=== PATIENT | female | born 1940 | race Caucasian/White ===

== ENCOUNTER 2019-11-23 13:36 | Inpatient (IN) | payer MEDICARE, OTHER ==
--- OUTSIDE RECORDS SUMMARY | 2019-11-23 14:04 | XMS REPORT | Continuity of Care Document ---
:1940 External Reference #:[id number] Author Name Hans Michael D.O. Address [address] [place] [id number] Care Team Providers Name Role Phone Malka Blas MD - Surgery Care Team Information Supervisor Powdered Sugar [phone] Problems Active Problems Provider Date Emphysematous bronchitis Moustapha Renner M.D. Onset: 07/14/2003 Eruption Moustapha Renner M.D. Onset: 07/14/2003 Gastroesophageal reflux disease Moustapha Renner M.D. Onset: 07/14/2003 Hyperlipidemia Moustapha Renner M.D. Onset: 07/14/2003 Migraine variants, not intractable Moustapha Renner M.D. Onset: 07/14/2003 Lichen Moustapha Renner M.D. Onset: 07/14/2003 Diverticular disease of colon Moustapha Renner M.D. Onset: 02/27/2004 Benign essential hypertension Moustapha Renner M.D. Onset: 05/12/2008 Osteochondropathy Moustapha Renner M.D. Onset: 12/26/2011 Osteoarthritis Moustapha Renner M.D. Onset: 01/05/2013 Essential hypertension Moustapha Renner M.D. Onset: 07/18/2015 Chronic obstructive lung disease Moustapha Renner M.D. Onset: 07/18/2015 Polyosteoarthritis, unspecified Moustapha Renner M.D. Onset: 07/18/2015 Impaired fasting glycaemia Hans Michael D.O. Onset: 07/25/2017 Social History Type Date Description Comments Sex Unknown Tobacco Use Start: Unknown End: Unknown Does Not Smoke Cigarettes Tobacco Use Reviewed: 11/21/18 Denies Cigarette Use Smoking Status Reviewed: 10/21/19 Denies Cigarette Use ETOH Use Rare Alcohol Use Tobacco Use Start: Unknown Non Smoker / No Tobacco Tobacco Use Start: Unknown Patient has never smoked Allergies, Adverse Reactions, Alerts Active Allergies Reaction Severity Comments Date Ceftin swelling 07/14/2003 Penicillin rash iitchy 07/14/2003 Singulair headache and nausea chest pain blurred 09/05/2003 vision Erythromycin 11/19/2003 Augmentin 11/19/2003 Doxcycline 11/19/2003 Biaxin 11/19/2003 Zantac hives 05/29/2004 Naproxen 04/05/2011 Pro Air Inhaler shaking 03/12/2012 Medications Active Medications SIG Qnty Indications Ordering Date Provider Nystatin take 4 60ml [facility], 11/05/2019 890305Atwa/ML milliliters swish Hans, D.O. Suspension and swallow 2 times per day x 14 days Furosemide take 1 tablet by 90tabs [facility], 10/22/2019 80mg Tablets mouth Hans, D.O. Shingrix 1 shot repeat 1units [facility], 08/20/2019 50mcg/0.5ML once in 2 months Hans, D.O. Suspension Rec Advair HFA 2 puffs twice a 36gm J44.9 [facility], 04/19/2019 115-21mcg/Act day rinse mouth Hans, D.O. Aerosol after use Proair HFA 1-2 puffs four 25.5gm [facility], 03/04/2019 108(90Base) times a day as Hans, D.O. mcg/Act Aerosol needed Vitamin B Complex 1 by mouth twice Unknown 05/03/2018 Tablets daily [facility]opid[facility]rel [facility], 06/27/2017 75mg mouth once daily Hans, D.O. Tablets Metformin HCL ER take 1 tablet by 90tabs E11.9 [facility], 06/27/2017 500mg mouth once daily Hans, D.O. Tablets ER 24HR Atorvastatin Calcium [facility] 1 [facility], 06/27/2017 40mg Mouth Once Daily Hans, D.O. Tablets AT 5 PM Ipratropium use four times a 540ml J44.9 [facility], 06/17/2016 [place]/Albuterol day as needed in Hans, D.O. Sulfate nebulizer 0.5-2.5(3)mg/3ML Solution Nitrostat 1 every 5min as 100tabs R06.09 [facility], 10/30/2015 0.4mg Tablets Sub needed heart pain Hans, D.O. up to 3 max then call 911 if unreleaved Famotidine Take 1 Tablet By 180tabs [facility], 07/23/2013 40mg Tablets Mouth Twice Daily Hans, D.O. For Acid Reflux Loratadine take one tablet 90tabs J30.9 [facility], 01/12/2013 10mg Tablets by mouth once Hans, D.O. daily Methylprednisolone 1/2-1 tablets a 90tabs J44.9 [facility], 04/27/2012 4mg day mdd 4mg Hans, D.O. Tablets Vitamin D-3 1 po qd otc 627.2 Moustapha Velez 12/04/2011 1000Unit Tablets Brynn Renner Tylenol Extra Strength take one before otc Unknown 04/04/2011 500mg gettingout of bed Tablets in the morning prn Fluticasone Propionate Instill 2 Sprays 96units R51 [facility], 11/01/2010 Each Nostril Once Hans, D.O. 50mcg/Act Suspension A Day For Nasal Congestion, Sandy Allergies, Rinse Mouth Post Use History Medications Sulfamethoxazole/Trimethoprim DS 1 by mouth 20tabs J45.901 [facility], 2018 - 800-160mg twice a Hans, D.O. 08/30/2019 Tablets day Medications Administered in Office Medication SIG Qnty Indications Ordering Provider Date injection, kenalog, 10 mg Hans Michael D.O. 04/20/2018 Injection injection, kenalog, 10 mg Hans Michael D.OCharlene 01/22/2018 Injection injection, kenalog, 10 mg Moustapha Renner M.D. 06/27/2016 Injection H1N1 Swine Flu Vaccine Nurse's Schedule 10/23/2009 Injection injection, walteralog, 10 mg Moustapha Renner M.D. 07/25/2009 Injection Immunizations CPT Code Status Date Vaccine Lot # [id number] Given 06/23/2019 Influenza Vaccine, Inactivated, Subunit, [id number] Adjuvanted, For Intrmusc 07312 Given 08/21/2018 Influenza Vaccine Quadrivalent Preser/[place] [address] Given 08/06/2018 Influenza Vaccine, Inactivated, Subunit, [id number] Adjuvanted, [place] [facility] [place] [address] Given 07/03/2017 Influenza Virus Vaccine, Quadrivalent, Split, [id number] Preservative Free 42325 Given 06/27/2016 Influenza Vaccine Split Virus Preservative Free Im [id number] Use (hi-dose) 07688 Given 08/29/2015 Influenza Vaccine Split Virus Preservative Free Im [id number] Use (hi-dose) 90321 Given 01/23/2015 Prevnar 13 [id number] 92277 Given 07/22/2014 Influenza Vaccine Split Virus Preservative Free Im Use (hi-dose) 91232 Given 07/01/2014 Zostavax 04030 Given 07/23/2013 Flu, Split Virus 3Yrs [id number] 39421 Given 01/12/2013 Adacel or Boostrix, TDaP [id number] 75812 Given 07/15/2012 Flu, Split Virus 3Yrs [id number] 91287 Given 06/27/2011 Flu, Split Virus 3Yrs [id number] 72847 Given 06/27/2011 Pneumococcal Immunization [id number] 55870 Given 07/18/2010 Flu, Split Virus 3Yrs [id number] 44844 Given 07/06/2009 Flu, Split Virus 3Yrs 16185 Given 08/06/2008 Flu, Split Virus 3Yrs [id number] 04497 Given 08/24/2007 Flu, Split Virus 3Yrs [id number] 04718 Given 08/20/2006 Flu, Split Virus 3Yrs [id number] 18236 Given 07/25/2005 Flu, Split Virus 3Yrs 80121 Given 08/04/2004 Flu, Split Virus 3Yrs 58653 Given 08/17/2003 Flu, Split Virus 3Yrs 57285 Given 07/14/2003 Pneumococcal Immunization 89514 Given 10/27/2002 Td Immunization 38700 Given 08/29/1998 Pneumococcal Immunization U-MenB Given Unknown Meningococcal B,Unspecified Vital Signs Date Vital Result Comment 10/21/2019 11:12am BP Systolic 144 mmHg BP Diastolic 60 mmHg Body Temperature 97.8 F Weight 254.00 lb w/sneakers 08/20/2019 1:37pm BP Systolic 138 mmHg BP Diastolic 64 mmHg Height 64 inches 5'4" Weight 240.00 lb BMI (Body Mass Index) 41.2 kg/m2 Results Test Acquired Date Facility Test Result H/L Range Note CBC Auto 10/21/2019 [facility] White Blood 11.1 10^3/uL High 3.5- 10.8 Diff [phone] Count Red Blood Count 4.36 10^6/uL Normal 3.70-4.87 Hemoglobin 13.6 g/dL Normal 12.0-16.0 Hematocrit 41 % Normal 35-47 Mean Corpuscular Volume 93 fL Normal 80-97 Mean Corpuscular Hemoglobin 31 pg Normal 27-31 Mean Corpuscular HGB Conc 34 g/dL Normal 31-36 Red Cell Distribution Width 15 % Normal 10-15 Platelet Count 262 10^3/uL Normal 150-450 Mean Platelet Volume 8.8 fL Normal 7.4-10.4 Abs Neutrophils 9.2 10^3/uL High 1.5-7.7 Abs Lymphocytes 1.1 10^3/uL Normal 1.0-4.8 Abs Monocytes 0.7 10^3/uL Normal 0-0.8 Abs Eosinophils 0.1 10^3/uL Normal 0-0.6 Abs Basophils 0.0 10^3/uL Normal 0-0.2 Abs Nucleated RBC 0.0 10^3/uL Granulocyte % 83.0 % Lymphocyte % 9.8 % Monocyte % 6.0 % Eosinophil % 1.0 % Basophil % 0.2 % Nucleated Red Blood Cells % 0.0 Comp Metabolic Panel 10/21/2019 [facility] Sodium 141 mmol/L Normal 135-145 [phone] Potassium 3.8 mmol/L Normal 3.5-5.0 Chloride 98 mmol/L Low 101-111 Co2 Carbon Dioxide 32 mmol/L Normal 22-32 Anion Gap 11 mmol/L Normal 2-11 Glucose 147 mg/dL High 70-100 Blood Urea Nitrogen 19 mg/dL Normal 6-24 Creatinine 1.19 mg/dL High 0.51-0.95 BUN/Creatinine Ratio 16.0 Normal 8-20 Calcium 9.8 mg/dL Normal 8.6-10.3 Total Protein 6.7 g/dL Normal 6.4-8.9 Albumin 4.3 g/dL Normal 3.2-5.2 Globulin 2.4 g/dL Normal 2-4 Albumin/Globulin Ratio 1.8 Normal 1-3 Total Bilirubin 0.50 mg/dL Normal 0.2-1.0 Alkaline Phosphatase 76 U/L Normal 34-104 Alt 19 U/L Normal 7-52 Ast 16 U/L Normal 13-39 Egfr Non- 43.5 >60 Egfr 52.7 >60 1 Laboratory test 10/21/2019 [facility] Magnesium 2.0 mg/dL Normal 1.9- 2.7 finding [phone] TSH (Thyroid Stim Horm) 4.32 mcIU/mL Normal 0.34-5.60 Vitamin B12 471 pg/mL Normal 180-914 2 Erythrocyte Sed Rate 10 mm/Hr Normal 0-29 C Reactive Protein 3.42 mg/L Normal <8.01 Laboratory test 10/21/2019 [facility] Fungal Cult SEE RESULT 3, 4 finding [phone] Other Sources BELOW Fungal Sensitivities SEE RESULT BELOW 5 Laboratory test finding 08/20/2019 In House Hemoglobin A1c 6.2 1 Because ethnic data is not always readily available, this report includes an eGFR for both -Americans and non- Americans. The National Kidney Disease Education Program (NKDEP) does not endorse the use of the MDRD equation for patients that are not between the ages of 18 and 70, are , have extremes of body size, muscle mass, or nutritional status, or are non- or non-. According to the National Kidney Foundation, irrespective of diagnosis, the stage of the disease is based on the level of kidney function: Stage Description GFR(mL/min/1.73 m(2)) 1 Kidney damage with normal or decreased GFR 90 2 Kidney damage with mild decrease in GFR 60-89 3 Moderate decrease in GFR 30-59 4 Severe decrease in GFR 15-29 5 Kidney failure <15 (or dialysis) 2 Normal Range 180 to 914 Indeterminate Range 145 to 180 Deficient Range <145 3 [id number] MOUTH 4 SEE RESULT BELOW Name: MARILYN VERDUGO Royce : [address]: Hans Michael DO Acct: [id number] Unit: [id number] AGE: 79 Location: [facility] Re10/21/19 SEX: F Status: REG REF SPEC: [id number] SILVIO: 10/21/19-[address] [facility] [address]: Hans Michael DO REQ: [id number] RECD: 10/21/19 STATUS: RES _ SOURCE: MISC SOUR SPDESC: ORDERED: Fungal - Other COMMENTS: [id number] MOUTH Procedure Result Reported Site Fungal Cult - Other Sources Preliminary 11/01/19- 1252 ML Organism 1 ANALI ALBICANS Organism 2 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 Treatment with caspofungin may be necessary. Fungal sensitivity testing available upon request. * [facility] - Main Lab . END OF REPORT DEPARTMENT OF PATHOLOGY, [address] [place] [address] Wm Lyn M.D. Director [facility] # [id number] 5 SEE RESULT BELOW Name: MARILYN VERDUGO Royce : [address]: Hans Michael DO Acct: [id number] Unit: [id number] AGE: 79 Location: [facility] Re10/21/19 SEX: F Status: REG REF SPEC: [id number] SILVIO: 10/21/19-[address] [facility] [address]: Hans Michael DO REQ: [id number] RECD: 10/21/19027 STATUS: COMP _ SOURCE: [facility] SOUR SPDESC: ORDERED: Fungal Sensi COMMENTS: C. GLABRATA FOR CONFIRMATION AND SENS [place] Procedure Result Reported Site Fungal Sensitivities Final 11/08/19- 1508 ML FINAL IDENTIFICATION: Anali glabrata 11/08/2019 Major Test(s) Performed MALDI-TOF Mass Spectrometry Analysis* : Anali glabrata 11/08/2019 Amphotericin B E test: Not interpretable; 0.064 ug/ml 11/08/2019 Anidulafungin: Susceptible; 0.06 ug/ml 11/08/2019 Caspofungin: Susceptible; 0.06 ug/ml 11/08/2019 Fluconazole: Susceptible-Dose Dependent; 8 ug/ml 11/08/2019 Itraconazole: Not interpretable; 1 ug/ml 11/08/2019 Micafungin: Susceptible; 0.015 ug/ml 11/08/2019 Posaconazole: Not interpretable; 1 ug/ml 11/08/2019 Voriconazole: Not interpretable; 0.25 ug/ml 11/08/2019 Isavuconazole: Not interpretable; 0.25 ug/ml 11/08/2019 CONTINUED ON NEXT PAGE DEPARTMENT OF PATHOLOGY, [address] [place] [address] Wm Lyn M.D. Director [facility] # [id number] Specimen: [id number] Collected: 10/21/19-1215 Received: 10/21/19-1430 (Continued) Procedure Result Reported Site Fungal Sensitivities Final (continued) 11/08/19- 1508 NOTES: [1] Antifungal susceptibility testing was performed using broth microdilution method for all drugs except Amphotericin B and 5-flucytosine in accordance with current Clinical and Laboratory Standards [place] (CLSI) standard M27-A3 and in accordance with Clinical Laboratory Improvement Amendments (CLIA) regulations. [2] The SARAHY breakpoints for echinocandins, fluconazole and voriconazole are based upon CLSI M27-S4 document [3] SARAHY equal to or less than 32: Expert consultation on selection of a maximum dosage regimen may be useful * The performance characteristics of this test were determined by the [facility]. It has not been cleared or approved by the U.S. Food and Drug Administration. Test Performed by: [facility] of [address] [address] * [facility] - Main Lab . END OF REPORT DEPARTMENT OF PATHOLOGY, [address] [place] [address] Wm Lyn M.D. Director [facility] # [id number] Procedures Date Code Description Status 10/21/2019 62375 Electrocardiogram Complete Completed 06/23/2019 74436 Omt 7-8 Body Regions Completed 06/14/2019 58289 Omt 3 To 4 Body Regions Involved Completed 02/25/2019 536406300 Diabetic Retinal Eye Exam Completed 06/27/2016 99245306 Mammogram Completed 10/09/2013 481721978 Bone Mineral Density Test Completed 03/21/2004 73290454 Colonoscopy Completed Medical Devices Description No Information Available Encounters Type Date Location Provider Dx Diagnosis Office Visit 10/21/2019 11:00a Main Office Hans Michael D.O. M54.5 Low back pain R73.01 Impaired fasting glucose I10 Essential (primary) hypertension J44.9 Chronic obstructive pulmonary disease, unspecified B37.0 Candidal stomatitis R60.9 Edema, unspecified R05 Cough Office Visit 08/20/2019 1:30p Main Office Hans Michael, Z68.41 Body mass index D.O. (BMI) 40.0-44.9, adult R73.01 Impaired fasting glucose M54.5 Low back pain I10 Essential (primary) hypertension J44.9 Chronic obstructive pulmonary disease, unspecified R05 Cough J45.901 Unspecified asthma with (acute) exacerbation Office Visit 06/23/2019 4:45p Main Office Hans Michael D.O. M54.5 Low back pain I10 Essential (primary) hypertension J44.9 Chronic obstructive pulmonary disease, unspecified M99.00 Segmental and somatic dysfunction of head region M99.03 Segmental and somatic dysfunction of lumbar region M99.05 Segmental and somatic dysfunction of pelvic region M99.01 Segmental and somatic dysfunction of cervical region M99.04 Segmental and somatic dysfunction of sacral region M99.02 Segmental and somatic dysfunction of thoracic region M99.08 Segmental and somatic dysfunction of rib cage Z23 Encounter for immunization Office Visit 06/14/2019 4:30p Main Office Hans Michael D.O. M54.5 Low back pain I10 Essential (primary) hypertension J44.9 Chronic obstructive pulmonary disease, unspecified M99.05 Segmental and somatic dysfunction of pelvic region M99.03 Segmental and somatic dysfunction of lumbar region M99.04 Segmental and somatic dysfunction of sacral region Assessments Date Code Description Provider 10/21/2019 M54.5 Low back pain Hans Michael D.O. 10/21/2019 R73.01 Impaired fasting glucose Hans Michael D.O. 10/21/2019 I10 Essential (primary) hypertension Hans Michael D.O. 10/21/2019 J44.9 Chronic obstructive pulmonary disease, FernandaHans, D.O. unspecified 10/21/2019 B37.0 Candidal stomatitis GiselleshaneHans, D.O. 10/21/2019 R60.9 Edema, unspecified FernandaHans, D.O. 10/21/2019 R05 Cough FernandaHans, D.O. 08/20/2019 Z68.41 Body mass index (BMI) 40.0-44.9, adult SelenaHans long, D.O. 08/20/2019 R73.01 Impaired fasting glucose SelenaHans long, D.O. 08/20/2019 M54.5 Low back pain Hans Michael, D.O. 08/20/2019 I10 Essential (primary) hypertension Hans Michael, D.O. 08/20/2019 J44.9 Chronic obstructive pulmonary disease, SelenaHans long, D.O. unspecified 08/20/2019 R05 Cough FernandaHans, D.O. 08/20/2019 J45.901 Unspecified asthma with (acute) exacerbation Hans Michael, D.O. 06/23/2019 M54.5 Low back pain GiselleshaneHans, D.O. 06/23/2019 I10 Essential (primary) hypertension Hans Michael, D.O. 06/23/2019 J44.9 Chronic obstructive pulmonary disease, SelenaHans long, D.O. unspecified 06/23/2019 M99.00 Segmental and somatic dysfunction of head SopchakAwaison, D.O. region 06/23/2019 M99.03 Segmental and somatic dysfunction of lumbar SopchakHans , D.O. region 06/23/2019 M99.05 Segmental and somatic dysfunction of pelvic SopvesnakHans , D.O. region 06/23/2019 M99.01 Segmental and somatic dysfunction of cervical SopvesnakHans, D.O. region 06/23/2019 M99.04 Segmental and somatic dysfunction of sacral SopvesnakHans , D.O. region 06/23/2019 M99.02 Segmental and somatic dysfunction of thoracic SopvesnakHans, D.O. region 06/23/2019 M99.08 Segmental and somatic dysfunction of rib cage Hans Michael D.O. 06/23/2019 Z23 Encounter for immunization Hans Michael D.O. 06/14/2019 M54.5 Low back pain Hans Michael D.O. 06/14/2019 I10 Essential (primary) hypertension Hans Michael D.O. 06/14/2019 J44.9 Chronic obstructive pulmonary disease, Hans Michael D.O. unspecified 06/14/2019 M99.05 Segmental and somatic dysfunction of pelvic Hans Michael D.O. region 06/14/2019 M99.03 Segmental and somatic dysfunction of lumbar Hans Michael D.O. region 06/14/2019 M99.04 Segmental and somatic dysfunction of sacral Hans Michael D.O. region Plan of Treatment Future Appointment(s):11/23/2019 1:30 pm - Hans Michael D.O. at Main [facility]/21/2019 - Hans Michael D.O.M54.5 Low back painFollow up:1 month edema, low back painR73.01 Impaired fasting ipusckaZ77 Essential (primary) pwovcmkuaamnL94.9 Chronic obstructive pulmonary disease, rxcjdvhudgmR81.0 Candidal uzgmdileluX18.9 Edema, lyldsehcvirX91 Cough Functional Status Description No Information Available Mental Status Description No Information Available Referrals Description No Information Available
--- OUTSIDE RECORDS SUMMARY | 2019-11-23 14:04 | XMS REPORT | Continuity of Care Document ---
:1940 External Reference #:[id number] Author Name Hans Michael D.O. 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 Onset: 07/14/2003 Gastroesophageal reflux disease Moustapha Renner M.D. Onset: 07/14/2003 Hyperlipidemia Moustapha Renner M.D. Onset: 07/14/2003 Migraine variants, not intractable Moustapha Renner M.D. Onset: 07/14/2003 Diverticular disease of colon Moustapha Renner M.D. Onset: 02/27/2004 Benign essential hypertension Moustapha Renner M.D. Onset: 05/12/2008 Osteoarthritis Moustapha Renner M.D. Onset: 01/05/2013 Essential [...] 11/21/18 Denies Cigarette Use Smoking Status Reviewed: 11/11/19 Denies Cigarette Use ETOH Use Rare Alcohol [...] Medications SIG Qnty Indications Ordering Date Provider Fluconazole (800mg/20ml) swish [facility] and swallow daily Hans, D.O. 0 Suspension Rec x 14 days Stop Atorvastatin while taking this medication Levofloxacin 1 po daily for 7tabs [facility].1 [facility], 500[facility] Tablets seven days. Hans, D.O. 0 Prednisone 2 by mouth every 10tabs J44.1 [facility], 20mg Tablets day for 5d until Hans, D.O. 0 gone Furosemide take 1 tablet by [facility], 80[facility] Table[facility] mouth Hans, D.O. 9 Shingrix 1 shot repeat once 1units [facility], 50mcg/0.5ML in 2 months Hans D.O. 9 Suspension Rec Advair HFA 2 puffs twice a 36gm J44.9 [facility], 115-21mcg/Act day rinse mouth Hans D.O. 9 Aerosol after use Proair HFA 1-2 puffs four 25.5gm [facility], 108(90Base) times a day as Hans, D.O. 9 mcg/Act Aerosol needed Vitamin B Complex 1 by mouth twice Unknown Tablets daily 8 Atorvastatin Calcium Take 1 Tablet By 90tabs [place], 40mg Mouth Once Daily Hans, D.O. 7 Tablets AT 5 PM Metformin HCL ER take 1 tablet by 90tabs E11.9 [facility], 500mg mouth once daily Hans, D.O. 7 Tablets ER 24HR Clopidogrel Bisulfate take 1 tablet by 90tabs [place], 75mg mouth once daily Hans, D.O. 7 Tablets Ipratropium use four times a 540ml J44.9 [facility], [place]/Albuterol day as needed in Hans D.O. 6 Sulfate nebulizer 0.5-2.5(3)mg/3ML Solution Nitrostat 1 every 5min as 100tabs R06.09 [facility], 0.4mg Tablets Sub needed heart pain Alli MaxwellO. 6 up to 3 max then call 911 if unreleaved Famotidine Take 1 Tablet By 180tabs [facility], 40mg Tablets Mouth Twice Daily Hans D.O. 3 For Acid Reflux Loratadine take one tablet by 90tabs J30.9 [facility], 10mg Tablets mouth once daily Kwasi Maxwell.O. 3 Methylprednisolone 1/2-1 tablets a 90tabs J44.9 [facility], 4mg day mdd 4mg Hans D.O. 2 Tablets Vitamin D-3 1 po qd otc 627.2 Moustapha Velez 1000Unit Tablets Brynn Renner 2 Tylenol Extra Strength take one before otc Unknown 500mg gettingout of bed 1 Tablets in the morning prn Fluticasone Propionate Instill 2 Sprays 96units R51 [facility], Each Nostril Once Hans D.O. 1 50mcg/Act Suspension A Day For Nasal Congestion, Sandy Allergies, Rinse Mouth Post Use History Medications Nystatin take 4 milliliters 60ml Hans Michael, 11/05/2019 - 316010Ndoz/ML swish and swallow D.O. 11/12/2019 Suspension 2 times per day x 14 days Sulfamethoxazole/Trim 1 by mouth twice a 20tabs J45.901 Hans Michael, - ethoprim DS day D.O. 08/30/2019 800-160mg Tablets Medications Administered in Office Medication SIG Qnty Indications Ordering Provider Date injection, kenalog, 10 mg Hans Michael D.OCharlene 04/20/2018 Injection injection, kenalog, 10 mg Hans Michael D.O. 01/22/2018 Injection injection, kenalog, 10 mg Moustapha Renner M.D. 06/27/2016 Injection H1N1 Swine Flu Vaccine Nurse's Schedule 10/23/2009 Injection injection, kenalog, 10 mg Moustapha Renner M.D. 07/25/2009 Injection Immunizations CPT Code Status Date Vaccine Lot # [id number] Given 06/23/2019 Influenza Vaccine, Inactivated, Subunit, [id number] Adjuvanted, For Intrmusc 65472 Given 08/21/2018 Influenza Vaccine Quadrivalent Preser/Antibiotic Free [place] Use 12956 Given 08/06/2018 Influenza Vaccine, Inactivated, Subunit, [id number] Adjuvanted, For Intrmusc 12300 Given 07/03/2017 Influenza Virus Vaccine, Quadrivalent, Split, [id number] Preservative Free 98539 Given 06/27/2016 Influenza Vaccine Split Virus Preservative Free Im [id number] Use (hi-dose) 38130 Given 08/29/2015 Influenza Vaccine Split Virus Preservative Free Im [id number] Use (hi-dose) 59911 Given 01/23/2015 Prevnar 13 [id number] 61295 Given 07/22/2014 Influenza Vaccine Split Virus Preservative Free Im Use (hi-dose) 44847 Given 07/01/2014 Zostavax 21581 Given 07/23/2013 Flu, Split Virus 3Yrs [id number] 71120 Given 01/12/2013 Adacel or Boostrix, TDaP [id number] 30954 Given 07/15/2012 Flu, Split Virus 3Yrs [id number] 22059 Given 06/27/2011 Flu, Split Virus 3Yrs [id number] 14841 Given 06/27/2011 Pneumococcal Immunization [id number] 28784 Given 07/18/2010 Flu, Split Virus 3Yrs [id number] 58404 Given 07/06/2009 Flu, Split Virus 3Yrs 92135 Given 08/06/2008 Flu, Split Virus 3Yrs [id number] 26725 Given 08/24/2007 Flu, Split Virus 3Yrs [id number] 07795 Given 08/20/2006 Flu, Split Virus 3Yrs [id number] 84251 Given 07/25/2005 Flu, Split Virus 3Yrs 86285 Given 08/04/2004 Flu, Split Virus 3Yrs 50210 Given 08/17/2003 Flu, Split Virus 3Yrs 30079 Given 07/14/2003 Pneumococcal Immunization 78043 Given 10/27/2002 Td Immunization 39353 Given 08/29/1998 Pneumococcal Immunization U-MenB Given Unknown Meningococcal B,Unspecified Vital Signs Date Vital Result Comment 11/11/2019 3:45pm BP Systolic 148 mmHg BP Diastolic 70 mmHg Heart Rate 86 /min O2 % BldC Oximetry 90 % Body Temperature 98.0 F 10/21/2019 11:12am BP Systolic 144 mmHg BP Diastolic 60 mmHg Body Temperature 97.8 F Weight 254.00 lb w/sneakers Results Test Acquired Date Facility Test Result H/L Range Note CBC Auto 10/21/2019 [facility] White Blood 11.1 10^3/uL High 3.5- 10.8 Diff [phone] Count Red Blood Count 4.36 10^6/uL Normal [...] Cells % 0.0 Comp Metabolic Panel 10/21/2019 [facility] Sodium 141 mmol/L Normal 135-145 [phone] Potassium 3.8 mmol/L Normal 3.5-5.0 Chloride 98 [...] Egfr 52.7 >60 1 Laboratory test 10/21/2019 [facility] Magnesium 2.0 mg/dL Normal 1.9- 2.7 finding [phone] TSH (Thyroid Stim Horm) 4.32 mcIU/mL Normal 0.34-5.60 Vitamin B12 471 pg/mL Normal 180-914 2 Erythrocyte Sed Rate 10 mm/Hr Normal 0-29 C Reactive Protein 3.42 mg/L Normal <8.01 Laboratory test 10/21/2019 [facility] Fungal Cult SEE RESULT 3, 4 finding [phone] Other Sources BELOW Fungal Sensitivities SEE RESULT [...] 145 to 180 Deficient Range <145 3 [id number] MOUTH 4 SEE RESULT BELOW Name: MARILYN VERDUGO : [address]: Hans Michael DO Acct: [id number] Unit: [id number] AGE: 79 Location: [facility] Re10/21/19 SEX: F Status: REG REF SPEC: [id number] SILVIO: 10/21/19-[address]: Hans Michael DO REQ: [id number] RECD: 10/21/19-1430 STATUS: RES _ SOURCE: [facility] [place] SOUR SPDESC: ORDERED: Fungal - Other COMMENTS: [id number] MOUTH Procedure Result Reported Site Fungal Cult - Other Sources Preliminary 11/01/19- 1252 ML Organism 1 ANALI ALBICANS Organism 2 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 Treatment with caspofungin may be necessary. Fungal sensitivity testing available upon request. * [facility] - Main Lab . END OF REPORT DEPARTMENT OF PATHOLOGY, [address] [place] [address] Wm Lyn M.D. Director [facility] # [id number] 5 SEE RESULT BELOW Name: MARILYN VERDUGO : [address]: Hans Michael DO Acct: [id number] Unit: [id number] AGE: 79 Location: [facility] Re10/21/19 SEX: F Status: REG REF SPEC: [id number] SILVIO: 10/21/19-[address]: Hans Michael DO REQ: [id number] RECD: 10/21/19-5536 STATUS: COMP _ SOURCE: [facility] SPDESC: ORDERED: Fungal Sensi COMMENTS: C. GLABRATA [...] CONTINUED ON NEXT PAGE DEPARTMENT OF PATHOLOGY, [address] [place] [address] Wm Lyn M.D. Director [facility] # [id number] Specimen: [id number] Collected: 10/21/19-1214 Received: 10/21/19 (Continued) Procedure Result Reported Site Fungal Sensitivities Final (continued) 11/08/19- 1508 NOTES: [1] Antifungal susceptibility testing was performed using broth microdilution method for all drugs except Amphotericin B and 5-flucytosine in accordance with current Clinical and Laboratory Standards [place] (CLSI) standard M27-A3 and in accordance with Clinical Laboratory Improvement Amendments (CLIA) regulations. [2] The SARAHY breakpoints for echinocandins, fluconazole and voriconazole are based upon CLSI M27-S4 document [3] SARAHY equal to or less than 32: Expert consultation on selection of a maximum dosage regimen may be useful * The performance characteristics of this test were determined by the [facility]. It has not been cleared or approved by the U.S. Food and Drug Administration. Test Performed by: [place] [address] * [facility] - Main Lab . END OF REPORT DEPARTMENT OF PATHOLOGY, [address] [place] [address] Wm Lyn M.D. Director [facility] # [id number] Procedures Date Code Description Status 10/21/2019 82962 Electrocardiogram Complete Completed 06/23/2019 68893 Omt 7-8 Body Regions Completed 06/14/2019 24906 Omt 3 To 4 Body Regions Involved Completed 02/25/2019 117615067 Diabetic Retinal Eye Exam Completed 06/27/2016 68230139 Mammogram Completed 10/09/2013 737331832 Bone Mineral Density Test Completed 03/21/2004 44700186 Colonoscopy Completed Medical Devices Description No Information Available Encounters Type Date Location Provider Dx Diagnosis Office Visit 11/11/2019 Main Office Hans Michael J44.1 Chronic obstructive 3:30p D.O. pulmonary disease w (acute) exacerbation J20.9 Acute bronchitis, unspecified R05 Cough R53.83 Other fatigue R06.02 Shortness of breath J44.9 Chronic obstructive pulmonary disease, unspecified I10 Essential (primary) hypertension R73.01 Impaired fasting glucose Office Visit 10/21/2019 11:00a Main Office Hans [...] Office Visit 06/14/2019 4:30p Main Office Hans Michael, D.O. M54.5 Low back pain I10 Essential (primary) hypertension J44.9 Chronic obstructive pulmonary disease, unspecified M99.05 Segmental and somatic dysfunction of pelvic region M99.03 Segmental and somatic dysfunction of lumbar region M99.04 Segmental and somatic dysfunction of sacral region Assessments Date Code Description Provider 11/11/2019 J44.1 Chronic obstructive pulmonary disease with Hans Michael, D.O. (acute) exacerbation 11/11/2019 J20.9 Acute bronchitis, unspecified Awais Michaelon, D.O. 11/11/2019 R05 Cough Hans Michael, D.O. 11/11/2019 R53.83 Other fatigue Hans Michael, D.O. 11/11/2019 R06.02 Shortness of breath Hans Michael, D.O. 11/11/2019 J44.9 Chronic obstructive pulmonary disease, SopAwais longon, D.O. unspecified 11/11/2019 I10 Essential (primary) hypertension Awais Michaelon, D.O. 11/11/2019 R73.01 Impaired fasting glucose Hans Michael, D.O. 10/21/2019 M54.5 Low back pain Hans Michael, D.O. 10/21/2019 R73.01 Impaired fasting glucose Hans Michael, D.O. 10/21/2019 I10 Essential (primary) hypertension Hans Michael, D.O. 10/21/2019 J44.9 Chronic obstructive pulmonary disease, SopAwais longon, D.O. unspecified 10/21/2019 B37.0 Candidal stomatitis Awais Michaelon, D.O. 10/21/2019 R60.9 Edema, unspecified Awais Michaelon, D.O. 10/21/2019 R05 Cough Awais Michaelon, D.O. 08/20/2019 Z68.41 Body mass index (BMI) 40.0-44.9, adult Hans Michael, D.O. 08/20/2019 R73.01 Impaired fasting glucose Hans Michael, D.O. 08/20/2019 M54.5 Low back pain SopchakAwaison, D.O. 08/20/2019 I10 Essential (primary) hypertension Hans Michael, D.O. 08/20/2019 J44.9 Chronic obstructive pulmonary disease, SopHans long, D.O. unspecified 08/20/2019 R05 Cough SopHans long, D.O. 08/20/2019 J45.901 Unspecified asthma with (acute) exacerbation SopHans long, D.O. 06/23/2019 M54.5 Low back pain SopchakAwaison, D.O. 06/23/2019 I10 Essential (primary) hypertension Hans Michael, D.O. 06/23/2019 J44.9 Chronic obstructive pulmonary disease, SopvesnakAwaison, D.O. unspecified 06/23/2019 M99.00 Segmental and somatic dysfunction of head SopchakAwaison, D.O. region 06/23/2019 M99.03 Segmental and somatic dysfunction of lumbar Sopchak, Hans , D.O. region 06/23/2019 M99.05 Segmental and somatic dysfunction of pelvic Sopchak, Hans , D.O. region 06/23/2019 M99.01 Segmental and somatic dysfunction of cervical Sopchak, Hans, D.O. region 06/23/2019 M99.04 Segmental and somatic dysfunction of sacral Sopchak, Hans , D.O. region 06/23/2019 M99.02 Segmental and somatic dysfunction of thoracic Sopchak, Hans, D.O. region 06/23/2019 M99.08 Segmental and somatic dysfunction of rib cage SopchakAwaison, D.O. 06/23/2019 Z23 Encounter for immunization SopvesnakAwaison, D.O. 06/14/2019 M54.5 Low back pain SopvesnakAwaison, D.O. 06/14/2019 I10 Essential (primary) hypertension SopHans long, D.O. 06/14/2019 J44.9 Chronic obstructive pulmonary disease, SopvesnakAwaison, D.O. unspecified 06/14/2019 M99.05 Segmental and somatic dysfunction of pelvic SopchakAwaison , D.O. region 06/14/2019 M99.03 Segmental and somatic dysfunction of lumbar Hans Michael D.O. region 06/14/2019 M99.04 Segmental and somatic dysfunction of sacral Hans Michael D.O. region Plan of Treatment Future Appointment(s):11/23/2019 1:30 pm - Hans Michael D.O. at Main Ncyadm8011/11/2019 - Hans Michael D.O.J44.1 Chronic obstructive pulmonary disease with (acute) exacerbationNew Medication:Levofloxacin 500 mg - 1 po daily for seven days.Prednisone 20 mg - 2 by mouth every day for 5d until goneJ20.9 Acute bronchitis, unspecifiedFollow up:as zgsvtkyztY76 IwrtdT45.83 Other ofoyjnzC06.02 Shortness of wkzwzpT30.9 Chronic obstructive pulmonary disease, rrztjlqckjsJ44 Essential (primary) xbgzkzuvlxcqF87.01 Impaired fasting glucose Functional Status Description No Information Available Mental Status Description No Information Available Referrals Description No Information Available
--- OUTSIDE RECORDS SUMMARY | 2019-11-23 14:04 | XMS REPORT | Continuity of Care Document ---
:1940 External Reference #:[id number] Author Name Hans Michael D.O. (transmitted by agent of provider Esther Leong) Address [address] [place] [address] Care Team Providers Name Role Phone Malka Blas MD - Surgery Care Team Information Speech Therapist [phone] Problems Active Problems Provider Date Emphysematous bronchitis [...] Medications SIG Qnty Indications Ordering Date Provider Shingrix 1 shot repeat 1units [facility], 08/20/2019 50mcg/0.5ML Suspension once in 2 months Zayra Maxwell. Rec Advair HFA 2 puffs twice a 36gm J44.9 [facility], 04/19/2019 115-21mcg/Act day rinse mouth Kwasi Maxwell.O. Aerosol after use Proair HFA 1-2 puffs four 25.5gm [facility], 03/04/2019 108(90Base) mcg/Act times a day as Hans D.Viktor. Aerosol needed Vitamin B Complex 1 by mouth twice Unknown 05/03/2018 Tablets daily Furosemide 1 by mouth every 90tabs [facility], 04/20/2018 40mg Tablets day Hans D.O. Clopidogrel Bisulfate take 1 tablet by 90tabs [facility], 06/27/2017 75mg mouth once daily Kwasi Maxwell.O. Tablets Metformin HCL ER take 1 tablet by 90tabs E11.9 [facility], 06/27/2017 500mg Tablets mouth once daily Hans D.Viktor. ER 24HR Atorvastatin Calcium Take 1 Tablet By 90tabs [facility], 06/27/2017 40mg Mouth Once Daily Hans D.O. Tablets AT 5 PM Ipratropium use four times a 540ml J44.9 [facility], 06/17/2016 [place]/Albuterol Sulfate day as needed in Hans, D.O. nebulizer 0.5-2.5(3)mg/3ML Solution Nitrostat 1 every 5min as 100tabs R06.09 [facility], 10/30/2015 0.4mg Tablets Sub needed heart Hans, D.O. pain up to 3 max then call 911 if unreleaved Famotidine Take 1 Tablet By 180tabs [facility], 07/23/2013 40mg Tablets Mouth Twice Hans, D.O. Daily For Acid Reflux Loratadine take one tablet 90tabs J30.9 [facility], 01/12/2013 10mg Tablets by mouth once Hans, D.O. daily Methylprednisolone 1/2-1 tablets a 90tabs J44.9 [facility], 04/27/2012 4mg Tablets day mdd 4mg Hans, D.O. Vitamin D-3 1 po qd otc 627.2 Moustapha Velez 12/04/2011 1000Unit Tablets Brynn Renner Tylenol Extra Strength take one before otc Unknown 04/04/2011 500mg gettingout of Tablets bed in the morning prn Fluticasone Propionate Instill 2 Sprays 96units R51 [facility], 11/01/2010 Each Nostril Hans, D.O. 50mcg/Act Suspension Once A Day For Nasal Congestion, Sandy Allergies, Rinse Mouth Post Use History Medications Sulfamethoxazole/Trimethoprim DS 1 by mouth 20tabs J45.901 [facility], 2018 - 800-160mg twice a Hans, D.O. 08/30/2019 Tablets day Medications Administered in Office Medication SIG Qnty Indications Ordering Provider Date injection, kenalog, 10 mg Hans Michael, D.OCharlene 04/20/2018 Injection injection, kenalog, 10 mg Hans Michael, D.O. 01/22/2018 Injection injection, kenalog, 10 mg Moustapha Renner M.D. 06/27/2016 Injection H1N1 Swine Flu Vaccine Nurse's Schedule 10/23/2009 Injection injection, kenalog, 10 mg Moustapha Renner M.D. 07/25/2009 Injection Immunizations CPT Code Status Date Vaccine Lot # [id number] Given 06/23/2019 Influenza Vaccine, Inactivated, Subunit, [id number] Adjuvanted, For Intrmusc 71264 Given 08/21/2018 Influenza Vaccine Quadrivalent Preser/Antibiotic [place] Use 43661 Given 08/06/2018 Influenza Vaccine, Inactivated, Subunit, [id number] [facility], [facility] Given 07/03/2017 Influenza Virus Vaccine, Quadrivalent, Split, [id number] Preservative Free 95671 Given 06/27/2016 Influenza Vaccine Split Virus Preservative Free Im [id number] Use (hi-dose) 87091 Given 08/29/2015 Influenza Vaccine Split Virus Preservative Free Im [id number] Use (hi-dose) 73697 Given 01/23/2015 Prevnar 13 [id number] 90959 Given 07/22/2014 Influenza Vaccine Split Virus Preservative Free Im Use (hi-dose) 14401 Given 07/01/2014 Zostavax 69637 Given 07/23/2013 Flu, Split Virus 3Yrs [id number] 57940 Given 01/12/2013 Adacel or Boostrix, TDaP [id number] 01285 Given 07/15/2012 Flu, Split Virus 3Yrs [id number] 19646 Given 06/27/2011 Flu, Split Virus 3Yrs [id number] 97393 Given 06/27/2011 Pneumococcal Immunization [id number] 21829 Given 07/18/2010 Flu, Split Virus 3Yrs [id number] 61159 Given 07/06/2009 Flu, Split Virus 3Yrs 41837 Given 08/06/2008 Flu, Split Virus 3Yrs [id number] 02671 Given 08/24/2007 Flu, Split Virus 3Yrs [id number] 25139 Given 08/20/2006 Flu, Split Virus 3Yrs [id number] 71399 Given 07/25/2005 Flu, Split Virus 3Yrs 43869 Given 08/04/2004 Flu, Split Virus 3Yrs 63455 Given 08/17/2003 Flu, Split Virus 3Yrs 42555 Given 07/14/2003 Pneumococcal Immunization 00609 Given 10/27/2002 Td Immunization 71826 Given 08/29/1998 Pneumococcal Immunization U-MenB Given Unknown [...] Date Facility Test Result H/L Range Note Laboratory test 10/21/2019 [facility] Fungal Cult <pending> finding [phone] Other Sources Laboratory test 08/20/2019 In House Hemoglobin A1c 6.2 finding Procedures Date Code Description Status 10/21/2019 59408 Electrocardiogram Complete Completed 06/23/2019 65513 Omt 7-8 Body Regions Completed 06/14/2019 90876 Omt 3 To 4 Body Regions Involved Completed 02/25/2019 174644515 Diabetic Retinal Eye Exam Completed 06/27/2016 04624506 Mammogram Completed 10/09/2013 893065870 Bone Mineral Density Test Completed 03/21/2004 15488156 Colonoscopy Completed Medical Devices Description No Information Available Encounters Type Date Location Provider Dx Diagnosis Office Visit 10/21/2019 11:00a Main Office Hans Michael D.O. M54.5 Low back pain R73.01 Impaired fasting glucose I10 Essential (primary) hypertension J44.9 Chronic obstructive pulmonary disease, unspecified B37.0 Candidal stomatitis R60.9 Edema, unspecified R05 Cough Office Visit 08/20/2019 1:30p Main Office Hans Michael Z68.41 Body mass index D.O. (BMI) 40.0-44.9, [...] immunization Office Visit 06/14/2019 4:30p Main Office Sopchak, Hans, D.O. M54.5 Low back pain I10 Essential (primary) hypertension J44.9 Chronic obstructive pulmonary disease, unspecified M99.05 Segmental and somatic dysfunction of pelvic region M99.03 Segmental and somatic dysfunction of lumbar region M99.04 Segmental and somatic dysfunction of sacral region Office Visit 05/10/2019 1:30p Main Office Hans Michael, I10 Essential ( primary) D.O. 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 10/21/2019 R73.01 Impaired fasting glucose Hans Michael D.O. 10/21/2019 I10 Essential (primary) hypertension Hans Michael D.O. 10/21/2019 J44.9 Chronic obstructive pulmonary disease, Hans Michael D.O. unspecified 10/21/2019 B37.0 Candidal stomatitis Hans Michael D.O. 10/21/2019 R60.9 Edema, unspecified Hans Michael, D.O. 10/21/2019 R05 Cough Hans Michael D.O. 08/20/2019 Z68.41 Body mass index (BMI) 40.0-44.9, adult Hans Michael D.O. 08/20/2019 R73.01 Impaired fasting glucose Hans Michael D.O. 08/20/2019 M54.5 Low back pain Hans Michael D.O. 08/20/2019 I10 Essential (primary) hypertension Hans Michael D.O. 08/20/2019 J44.9 Chronic obstructive pulmonary disease, Hans Michael D.O. unspecified 08/20/2019 R05 Cough Hans Michael D.O. 08/20/2019 J45.901 Unspecified asthma with (acute) exacerbation Hans Michael D.O. 06/23/2019 M54.5 Low back pain Sopchak, Hans, D.O. 06/23/2019 I10 Essential (primary) hypertension SopvesnakAwaison, D.O. 06/23/2019 J44.9 Chronic obstructive pulmonary disease, Sopchak Hans, D.O. unspecified 06/23/2019 M99.00 Segmental and somatic dysfunction of head Sopchak, Hans, D.O. region 06/23/2019 M99.03 Segmental and somatic [...] SopchakAwaison, D.O. 06/23/2019 Z23 Encounter for immunization Sopchak, Hans, D.O. 06/14/2019 M54.5 Low back pain GisellekAwaison, D.O. 06/14/2019 I10 Essential (primary) hypertension SopvesnakAwaison, D.O. 06/14/2019 J44.9 Chronic obstructive pulmonary disease, SopchakAwaison, D.O. unspecified 06/14/2019 M99.05 Segmental and somatic dysfunction of pelvic Sopchak, Hans , D.O. region 06/14/2019 M99.03 Segmental and somatic dysfunction of lumbar Sopchak, Hans , D.O. region 06/14/2019 M99.04 Segmental and somatic dysfunction of sacral Sopchak, Hans , D.O. region 05/10/2019 I10 Essential (primary) hypertension SopvesnakAwaison, D.O. 05/10/2019 J44.9 Chronic obstructive pulmonary disease, Sopchak, Hans, D.O. 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 occlusion or stenosis 05/10/2019 K21.9 Gastro-esophageal reflux disease without Hans Michael D.O. esophagitis 05/06/2019 I10 Essential (primary) hypertension Nurse's Schedule Plan of Treatment Future Appointment(s):11/23/2019 1:30 pm - Hans Michael D.O. at Main Tylkdq1210/21/2019 - Hans Michael D.O.M54.5 Low back painFollow up:1 month edema, low back painR73.01 Impaired fasting ycwftwrL55 Essential (primary) wehyrkyklimbY69.9 Chronic obstructive pulmonary disease, obdzvronvgsT20.0 Candidal ajweujfykkB61.9 Edema, skotoscduxcE19 Cough Functional Status Description No Information Available Mental Status Description No Information Available Referrals Description No Information Available
[2019-11-23 14:19] LABS: ABS Eosinophils 0.1 10^3/ul (0-0.6); ABS Lymphocytes 0.7 10^3/ul (1.0-4.8); ABS Monocytes 0.5 10^3/ul (0-0.8); ABS Neutrophils 8.3 10^3/ul (1.5-7.7); Eosinophil % 0.7 %; Hematocrit 39 % (35-47); Lymphocyte % 7.7 %; Mean Corpuscular HGB Conc 36 g/dL (31-36); Mean Corpuscular Hemoglobin 32 pg (27-31); Mean Corpuscular Volume 91 fL (80-97); Mean Platelet Volume 7.9 fL (7.4-10.4); Platelet Count 242 10^3/uL (150-450); Red Blood Count 4.33 10^6 /uL (3.70-4.87); Red Cell Distribution Width 15 % (10-15); White Blood Count 9.7 10^3/uL (3.5-10.8)
[2019-11-23 14:24] LABS: INR 0.95 (0.82-1.09)
[2019-11-23 14:47] LABS: Albumin/Globulin Ratio 1.6 (1-3); BUN/Creatinine Ratio 12.6 (8-20); Calcium 9.4 mg/dL (8.6-10.3); EGFR African American 33.8 (>60); EGFR Non-African American 27.9 (>60); Globulin 2.5 g/dL (2-4); Potassium 4.6 mmol/L (3.5-5.0); Total Bilirubin 0.6 mg/dL (0.2-1.0); Total Protein 6.5 g/dL (6.4-8.9)
[2019-11-23] MEDS ORDERED: NS 0.9% 1000 ML** 1,000 ML IV ONE (14:48)
[2019-11-23] MEDS ORDERED: Albuterol HFA INHALER* 8 gm MDI INH ONE (15:11)
--- NOTE | 2019-11-23 15:24 | ED ---
Lower Extremity - HPI Summary HPI Summary: Patient is an 79-year-old female presenting to the ED with a fall out of the shower. She states she has been weak over the past several weeks to month. She has been seeing Dr. Michael for this. She states she has been getting weaker, but denies any fevers, sweats, chills, or recent illness. She is unsure why she is weak. She lives at home with her disabled son and uses a cane for ambulation, however she states she is very weak and feels she is not strong enough to use a cane at this time. She was placed on [address] Michael for her increased leg edema about 2 weeks ago. No hx of CHF. She states she felt somewhat weak prior to the start of the lasix, but this has definitely worsened since the lasix. She is also being treated for a ros infection. She had a f/u appt today, but was unable to make it after she fell. - History of Current Complaint Chief Complaint: EDFall Stated Complaint: FALL PER EMS Time Seen by Provider: 11/23/19 13:42 Hx Obtained From: Patient Onset of Pain: Immediate Onset/Duration: Minutes Severity Initially: Mild Severity Currently: Mild Pain Intensity: 7 Pain Scale Used: 0-10 Numeric Timing: Constant Location: Is Discrete @ - mild L knee pain, no pain with movement Character Of Pain: Aching Associated Signs And Symptoms: Negative: Swelling, Redness, Bruising Aggravating Factor(s): Standing, Ambulation Able to Bear Weight: Yes - Allergies/Home Medications Allergies/Adverse Reactions: Allergies Allergy/AdvReac Type Severity Reaction Status Date / Time MS Penicillins [Penicillins] Allergy Unknown Unknown Verified 07/21/19 09:34 Reaction Details MS Amoxicillin Allergy Unknown Verified 07/21/19 09:34 [From Augmentin] Reaction Details MS Cefuroxime [From Ceftin] Allergy Unknown Verified 07/21/19 09:34 Reaction Details MS Celecoxib [From Celebrex] Allergy Unknown Verified 07/21/19 09:34 Reaction Details MS Clarithromycin Allergy Unknown Verified 07/21/19 09:34 [From Biaxin] Reaction Details MS Clavulanic Acid Allergy Unknown Verified 07/21/19 09:34 [From Augmentin] Reaction Details MS Doxycycline [Doxycycline] Allergy Unknown Verified 07/21/19 09:34 Reaction Details MS Erythromycin Allergy Unknown Verified 07/21/19 09:34 [Erythromycin] Reaction Details MS Esomeprazole [From Nexium] Allergy Unknown Verified 07/21/19 09:34 Reaction Details MS Fluoxetine [Fluoxetine] Allergy Unknown Verified 07/21/19 09:34 Reaction Details MS Hydrocortisone Allergy Unknown Verified 07/21/19 09:34 [Hydrocortisone] Reaction Details MS Montelukast Allergy Unknown Verified 07/21/19 09:34 [From Singulair] Reaction Details MS Naproxen [Naproxen] Allergy Unknown Verified 07/21/19 09:34 Reaction Details MS Ranitidine [From Zantac] Allergy Unknown Verified 07/21/19 09:34 Reaction Details crab Allergy Unknown Uncoded 07/21/19 09:34 Reaction Details Home Medications: Home Medications Acetaminophen [Acetaminophen Extra Strength] 500 mg PO Q8HR PRN 11/23/19 [ History Confirmed 11/23/19] Albuterol HFA INHALER* [Ventolin HFA Inhaler*] 1 puff INH Q6H PRN 11/23/19 [ History Confirmed 11/23/19] Cholecalciferol (Vitamin D3) [Vitamin D3] 1,000 unit PO DAILY 11/23/19 [History Confirmed 11/23/19] Fluconazole ORAL.SUSP* [Diflucan 40 mg/ml ORAL.SUSP*] 20 ml SWISH SWAL DAILY [History Confirmed 11/23/19] Fluticas/Salmet 115/21 HFA(NF) [Advair HFA 115/21 (NF)] 1 puff INH DAILY [History Confirmed 11/23/19] Furosemide TAB* [Lasix TAB*] 80 mg PO DAILY 11/23/19 [History Confirmed 11/23/19 ] Metformin ER (NF) 500 mg PO DAILY 11/23/19 [History Confirmed 11/23/19] PMH/Surg Hx/FS Hx/Imm Hx Previously Healthy: Yes Endocrine/Hematology History: Denies: Hx Anticoagulant Therapy, Hx Diabetes, Hx Thyroid Disease Cardiovascular History: Denies: Hx Hypertension, Hx Pacemaker/ICD Respiratory History: Reports: Hx Asthma Denies: Hx Chronic Obstructive Pulmonary Disease (COPD) GI History: Reports: Hx Hiatal Hernia, Hx Ulcer History: Denies: Hx Renal Disease Musculoskeletal History: Reports: Hx Arthritis, Other Musculoskeletal History - arthritis Sensory History: Reports: Hx Contacts or Glasses - reading Denies: Hx Hearing Aid Opthamlomology History: Reports: Hx Contacts or Glasses - reading Neurological History: Denies: Hx CVA, Hx Dementia, Hx Seizures, Hx Transient Ischemic Attacks (TIA) Psychiatric History: Denies: Hx Panic Disorder, Hx Substance Abuse - Cancer History Cancer Type, Location and Year: arthiritis Hx Chemotherapy: No Hx Radiation Therapy: No - Surgical History Surgery Procedure, Year, and Place: cholecystectomy, hernia repair, right rotator cuff repair, hysterectomy, bladder surgery, bilat cataracts Infectious Disease History: No Infectious Disease History: Denies: Hx Hepatitis, Hx Human Immunodeficiency Virus (HIV), Traveled Outside the [place] in Last 30 Days - Family History Known Family History: Positive: Cardiac Disease - Social History Occupation: Unemployed Lives: With Family Alcohol Use: None Hx Substance Use: No Substance Use Type: Reports: None Hx Tobacco Use: No Smoking Status (MU): Never Smoked Tobacco Review of Systems Negative: Fever, Chills, Fatigue, Skin Diaphoresis Negative: Palpitations, Chest Pain Negative: Shortness Of Breath, Cough Genitourinary: Negative Positive: no symptoms reported, see HPI Positive: Arthralgia - left knee pain. Negative: Myalgia Positive: Weakness Psychological: Normal All Other Systems Reviewed And Are Negative: Yes Physical Exam Triage Information Reviewed: Yes Vital Signs On Initial Exam: Initial Vitals Temp Pulse Resp BP Pulse Ox 98.5 F 78 16 151/76 94 11/23/19 13:41 11/23/19 13:41 11/23/19 13:41 11/23/19 13:41 11/23/19 13:41 Appearance: Positive: Well-Nourished, Obese Skin: Positive: Warm, Skin Color Reflects Adequate Perfusion Head/Face: Positive: Normal Head/Face Inspection Eyes: Positive: Conjunctiva Clear Neck: Positive: Supple, No Lymphadenopathy Respiratory/Lung Sounds: Positive: Clear to Auscultation, Breath Sounds Present Cardiovascular: Positive: RRR, Pulses are Symmetrical in both Upper and Lower Extremities, Leg Edema Left, Leg Edema Right Abdomen Description: Positive: Nontender, Soft Musculoskeletal: Positive: Strength/ROM Intact - no pain with movement of the L knee - log rolled pt without discomfort, no worsening pain from baseline to the bilateral ankles and lower extremities, no pain to back throughout including cervical spine Neurological: Positive: Sensory/Motor Intact, Speech Normal Psychiatric: Positive: Normal AVPU Assessment: Alert Procedures - Sedation Patient Received Moderate/Deep Sedation with Procedure: No Diagnostics - Vital Signs Vital Signs Temp Pulse Resp BP Pulse Ox 11/23/19 13:41 98.5 F 78 16 151/76 94 - Laboratory Lab Results: Lab Results 11/23/19 11/23/19 11/23/19 Range/Units 14:01 14:01 14:01 WBC 9.7 (3.5-10.8) 10^3/uL RBC 4.33 (3.70-4.87) 10^6 /uL Hgb 14.0 (12.0-16.0) g/dL Hct 39 (35-47) % MCV 91 (80-97) fL MCH 32 H (27-31) pg MCHC 36 (31-36) g/dL RDW 15 (10-15) % Plt Count 242 (150-450) 10^3/uL MPV 7.9 (7.4-10.4) fL Neut % (Auto) 85.6 % Lymph % (Auto) 7.7 % [place] % (Auto) 5.6 % Eos % (Auto) 0.7 % Baso % (Auto) 0.4 % Absolute Neuts (auto) 8.3 H (1.5-7.7) 10^3/ul Absolute Lymphs (auto) 0.7 L (1.0-4.8) 10^3/ul Absolute Monos (auto) 0.5 (0-0.8) 10^3/ul Absolute Eos (auto) 0.1 (0-0.6) 10^3/ul Absolute Basos (auto) 0.0 (0-0.2) 10^3/ul Absolute Nucleated RBC 0.0 10^3/ul Nucleated RBC % 0.0 INR (Anticoag Therapy) 0.95 (0.82-1.09) Sodium 126 L (135-145) mmol/L Potassium 4.6 (3.5-5.0) mmol/L Chloride 86 L (101-111) mmol/L Carbon Dioxide 29 (22-32) mmol/L Anion Gap 11 (2-11) mmol/L BUN 22 (6-24) mg/dL Creatinine 1.75 H (0.51-0.95) mg/dL Est GFR ( Amer) 33.8 (>60) Est GFR (Non-Af Amer) 27.9 (>60) BUN/Creatinine Ratio 12.6 (8-20) Glucose 176 H (70-100) mg/dL Calcium 9.4 (8.6-10.3) mg/dL Magnesium 2.0 (1.9-2.7) mg/dL Total Bilirubin 0.60 (0.2-1.0) mg/dL AST 24 (13-39) U/L ALT 25 (7-52) U/L Alkaline Phosphatase 71 (34-104) U/L Total Protein 6.5 (6.4-8.9) g/dL Albumin 4.0 (3.2-5.2) g/dL Globulin 2.5 (2-4) g/dL Albumin/Globulin Ratio 1.6 (1-3) Result Diagrams: 11/24/19 06:59 11/24/19 06:59 Lab Statement: Any lab studies that have been ordered have been reviewed, and results considered in the medical decision making process. Lower Extremity Course/Dx - Course Course Of Treatment: Patient is evaluated for a fall. She states she fell onto her bottom, but states this does not hurt. On physical exam, pt does have some bruising to the coccyx area as well as skin breakdown. She does not appear she has kept up with her ADL's well and does not seem to have much help at home. She mentions she has been weak, which is the reason for the fall. Log rolled patient without pain. No pain to the chest, neck, back, hips, knees or ankles. She states she has a lot of lower leg and foot pain as well as edema at baseline (again, worse over the last 1-2 mos), but this fall did not create new injuries or pain (per pt.) Labs obtained. Hyponatremia at 126 noted. This was not a previous dx or on her previous labs. 1L fluids given. Repeat CMP shows bump to only 127. Evidence of KYLE. This likely secondary to lasix. EKG , chest xray and other labs WNL. Discussed with hospitalist who will admit for OBV to further assess hyponatremia. She has been made NPO since arrival for fluid restriction. Pt will be admitted for acute symptomatic hyponatremia. - Diagnoses Provider Diagnoses: Hyponatremia Discharge ED - Sign-Out/Discharge Documenting (check all that apply): Patient Departure All imaging exams completed and their final reports reviewed: No - Discharge Plan Condition: Fair Disposition: ADMITTED TO [facility] - Billing Disposition and Condition Condition: FAIR Disposition: Admitted to [facility] - Attestation Statements Provider Attestation: I was available for consultation for this patient. I did not evaluate the patient or participate in any medical decision making or disposition decisions unless I am specifically named in the chart as having consulted on the patient. If I have consulted on the patient, please see my own ED note on the patient encounter. Davie Ramos MD
[2019-11-23 17:37] LABS: ALT 23 U/L (7-52); Albumin 3.8 g/dL (3.2-5.2); Albumin/Globulin Ratio 1.5 (1-3); Alkaline Phosphatase 69 U/L (34-104); BUN/Creatinine Ratio 13.1 (8-20); Blood Urea Nitrogen 20 mg/dL (6-24); CO2 Carbon Dioxide 29 mmol/L (22-32); Calcium 8.9 mg/dL (8.6-10.3); Chloride 89 mmol/L (101-111); EGFR African American 39.4 (>60); EGFR Non-African American 32.6 (>60); Globulin 2.5 g/dL (2-4); Glucose 140 mg/dL (70-100); Sodium 127 mmol/L (135-145); Total Protein 6.3 g/dL (6.4-8.9)
[2019-11-23 17:43] LABS: Anion Gap 9 mmol/L (2-11)
[2019-11-23 18:24] LABS: C Reactive Protein 15.14 mg/L (<8.01)
[2019-11-23] MEDS ORDERED: Ondansetron INJ* 2 MG/ML VIAL IV PRN (18:39)
[2019-11-23] MEDS ORDERED: Al Hydrox/Mg Hydrox/Simet LIQ* 30 ML UDC PO PRN (18:39)
[2019-11-23 18:40] LABS: TSH (Thyroid Stimulating Horm) 3.06 mcIU/mL (0.34-5.60)
[2019-11-23 18:55] LABS: Urine Appearance Clear; Urine Bilirubin Negative (Negative); Urine Blood 1+ (Negative); Urine Color Yellow; Urine Glucose Negative (Negative); Urine Ketones Negative (Negative); Urine Nitrite Negative (Negative); Urine Protein Negative (Negative); Urine Specific Gravity 1.008 (1.010-1.030); Urine Urobilinogen Negative (Negative)
[2019-11-23] MEDS ORDERED: NS 0.9% 1000 ML** 1,000 ML IV SCH (19:00)
[2019-11-23 19:02] LABS: Urine Bacteria Absent (Absent); Urine Red Blood Cell Absent (Absent); Urine White Blood Cell Trace(0-5/hpf) (Absent)
[2019-11-23] MEDS ORDERED: Benzonatate CAP* 100 MG PO PRN (19:08)
[2019-11-23] MEDS ORDERED: Dextrose 50% Syringe 50 ML* 25 GM/50 ML SYRINGE IV PUSH PRN (19:10)
--- NOTE | 2019-11-23 20:43 | HP ---
CC: Dr. Michael * HISTORY AND PHYSICAL: DATE OF ADMISSION: 11/23/19 PRIMARY CARE PROVIDER: Dr. Michael. ATTENDING PHYSICIAN WHILE IN THE HOSPITAL: Dr. Rashad Maya * (dictated by JAVAN Aguirre). CHIEF COMPLAINT: Generalized weakness. HISTORY OF PRESENT ILLNESS: Kya Verdugo is an 79-year-old white female with past medical history significant for diabetes mellitus type 2, asthma, osteoarthritis, previous CVA, chronic lower extremity edema and recent treatment for pneumonia, who presents to the emergency department today after falling while getting out of the shower. The patient has been feeling generalized weakness for the last 3 months, specifically in the last couple of weeks. She went to her primary care doctor approximately 2 weeks ago with a cough and progressive generalized weakness and was clinically diagnosed with pneumonia. It does not appear that a chest x-ray was performed at this time. She was prescribed 7 days of Levaquin. The patient just completed this prescription approximately 4 to 5 days ago. Her cough and symptomatic feeling of fevers was feeling improved at this time. She never had a fever during the entirety of the illness that was measured. Her temperature was always measured to be normal. However, since this time, she still feels generally weak. The patient has a walk-in shower. When she was getting out of the shower today, her right knee buckled and she fell to the ground. She denies head trauma or loss of consciousness. She feels no residual pain in her extremities. Her daughter was present at that time and called EMS to help her up as she was too weak to get off the floor. She tells me her cough has been present for the last 3 weeks, but is no longer productive. She previously was having posttussive emesis and this has since resolved since treatment with Levaquin. Additionally, approximately 2 weeks ago her Lasix was increased from 40 mg a day to 80 mg a day. The patient denies chest pain, difficulty breathing, current symptomatic fever, chills, abdominal pain, nausea, vomiting, changes in urination. She tells me she has chronic lower extremity edema and it has not improved since the increase of her Lasix. She denies head pain, changes in vision, dizziness, or lightheadedness. EMERGENCY DEPARTMENT COURSE: When the patient arrived to the emergency department, her vital signs were temperature 98.5, pulse 78, respiratory rate 16 , oxygen saturation 94%, blood pressure 151/76. She was given 1 L of fluids and albuterol inhaler therapy and the hospitalists were asked to evaluate the patient for admission as the patient was feeling too weak to go home. PAST MEDICAL HISTORY: 1. Asthma. 2. Diabetes mellitus type 2. 3. Osteoarthritis. 4. CVA. 5. Lower extremity edema. PAST SURGICAL HISTORY: 1. Cholecystectomy. 2. Hernia repair x2 (umbilical and inguinal). 3. Hysterectomy. 4. Bilateral cataract repair. HOME MEDICATIONS: 1. Vitamin D 1000 units p.o. daily. 2. Tylenol 500 mg p.o. q.8 hours p.r.n. pain. 3. Metformin 500 mg p.o. daily. 4. Plavix 75 mg p.o. daily. 5. Lipitor 40 mg p.o. daily. 6. Flonase 1 spray both nares daily. 7. Advair 115/21 one puff inhaled daily. 8. Methylprednisolone 2 to 4 mg p.o. daily. 9. Albuterol 1 puff inhaled q.6 hours p.r.n. shortness of breath/wheezing. 10. Lasix 80 mg p.o. daily. 11. Fluconazole 20 mL swish and swallow daily. ALLERGIES: Unknown reaction to PENICILLINS, unknown reaction to CEFUROXIME, unknown reaction to CELEBREX, unknown reaction to CLARITHROMYCIN, unknown reaction to DOXYCYCLINE, unknown reaction to ERYTHROMYCIN, unknown reaction to ESOMEPRAZOLE, unknown reaction to FLUOXETINE, unknown reaction to HYDROCORTISONE , unknown reaction to MONTELUKAST, unknown reaction to NAPROXEN, unknown reaction to RANITIDINE, unknown reaction to CRAB, unknown reaction to AMOXICILLIN. FAMILY HISTORY: Mother due to brain cancer. Father due to AR in his 60s. SOCIAL HISTORY: The patient's surrogate medical decision maker should she need one is her daughter, Laura Mar. The patient lives with her handicapped son. She uses a cane at baseline. She has 3 children and she is a . Two of her children are local. 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 Denies illicit drug use, smoking, and drinking. REVIEW OF SYSTEMS: An 11-point review of systems was completed and all pertinent positives and negatives are above in the HPI. All other systems are negative. PHYSICAL EXAMINATION GENERAL: An obese, elderly white female, lying in hospital bed, appearing comfortable, in no acute distress. HEENT: Eyes: PERRL. Sclerae anicteric. ENT: Mucous membranes moist. LUNGS: Clear to auscultation throughout. CARDIO: Regular rate and rhythm without murmurs, rubs, or gallops. ABDOMEN: Normoactive bowel sounds x4 quadrants. The abdomen is soft, nontender , nondistended. EXTREMITIES: +1 pitting edema pedally bilaterally. No clubbing or cyanosis. NEURO: The patient is alert and oriented x3. No focal deficits. Able to move all extremities. SKIN: Warm, dry, and intact. DIAGNOSTIC STUDIES/LAB DATA: Chest x-ray: Left basilar infiltrate and small left pleural effusion. EKG: Sinus arrhythmia, P waves are present. No ST elevations or depression. No T-wave inversions. Rate of 68 beats per minute. White blood cell count 9.7, hemoglobin 14, hematocrit 39, platelet count 242. INR 0.95. Sodium 126, potassium 4.6, chloride 86, carbon dioxide 29, anion gap 11, BUN 22, creatinine 1.75, glucose 176, calcium 9.4, magnesium 2.0. LFTs unremarkable. CRP 15.14. TSH 3.06. ASSESSMENT AND PLAN: Kya Verdugo is an 79-year-old white female with past medical history significant for chronic lower extremity edema, stroke, diabetes mellitus type 2, asthma, osteoarthritis, who presents to the emergency department today after a fall and found to have generalized weakness. The patient will be admitted OBV for: 1. Generalized weakness. The patient has been feeling progressively weak for the last several months; however, more so in the last several weeks since her clinical diagnosis of pneumonia in the outpatient setting. Unfortunately, at that time, a chest x-ray was not performed, so I have nothing to compare on the current chest x- ray. I believe the chest x-ray that shows a small focal consolidation is territory sales representative of the improvement since completing her 7 days of Levaquin and I do not believe that there is any need to treat with antibiotics at this time, as she has already completed a reasonable outpatient therapy. The patient has no clinical signs of infection. Her CRP is barely elevated. She has no leukocytosis, she has no fever, and all of her vitals are within normal limits and in fact she did feel better while she was on the antibiotic. She does have a cough; however, I believe this is likely to take some time to improve. I believe this more recent generalized weakness represents some decompensation after her recent illness and I have ordered PT/ OT to evaluate the patient. I will symptomatically treat her cough with p.r.n. Tessalon. 2. Hyponatremia. I believe this is hypovolemic hyponatremia as the patient does have a BUN and creatinine elevated from her baseline and in the setting of her recent illness is likely dehydrated, but I will check urine osmolality, urine sodium, and serum osmolality. She has already received a liter of fluids in the emergency department and I will continue with continuous fluids. I will hold her Lasix as her hyponatremia is also possibly related to recent increase in her Lasix. She is asymptomatic from her hyponatremia and we will continue to monitor this. The patient's TSH is within normal limits. I will check a morning cortisol especially considering the patient takes chronic prednisone and it is possible if she has missed any doses then this could be territory sales representative of some adrenal insufficiency. 3. Acute kidney injury. The patient has an acute kidney injury, which I believe is prerenal. We will continue to monitor this and IV fluids have been ordered as previously mentioned and her Lasix was held. 4. Diabetes mellitus type 2. The patient takes metformin at home. I will check an A1c. I will hold her home metformin and order lispro sliding scale and diabetic diet as well as fingersticks a.c. 5. Asthma. The patient has no signs of acute exacerbation. She has no wheezing on exam. I will continue her home inhalers. She takes chronic methylprednisolone for this and I will continue this. 6. History of cerebrovascular accident. I will continue the patient's home Plavix. 7. FEN: Carbohydrate consistent diet. Electrolytes without need for repletion at this time. Fluids as previously mentioned. 8. DVT prophylaxis: The patient has a DVT risk score of 3 and I have ordered Lovenox 40 mg subcu daily. 9. Code status: The patient is full code. 10. Early discharge planning: PT/OT has been ordered for this patient to determine if she has any acute needs that would qualify her for subacute rehab. Otherwise, this patient would greatly benefit from visiting nurse services at home and she has already expressed interest in this and apparently has been able to obtain this outpatient. TIME SPENT: Approximately 55 minutes was spent on this admission, approximately half this time was spent at bedside evaluating the patient and discussing the plan of care. This case has been reviewed by my attending, Dr. Rashad Maya, and he agrees with this plan of care. JAVAN AGUIRRE [id number]/[facility] #: [id number] MIKE
[2019-11-23] MEDS: Albuterol HFA INHALER* 8 gm MDI INH PRN (21:34)
[2019-11-23] MEDS: Acetaminophen TAB* 325 MG PO PRN (23:03)
[2019-11-23] MEDS: Enoxaparin(*) 40 MG/0.4 ML SYR SUBCUT SCH (23:03)
[2019-11-24] MEDS: Acetaminophen TAB* 325 MG PO PRN ×3 (02:50→23:21)
[2019-11-24] MEDS: Albuterol HFA INHALER* 8 gm MDI INH PRN ×3 (02:56→23:17)
[2019-11-24 07:06] LABS: ABS Eosinophils 0.2 10^3/ul (0-0.6); ABS Lymphocytes 1.5 10^3/ul (1.0-4.8); ABS Neutrophils 6.3 10^3/ul (1.5-7.7); Eosinophil % 2.5 %; Hematocrit 35 % (35-47); Hemoglobin 12.3 g/dL (12.0-16.0); Lymphocyte % 16.5 %; Mean Corpuscular HGB Conc 35 g/dL (31-36); Mean Corpuscular Hemoglobin 32 pg (27-31); Mean Corpuscular Volume 92 fL (80-97); Mean Platelet Volume 7.5 fL (7.4-10.4); Platelet Count 200 10^3/uL (150-450); Red Blood Count 3.87 10^6 /uL (3.70-4.87); Red Cell Distribution Width 15 % (10-15); White Blood Count 9.1 10^3/uL (3.5-10.8)
[2019-11-24 07:22] LABS: BUN/Creatinine Ratio 12.6 (8-20); Calcium 8.4 mg/dL (8.6-10.3); EGFR African American 45.5 (>60); EGFR Non-African American 37.6 (>60); Potassium 3.8 mmol/L (3.5-5.0)
[2019-11-24] MEDS: FLUTICASONE INH SCH (08:22)
[2019-11-24] MEDS: SALMETEROL INH SCH (08:22)
[2019-11-24] MEDS: Cholecalciferol TAB* 1000 UNITS PO SCH (08:57)
[2019-11-24] MEDS: Clopidogrel TAB* 75 MG PO SCH (08:57)
[2019-11-24] MEDS: methylPREDNISolone TAB* 4 MG PO SCH (08:57)
[2019-11-24] MEDS ORDERED: Metformin ER (NF) 500 MG TAB PO SCH (09:00)
[2019-11-24] MEDS: Insulin LISPRO* 1 UNITS UNIT SUBCUT SCH ×3 (09:03→17:49)
[2019-11-24] MEDS: Fluticasone NASAL SPRAY 50MCG* 16 gm SPRAY BTL BOTH NARES SCH (09:03)
[2019-11-24] MEDS ORDERED: Fluconazole ORAL.SUSP* 40 MG/ML 35 ML BTL PO SCH (13:00)
[2019-11-24] MEDS ORDERED: Albuterol/Ipratropium NEB.SOL* Albuterol 2.5 MG/Ipratropium 0.5 MG 3 ML INH ONE (13:07)
[2019-11-24] MEDS ORDERED: Furosemide IV* 10 MG/ML VIAL (40 MG) IV ONE (13:07)
--- NOTE | 2019-11-24 13:39 | PN ---
Subjective Date of Service: 11/24/19 Interval History: Pt feels more SOB today. H/o asthma and on methylprednisolone for it "since childhood" Objective Active Medications: Acetaminophen (Tylenol Tab*) 650 mg PO Q4H PRN PRN Reason: MILD PAIN or TEMP > 100.4 Last Admin: 11/24/19 08:57 Dose: 650 mg Al Hydrox/Mg Hydrox/Simethicone (Maalox Plus*) 30 ml PO Q6H PRN PRN Reason: INDIGESTION Albuterol (Ventolin Hfa Inhaler*) 1 puff INH Q6H PRN PRN Reason: SOB/WHEEZING Last Admin: 11/24/19 07:35 Dose: 1 puff Albuterol (Ventolin 2.5 Mg/3 Ml Neb.Allegra*) 2.5 mg INH Q4H PRN PRN Reason: SOB/WHEEZING Benzonatate (Tessalon Cap*) 100 mg PO BID PRN PRN Reason: COUGH Cholecalciferol (Vitamin D Tab*) 1,000 units PO DAILY [facility] Last Admin: 11/24/19 08:57 Dose: 1,000 units Clopidogrel Bisulfate (Plavix Tab*) 75 mg PO DAILY [facility] Last Admin: 11/24/19 08:57 Dose: 75 mg Dextrose (D50w Syringe 50 Ml*) 12.5 gm IV PUSH .FOR FS < 60 - SS PRN PRN Reason: FS < 60 Enoxaparin Sodium (Lovenox(*)) 40 mg SUBCUT Q24H [facility] Last Admin: 11/23/19 23:03 Dose: 40 mg Fluconazole (Diflucan Susp* Oralsyr) 400 mg .SEE ORDER DAILY [facility] Fluticasone Propionate (Flonase Nasal [place] 50mcg*) 1 spray BOTH NARES DAILY [facility] Last Admin: 11/24/19 09:03 Dose: 1 spray Insulin Human Lispro (Humalog*) 0 units SUBCUT AC [facility]; Protocol Last Admin: 11/24/19 12:24 Dose: 3 units Methylprednisolone (Medrol Tab*) 4 mg PO DAILY [facility] Last Admin: 11/24/19 08:57 Dose: 4 mg Fluticasone/Salmeterol (Advair Hfa 115/21 (Nf)) 1 puff INH DAILY [facility]; Protocol Last Admin: 11/24/19 08:22 Dose: Not Given Senna (Senokot 8.6 Mg Tab*) 1 tab PO BID PRN PRN Reason: CONSTIPATION Vital Signs - 8 hr 11/24/19 11/24/19 11/24/19 07:15 08:00 11:15 Temperature 97.5 F 97.8 F Pulse Rate 67 81 Respiratory 20 20 20 Rate Blood Pressure 147/53 147/45 (mmHg) O2 Sat by Pulse 93 93 Oximetry 11/24/19 13:34 Temperature Pulse Rate 92 Respiratory 18 Rate Blood Pressure (mmHg) O2 Sat by Pulse 100 Oximetry Oxygen Devices in Use Now: Nasal Cannula Appearance: 79 yo F in nAD, aAOx3 Eyes: No Scleral Icterus, PERRLA Ears/Nose/Mouth/Throat: NL Teeth, Lips, Gums, Mucous Membranes Moist Neck: NL Appearance and Movements; NL JVP, Trachea Midline Respiratory: Symmetrical Chest Expansion and Respiratory Effort, - - rales b/l lower lungs Cardiovascular: NL Sounds; No Murmurs; No JVD, RRR Abdominal: NL Sounds; No Tenderness; No Distention, No Hepatosplenomegaly Lymphatic: No Cervical Adenopathy Extremities: No Clubbing, Cyanosis, - - +2 b/l pedal edema Skin: No Nodules or Sclerosis Neurological: Alert and Oriented x 3, NL Muscle Strength and Tone Result Diagrams: 11/24/19 06:59 11/24/19 06:59 Additional Lab and Data: Lab Results 11/23/19 11/23/19 11/23/19 Range/Units 14:01 14:01 14:01 WBC 9.7 (3.5-10.8) 10^3/uL RBC 4.33 (3.70-4.87) 10^6 /uL Hgb 14.0 (12.0-16.0) g/dL Hct 39 (35-47) % MCV 91 (80-97) fL MCH 32 H (27-31) pg MCHC 36 (31-36) g/dL RDW 15 (10-15) % Plt Count 242 (150-450) 10^3/uL MPV 7.9 (7.4-10.4) fL Neut % (Auto) 85.6 % Lymph % (Auto) 7.7 % [place] % (Auto) 5.6 % Eos % (Auto) 0.7 % Baso % (Auto) 0.4 % Absolute Neuts (auto) 8.3 H (1.5-7.7) 10^3/ul Absolute Lymphs (auto) 0.7 L (1.0-4.8) 10^3/ul Absolute Monos (auto) 0.5 (0-0.8) 10^3/ul Absolute Eos (auto) 0.1 (0-0.6) 10^3/ul Absolute Basos (auto) 0.0 (0-0.2) 10^3/ul Absolute Nucleated RBC 0.0 10^3/ul Nucleated RBC % 0.0 INR (Anticoag Therapy) 0.95 (0.82-1.09) Sodium 126 L (135-145) mmol/L Potassium 4.6 (3.5-5.0) mmol/L Chloride 86 L (101-111) mmol/L Carbon Dioxide 29 (22-32) mmol/L Anion Gap 11 (2-11) mmol/L BUN 22 (6-24) mg/dL Creatinine 1.75 H (0.51-0.95) mg/dL Est GFR ( Amer) 33.8 (>60) Est GFR (Non-Af Amer) 27.9 (>60) BUN/Creatinine Ratio 12.6 (8-20) Glucose 176 H (70-100) mg/dL Calcium 9.4 (8.6-10.3) mg/dL Magnesium 2.0 (1.9-2.7) mg/dL Total Bilirubin 0.60 (0.2-1.0) mg/dL AST 24 (13-39) U/L ALT 25 (7-52) U/L Alkaline Phosphatase 71 (34-104) U/L Total Protein 6.5 (6.4-8.9) g/dL Albumin 4.0 (3.2-5.2) g/dL Globulin 2.5 (2-4) g/dL Albumin/Globulin Ratio 1.6 (1-3) Assess/Plan/Problems-Billing Assessment: 79 yo f with h/o asthma(on chronic steroids), DM, HTN, CHF admitted after a fall with hyponatremia - Patient Problems (1) Hyponatremia Comment: improved with IVF, but now pt appears to be in CHF will tx with Lasix IV x1 (2) CHF (congestive heart failure) Comment: Acute diastolic, pt has h/o CHF on Lasix 80 mg at home will get echo, daily weights. Tx with one dose IV Lasix today (3) DM2 (diabetes mellitus, type 2) Comment: holding metformin, cont ISS HbA1C 7.0 (4) Asthma Comment: Continue prn nebs and oral steroids appears to be in exacerbation, although suspect SOB today is related more to CHF than asthma (5) Cerebellar stroke Comment: in 2017-cont Plavix (6) CKD stage 3 due to type 2 diabetes mellitus Comment: creat improved today cont to monitor (7) DVT prophylaxis Comment: HSQ Status and Disposition: OBV will be switched to inpatient likely will require STR
[2019-11-24] MEDS: Fluconazole SUSP* ORALSYR 40 MG/ML SCH (14:07)
--- NOTE | 2019-11-24 16:07 | ECHO ---
*[facility]* [place] [address] Fax #: [phone] Transthoracic Echocardiogram Patient: Kya Verdugo : 1940 Study Date: 11/24/2019 Age: 79 Gender: F HR: 81 bpm Height: 66 in /167.6 cm BSA: 2.18 m^2 Weight: 244.5 lb /111.1 kg BMI: 39.5 kg/m^2 *Slasher Hand: Cindy Bailey [facility] *Referring Physician: * Eryn Gonzalez *Reading Physician: * Genoveva Howell MD Indications: Congestive Heart Failure. History: Generalized edema. Angina pectoris. Risk factors: Diabetes mellitus. Conclusions Summary: - Procedure narrative: Image quality was fair. - Left ventricle: The cavity size is mildly reduced. Wall thickness is mildly increased. There is no consistent Doppler evidence of clinically significant diastolic dysfunction. - Right ventricle: Systolic function is hyperdynamic. - Right atrium: The atrium is mildly dilated. - All valves show normal function. - Pericardium, extracardiac: A prominent pericardial fat pad is present. - Compared with prior echocardiogram of 06/26/17, ejection fraction hyperdynamic on that study as well, ejection fraction >65%, stable c/w prior echocardiogram. Study data: Transthoracic echocardiogram. Procedure: Transthoracic echocardiography was performed. Image quality was fair. Complete 2D, spectral Doppler, and color flow Doppler. Location: Bedside. Patient status: Inpatient. Patient room number: 413. Rhythm: Normal sinus rhythm. Findings Left ventricle: The cavity size is mildly reduced. Wall thickness is mildly increased. Systolic function is hyperdynamic. The estimated ejection fraction is 60-65%. Wall motion is normal; there are no regional wall motion abnormalities. There is no consistent Doppler evidence of clinically significant diastolic dysfunction. Right ventricle: The cavity size is normal. Wall thickness is mildly increased. Systolic function is hyperdynamic. Left atrium: The atrium is normal in size. Right atrium: The atrium is mildly dilated. Mitral valve: The leaflets are normal thickness. There is no evidence of stenosis. There is no significant regurgitation. Aortic valve: The valve is trileaflet. The leaflets are mildly thickened. There is no evidence of stenosis. There is no significant regurgitation. Tricuspid valve: The leaflets are normal thickness. There is no evidence of stenosis. There is trace regurgitation. Pulmonic valve: The leaflets are normal thickness. There is no evidence of stenosis. There is trace regurgitation. Aorta: The aortic root appears normal. The aortic arch appears normal. Pericardium: A prominent pericardial fat pad is present. There is no significant pericardial effusion. Pulmonary arteries: Systolic pressure can not be accurately estimated. Systemic veins: Inferior vena cava: The vessel is normal in size. There is (>= 50%) respiratory change in the IVC dimension. Measurements Left ventricle Value Ref Aortic valve continued Value Ref FENG, LAX (L) 3.7 cm 3.8 - 5.2 Peak v, S 1.76 m/sec ---- ESD, LAX (L) 1.7 cm 2.2 - 3.5 VTI, S 35.6 cm ---- FS, LAX (H) 54 % 27 - 45 Mean grad, S 7.0 mm Hg ---- PW, ED, LAX (H) 1.0 cm 0.6 - 0.9 Peak grad, S 12.0 mm Hg ---- E', lat jonnathan, TDI (L) 8.4 cm/sec >=10.0 E/e', lat jonnathan, 10 Mitral valve Value Ref TDI Peak E 0.8 m/sec ---- E', med jonnathan, TDI 7.2 cm/sec >=7.0 Peak A 1.09 m/se c ---- E/e', med jonnathan, 11 Decel time 264 ms ---- TDI PHT 102 ms ---- E', avg, TDI 7.8 cm/sec Mean grad, D 2.0 mm Hg ---- E/e', avg, TDI 10 <=14 Peak grad, D 5.0 mm H g ---- Peak E/A ratio 0.7 ---- LVOT Value Ref MVA, PHT 2.2 cm^2 ---- Peak deepali, S 1.36 m/sec Peak grad, S 7 mm Hg Pulmonic valve Value Ref Mean grad, S 4 mm Hg Peak v, S 0.78 m/sec ---- Peak grad, S 2.0 mm Hg ---- Ventricular septum Value Ref IVS, ED (H) 1.2 cm 0.6 - 0.9 Aortic root Value Ref Root diam 2.7 cm <4 .3 Right ventricle Value Ref Root max diam, ED 2.7 cm <4 .3 FENG, LAX 1.8 cm FENG minor ax, A4C 2.9 cm 1.9 - 3.5 Ascending aorta Value Ref mid AAo AP diam, S 2.6 cm ---- AAo AP diam/bsa, S 1.2 cm/m^2 ---- Left atrium Value Ref AP dim, ES (L) 2.60 cm 2.70 - Aortic arch Value Ref 3.80 Arch diam 2.3 cm ---- ML dim, A4C 2.9 cm SI dim, A4C 6.5 cm Decending aorta Value Ref Vol/bsa, ES, A/L 31 ml/m^2 16 - 34 Irina peak deepali 0.53 m/sec ---- Right atrium Value Ref Inferior vena cava Value Ref SI dim, ES (H) 6.2 cm 3.4 - 5.3 Diam 1.4 cm ---- ML dim, ES, A4C 3.8 cm 2.6 - 4.4 Estimated RAP 8 mm Hg Aortic valve Value Ref Jonnathan diam, ED 2.0 cm Legend: (L) and (H) mayte values outside specified reference range. Prepared and electronically signed by Genoveva Howell MD 11/24/2019 16:07
[2019-11-24] MEDS ORDERED: Atorvastatin* 40 MG TAB PO SCH (17:00)
[2019-11-24] MEDS ORDERED: Furosemide IV* 10 MG/ML 2 ML VIAL (20 MG) IV ONE (18:04)
[2019-11-24] MEDS: Enoxaparin(*) 40 MG/0.4 ML SYR SUBCUT SCH (23:21)
[2019-11-24] MEDS: Albuterol 2.5 MG/3 ML NEB.SOL* (0.083%) INH SCH (23:45)
[2019-11-25] MEDS: Acetaminophen TAB* 325 MG PO PRN ×3 (05:09→20:12)
[2019-11-25 05:14] LABS: BUN/Creatinine Ratio 14.5 (8-20); Calcium 8.9 mg/dL (8.6-10.3); EGFR African American 53.7 (>60); EGFR Non-African American 44.4 (>60); Potassium 3.9 mmol/L (3.5-5.0)
[2019-11-25] MEDS: Albuterol 2.5 MG/3 ML NEB.SOL* (0.083%) INH PRN (05:24)
[2019-11-25] MEDS: Albuterol 2.5 MG/3 ML NEB.SOL* (0.083%) INH SCH ×3 (07:01→23:18)
[2019-11-25] MEDS: SALMETEROL INH SCH (07:38)
[2019-11-25] MEDS: FLUTICASONE INH SCH (07:38)
[2019-11-25] MEDS: Insulin LISPRO* 1 UNITS UNIT SUBCUT SCH ×3 (08:04→17:12)
[2019-11-25] MEDS: Clopidogrel TAB* 75 MG PO SCH (08:53)
[2019-11-25] MEDS: methylPREDNISolone TAB* 4 MG PO SCH (08:53)
[2019-11-25] MEDS: Cholecalciferol TAB* 1000 UNITS PO SCH (08:53)
[2019-11-25] MEDS: Fluticasone NASAL SPRAY 50MCG* 16 gm SPRAY BTL BOTH NARES SCH (09:00)
[2019-11-25] MEDS ORDERED: Furosemide IV* 10 MG/ML VIAL (40 MG) IV ONE (09:15)
[2019-11-25] MEDS: Fluconazole SUSP* ORALSYR 40 MG/ML SCH (10:14)
--- NOTE | 2019-11-25 16:24 | PN ---
Subjective Date of Service: 11/25/19 Interval History: Pt is upset that she needs to go to [facility]. Feels that breathing slightly better and legs less edematous Objective Active Medications: Acetaminophen (Tylenol Tab*) 650 mg PO Q4H PRN PRN Reason: MILD PAIN or TEMP > 100.4 Last Admin: 11/25/19 08:53 Dose: 650 mg Al Hydrox/Mg Hydrox/Simethicone (Maalox Plus*) 30 ml PO Q6H PRN PRN Reason: INDIGESTION Albuterol (Ventolin Hfa Inhaler*) 1 puff INH Q6H PRN PRN Reason: SOB/WHEEZING Last Admin: 11/24/19 23:17 Dose: 1 puff Albuterol (Ventolin 2.5 Mg/3 Ml Neb.Allegra*) 2.5 mg INH Q4H PRN PRN Reason: SOB/WHEEZING Last Admin: 11/25/19 05:24 Dose: 2.5 mg Albuterol (Ventolin 2.5 Mg/3 Ml Neb.Allegra*) 2.5 mg INH Q8H [facility] Last Admin: 11/25/19 15:07 Dose: 2.5 mg Benzonatate (Tessalon Cap*) 100 mg PO BID PRN PRN Reason: COUGH Cholecalciferol (Vitamin D Tab*) 1,000 units PO DAILY [facility] Last Admin: 11/25/19 08:53 Dose: 1,000 units Clopidogrel Bisulfate (Plavix Tab*) 75 mg PO DAILY [facility] Last Admin: 11/25/19 08:53 Dose: 75 mg Dextrose (D50w Syringe 50 Ml*) 12.5 gm IV PUSH .FOR FS < 60 - SS PRN PRN Reason: FS < 60 Enoxaparin Sodium (Lovenox(*)) 40 mg SUBCUT Q24H [facility] Last Admin: 11/24/19 23:21 Dose: 40 mg Fluconazole (Diflucan Susp* Oralsyr) 400 mg .SEE ORDER DAILY [facility] Last Admin: 11/25/19 10:14 Dose: 400 mg Fluticasone Propionate (Flonase Nasal [place] 50mcg*) 1 spray BOTH NARES DAILY [facility] Last Admin: 11/25/19 09:00 Dose: 1 spray Furosemide (Lasix Iv*) 40 mg IV 0800,1700 [facility] Insulin Human Lispro (Humalog*) 0 units SUBCUT AC [facility]; Protocol Last Admin: 11/25/19 12:42 Dose: 3 units Methylprednisolone (Medrol Tab*) 4 mg PO DAILY [facility] Last Admin: 11/25/19 08:53 Dose: 4 mg Fluticasone/Salmeterol (Advair Hfa 115/21 (Nf)) 1 puff INH DAILY [facility]; Protocol Last Admin: 11/25/19 07:38 Dose: Not Given Senna (Senokot 8.6 Mg Tab*) 1 tab PO BID PRN PRN Reason: CONSTIPATION Vital Signs - 8 hr 11/25/19 11/25/19 11/25/19 10:56 15:08 15:34 Temperature 96.9 F 97.6 F Pulse Rate 70 65 71 Respiratory 16 18 22 Rate Blood Pressure 148/68 143/52 (mmHg) O2 Sat by Pulse 94 99 95 Oximetry Oxygen Devices in Use Now: Nasal Cannula Appearance: 79 yo f in nAD, aAOx3 Eyes: No Scleral Icterus, PERRLA Ears/Nose/Mouth/Throat: NL Teeth, Lips, Gums Neck: NL Appearance and Movements; NL JVP Respiratory: Symmetrical Chest Expansion and Respiratory Effort, - - decreased breath sounbds b/l bases Cardiovascular: NL Sounds; No Murmurs; No JVD, RRR Abdominal: NL Sounds; No Tenderness; No Distention, No Hepatosplenomegaly Lymphatic: No Cervical Adenopathy Extremities: No Clubbing, Cyanosis, - - +1 b/l LE's pitting edema Skin: No Nodules or Sclerosis Neurological: Alert and Oriented x 3, NL Muscle Strength and Tone Result Diagrams: 11/24/19 06:59 11/25/19 04:36 Additional Lab and Data: Lab Results 11/23/19 11/23/19 11/23/19 Range/Units 14:01 14:01 14:01 WBC 9.7 (3.5-10.8) 10^3/uL RBC 4.33 (3.70-4.87) 10^6 /uL Hgb 14.0 (12.0-16.0) g/dL Hct 39 (35-47) % MCV 91 (80-97) fL MCH 32 H (27-31) pg MCHC 36 (31-36) g/dL RDW 15 (10-15) % Plt Count 242 (150-450) 10^3/uL MPV 7.9 (7.4-10.4) fL Neut % (Auto) 85.6 % Lymph % (Auto) 7.7 % [place] % (Auto) 5.6 % Eos % (Auto) 0.7 % Baso % (Auto) 0.4 % Absolute Neuts (auto) 8.3 H (1.5-7.7) 10^3/ul Absolute Lymphs (auto) 0.7 L (1.0-4.8) 10^3/ul Absolute Monos (auto) 0.5 (0-0.8) 10^3/ul Absolute Eos (auto) 0.1 (0-0.6) 10^3/ul Absolute Basos (auto) 0.0 (0-0.2) 10^3/ul Absolute Nucleated RBC 0.0 10^3/ul Nucleated RBC % 0.0 INR (Anticoag Therapy) 0.95 (0.82-1.09) Sodium 126 L (135-145) mmol/L Potassium 4.6 (3.5-5.0) mmol/L Chloride 86 L (101-111) mmol/L Carbon Dioxide 29 (22-32) mmol/L Anion Gap 11 (2-11) mmol/L BUN 22 (6-24) mg/dL Creatinine 1.75 H (0.51-0.95) mg/dL Est GFR ( Amer) 33.8 (>60) Est GFR (Non-Af Amer) 27.9 (>60) BUN/Creatinine Ratio 12.6 (8-20) Glucose 176 H (70-100) mg/dL Calcium 9.4 (8.6-10.3) mg/dL Magnesium 2.0 (1.9-2.7) mg/dL Total Bilirubin 0.60 (0.2-1.0) mg/dL AST 24 (13-39) U/L ALT 25 (7-52) U/L Alkaline Phosphatase 71 (34-104) U/L Total Protein 6.5 (6.4-8.9) g/dL Albumin 4.0 (3.2-5.2) g/dL Globulin 2.5 (2-4) g/dL Albumin/Globulin Ratio 1.6 (1-3) Microbiology and Other Data: Microbiology 11/23/19 17:47 Urine Culture - Final Urine Assess/Plan/Problems-Billing Assessment: 79 yo f with h/o asthma(on chronic steroids), DM, HTN, CHF admitted after a fall with hyponatremia - Patient Problems (1) Hyponatremia Comment: improved with IVF, but now pt appears to be in CHF Cont tx with IV Lasix (2) CHF (congestive heart failure) Comment: Acute diastolic, pt has h/o CHF on Lasix 80 mg at home Echo shows significant diastolic dysfunction, EF 65% (3) DM2 (diabetes mellitus, type 2) Comment: holding metformin, cont ISS HbA1C 7.0 (4) Asthma Comment: Continue prn nebs and oral steroids appears to be in exacerbation, although suspect SOB today is related more to CHF than asthma (5) Cerebellar stroke Comment: in 2017-cont Plavix (6) CKD stage 3 due to type 2 diabetes mellitus Comment: creat improved today with KYLE due to CHF cont to monitor (7) DVT prophylaxis Comment: HSQ Status and Disposition: OBV switched to inpatient likely will require STR
[2019-11-25] MEDS: Furosemide IV* 10 MG/ML 10 ML VIAL (100 MG) IV SCH (17:12)
[2019-11-25] MEDS: Enoxaparin(*) 40 MG/0.4 ML SYR SUBCUT SCH (20:12)
[2019-11-26] MEDS: Acetaminophen TAB* 325 MG PO PRN ×2 (00:55→08:21)
[2019-11-26] MEDS: SALMETEROL INH SCH (07:23)
[2019-11-26] MEDS: FLUTICASONE INH SCH (07:23)
[2019-11-26] MEDS: Albuterol 2.5 MG/3 ML NEB.SOL* (0.083%) INH SCH ×2 (07:33→14:01)
[2019-11-26] MEDS: Insulin LISPRO* 1 UNITS UNIT SUBCUT SCH ×3 (07:55→17:00)
[2019-11-26] MEDS: methylPREDNISolone TAB* 4 MG PO SCH ×2 (08:21→12:19)
[2019-11-26] MEDS: Clopidogrel TAB* 75 MG PO SCH (08:21)
[2019-11-26] MEDS: Cholecalciferol TAB* 1000 UNITS PO SCH (08:21)
[2019-11-26] MEDS: Fluticasone NASAL SPRAY 50MCG* 16 gm SPRAY BTL BOTH NARES SCH (08:25)
[2019-11-26] MEDS: Furosemide IV* 10 MG/ML 10 ML VIAL (100 MG) IV SCH ×2 (08:27→17:00)
[2019-11-26] MEDS: Fluconazole SUSP* ORALSYR 40 MG/ML SCH (09:48)
[2019-11-26 09:58] LABS: BUN/Creatinine Ratio 15.9 (8-20); EGFR African American 59.6 (>60); EGFR Non-African American 49.2 (>60)
--- NOTE | 2019-11-26 10:41 | PN ---
Subjective Date of Service: 11/26/19 Interval History: Pt c/o lower back pain ever since her fall and was able to show me the bruise on left buttock after a fall at home Breathing better. Sen with daughter Laura by the bedside Objective Active Medications: Acetaminophen (Tylenol Tab*) 650 mg PO Q4H PRN PRN Reason: MILD PAIN or TEMP > 100.4 Last Admin: 11/26/19 08:21 Dose: 650 mg Al Hydrox/Mg Hydrox/Simethicone (Maalox Plus*) 30 ml PO Q6H PRN PRN Reason: INDIGESTION Albuterol (Ventolin Hfa Inhaler*) 1 puff INH Q6H PRN PRN Reason: SOB/WHEEZING Last Admin: 11/24/19 23:17 Dose: 1 puff Albuterol (Ventolin 2.5 Mg/3 Ml Neb.Allegra*) 2.5 mg INH Q4H PRN PRN Reason: SOB/WHEEZING Last Admin: 11/25/19 05:24 Dose: 2.5 mg Albuterol (Ventolin 2.5 Mg/3 Ml Neb.Allegra*) 2.5 mg INH Q8H [facility] Last Admin: 11/26/19 07:33 Dose: 2.5 mg Benzonatate (Tessalon Cap*) 100 mg PO BID PRN PRN Reason: COUGH Cholecalciferol (Vitamin D Tab*) 1,000 units PO DAILY [facility] Last Admin: 11/26/19 08:21 Dose: 1,000 units Clopidogrel Bisulfate (Plavix Tab*) 75 mg PO DAILY [facility] Last Admin: 11/26/19 08:21 Dose: 75 mg Dextrose (D50w Syringe 50 Ml*) 12.5 gm IV PUSH .FOR FS < 60 - SS PRN PRN Reason: FS < 60 Enoxaparin Sodium (Lovenox(*)) 40 mg SUBCUT Q24H [facility] Last Admin: 11/25/19 20:12 Dose: 40 mg Fluconazole (Diflucan Susp* Oralsyr) 400 mg .SEE ORDER DAILY [facility] Last Admin: 11/26/19 09:48 Dose: 400 mg Fluticasone Propionate (Flonase Nasal [place] 50mcg*) 1 spray BOTH NARES DAILY [facility] Last Admin: 11/26/19 08:25 Dose: 1 spray Furosemide (Lasix Iv*) 40 mg IV 0800,1700 [facility] Last Admin: 11/26/19 08:27 Dose: 40 mg Insulin Human Lispro (Humalog*) 0 units SUBCUT AC [facility]; Protocol Last Admin: 11/26/19 07:55 Dose: Not Given Methylprednisolone (Medrol Tab*) 20 mg PO DAILY [facility] Fluticasone/Salmeterol (Advair Hfa 115/21 (Nf)) 1 puff INH DAILY [facility]; Protocol Last Admin: 11/26/19 07:23 Dose: Not Given Senna (Senokot 8.6 Mg Tab*) 1 tab PO BID PRN PRN Reason: CONSTIPATION Vital Signs - 8 hr 11/26/19 11/26/19 11/26/19 02:41 07:19 07:33 Temperature 97.4 F 97.6 F Pulse Rate 68 68 66 Respiratory 16 20 20 Rate Blood Pressure 131/44 144/55 (mmHg) O2 Sat by Pulse 96 97 95 Oximetry Oxygen Devices in Use Now: Nasal Cannula Appearance: 79 yo F in nAD, AAOx3 Eyes: No Scleral Icterus, PERRLA Ears/Nose/Mouth/Throat: NL Teeth, Lips, Gums, Mucous Membranes Moist Neck: NL Appearance and Movements; NL JVP, Trachea Midline Respiratory: Symmetrical Chest Expansion and Respiratory Effort, - - decreased breath sound b/l mid to lower lungs Cardiovascular: NL Sounds; No Murmurs; No JVD, RRR Abdominal: NL Sounds; No Tenderness; No Distention Lymphatic: No Cervical Adenopathy Extremities: - - +1 pitting b/l LE's edema Skin: No Rash or Ulcers, No Nodules or Sclerosis, - - left buttock with extensive ecchymosis Neurological: Alert and Oriented x 3, NL Muscle Strength and Tone Result Diagrams: 11/24/19 06:59 11/26/19 09:26 Additional Lab and Data: Lab Results 11/23/19 11/23/19 11/23/19 Range/Units 14:01 14:01 14:01 WBC 9.7 (3.5-10.8) 10^3/uL RBC 4.33 (3.70-4.87) 10^6 /uL Hgb 14.0 (12.0-16.0) g/dL Hct 39 (35-47) % MCV 91 (80-97) fL MCH 32 H (27-31) pg MCHC 36 (31-36) g/dL RDW 15 (10-15) % Plt Count 242 (150-450) 10^3/uL MPV 7.9 (7.4-10.4) fL Neut % (Auto) 85.6 % Lymph % (Auto) 7.7 % [place] % (Auto) 5.6 % Eos % (Auto) 0.7 % Baso % (Auto) 0.4 % Absolute Neuts (auto) 8.3 H (1.5-7.7) 10^3/ul Absolute Lymphs (auto) 0.7 L (1.0-4.8) 10^3/ul Absolute Monos (auto) 0.5 (0-0.8) 10^3/ul Absolute Eos (auto) 0.1 (0-0.6) 10^3/ul Absolute Basos (auto) 0.0 (0-0.2) 10^3/ul Absolute Nucleated RBC 0.0 10^3/ul Nucleated RBC % 0.0 INR (Anticoag Therapy) 0.95 (0.82-1.09) Sodium 126 L (135-145) mmol/L Potassium 4.6 (3.5-5.0) mmol/L Chloride 86 L (101-111) mmol/L Carbon Dioxide 29 (22-32) mmol/L Anion Gap 11 (2-11) mmol/L BUN 22 (6-24) mg/dL Creatinine 1.75 H (0.51-0.95) mg/dL Est GFR ( Amer) 33.8 (>60) Est GFR (Non-Af Amer) 27.9 (>60) BUN/Creatinine Ratio 12.6 (8-20) Glucose 176 H (70-100) mg/dL Calcium 9.4 (8.6-10.3) mg/dL Magnesium 2.0 (1.9-2.7) mg/dL Total Bilirubin 0.60 (0.2-1.0) mg/dL AST 24 (13-39) U/L ALT 25 (7-52) U/L Alkaline Phosphatase 71 (34-104) U/L Total Protein 6.5 (6.4-8.9) g/dL Albumin 4.0 (3.2-5.2) g/dL Globulin 2.5 (2-4) g/dL Albumin/Globulin Ratio 1.6 (1-3) Microbiology and Other Data: Microbiology 11/23/19 17:47 Urine Culture - Final Urine Assess/Plan/Problems-Billing Assessment: 79 yo f with h/o asthma(on chronic steroids), DM, HTN, CHF admitted after a fall with hyponatremia - Patient Problems (1) Hyponatremia Comment: Due to CHF Cont tx with IV Lasix BID, improving slowly (2) CHF (congestive heart failure) Comment: Acute diastolic, pt has h/o CHF on Lasix 80 mg at home Echo shows significant diastolic dysfunction, EF 65% cont IV Lasix will add on metolazone (3) DM2 (diabetes mellitus, type 2) Comment: holding metformin, cont ISS HbA1C 7.0 (4) Asthma Comment: Continue prn nebs and oral steroids appears to be in mild exacerbation. will increase from home dose of Medrol 4 mg to 20 mg today (5) Cerebellar stroke Comment: in 2017-cont Plavix (6) CKD stage 3 due to type 2 diabetes mellitus Comment: creat improved today with KYLE due to CHF cont to monitor (7) DVT prophylaxis Comment: HSQ Status and Disposition: OBV switched to inpatient likely will require STR
[2019-11-26] MEDS: Albuterol 2.5 MG/3 ML NEB.SOL* (0.083%) INH PRN ×2 (13:59→20:15)
[2019-11-26] MEDS ORDERED: Metolazone TAB* 5 MG PO ONE (16:30)
[2019-11-26] MEDS: Enoxaparin(*) 40 MG/0.4 ML SYR SUBCUT SCH (20:13)
[2019-11-26] MEDS: Senna TAB 8.6 mg* TAB PO PRN (20:24)
[2019-11-27] MEDS: Albuterol 2.5 MG/3 ML NEB.SOL* (0.083%) INH SCH ×4 (00:34→20:44)
[2019-11-27 06:38] LABS: ABS Lymphocytes 0.6 10^3/ul (1.0-4.8); ABS Monocytes 0.7 10^3/ul (0-0.8); ABS Neutrophils 8.7 10^3/ul (1.5-7.7); Eosinophil % 0.1 %; Hematocrit 36 % (35-47); Hemoglobin 12.6 g/dL (12.0-16.0); Lymphocyte % 5.6 %; Mean Corpuscular HGB Conc 35 g/dL (31-36); Mean Corpuscular Hemoglobin 32 pg (27-31); Mean Corpuscular Volume 91 fL (80-97); Platelet Count 208 10^3/uL (150-450); Red Cell Distribution Width 15 % (10-15)
[2019-11-27 06:58] LABS: BUN/Creatinine Ratio 20.8 (8-20); Calcium 9.1 mg/dL (8.6-10.3); EGFR African American 60.2 (>60); EGFR Non-African American 49.8 (>60); Potassium 4.1 mmol/L (3.5-5.0)
[2019-11-27] MEDS: FLUTICASONE INH SCH (07:50)
[2019-11-27] MEDS: SALMETEROL INH SCH (07:50)
[2019-11-27] MEDS: Insulin LISPRO* 1 UNITS UNIT SUBCUT SCH ×3 (08:21→17:22)
[2019-11-27] MEDS: Furosemide IV* 10 MG/ML 10 ML VIAL (100 MG) IV SCH ×2 (08:22→16:32)
[2019-11-27] MEDS: Clopidogrel TAB* 75 MG PO SCH (08:25)
[2019-11-27] MEDS: methylPREDNISolone TAB* 4 MG PO SCH (08:26)
[2019-11-27] MEDS: Cholecalciferol TAB* 1000 UNITS PO SCH (08:26)
[2019-11-27] MEDS: Fluconazole SUSP* ORALSYR 40 MG/ML SCH (08:29)
[2019-11-27] MEDS: Fluticasone NASAL SPRAY 50MCG* 16 gm SPRAY BTL BOTH NARES SCH (08:30)
[2019-11-27] MEDS ORDERED: Metolazone TAB* 5 MG PO SCH (08:30)
--- NOTE | 2019-11-27 09:38 | PN ---
Subjective Date of Service: 11/27/19 Interval History: Pt is feeling ok today. She states her breathing is comfortable. She coughed up some sputum last night but nothing further. She still has not had a BM. Objective Active Medications: Acetaminophen (Tylenol Tab*) 650 mg PO Q4H PRN PRN Reason: MILD PAIN or TEMP > 100.4 Last Admin: 11/26/19 08:21 Dose: 650 mg Al Hydrox/Mg Hydrox/Simethicone (Maalox Plus*) 30 ml PO Q6H PRN PRN Reason: INDIGESTION Albuterol (Ventolin Hfa Inhaler*) 1 puff INH Q6H PRN PRN Reason: SOB/WHEEZING Last Admin: 11/24/19 23:17 Dose: 1 puff Albuterol (Ventolin 2.5 Mg/3 Ml Neb.Allegra*) 2.5 mg INH Q4H PRN PRN Reason: SOB/WHEEZING Last Admin: 11/26/19 20:15 Dose: 2.5 mg Albuterol (Ventolin 2.5 Mg/3 Ml Neb.Allegra*) 2.5 mg INH Q8H [facility] Last Admin: 11/27/19 07:50 Dose: 2.5 mg Cholecalciferol (Vitamin D Tab*) 1,000 units PO DAILY [facility] Last Admin: 11/27/19 08:26 Dose: 1,000 units Clopidogrel Bisulfate (Plavix Tab*) 75 mg PO DAILY [facility] Last Admin: 11/27/19 08:25 Dose: 75 mg Dextrose (D50w Syringe 50 Ml*) 12.5 gm IV PUSH .FOR FS < 60 - SS PRN PRN Reason: FS < 60 Enoxaparin Sodium (Lovenox(*)) 40 mg SUBCUT Q24H [facility] Last Admin: 11/26/19 20:13 Dose: 40 mg Fluconazole (Diflucan Susp* Oralsyr) 400 mg .SEE ORDER DAILY [facility] Last Admin: 11/27/19 08:29 Dose: 400 mg Fluticasone Propionate (Flonase Nasal [place] 50mcg*) 1 spray BOTH NARES DAILY [facility] Last Admin: 11/27/19 08:30 Dose: 1 spray Furosemide (Lasix Iv*) 40 mg IV 0800,1700 [facility] Last Admin: 11/27/19 08:22 Dose: 40 mg Insulin Human Lispro (Humalog*) 0 units SUBCUT AC [facility]; Protocol Last Admin: 11/27/19 08:21 Dose: 2 units Methylprednisolone (Medrol Tab*) 20 mg PO DAILY [facility] Last Admin: 11/27/19 08:26 Dose: 20 mg Fluticasone/Salmeterol (Advair Hfa 115/21 (Nf)) 1 puff INH DAILY [facility]; Protocol Last Admin: 11/27/19 07:50 Dose: Not Given Senna (Senokot 8.6 Mg Tab*) 1 tab PO BID PRN PRN Reason: CONSTIPATION Last Admin: 11/26/19 20:24 Dose: 1 tab Vital Signs - 8 hr 11/27/19 11/27/19 11/27/19 04:05 07:40 07:54 Temperature 97.3 F Pulse Rate 75 71 Respiratory 18 20 20 Rate Blood Pressure 141/48 (mmHg) O2 Sat by Pulse 94 97 Oximetry Oxygen Devices in Use Now: Nasal Cannula Appearance: Morbidly obese elderly female sitting up in bed, just finished breakfast in NAD Eyes: No Scleral Icterus Ears/Nose/Mouth/Throat: Mucous Membranes Moist Respiratory: Symmetrical Chest Expansion and Respiratory Effort, - - markedly decreased breath sounds throughout Cardiovascular: NL Sounds; No Murmurs; No JVD, RRR, - - 1+ edema of the ankles Abdominal: NL Sounds; No Tenderness; No Distention Extremities: No Clubbing, Cyanosis Skin: No Nodules or Sclerosis Neurological: Alert and Oriented x 3 Result Diagrams: 11/27/19 06:24 11/27/19 06:24 Additional Lab and Data: Lab Results 11/23/19 11/23/19 11/23/19 Range/Units 14:01 14:01 14:01 WBC 9.7 (3.5-10.8) 10^3/uL RBC 4.33 (3.70-4.87) 10^6 /uL Hgb 14.0 (12.0-16.0) g/dL Hct 39 (35-47) % MCV 91 (80-97) fL MCH 32 H (27-31) pg MCHC 36 (31-36) g/dL RDW 15 (10-15) % Plt Count 242 (150-450) 10^3/uL MPV 7.9 (7.4-10.4) fL Neut % (Auto) 85.6 % Lymph % (Auto) 7.7 % [place] % (Auto) 5.6 % Eos % (Auto) 0.7 % Baso % (Auto) 0.4 % Absolute Neuts (auto) 8.3 H (1.5-7.7) 10^3/ul Absolute Lymphs (auto) 0.7 L (1.0-4.8) 10^3/ul Absolute Monos (auto) 0.5 (0-0.8) 10^3/ul Absolute Eos (auto) 0.1 (0-0.6) 10^3/ul Absolute Basos (auto) 0.0 (0-0.2) 10^3/ul Absolute Nucleated RBC 0.0 10^3/ul Nucleated RBC % 0.0 INR (Anticoag Therapy) 0.95 (0.82-1.09) Sodium 126 L (135-145) mmol/L Potassium 4.6 (3.5-5.0) mmol/L Chloride 86 L (101-111) mmol/L Carbon Dioxide 29 (22-32) mmol/L Anion Gap 11 (2-11) mmol/L BUN 22 (6-24) mg/dL Creatinine 1.75 H (0.51-0.95) mg/dL Est GFR ( Amer) 33.8 (>60) Est GFR (Non-Af Amer) 27.9 (>60) BUN/Creatinine Ratio 12.6 (8-20) Glucose 176 H (70-100) mg/dL Calcium 9.4 (8.6-10.3) mg/dL Magnesium 2.0 (1.9-2.7) mg/dL Total Bilirubin 0.60 (0.2-1.0) mg/dL AST 24 (13-39) U/L ALT 25 (7-52) U/L Alkaline Phosphatase 71 (34-104) U/L Total Protein 6.5 (6.4-8.9) g/dL Albumin 4.0 (3.2-5.2) g/dL Globulin 2.5 (2-4) g/dL Albumin/Globulin Ratio 1.6 (1-3) Microbiology and Other Data: Microbiology 11/23/19 17:47 Urine Culture - Final Urine Assess/Plan/Problems-Billing Ms Verdugo is an 79 yo f with h/o asthma(on chronic steroids), DM, HTN and diastolic CHF admitted after a fall and was found to be hyponatremic. - Patient Problems (1) CHF (congestive heart failure) Current Visit: Yes Status: Acute Code(s): I50.9 - HEART FAILURE, UNSPECIFIED SNOMED Code(s): 67316977 Comment: Pt with currently acute on chronic diastolic CHF exacerbation. LE edema much improved. No crackles heard on exam though her pulmonary exam is difficult. Continue IV lasix today but stop metolazone as her Na dropped slightly today. (2) Hyponatremia Current Visit: Yes Status: Acute Code(s): E87.1 - HYPO-OSMOLALITY AND HYPONATREMIA SNOMED Code(s): 87275216 Comment: Likely secondary to CHF. Continue IV diuresis and monitor Na level. (3) CKD stage 3 due to type 2 diabetes mellitus Current Visit: Yes Status: Acute Code(s): E11.22 - TYPE 2 DIABETES MELLITUS W DIABETIC CHRONIC KIDNEY DISEASE; N18.3 - CHRONIC KIDNEY DISEASE, STAGE 3 ( MODERATE) SNOMED Code(s): 583990081616 Comment: Creatinine is at baseline. Continue to monitor. (4) Asthma Current Visit: Yes Status: Acute Code(s): J45.909 - UNSPECIFIED ASTHMA, UNCOMPLICATED SNOMED Code(s): 765571472 Comment: No wheezing today. Will start to taper the methylprednisolone tomorrow. Continue nebs. (5) DM2 (diabetes mellitus, type 2) Current Visit: Yes Status: Acute Comment: DM is under good control as evidenced by a HbA1c of 7.0%. Will resume metformin. (6) DVT prophylaxis Current Visit: Yes Status: Acute Code(s): AXE8580 - SNOMED Code(s): 118983614 Comment: SQ heparin (7) Full code status Current Visit: Yes Status: Acute Code(s): Z78.9 - OTHER SPECIFIED HEALTH STATUS SNOMED Code(s): 501646385 Status and Disposition: await [facility] bed offer
[2019-11-27] MEDS: Magnesium Hydroxide LIQ* 30 ML UDC PO PRN ×2 (11:01→19:56)
[2019-11-27] MEDS: Albuterol 2.5 MG/3 ML NEB.SOL* (0.083%) INH PRN (12:29)
[2019-11-27] MEDS: metFORMIN* 500 MG TAB PO SCH (16:32)
[2019-11-27] MEDS: Enoxaparin(*) 40 MG/0.4 ML SYR SUBCUT SCH (19:56)
[2019-11-28] MEDS: Albuterol 2.5 MG/3 ML NEB.SOL* (0.083%) INH PRN ×3 (03:40→20:44)
[2019-11-28] MEDS: Fluconazole SUSP* ORALSYR 40 MG/ML SCH (07:27)
[2019-11-28] MEDS: Fluticasone NASAL SPRAY 50MCG* 16 gm SPRAY BTL BOTH NARES SCH (07:27)
[2019-11-28] MEDS: metFORMIN* 500 MG TAB PO SCH ×2 (07:29→17:17)
[2019-11-28] MEDS: Clopidogrel TAB* 75 MG PO SCH (07:29)
[2019-11-28] MEDS: Furosemide IV* 10 MG/ML 10 ML VIAL (100 MG) IV SCH (07:29)
[2019-11-28] MEDS: methylPREDNISolone TAB* 4 MG PO SCH (07:30)
[2019-11-28] MEDS: FLUTICASONE INH SCH (07:31)
[2019-11-28] MEDS: SALMETEROL INH SCH (07:31)
[2019-11-28] MEDS: Cholecalciferol TAB* 1000 UNITS PO SCH (07:31)
[2019-11-28] MEDS: Albuterol 2.5 MG/3 ML NEB.SOL* (0.083%) INH SCH ×3 (07:34→17:25)
[2019-11-28] MEDS: Insulin LISPRO* 1 UNITS UNIT SUBCUT SCH ×3 (07:50→17:17)
[2019-11-28 09:40] LABS: BUN/Creatinine Ratio 28.6 (8-20); Calcium 9.8 mg/dL (8.6-10.3); EGFR African American 52.7 (>60); EGFR Non-African American 43.5 (>60)
[2019-11-28 09:42] LABS: Potassium 5.1 mmol/L (3.5-5.0)
--- NOTE | 2019-11-28 14:03 | PN ---
Subjective Date of Service: 11/28/19 Interval History: Pt states she is feeling ok. She does c/o feeling more SOB today than she has but then states she has always felt SOB because of her asthma. She thinks the edema is essentially resolved. Objective Active Medications: Acetaminophen (Tylenol Tab*) 650 mg PO Q4H PRN PRN Reason: MILD PAIN or TEMP > 100.4 Last Admin: 11/26/19 08:21 Dose: 650 mg Albuterol (Ventolin Hfa Inhaler*) 1 puff INH Q6H PRN PRN Reason: SOB/WHEEZING Last Admin: 11/24/19 23:17 Dose: 1 puff Albuterol (Ventolin 2.5 Mg/3 Ml Neb.Allegra*) 2.5 mg INH Q4H PRN PRN Reason: SOB/WHEEZING Last Admin: 11/28/19 12:46 Dose: 2.5 mg Albuterol (Ventolin 2.5 Mg/3 Ml Neb.Allegra*) 2.5 mg INH Q8H [facility] Last Admin: 11/28/19 07:34 Dose: 2.5 mg Cholecalciferol (Vitamin D Tab*) 1,000 units PO DAILY [facility] Last Admin: 11/28/19 07:31 Dose: 1,000 units Clopidogrel Bisulfate (Plavix Tab*) 75 mg PO DAILY [facility] Last Admin: 11/28/19 07:29 Dose: 75 mg Dextrose (D50w Syringe 50 Ml*) 12.5 gm IV PUSH .FOR FS < 60 - SS PRN PRN Reason: FS < 60 Enoxaparin Sodium (Lovenox(*)) 40 mg SUBCUT Q24H [facility] Last Admin: 11/27/19 19:56 Dose: 40 mg Fluconazole (Diflucan Susp* Oralsyr) 400 mg .SEE ORDER DAILY [facility] Last Admin: 11/28/19 07:27 Dose: 400 mg Fluticasone Propionate (Flonase Nasal [place] 50mcg*) 1 spray BOTH NARES DAILY [facility] Last Admin: 11/28/19 07:27 Dose: 1 spray Insulin Human Lispro (Humalog*) 0 units SUBCUT AC [facility]; Protocol Last Admin: 11/28/19 11:49 Dose: 6 units Magnesium Hydroxide (Milk Of Magnesia Liq*) 30 ml PO Q6H PRN PRN Reason: CONSTIPATION Last Admin: 11/27/19 19:56 Dose: 30 ml Metformin HCl (Glucophage*) 250 mg PO 0800,1700 [facility] Last Admin: 11/28/19 07:29 Dose: 250 mg Methylprednisolone (Medrol Tab*) 12 mg PO DAILY [facility] Fluticasone/Salmeterol (Advair Hfa 115/21 (Nf)) 1 puff INH DAILY [facility]; Protocol Last Admin: 11/28/19 07:31 Dose: Not Given Senna (Senokot 8.6 Mg Tab*) 1 tab PO BID PRN PRN Reason: CONSTIPATION Last Admin: 11/26/19 20:24 Dose: 1 tab Vital Signs - 8 hr 11/28/19 11/28/19 11/28/19 07:15 07:40 07:53 Temperature 98.0 F Pulse Rate 72 68 Respiratory 20 16 20 Rate Blood Pressure 150/61 (mmHg) O2 Sat by Pulse 96 100 Oximetry 11/28/19 11/28/19 12:19 12:47 Temperature 98.2 F Pulse Rate 77 74 Respiratory 20 20 Rate Blood Pressure 159/62 (mmHg) O2 Sat by Pulse 91 99 Oximetry Oxygen Devices in Use Now: Nasal Cannula Appearance: Elderly female sitting up in a recliner, NAD Eyes: No Scleral Icterus Ears/Nose/Mouth/Throat: Mucous Membranes Moist Respiratory: Symmetrical Chest Expansion and Respiratory Effort, Clear to Auscultation - markedly diminished breath sounds throughout Cardiovascular: NL Sounds; No Murmurs; No JVD, RRR, - - trace ankle edema bilaterally Abdominal: NL Sounds; No Tenderness; No Distention Extremities: No Clubbing, Cyanosis Skin: No Nodules or Sclerosis Neurological: Alert and Oriented x 3 Result Diagrams: 11/27/19 06:24 11/28/19 09:13 Additional Lab and Data: Lab Results 11/23/19 11/23/19 11/23/19 Range/Units 14:01 14:01 14:01 WBC 9.7 (3.5-10.8) 10^3/uL RBC 4.33 (3.70-4.87) 10^6 /uL Hgb 14.0 (12.0-16.0) g/dL Hct 39 (35-47) % MCV 91 (80-97) fL MCH 32 H (27-31) pg MCHC 36 (31-36) g/dL RDW 15 (10-15) % Plt Count 242 (150-450) 10^3/uL MPV 7.9 (7.4-10.4) fL Neut % (Auto) 85.6 % Lymph % (Auto) 7.7 % [place] % (Auto) 5.6 % Eos % (Auto) 0.7 % Baso % (Auto) 0.4 % Absolute Neuts (auto) 8.3 H (1.5-7.7) 10^3/ul Absolute Lymphs (auto) 0.7 L (1.0-4.8) 10^3/ul Absolute Monos (auto) 0.5 (0-0.8) 10^3/ul Absolute Eos (auto) 0.1 (0-0.6) 10^3/ul Absolute Basos (auto) 0.0 (0-0.2) 10^3/ul Absolute Nucleated RBC 0.0 10^3/ul Nucleated RBC % 0.0 INR (Anticoag Therapy) 0.95 (0.82-1.09) Sodium 126 L (135-145) mmol/L Potassium 4.6 (3.5-5.0) mmol/L Chloride 86 L (101-111) mmol/L Carbon Dioxide 29 (22-32) mmol/L Anion Gap 11 (2-11) mmol/L BUN 22 (6-24) mg/dL Creatinine 1.75 H (0.51-0.95) mg/dL Est GFR ( Amer) 33.8 (>60) Est GFR (Non-Af Amer) 27.9 (>60) BUN/Creatinine Ratio 12.6 (8-20) Glucose 176 H (70-100) mg/dL Calcium 9.4 (8.6-10.3) mg/dL Magnesium 2.0 (1.9-2.7) mg/dL Total Bilirubin 0.60 (0.2-1.0) mg/dL AST 24 (13-39) U/L ALT 25 (7-52) U/L Alkaline Phosphatase 71 (34-104) U/L Total Protein 6.5 (6.4-8.9) g/dL Albumin 4.0 (3.2-5.2) g/dL Globulin 2.5 (2-4) g/dL Albumin/Globulin Ratio 1.6 (1-3) Microbiology and Other Data: Microbiology 11/23/19 17:47 Urine Culture - Final Urine Assess/Plan/Problems-Billing Ms Verdugo is an 79 yo f with h/o asthma(on chronic steroids), DM, HTN and diastolic CHF admitted after a fall and was found to be hyponatremic. - Patient Problems (1) CHF (congestive heart failure) Current Visit: Yes Status: Acute Code(s): I50.9 - HEART FAILURE, UNSPECIFIED SNOMED Code(s): 81387628 Comment: Today it appears the patient may have been overdiuresed (Na now low) . Stop lasix IV. Repeat labs tomorrow. On exam pt does not appear to be fluid overloaded. (2) Hyponatremia Current Visit: Yes Status: Acute Code(s): E87.1 - HYPO-OSMOLALITY AND HYPONATREMIA SNOMED Code(s): 57678399 Comment: Worsened again, likely secondary to overdiuresis. Recheck labs tomorrow. (3) CKD stage 3 due to type 2 diabetes mellitus Current Visit: Yes Status: Acute Code(s): E11.22 - TYPE 2 DIABETES MELLITUS W DIABETIC CHRONIC KIDNEY DISEASE; N18.3 - CHRONIC KIDNEY DISEASE, STAGE 3 ( MODERATE) SNOMED Code(s): 890146951020 Comment: Creatinine is up some today. Likely secondary to volume depletion- recheck tomorrow. (4) Asthma Current Visit: Yes Status: Acute Code(s): J45.909 - UNSPECIFIED ASTHMA, UNCOMPLICATED SNOMED Code(s): 559884502 Comment: No wheezing today. Medrol 12mg BID x2 days then resume medrol 4mg daily. Continue nebs. (5) DM2 (diabetes mellitus, type 2) Current Visit: Yes Status: Acute Comment: DM is under good control as evidenced by a HbA1c of 7.0%. Continue metformin 250mg BID. (6) DVT prophylaxis Current Visit: Yes Status: Acute Code(s): FYV3595 - SNOMED Code(s): 530751397 Comment: SQ heparin (7) Full code status Current Visit: Yes Status: Acute Code(s): Z78.9 - OTHER SPECIFIED HEALTH STATUS SNOMED Code(s): 124409660 Status and Disposition: await [facility] bed offer
[2019-11-28] MEDS: Senna TAB 8.6 mg* TAB PO PRN (19:58)
[2019-11-28] MEDS: Enoxaparin(*) 40 MG/0.4 ML SYR SUBCUT SCH (19:58)
[2019-11-29] MEDS ORDERED: Ondansetron INJ* 2 MG/ML VIAL IV ONE (00:01)
[2019-11-29] MEDS: Albuterol 2.5 MG/3 ML NEB.SOL* (0.083%) INH SCH ×5 (01:21→19:19)
--- NOTE | 2019-11-29 07:41 | PN ---
Subjective Date of Service: 11/29/19 Interval History: Patient reports that she is feeling slightly better today. Denies chest pain or shortness of breath. Denies abd pain n/v/d. Denies fever or chills. Labs reviewed patient with sodium 119 and potassium 5.7- will given IVF and repeat at 1500 Labs at 1500 sodium remains 119 and potassium 6.3 - will give kayexalate 15 gm and repeat BMP at 2100 Family History: Unchanged from Admission Social History: Unchanged from Admission Past Medical History: Unchanged from Admission Objective Active Medications: Acetaminophen (Tylenol Tab*) 650 mg PO Q4H PRN PRN Reason: MILD PAIN or TEMP > 100.4 Last Admin: 11/26/19 08:21 Dose: 650 mg Albuterol (Ventolin Hfa Inhaler*) 1 puff INH Q6H PRN PRN Reason: SOB/WHEEZING Last Admin: 11/24/19 23:17 Dose: 1 puff Albuterol (Ventolin 2.5 Mg/3 Ml Neb.Allegra*) 2.5 mg INH Q4H PRN PRN Reason: SOB/WHEEZING Last Admin: 11/28/19 20:44 Dose: 2.5 mg Albuterol (Ventolin 2.5 Mg/3 Ml Neb.Allegra*) 2.5 mg INH Q8H [facility] Last Admin: 11/29/19 01:21 Dose: 2.5 mg Cholecalciferol (Vitamin D Tab*) 1,000 units PO DAILY [facility] Last Admin: 11/28/19 07:31 Dose: 1,000 units Clopidogrel Bisulfate (Plavix Tab*) 75 mg PO DAILY [facility] Last Admin: 11/28/19 07:29 Dose: 75 mg Dextrose (D50w Syringe 50 Ml*) 12.5 gm IV PUSH .FOR FS < 60 - SS PRN PRN Reason: FS < 60 Enoxaparin Sodium (Lovenox(*)) 40 mg SUBCUT Q24H [facility] Last Admin: 11/28/19 19:58 Dose: 40 mg Fluconazole (Diflucan Susp* Oralsyr) 400 mg .SEE ORDER DAILY [facility] Last Admin: 11/28/19 07:27 Dose: 400 mg Fluticasone Propionate (Flonase Nasal [place] 50mcg*) 1 spray BOTH NARES DAILY [facility] Last Admin: 11/28/19 07:27 Dose: 1 spray Insulin Human Lispro (Humalog*) 0 units SUBCUT AC [facility]; Protocol Last Admin: 11/28/19 17:17 Dose: 3 units Magnesium Hydroxide (Milk Of Magnbk Liq*) 30 ml PO Q6H PRN PRN Reason: CONSTIPATION Last Admin: 11/27/19 19:56 Dose: 30 ml Metformin HCl (Glucophage*) 250 mg PO 0800,1700 [facility] Last Admin: 11/28/19 17:17 Dose: 250 mg Methylprednisolone (Medrol Tab*) 12 mg PO DAILY [facility] Fluticasone/Salmeterol (Advair Hfa 115/21 (Nf)) 1 puff INH DAILY [facility]; Protocol Last Admin: 11/28/19 07:31 Dose: Not Given Senna (Senokot 8.6 Mg Tab*) 1 tab PO BID PRN PRN Reason: CONSTIPATION Last Admin: 11/28/19 19:58 Dose: 1 tab Vital Signs - 8 hr 11/29/19 11/29/19 01:22 03:36 Temperature 97.2 F Pulse Rate 70 64 Respiratory 16 14 Rate Blood Pressure 154/43 (mmHg) O2 Sat by Pulse 100 96 Oximetry Oxygen Devices in Use Now: Nasal Cannula Eyes: No Scleral Icterus Ears/Nose/Mouth/Throat: NL Teeth, Lips, Gums, Mucous Membranes Moist Neck: NL Appearance and Movements; NL JVP, Trachea Midline Respiratory: Symmetrical Chest Expansion and Respiratory Effort, Clear to Auscultation Cardiovascular: NL Sounds; No Murmurs; No JVD Abdominal: NL Sounds; No Tenderness; No Distention Extremities: No Edema, No Clubbing, Cyanosis Skin: No Rash or Ulcers Neurological: Alert and Oriented x 3 Nutrition: Taking PO's Result Diagrams: 11/27/19 06:24 11/30/19 06:53 Additional Lab and Data: Lab Results 11/23/19 11/23/19 11/23/19 Range/Units 14:01 14:01 14:01 WBC 9.7 (3.5-10.8) 10^3/uL RBC 4.33 (3.70-4.87) 10^6 /uL Hgb 14.0 (12.0-16.0) g/dL Hct 39 (35-47) % MCV 91 (80-97) fL MCH 32 H (27-31) pg MCHC 36 (31-36) g/dL RDW 15 (10-15) % Plt Count 242 (150-450) 10^3/uL MPV 7.9 (7.4-10.4) fL Neut % (Auto) 85.6 % Lymph % (Auto) 7.7 % [place] % (Auto) 5.6 % Eos % (Auto) 0.7 % Baso % (Auto) 0.4 % Absolute Neuts (auto) 8.3 H (1.5-7.7) 10^3/ul Absolute Lymphs (auto) 0.7 L (1.0-4.8) 10^3/ul Absolute Monos (auto) 0.5 (0-0.8) 10^3/ul Absolute Eos (auto) 0.1 (0-0.6) 10^3/ul Absolute Basos (auto) 0.0 (0-0.2) 10^3/ul Absolute Nucleated RBC 0.0 10^3/ul Nucleated RBC % 0.0 INR (Anticoag Therapy) 0.95 (0.82-1.09) Sodium 126 L (135-145) mmol/L Potassium 4.6 (3.5-5.0) mmol/L Chloride 86 L (101-111) mmol/L Carbon Dioxide 29 (22-32) mmol/L Anion Gap 11 (2-11) mmol/L BUN 22 (6-24) mg/dL Creatinine 1.75 H (0.51-0.95) mg/dL Est GFR ( Amer) 33.8 (>60) Est GFR (Non-Af Amer) 27.9 (>60) BUN/Creatinine Ratio 12.6 (8-20) Glucose 176 H (70-100) mg/dL Calcium 9.4 (8.6-10.3) mg/dL Magnesium 2.0 (1.9-2.7) mg/dL Total Bilirubin 0.60 (0.2-1.0) mg/dL AST 24 (13-39) U/L ALT 25 (7-52) U/L Alkaline Phosphatase 71 (34-104) U/L Total Protein 6.5 (6.4-8.9) g/dL Albumin 4.0 (3.2-5.2) g/dL Globulin 2.5 (2-4) g/dL Albumin/Globulin Ratio 1.6 (1-3) Microbiology and Other Data: Microbiology 11/23/19 17:47 Urine Culture - Final Urine Assess/Plan/Problems-Billing Ms Verdugo is an 79 yo f with h/o asthma(on chronic steroids), DM, HTN and diastolic CHF admitted after a fall and was found to be hyponatremic. - Patient Problems (1) CHF (congestive heart failure) Current Visit: Yes Status: Acute Code(s): I50.9 - HEART FAILURE, UNSPECIFIED SNOMED Code(s): 56328903 Comment: appears the patient may have been overdiuresed Lasix stopped yesterday after receiving 1 dose yesterday - Sodium 119 today down from 124 - will given 500cc of NS and repeat labs this afternoon - Repeat labs at 1540- sodium unchanged 119, will add urine studies to r/o SIADH - Potassium and BUN/Creatinine elevated- will give kayexlate, get EKG and place on tele. - Repeat labs tomorrow. - On exam pt does not appear to be fluid overloaded. (2) Hyponatremia Current Visit: Yes Status: Acute Code(s): E87.1 - HYPO-OSMOLALITY AND HYPONATREMIA SNOMED Code(s): 15756042 Comment: Worsened again sodium now 119 likely secondary to overdiuresis. Recheck labs at 1500, 2100, tomorrow. (3) Asthma Current Visit: Yes Status: Acute Code(s): J45.909 - UNSPECIFIED ASTHMA, UNCOMPLICATED SNOMED Code(s): 024606187 Comment: No wheezing today. Medrol 12mg BID x2 days then resume medrol 4mg daily. Continue nebs. (4) CKD stage 3 due to type 2 diabetes mellitus Current Visit: Yes Status: Acute Code(s): E11.22 - TYPE 2 DIABETES MELLITUS W DIABETIC CHRONIC KIDNEY DISEASE; N18.3 - CHRONIC KIDNEY DISEASE, STAGE 3 ( MODERATE) SNOMED Code(s): 810540826963 Comment: Creatinine is up some today. Likely secondary to volume depletion- recheck tomorrow. (5) DM2 (diabetes mellitus, type 2) Current Visit: Yes Status: Acute Comment: DM is under good control as evidenced by a HbA1c of 7.0%. Continue metformin 250mg BID. (6) DVT prophylaxis Current Visit: Yes Status: Acute Code(s): NZI9319 - SNOMED Code(s): 261523933 Comment: SQ heparin (7) Full code status Current Visit: Yes Status: Acute Code(s): Z78.9 - OTHER SPECIFIED HEALTH STATUS SNOMED Code(s): 062268794 Status and Disposition: discharge to [facility] when medically stable
[2019-11-29] MEDS: SALMETEROL INH SCH (07:46)
[2019-11-29] MEDS: FLUTICASONE INH SCH (07:46)
[2019-11-29] MEDS: Fluticasone NASAL SPRAY 50MCG* 16 gm SPRAY BTL BOTH NARES SCH (08:08)
[2019-11-29] MEDS: metFORMIN* 500 MG TAB PO SCH ×2 (08:08→16:50)
[2019-11-29] MEDS: Fluconazole SUSP* ORALSYR 40 MG/ML SCH (08:08)
[2019-11-29] MEDS: Clopidogrel TAB* 75 MG PO SCH (08:09)
[2019-11-29] MEDS: methylPREDNISolone TAB* 4 MG PO SCH (08:09)
[2019-11-29] MEDS: Cholecalciferol TAB* 1000 UNITS PO SCH (08:10)
[2019-11-29] MEDS: Insulin LISPRO* 1 UNITS UNIT SUBCUT SCH ×3 (08:14→16:50)
[2019-11-29 10:15] LABS: Calcium 9.7 mg/dL (8.6-10.3)
[2019-11-29 10:18] LABS: Potassium 5.7 mmol/L (3.5-5.0)
[2019-11-29 10:20] LABS: BUN/Creatinine Ratio 30.8 (8-20); EGFR African American 53.7 (>60); EGFR Non-African American 44.4 (>60)
[2019-11-29] MEDS ORDERED: NS 0.9% 500 ML* 500 ML IV SCH (11:00)
[2019-11-29 16:23] LABS: BUN/Creatinine Ratio 26.8 (8-20); Calcium 9.8 mg/dL (8.6-10.3); EGFR African American 39.4 (>60); EGFR Non-African American 32.6 (>60)
[2019-11-29 16:26] LABS: Potassium 6.3 mmol/L (3.5-5.0)
[2019-11-29] MEDS ORDERED: Sodium Polystyrene ORAL.SOL* 15 GM/60 ML BTL PO ONE ×2 (16:31→21:35)
[2019-11-29 21:23] LABS: Calcium 9.4 mg/dL (8.6-10.3); EGFR African American 44.4 (>60); EGFR Non-African American 36.7 (>60)
[2019-11-29 21:28] LABS: Potassium 5.9 mmol/L (3.5-5.0)
[2019-11-29 21:40] LABS: Urine Creatinine Concentration 39.78 mg/dL
[2019-11-29] MEDS: Enoxaparin(*) 40 MG/0.4 ML SYR SUBCUT SCH (21:48)
[2019-11-29] MEDS: Magnesium Hydroxide LIQ* 30 ML UDC PO PRN (21:48)
[2019-11-30] MEDS: Albuterol 2.5 MG/3 ML NEB.SOL* (0.083%) INH SCH ×4 (00:54→19:52)
[2019-11-30 02:47] LABS: BUN/Creatinine Ratio 30.8 (8-20); Calcium 9.5 mg/dL (8.6-10.3); EGFR African American 52.2 (>60); EGFR Non-African American 43.1 (>60); Potassium 5.2 mmol/L (3.5-5.0)
[2019-11-30] MEDS: SALMETEROL INH SCH (07:40)
[2019-11-30] MEDS: FLUTICASONE INH SCH (07:40)
[2019-11-30 07:57] LABS: BUN/Creatinine Ratio 30.7 (8-20); Calcium 9.4 mg/dL (8.6-10.3); EGFR African American 55.4 (>60); EGFR Non-African American 45.7 (>60); Magnesium 2.6 mg/dL (1.9-2.7)
[2019-11-30] MEDS: Cholecalciferol TAB* 1000 UNITS PO SCH (09:22)
[2019-11-30] MEDS: metFORMIN* 500 MG TAB PO SCH ×2 (09:22→17:02)
[2019-11-30] MEDS: Clopidogrel TAB* 75 MG PO SCH (09:23)
[2019-11-30] MEDS: Fluticasone NASAL SPRAY 50MCG* 16 gm SPRAY BTL BOTH NARES SCH (09:23)
[2019-11-30] MEDS: Fluconazole SUSP* ORALSYR 40 MG/ML SCH (09:23)
[2019-11-30] MEDS: Insulin LISPRO* 1 UNITS UNIT SUBCUT SCH ×3 (09:23→17:56)
[2019-11-30] MEDS: methylPREDNISolone TAB* 4 MG PO SCH (09:23)
--- NOTE | 2019-11-30 16:57 | CONSULT ---
Subjective Date of Service: 11/30/19 Interval History: Ms. Verdugo is an 79 yo female with PMH significant for DM2, asthma, osteoarthritis, CVA, chronic bilateral LE edema, and recent PNA; who presented to the emergency room with complaints of generalized weakness. She was admitted to the hospital as an observation for weakness, KYLE, and hyponatremia. She developed a skin tear to the jhonny cleft during her hospital stay. This is being treated with barrier cream. Patient seen and examined at bedside. Verbal consent for wound consultation and photograph. Family History: Unchanged from Admission Social History: Unchanged from Admission Past Medical History: Unchanged from Admission Review of Systems - Measurements Intake and Output: Intake and Output Last 24 Hours 11/28/19 11/29/19 11/30/19 12/01/19 06:59 06:59 06:59 06:59 Intake Total 1380 1979 1060 530 Balance 1380 1979 1060 530 Weight 245 lb 8 oz 245 lb Intake: Oral 1380 1979 1060 530 Other: Estimated Void Large Large # Bowel Movements 0 # Voids 3 1 - Review of Systems Constitutional Symptoms: Negative: Fever, Other - Chills Dermatology: Positive: Other - Open area to buttocks Objective Active Medications: Acetaminophen (Tylenol Tab*) 650 mg PO Q4H PRN Reason: MILD PAIN or TEMP > 100.4 Albuterol (Ventolin Hfa Inhaler*) 1 puff INH Q6H PRN Reason: SOB/WHEEZING Albuterol (Ventolin 2.5 Mg/3 Ml Neb.Allegra*) 2.5 mg INH Q4H PRN Reason: SOB/ WHEEZING Albuterol (Ventolin 2.5 Mg/3 Ml Neb.Allegra*) 2.5 mg INH [id number] AWAKE [facility] Cholecalciferol (Vitamin D Tab*) 1,000 units PO DAILY [facility] Clopidogrel Bisulfate (Plavix Tab*) 75 mg PO DAILY [facility] Dextrose (D50w Syringe 50 Ml*) 12.5 gm IV PUSH .FOR FS < 60 - SS PRN Reason: FS < 60 Enoxaparin Sodium (Lovenox(*)) 40 mg SUBCUT Q24H [facility] Fluconazole (Diflucan Susp* Oralsyr) 400 mg .SEE ORDER DAILY [facility] Fluticasone Propionate (Flonase Nasal [place] 50mcg*) 1 spray BOTH NARES DAILY [facility] Insulin Human Lispro (Humalog*) 0 units SUBCUT AC [facility]; Protocol Magnesium Hydroxide (Milk Of Magnbk Liq*) 30 ml PO Q6H PRN Reason: CONSTIPATION Metformin HCl (Glucophage*) 250 mg PO 0800,1700 [facility] Methylprednisolone (Medrol Tab*) 12 mg PO DAILY [facility] Fluticasone/Salmeterol (Advair Hfa 115/21 (Nf)) 1 puff INH DAILY [facility]; Protocol Senna (Senokot 8.6 Mg Tab*) 1 tab PO BID PRN Reason: CONSTIPATION Vital Signs 11/30/19 12:40 Temperature 96.9 F Pulse Rate 72 Respiratory 20 Rate Blood Pressure 166/66 (mmHg) O2 Sat by Pulse 90 Oximetry Oxygen Devices in Use Now: Nasal Cannula Appearance: NAD, laying in bed Ears/Nose/Mouth/Throat: Mucous Membranes Moist Respiratory: Symmetrical Chest Expansion and Respiratory Effort Skin: - - See skin note below Neurological: Alert and Oriented x 3 Result Diagrams: 12/03/19 06:03 12/05/19 04:16 Additional Lab and Data: Above labs were pulled into the note, when the note was edited prior to signing. See below for labs from day of consultation. Laboratory Tests 11/23/19 11/24/19 11/27/19 17:11 06:59 06:24 WBC 10.0 Hgb 12.6 Hct 36 Plt Count 208 Hemoglobin A1c 7.0 H Total Protein 6.3 L Albumin 3.8 11/30/19 06:53 Sodium 122 L Potassium 5.0 Chloride 81 L Carbon Dioxide 35 H BUN 35 H Creatinine 1.14 H Glucose 103 H Skin Deviation Note - Skin Deviation Findings cleft - There is a linear open area, measures 3 cm x 0.5 cm x 0.1 cm. The wounds base is red granulation tissue. There is scant drainage. The surrounding skin is intact. No odor. Wound Problem/Plan Assessment: Ms. Verdugo is an 79 yo female with PMH significant for DM2, asthma, osteoarthritis, CVA, chronic bilateral LE edema, and recent PNA; who presented to the emergency room with complaints of generalized weakness. She was admitted to the hospital as an observation for weakness, KYLE, and hyponatremia. She developed a skin tear to the jhonny cleft during her hospital stay. 1. Open wound to the cleft. Suspect this is a traumatic wound (from pulling on the skin), there may also be a component of moisture associated skin breakdown in the setting of urinary incontinence and pressure. Recommend washing the area with soap and water. Incontinence care as needed. Apply barrier cream (orange top) as needed. Frequent turning and repositioning. Use a friction reduction device to move in bed. Will add a pre-albumin to the last labs. 2. DM2. HgA1C during this visit was 7.0. Maintain good glycemic control to allow for wound healing. 3. Nutrition. Recommend meeting nutrition requirements for wound healing ( Protein 1.2-1.5 grams/kg per daily and Calories 30-35 kcal/kg per day). Renal diet. 4. Code Status. Full Code Status. 5. Disposition. Inpatient, disposition per primary medicine team. TIME SPENT: Time spent for this wound consultation was 20 minutes and 10 minutes was spent with the patient discussing past medical history; assessing, measuring, and photographing the wound; performing incontinence care, applying barrier cream and repositioning the patient. Is Patient a Wound Clinic Patient: No Attending: Malka Blas
[2019-11-30] MEDS: Albuterol HFA INHALER* 8 gm MDI INH PRN (17:27)
--- NOTE | 2019-11-30 19:11 | PN ---
Subjective Date of Service: 11/30/19 Interval History: Patient with no complaints this AM. Denies chest pain or shortness of breath. Denies abd pain n/v/d. Denies fever or chills. Family History: Unchanged from Admission Social History: Unchanged from Admission Past Medical History: Unchanged from Admission Objective Active Medications: Acetaminophen (Tylenol Tab*) 650 mg PO Q4H PRN PRN Reason: MILD PAIN or TEMP > 100.4 Last Admin: 11/26/19 08:21 Dose: 650 mg Albuterol (Ventolin Hfa Inhaler*) 1 puff INH Q6H PRN PRN Reason: SOB/WHEEZING Last Admin: 11/30/19 17:27 Dose: 1 puff Albuterol (Ventolin 2.5 Mg/3 Ml Neb.Allegra*) 2.5 mg INH Q4H PRN PRN Reason: SOB/WHEEZING Last Admin: 11/28/19 20:44 Dose: 2.5 mg Albuterol (Ventolin 2.5 Mg/3 Ml Neb.Allegra*) 2.5 mg INH [id number] AWAKE [facility] Last Admin: 11/30/19 13:29 Dose: 2.5 mg Cholecalciferol (Vitamin D Tab*) 1,000 units PO DAILY [facility] Last Admin: 11/30/19 09:22 Dose: 1,000 units Clopidogrel Bisulfate (Plavix Tab*) 75 mg PO DAILY [facility] Last Admin: 11/30/19 09:23 Dose: 75 mg Dextrose (D50w Syringe 50 Ml*) 12.5 gm IV PUSH .FOR FS < 60 - SS PRN PRN Reason: FS < 60 Enoxaparin Sodium (Lovenox(*)) 40 mg SUBCUT Q24H [facility] Last Admin: 11/29/19 21:48 Dose: 40 mg Fluconazole (Diflucan Susp* Oralsyr) 400 mg .SEE ORDER DAILY [facility] Last Admin: 11/30/19 09:23 Dose: 400 mg Fluticasone Propionate (Flonase Nasal [place] 50mcg*) 1 spray BOTH NARES DAILY [facility] Last Admin: 11/30/19 09:23 Dose: 1 spray Insulin Human Lispro (Humalog*) 0 units SUBCUT AC [facility]; Protocol Last Admin: 11/30/19 17:56 Dose: 3 units Magnesium Hydroxide (Milk Of Magnesia Liq*) 30 ml PO Q6H PRN PRN Reason: CONSTIPATION Last Admin: 11/29/19 21:48 Dose: 30 ml Metformin HCl (Glucophage*) 250 mg PO 0800,1700 [facility] Last Admin: 11/30/19 17:02 Dose: 250 mg Methylprednisolone (Medrol Tab*) 12 mg PO DAILY [facility] Last Admin: 11/30/19 09:23 Dose: 12 mg Fluticasone/Salmeterol (Advair Hfa 115/21 (Nf)) 1 puff INH DAILY [facility]; Protocol Last Admin: 11/30/19 07:40 Dose: Not Given Senna (Senokot 8.6 Mg Tab*) 1 tab PO BID PRN PRN Reason: CONSTIPATION Last Admin: 11/28/19 19:58 Dose: 1 tab Vital Signs - 8 hr 11/30/19 12:40 Temperature 96.9 F Pulse Rate 72 Respiratory 20 Rate Blood Pressure 166/66 (mmHg) O2 Sat by Pulse 90 Oximetry Oxygen Devices in Use Now: Nasal Cannula Appearance: alert , no acute distress Eyes: No Scleral Icterus Ears/Nose/Mouth/Throat: Clear Oropharnyx, Mucous Membranes Moist Neck: NL Appearance and Movements; NL JVP, Trachea Midline Respiratory: Symmetrical Chest Expansion and Respiratory Effort, - - diminished t/o bilat Cardiovascular: NL Sounds; No Murmurs; No JVD, No Edema Abdominal: NL Sounds; No Tenderness; No Distention Extremities: No Edema, No Clubbing, Cyanosis Skin: No Rash or Ulcers Neurological: Alert and Oriented x 3 Nutrition: Taking PO's Result Diagrams: 11/27/19 06:24 12/01/19 06:39 Additional Lab and Data: Lab Results 11/23/19 11/23/19 11/23/19 Range/Units 14:01 14:01 14:01 WBC 9.7 (3.5-10.8) 10^3/uL RBC 4.33 (3.70-4.87) 10^6 /uL Hgb 14.0 (12.0-16.0) g/dL Hct 39 (35-47) % MCV 91 (80-97) fL MCH 32 H (27-31) pg MCHC 36 (31-36) g/dL RDW 15 (10-15) % Plt Count 242 (150-450) 10^3/uL MPV 7.9 (7.4-10.4) fL Neut % (Auto) 85.6 % Lymph % (Auto) 7.7 % [place] % (Auto) 5.6 % Eos % (Auto) 0.7 % Baso % (Auto) 0.4 % Absolute Neuts (auto) 8.3 H (1.5-7.7) 10^3/ul Absolute Lymphs (auto) 0.7 L (1.0-4.8) 10^3/ul Absolute Monos (auto) 0.5 (0-0.8) 10^3/ul Absolute Eos (auto) 0.1 (0-0.6) 10^3/ul Absolute Basos (auto) 0.0 (0-0.2) 10^3/ul Absolute Nucleated RBC 0.0 10^3/ul Nucleated RBC % 0.0 INR (Anticoag Therapy) 0.95 (0.82-1.09) Sodium 126 L (135-145) mmol/L Potassium 4.6 (3.5-5.0) mmol/L Chloride 86 L (101-111) mmol/L Carbon Dioxide 29 (22-32) mmol/L Anion Gap 11 (2-11) mmol/L BUN 22 (6-24) mg/dL Creatinine 1.75 H (0.51-0.95) mg/dL Est GFR ( Amer) 33.8 (>60) Est GFR (Non-Af Amer) 27.9 (>60) BUN/Creatinine Ratio 12.6 (8-20) Glucose 176 H (70-100) mg/dL Calcium 9.4 (8.6-10.3) mg/dL Magnesium 2.0 (1.9-2.7) mg/dL Total Bilirubin 0.60 (0.2-1.0) mg/dL AST 24 (13-39) U/L ALT 25 (7-52) U/L Alkaline Phosphatase 71 (34-104) U/L Total Protein 6.5 (6.4-8.9) g/dL Albumin 4.0 (3.2-5.2) g/dL Globulin 2.5 (2-4) g/dL Albumin/Globulin Ratio 1.6 (1-3) Microbiology and Other Data: Microbiology 11/23/19 17:47 Urine Culture - Final Urine Assess/Plan/Problems-Billing Ms Verdugo is an 79 yo f with h/o asthma(on chronic steroids), DM, HTN and diastolic CHF admitted after a fall and was found to be hyponatremic. - Patient Problems (1) CHF (congestive heart failure) Current Visit: Yes Status: Acute Code(s): I50.9 - HEART FAILURE, UNSPECIFIED SNOMED Code(s): 95377284 Comment: appears the patient may have been overdiuresed Lasix stopped - sodium up today to 122 - repeat BMp in the AM (2) Hyponatremia Current Visit: Yes Status: Acute Code(s): E87.1 - HYPO-OSMOLALITY AND HYPONATREMIA SNOMED Code(s): 98343127 Comment: sodium now 122 improved slightly likely secondary to overdiuresis. - will continue to hold lasix (3) Asthma Current Visit: Yes Status: Acute Code(s): J45.909 - UNSPECIFIED ASTHMA, UNCOMPLICATED SNOMED Code(s): 933275830 Comment: No wheezing today. Medrol 12mg BID x 2 day - will start Medrol 4 mg in the AM (4) CKD stage 3 due to type 2 diabetes mellitus Current Visit: Yes Status: Acute Code(s): E11.22 - TYPE 2 DIABETES MELLITUS W DIABETIC CHRONIC KIDNEY DISEASE; N18.3 - CHRONIC KIDNEY DISEASE, STAGE 3 ( MODERATE) SNOMED Code(s): 403462071950 Comment: Creatinine is up some today. Likely secondary to volume depletion- recheck tomorrow. (5) DM2 (diabetes mellitus, type 2) Current Visit: Yes Status: Acute Comment: DM is under good control as evidenced by a HbA1c of 7.0%. Continue metformin 250mg BID. (6) DVT prophylaxis Current Visit: Yes Status: Acute Code(s): BAL3132 - SNOMED Code(s): 975821447 Comment: SQ heparin (7) Full code status Current Visit: Yes Status: Acute Code(s): Z78.9 - OTHER SPECIFIED HEALTH STATUS SNOMED Code(s): 850144312 Status and Disposition: discharge to [facility] when medically stable
[2019-11-30] MEDS: Enoxaparin(*) 40 MG/0.4 ML SYR SUBCUT SCH (20:43)
[2019-11-30] MEDS: Senna TAB 8.6 mg* TAB PO PRN (20:43)
[2019-11-30] MEDS: Magnesium Hydroxide LIQ* 30 ML UDC PO PRN (20:43)
[2019-11-30] MEDS: Acetaminophen TAB* 325 MG PO PRN (20:52)
[2019-12-01] MEDS ORDERED: traMADol TAB* 50 MG PO ONE (00:20)
[2019-12-01] MEDS: Albuterol 2.5 MG/3 ML NEB.SOL* (0.083%) INH SCH ×4 (01:08→18:26)
[2019-12-01 07:13] LABS: BUN/Creatinine Ratio 34.3 (8-20); Calcium 9.5 mg/dL (8.6-10.3); EGFR African American 58.9 (>60); EGFR Non-African American 48.7 (>60)
[2019-12-01 07:14] LABS: Potassium 5.2 mmol/L (3.5-5.0)
[2019-12-01] MEDS: Insulin LISPRO* 1 UNITS UNIT SUBCUT SCH ×3 (07:29→17:57)
[2019-12-01] MEDS: SALMETEROL INH SCH (08:23)
[2019-12-01] MEDS: FLUTICASONE INH SCH (08:23)
[2019-12-01] MEDS: metFORMIN* 500 MG TAB PO SCH ×2 (09:36→17:21)
[2019-12-01] MEDS: Cholecalciferol TAB* 1000 UNITS PO SCH (09:37)
[2019-12-01] MEDS: Fluconazole SUSP* ORALSYR 40 MG/ML SCH (09:37)
[2019-12-01] MEDS: methylPREDNISolone TAB* 4 MG PO SCH (09:37)
[2019-12-01] MEDS: Clopidogrel TAB* 75 MG PO SCH (09:37)
[2019-12-01] MEDS: Fluticasone NASAL SPRAY 50MCG* 16 gm SPRAY BTL BOTH NARES SCH (09:37)
[2019-12-01] MEDS ORDERED: Mineral Oil ENEMA* 1 BOTTLE PR ONE (10:26)
[2019-12-01] MEDS ORDERED: NS 0.9% 500 ML* 500 ML IV SCH ×2 (15:00)
[2019-12-01] MEDS: Magnesium Hydroxide LIQ* 30 ML UDC PO PRN (15:19)
--- NOTE | 2019-12-01 15:55 | PN ---
Subjective Date of Service: 12/01/19 Interval History: Patient c/o constipation . Denies abd pain n/v/d. Denies chest pain or shortness of breath. Denies fever or chills. Family History: Unchanged from Admission Social History: Unchanged from Admission Past Medical History: Unchanged from Admission Objective Active Medications: Acetaminophen (Tylenol Tab*) 650 mg PO Q4H PRN PRN Reason: MILD PAIN or TEMP > 100.4 Last Admin: 11/30/19 20:52 Dose: 650 mg Albuterol (Ventolin Hfa Inhaler*) 1 puff INH Q6H PRN PRN Reason: SOB/WHEEZING Last Admin: 11/30/19 17:27 Dose: 1 puff Albuterol (Ventolin 2.5 Mg/3 Ml Neb.Allegra*) 2.5 mg INH Q4H PRN PRN Reason: SOB/WHEEZING Last Admin: 11/28/19 20:44 Dose: 2.5 mg Albuterol (Ventolin 2.5 Mg/3 Ml Neb.Allegra*) 2.5 mg INH [id number] AWAKE [facility] Last Admin: 12/01/19 13:30 Dose: 2.5 mg Cholecalciferol (Vitamin D Tab*) 1,000 units PO DAILY [facility] Last Admin: 12/01/19 09:37 Dose: 1,000 units Clopidogrel Bisulfate (Plavix Tab*) 75 mg PO DAILY [facility] Last Admin: 12/01/19 09:37 Dose: 75 mg Dextrose (D50w Syringe 50 Ml*) 12.5 gm IV PUSH .FOR FS < 60 - SS PRN PRN Reason: FS < 60 Enoxaparin Sodium (Lovenox(*)) 40 mg SUBCUT Q24H [facility] Last Admin: 11/30/19 20:43 Dose: 40 mg Fluconazole (Diflucan Susp* Oralsyr) 400 mg .SEE ORDER DAILY [facility] Last Admin: 12/01/19 09:37 Dose: 400 mg Fluticasone Propionate (Flonase Nasal [place] 50mcg*) 1 spray BOTH NARES DAILY [facility] Last Admin: 12/01/19 09:37 Dose: 1 spray Sodium Chloride (Ns 0.9% 500 Ml*) 500 mls @ 200 mls/hr IV PER RATE [facility] Stop: 12/01/19 17:29 Last Admin: 12/01/19 15:19 Dose: 200 mls/hr Insulin Human Lispro (Humalog*) 0 units SUBCUT AC [facility]; Protocol Last Admin: 12/01/19 13:18 Dose: 3 units Magnesium Hydroxide (Milk Of Magnbk Liq*) 30 ml PO Q6H PRN PRN Reason: CONSTIPATION Last Admin: 12/01/19 15:19 Dose: 30 ml Metformin HCl (Glucophage*) 250 mg PO 0800,1700 [facility] Last Admin: 12/01/19 09:36 Dose: 250 mg Methylprednisolone (Medrol Tab*) 4 mg PO DAILY [facility] Last Admin: 12/01/19 09:37 Dose: 4 mg Fluticasone/Salmeterol (Advair Hfa 115/21 (Nf)) 1 puff INH DAILY [facility]; Protocol Last Admin: 12/01/19 08:23 Dose: Not Given Senna (Senokot 8.6 Mg Tab*) 1 tab PO BID PRN PRN Reason: CONSTIPATION Last Admin: 11/30/19 20:43 Dose: 1 tab Vital Signs - 8 hr 12/01/19 11:15 Respiratory 16 Rate Oxygen Devices in Use Now: Nasal Cannula Appearance: alert, appears comfortable Eyes: No Scleral Icterus Ears/Nose/Mouth/Throat: Clear Oropharnyx, Mucous Membranes Moist Neck: NL Appearance and Movements; NL JVP, Trachea Midline Respiratory: Symmetrical Chest Expansion and Respiratory Effort, - - diminished breath t/o bilat Cardiovascular: NL Sounds; No Murmurs; No JVD, No Edema Abdominal: - - non tender, non distended , obese , active bowels sounds x4 Extremities: No Clubbing, Cyanosis Skin: No Rash or Ulcers Neurological: Alert and Oriented x 3 Nutrition: Taking PO's Result Diagrams: 11/27/19 06:24 12/01/19 19:15 Additional Lab and Data: Lab Results 11/23/19 11/23/19 11/23/19 Range/Units 14:01 14:01 14:01 WBC 9.7 (3.5-10.8) 10^3/uL RBC 4.33 (3.70-4.87) 10^6 /uL Hgb 14.0 (12.0-16.0) g/dL Hct 39 (35-47) % MCV 91 (80-97) fL MCH 32 H (27-31) pg MCHC 36 (31-36) g/dL RDW 15 (10-15) % Plt Count 242 (150-450) 10^3/uL MPV 7.9 (7.4-10.4) fL Neut % (Auto) 85.6 % Lymph % (Auto) 7.7 % [place] % (Auto) 5.6 % Eos % (Auto) 0.7 % Baso % (Auto) 0.4 % Absolute Neuts (auto) 8.3 H (1.5-7.7) 10^3/ul Absolute Lymphs (auto) 0.7 L (1.0-4.8) 10^3/ul Absolute Monos (auto) 0.5 (0-0.8) 10^3/ul Absolute Eos (auto) 0.1 (0-0.6) 10^3/ul Absolute Basos (auto) 0.0 (0-0.2) 10^3/ul Absolute Nucleated RBC 0.0 10^3/ul Nucleated RBC % 0.0 INR (Anticoag Therapy) 0.95 (0.82-1.09) Sodium 126 L (135-145) mmol/L Potassium 4.6 (3.5-5.0) mmol/L Chloride 86 L (101-111) mmol/L Carbon Dioxide 29 (22-32) mmol/L Anion Gap 11 (2-11) mmol/L BUN 22 (6-24) mg/dL Creatinine 1.75 H (0.51-0.95) mg/dL Est GFR ( Amer) 33.8 (>60) Est GFR (Non-Af Amer) 27.9 (>60) BUN/Creatinine Ratio 12.6 (8-20) Glucose 176 H (70-100) mg/dL Calcium 9.4 (8.6-10.3) mg/dL Magnesium 2.0 (1.9-2.7) mg/dL Total Bilirubin 0.60 (0.2-1.0) mg/dL AST 24 (13-39) U/L ALT 25 (7-52) U/L Alkaline Phosphatase 71 (34-104) U/L Total Protein 6.5 (6.4-8.9) g/dL Albumin 4.0 (3.2-5.2) g/dL Globulin 2.5 (2-4) g/dL Albumin/Globulin Ratio 1.6 (1-3) Microbiology and Other Data: Microbiology 11/23/19 17:47 Urine Culture - Final Urine Assess/Plan/Problems-Billing Ms Verdugo is an 79 yo f with h/o asthma(on chronic steroids), DM, HTN and diastolic CHF admitted after a fall and was found to be hyponatremic. - Patient Problems (1) CHF (congestive heart failure) Current Visit: Yes Status: Acute Code(s): I50.9 - HEART FAILURE, UNSPECIFIED SNOMED Code(s): 87792474 Comment: appears slightly dry - sodium remains 122 - will give small amount of fluid today repeat BMp at 1830 and in the AM (2) Hyponatremia Current Visit: Yes Status: Acute Code(s): E87.1 - HYPO-OSMOLALITY AND HYPONATREMIA SNOMED Code(s): 47995141 Comment: sodium remians 122 today likely secondary to overdiuresis. - will continue to hold lasix - will give a small amount of fluids today - no evidence of SIADH (3) Asthma Current Visit: Yes Status: Acute Code(s): J45.909 - UNSPECIFIED ASTHMA, UNCOMPLICATED SNOMED Code(s): 775998491 Comment: No wheezing today. continue Medrol 4 mg (4) CKD stage 3 due to type 2 diabetes mellitus Current Visit: Yes Status: Acute Code(s): E11.22 - TYPE 2 DIABETES MELLITUS W DIABETIC CHRONIC KIDNEY DISEASE; N18.3 - CHRONIC KIDNEY DISEASE, STAGE 3 ( MODERATE) SNOMED Code(s): 548390028674 Comment: Creatinine is improved - likely related to volume depletion - will continue to hold lasix - repeat BMP in the AM (5) DM2 (diabetes mellitus, type 2) Current Visit: Yes Status: Acute Comment: DM is under good control as evidenced by a HbA1c of 7.0%. Continue metformin 250mg BID. (6) DVT prophylaxis Current Visit: Yes Status: Acute Code(s): ZKR9567 - SNOMED Code(s): 502170878 Comment: SQ heparin (7) Full code status Current Visit: Yes Status: Acute Code(s): Z78.9 - OTHER SPECIFIED HEALTH STATUS SNOMED Code(s): 517224142 (8) Hyperkalemia Current Visit: Yes Status: Acute Code(s): E87.5 - HYPERKALEMIA SNOMED Code (s): 55565760 Comment: elevated on 2/3 - up 6.3 given kayexalate - with improvement- trended down to 5.0 Patient with mild elevation potassium - 5.2 today - will conitnue to monitor- will treat as needed Status and Disposition: discharge to [facility] when medically stable
[2019-12-01 19:47] LABS: BUN/Creatinine Ratio 35.6 (8-20); Calcium 9.3 mg/dL (8.6-10.3); EGFR African American 61.5 (>60); EGFR Non-African American 50.9 (>60)
[2019-12-01 19:48] LABS: Potassium 5.4 mmol/L (3.5-5.0)
[2019-12-01] MEDS: Enoxaparin(*) 40 MG/0.4 ML SYR SUBCUT SCH (21:54)
[2019-12-02] MEDS: Albuterol 2.5 MG/3 ML NEB.SOL* (0.083%) INH SCH ×2 (00:47→05:53)
--- NOTE | 2019-12-02 01:00 | PN ---
Hospitalist Progress Note Date of Service: 12/01/19 patient with complaints of constipation - will give laxatives and enema today
[2019-12-02 06:32] LABS: BUN/Creatinine Ratio 34.3 (8-20); Calcium 9.1 mg/dL (8.6-10.3); EGFR African American 65.1 (>60); EGFR Non-African American 53.8 (>60)
[2019-12-02 06:35] LABS: Troponin I 0.01 ng/mL (<0.03)
[2019-12-02] MEDS: SALMETEROL INH SCH (07:35)
[2019-12-02] MEDS: FLUTICASONE INH SCH (07:35)
[2019-12-02] MEDS: Fluconazole SUSP* ORALSYR 40 MG/ML SCH (07:51)
[2019-12-02] MEDS: Insulin LISPRO* 1 UNITS UNIT SUBCUT SCH ×3 (07:51→16:52)
[2019-12-02] MEDS: Fluticasone NASAL SPRAY 50MCG* 16 gm SPRAY BTL BOTH NARES SCH (07:52)
[2019-12-02] MEDS: Clopidogrel TAB* 75 MG PO SCH (07:52)
[2019-12-02] MEDS: Cholecalciferol TAB* 1000 UNITS PO SCH (07:52)
[2019-12-02] MEDS: Acetaminophen TAB* 325 MG PO PRN ×2 (07:52→17:03)
[2019-12-02] MEDS: metFORMIN* 500 MG TAB PO SCH ×2 (07:52→17:03)
[2019-12-02] MEDS: methylPREDNISolone TAB* 4 MG PO SCH (07:52)
[2019-12-02] MEDS: Albuterol HFA INHALER* 8 gm MDI INH PRN (08:08)
[2019-12-02] MEDS ORDERED: NS 0.9% 1000 ML** 1,000 ML IV SCH (09:00)
--- NOTE | 2019-12-02 11:44 | PN ---
Subjective Date of Service: 12/02/19 Interval History: Patient is feeling poorly still. Patient has significant abdominal pain and has still has not had a BM. Patient feels weak and has tightness in her chest which she relates to her asthma. Patient is urinating and has mild SOB. Patient denies F/C, dysuria, or other pain. Family History: Unchanged from Admission Social History: Unchanged from Admission Past Medical History: Unchanged from Admission Objective Active Medications: Acetaminophen (Tylenol Tab*) 650 mg PO Q4H PRN PRN Reason: MILD PAIN or TEMP > 100.4 Last Admin: 12/02/19 07:52 Dose: 650 mg Albuterol (Ventolin Hfa Inhaler*) 1 puff INH Q6H PRN PRN Reason: SOB/WHEEZING Last Admin: 12/02/19 08:08 Dose: 1 puff Albuterol (Ventolin 2.5 Mg/3 Ml Neb.Allegra*) 2.5 mg INH Q4H PRN PRN Reason: SOB/WHEEZING Last Admin: 11/28/19 20:44 Dose: 2.5 mg Albuterol/Ipratropium (Duoneb (Albuterol 2.5 Mg/Ipratropium 0.5 Mg)) 1 neb INH [id number] [facility]WAKE [facility] Cholecalciferol (Vitamin D Tab*) 1,000 units PO DAILY [facility] Last Admin: 12/02/19 07:52 Dose: 1,000 units Clopidogrel Bisulfate (Plavix Tab*) 75 mg PO DAILY [facility] Last Admin: 12/02/19 07:52 Dose: 75 mg Dextrose (D50w Syringe 50 Ml*) 12.5 gm IV PUSH .FOR FS < 60 - SS PRN PRN Reason: FS < 60 Enoxaparin Sodium (Lovenox(*)) 40 mg SUBCUT Q24H [facility] Last Admin: 12/01/19 21:54 Dose: 40 mg Fluconazole (Diflucan Susp* Oralsyr) 400 mg .SEE ORDER DAILY [facility] Last Admin: 12/02/19 07:51 Dose: 400 mg Fluticasone Propionate (Flonase Nasal [place] 50mcg*) 1 spray BOTH NARES DAILY [facility] Last Admin: 12/02/19 07:52 Dose: 1 spray Sodium Chloride (Ns 0.9% 1000 Ml) 1,000 mls @ 100 mls/hr IV PER RATE [facility] Stop: 12/02/19 18:59 Last Admin: 12/02/19 08:59 Dose: 100 mls/hr Insulin Human Lispro (Humalog*) 0 units SUBCUT AC [facility]; Protocol Last Admin: 12/02/19 07:51 Dose: 2 units Magnesium Hydroxide (Milk Of Magnesia Liq*) 30 ml PO Q6H PRN PRN Reason: CONSTIPATION Last Admin: 12/01/19 15:19 Dose: 30 ml Metformin HCl (Glucophage*) 250 mg PO 0800,1700 [facility] Last Admin: 12/02/19 07:52 Dose: 250 mg Methylprednisolone (Medrol Tab*) 4 mg PO DAILY [facility] Last Admin: 12/02/19 07:52 Dose: 4 mg Fluticasone/Salmeterol (Advair Hfa 115/21 (Nf)) 1 puff INH DAILY [facility]; Protocol Last Admin: 12/02/19 07:35 Dose: Not Given Senna (Senokot 8.6 Mg Tab*) 1 tab PO BID PRN PRN Reason: CONSTIPATION Last Admin: 11/30/19 20:43 Dose: 1 tab Vital Signs - 8 hr 12/02/19 12/02/19 12/02/19 05:54 08:00 08:40 Temperature 97.3 F Pulse Rate 79 74 Respiratory 16 20 17 Rate Blood Pressure 139/47 (mmHg) O2 Sat by Pulse 99 94 Oximetry Oxygen Devices in Use Now: Nasal Cannula Appearance: Patient is an 79yo female who appears stated age and is sitting in the bed showing moderate signs of outward pain. Eyes: No Scleral Icterus, PERRLA Ears/Nose/Mouth/Throat: NL Teeth, Lips, Gums, Clear Oropharnyx, Mucous Membranes Moist Neck: NL Appearance and Movements; NL JVP, Trachea Midline Respiratory: Symmetrical Chest Expansion and Respiratory Effort, - - Slight Expiratory wheezing throughout. Cardiovascular: NL Sounds; No Murmurs; No JVD, RRR, No Edema Abdominal: No Hepatosplenomegaly, - - Diffusely tender and distended. Lymphatic: No Cervical Adenopathy Extremities: No Edema, No Clubbing, Cyanosis Skin: No Rash or Ulcers, No Nodules or Sclerosis Neurological: Alert and Oriented x 3, NL Sensation, NL Muscle Strength and Tone , - - CN II-XII intact. Result Diagrams: 11/27/19 06:24 12/02/19 06:05 Additional Lab and Data: Lab Results 11/23/19 11/23/19 11/23/19 Range/Units 14:01 14:01 14:01 WBC 9.7 (3.5-10.8) 10^3/uL RBC 4.33 (3.70-4.87) 10^6 /uL Hgb 14.0 (12.0-16.0) g/dL Hct 39 (35-47) % MCV 91 (80-97) fL MCH 32 H (27-31) pg MCHC 36 (31-36) g/dL RDW 15 (10-15) % Plt Count 242 (150-450) 10^3/uL MPV 7.9 (7.4-10.4) fL Neut % (Auto) 85.6 % Lymph % (Auto) 7.7 % [place] % (Auto) 5.6 % Eos % (Auto) 0.7 % Baso % (Auto) 0.4 % Absolute Neuts (auto) 8.3 H (1.5-7.7) 10^3/ul Absolute Lymphs (auto) 0.7 L (1.0-4.8) 10^3/ul Absolute Monos (auto) 0.5 (0-0.8) 10^3/ul Absolute Eos (auto) 0.1 (0-0.6) 10^3/ul Absolute Basos (auto) 0.0 (0-0.2) 10^3/ul Absolute Nucleated RBC 0.0 10^3/ul Nucleated RBC % 0.0 INR (Anticoag Therapy) 0.95 (0.82-1.09) Sodium 126 L (135-145) mmol/L Potassium 4.6 (3.5-5.0) mmol/L Chloride 86 L (101-111) mmol/L Carbon Dioxide 29 (22-32) mmol/L Anion Gap 11 (2-11) mmol/L BUN 22 (6-24) mg/dL Creatinine 1.75 H (0.51-0.95) mg/dL Est GFR ( Amer) 33.8 (>60) Est GFR (Non-Af Amer) 27.9 (>60) BUN/Creatinine Ratio 12.6 (8-20) Glucose 176 H (70-100) mg/dL Calcium 9.4 (8.6-10.3) mg/dL Magnesium 2.0 (1.9-2.7) mg/dL Total Bilirubin 0.60 (0.2-1.0) mg/dL AST 24 (13-39) U/L ALT 25 (7-52) U/L Alkaline Phosphatase 71 (34-104) U/L Total Protein 6.5 (6.4-8.9) g/dL Albumin 4.0 (3.2-5.2) g/dL Globulin 2.5 (2-4) g/dL Albumin/Globulin Ratio 1.6 (1-3) Microbiology and Other Data: Microbiology 11/23/19 17:47 Urine Culture - Final Urine Assess/Plan/Problems-Billing Ms Verdugo is an 79 yo f with h/o asthma(on chronic steroids), DM, HTN and diastolic CHF admitted after a fall and was found to be hyponatremic which is improving slowly. - Patient Problems (1) Hyponatremia Current Visit: Yes Status: Acute Code(s): E87.1 - HYPO-OSMOLALITY AND HYPONATREMIA SNOMED Code(s): 58511326 Comment: - Stable today, lowest was 119 - Presumed due to overdiuresis - Inconclusive Urine Studies - Not likely due to SAIDH - Cortisol low this admission, but unclear significance given chronic steroid therapy - Hyperkalemia not consistent with overdiuresis as cause of hyponatremia - ? Hypoaldosteronism from Adrenal [place] suppression from increased doses of steroids and low mineralcorticoid activity of Methylprednisolone - Give Fluids slowly, Medrol at home dose - Slightly elevated Osmolar Gap of unclear cause, add on triglycerides. (2) Hyperkalemia Current Visit: Yes Status: Acute Code(s): E87.5 - HYPERKALEMIA SNOMED Code (s): 95999954 Comment: - Now returned to normal - Unclear Cause. See above discussion (3) Asthma Current Visit: Yes Status: Acute Code(s): J45.909 - UNSPECIFIED ASTHMA, UNCOMPLICATED SNOMED Code(s): 901419053 Comment: - Slight wheezing, Continue LABA/ICS - Duonebs scheduled while awake. (4) CHF (congestive heart failure) Current Visit: Yes Status: Acute Code(s): I50.9 - HEART FAILURE, UNSPECIFIED SNOMED Code(s): 74507619 Comment: - Appears slightly hypovolemic - Hold diuresis - Acute on Chronic Heart Failure with Preserved Ejection Fraction (5) CKD stage 3 due to type 2 diabetes mellitus Current Visit: Yes Status: Acute Code(s): E11.22 - TYPE 2 DIABETES MELLITUS W DIABETIC CHRONIC KIDNEY DISEASE; N18.3 - CHRONIC KIDNEY DISEASE, STAGE 3 ( MODERATE) SNOMED Code(s): 613431638848 Comment: - Cret Back to Baseline - Acute on Chronic Renal disease possibly due to overdiuresis, though the couse is unclear. (6) DM2 (diabetes mellitus, type 2) Current Visit: Yes Status: Acute Comment: - Good Control on Metformin - A1c 7.0% (7) Full code status Current Visit: Yes Status: Acute Code(s): Z78.9 - OTHER SPECIFIED HEALTH STATUS SNOMED Code(s): 505387281 (8) DVT prophylaxis Current Visit: Yes Status: Acute Code(s): TZZ2838 - SNOMED Code(s): 942006002 Comment: - Lovenox SubQ Status and Disposition: Will need rehab when medically stable.
[2019-12-02] MEDS: Albuterol/Ipratropium NEB.SOL* Albuterol 2.5 MG/Ipratropium 0.5 MG 3 ML INH SCH ×3 (12:27→18:58)
[2019-12-02] MEDS: Senna TAB 8.6 mg* TAB PO PRN (13:37)
[2019-12-02] MEDS: Magnesium Hydroxide LIQ* 30 ML UDC PO PRN ×2 (13:37→20:01)
[2019-12-02] MEDS: Enoxaparin(*) 40 MG/0.4 ML SYR SUBCUT SCH (19:56)
[2019-12-03] MEDS: Albuterol/Ipratropium NEB.SOL* Albuterol 2.5 MG/Ipratropium 0.5 MG 3 ML INH SCH ×4 (01:05→20:44)
[2019-12-03 06:28] LABS: ABS Eosinophils 0.2 10^3/ul (0-0.6); ABS Lymphocytes 1.5 10^3/ul (1.0-4.8); ABS Monocytes 0.6 10^3/ul (0-0.8); ABS Neutrophils 5.7 10^3/ul (1.5-7.7); Eosinophil % 3.1 %; Hematocrit 36 % (35-47); Hemoglobin 12.8 g/dL (12.0-16.0); Lymphocyte % 18.3 %; Mean Corpuscular HGB Conc 35 g/dL (31-36); Mean Corpuscular Hemoglobin 32 pg (27-31); Mean Corpuscular Volume 91 fL (80-97); Mean Platelet Volume 7.6 fL (7.4-10.4); Platelet Count 267 10^3/uL (150-450); Red Blood Count 3.99 10^6 /uL (3.70-4.87); Red Cell Distribution Width 15 % (10-15)
[2019-12-03 06:46] LABS: BUN/Creatinine Ratio 27.6 (8-20); Calcium 8.5 mg/dL (8.6-10.3); EGFR African American 60.9 (>60); EGFR Non-African American 50.3 (>60); Magnesium 3.1 mg/dL (1.9-2.7); Potassium 4.4 mmol/L (3.5-5.0)
[2019-12-03] MEDS: FLUTICASONE INH SCH (07:21)
[2019-12-03] MEDS: SALMETEROL INH SCH (07:21)
[2019-12-03] MEDS ORDERED: Furosemide IV* 10 MG/ML 2 ML VIAL (20 MG) IV SLOW PU ONE (09:20)
[2019-12-03] MEDS: Insulin LISPRO* 1 UNITS UNIT SUBCUT SCH ×3 (09:50→17:41)
[2019-12-03] MEDS: Ondansetron INJ* 2 MG/ML VIAL IV PRN (10:08)
[2019-12-03] MEDS: metFORMIN* 500 MG TAB PO SCH ×2 (10:16→17:41)
[2019-12-03] MEDS: Clopidogrel TAB* 75 MG PO SCH (10:17)
[2019-12-03] MEDS: Acetaminophen TAB* 325 MG PO PRN (10:17)
[2019-12-03] MEDS: methylPREDNISolone TAB* 4 MG PO SCH (10:18)
[2019-12-03] MEDS: Cholecalciferol TAB* 1000 UNITS PO SCH (10:18)
[2019-12-03] MEDS: Fluticasone NASAL SPRAY 50MCG* 16 gm SPRAY BTL BOTH NARES SCH (10:22)
--- NOTE | 2019-12-03 13:14 | PN ---
Subjective Date of Service: 12/03/19 Interval History: Patient's breathing worsened again today with non-productive cough and absence of a wheeze. Patient endorses Orthopnea and feels as if her LE edema is worse. Patient does not feel significantly constipated any more. Patient denies CP, Dizziness, N/V, dysuria, polyuria, or other pain. Family History: Unchanged from Admission Social History: Unchanged from Admission Past Medical History: Unchanged from Admission Objective Active Medications: Acetaminophen (Tylenol Tab*) 650 mg PO Q4H PRN PRN Reason: MILD PAIN or TEMP > 100.4 Last Admin: 12/03/19 10:17 Dose: 650 mg Albuterol (Ventolin Hfa Inhaler*) 1 puff INH Q6H PRN PRN Reason: SOB/WHEEZING Last Admin: 12/02/19 08:08 Dose: 1 puff Albuterol (Ventolin 2.5 Mg/3 Ml Neb.Allegra*) 2.5 mg INH Q4H PRN PRN Reason: SOB/WHEEZING Last Admin: 11/28/19 20:44 Dose: 2.5 mg Albuterol/Ipratropium (Duoneb (Albuterol 2.5 Mg/Ipratropium 0.5 Mg)) 1 neb INH [id number] AWAKE [facility] Last Admin: 12/03/19 07:20 Dose: 1 neb Cholecalciferol (Vitamin D Tab*) 1,000 units PO DAILY [facility] Last Admin: 12/03/19 10:18 Dose: 1,000 units Clopidogrel Bisulfate (Plavix Tab*) 75 mg PO DAILY [facility] Last Admin: 12/03/19 10:17 Dose: 75 mg Dextrose (D50w Syringe 50 Ml*) 12.5 gm IV PUSH .FOR FS < 60 - SS PRN PRN Reason: FS < 60 Enoxaparin Sodium (Lovenox(*)) 40 mg SUBCUT Q24H [facility] Last Admin: 12/02/19 19:56 Dose: 40 mg Fluticasone Propionate (Flonase Nasal [place] 50mcg*) 1 spray BOTH NARES DAILY [facility] Last Admin: 12/03/19 10:22 Dose: 1 spray Insulin Human Lispro (Humalog*) 0 units SUBCUT AC [facility]; Protocol Last Admin: 12/03/19 12:44 Dose: 2 units Magnesium Hydroxide (Milk Of Magnesia Liq*) 30 ml PO Q6H PRN PRN Reason: CONSTIPATION Last Admin: 12/02/19 20:01 Dose: 30 ml Metformin HCl (Glucophage*) 250 mg PO 0800,1700 [facility] Last Admin: 12/03/19 10:16 Dose: 250 mg Methylprednisolone (Medrol Tab*) 4 mg PO DAILY [facility] Last Admin: 12/03/19 10:18 Dose: 4 mg Ondansetron HCl (Zofran Inj*) 4 mg IV Q6H PRN PRN Reason: NAUSEA Last Admin: 12/03/19 10:08 Dose: 4 mg Fluticasone/Salmeterol (Advair Hfa 115/21 (Nf)) 1 puff INH DAILY [facility]; Protocol Last Admin: 12/03/19 07:21 Dose: Not Given Senna (Senokot 8.6 Mg Tab*) 1 tab PO BID PRN PRN Reason: CONSTIPATION Last Admin: 12/02/19 13:37 Dose: 1 tab Vital Signs - 8 hr 12/03/19 12/03/19 12/03/19 06:58 07:00 07:21 Temperature Pulse Rate 68 67 Respiratory 20 20 Rate Blood Pressure 143/40 (mmHg) O2 Sat by Pulse 89 96 97 Oximetry 12/03/19 12/03/19 07:24 11:25 Temperature 97.5 F Pulse Rate 71 Respiratory 18 16 Rate Blood Pressure 139/44 (mmHg) O2 Sat by Pulse 100 Oximetry Oxygen Devices in Use Now: Nasal Cannula Appearance: Patient is an 79yo female who appears older than stated age and is sitting in the bed in [facility]. Eyes: No Scleral Icterus, PERRLA Ears/Nose/Mouth/Throat: NL Teeth, Lips, Gums, Clear Oropharnyx, Mucous Membranes Moist Respiratory: Symmetrical Chest Expansion and Respiratory Effort, - - Rales in B/ L Lower Lobes. Cardiovascular: NL Sounds; No Murmurs; No JVD, RRR, - - 1+ B/L LE edema. Abdominal: No Hepatosplenomegaly Lymphatic: No Cervical Adenopathy Extremities: No Clubbing, Cyanosis Skin: No Rash or Ulcers, No Nodules or Sclerosis Neurological: Alert and Oriented x 3, NL Sensation, NL Muscle Strength and Tone , - - CN II-XII intact. Lines/Tubes/Other Access: Clean, Dry and Intact Peripheral IV Result Diagrams: 12/03/19 06:03 12/03/19 06:03 Additional Lab and Data: Lab Results 11/23/19 11/23/19 11/23/19 Range/Units 14:01 14:01 14:01 WBC 9.7 (3.5-10.8) 10^3/uL RBC 4.33 (3.70-4.87) 10^6 /uL Hgb 14.0 (12.0-16.0) g/dL Hct 39 (35-47) % MCV 91 (80-97) fL MCH 32 H (27-31) pg MCHC 36 (31-36) g/dL RDW 15 (10-15) % Plt Count 242 (150-450) 10^3/uL MPV 7.9 (7.4-10.4) fL Neut % (Auto) 85.6 % Lymph % (Auto) 7.7 % [place] % (Auto) 5.6 % Eos % (Auto) 0.7 % Baso % (Auto) 0.4 % Absolute Neuts (auto) 8.3 H (1.5-7.7) 10^3/ul Absolute Lymphs (auto) 0.7 L (1.0-4.8) 10^3/ul Absolute Monos (auto) 0.5 (0-0.8) 10^3/ul Absolute Eos (auto) 0.1 (0-0.6) 10^3/ul Absolute Basos (auto) 0.0 (0-0.2) 10^3/ul Absolute Nucleated RBC 0.0 10^3/ul Nucleated RBC % 0.0 INR (Anticoag Therapy) 0.95 (0.82-1.09) Sodium 126 L (135-145) mmol/L Potassium 4.6 (3.5-5.0) mmol/L Chloride 86 L (101-111) mmol/L Carbon Dioxide 29 (22-32) mmol/L Anion Gap 11 (2-11) mmol/L BUN 22 (6-24) mg/dL Creatinine 1.75 H (0.51-0.95) mg/dL Est GFR ( Amer) 33.8 (>60) Est GFR (Non-Af Amer) 27.9 (>60) BUN/Creatinine Ratio 12.6 (8-20) Glucose 176 H (70-100) mg/dL Calcium 9.4 (8.6-10.3) mg/dL Magnesium 2.0 (1.9-2.7) mg/dL Total Bilirubin 0.60 (0.2-1.0) mg/dL AST 24 (13-39) U/L ALT 25 (7-52) U/L Alkaline Phosphatase 71 (34-104) U/L Total Protein 6.5 (6.4-8.9) g/dL Albumin 4.0 (3.2-5.2) g/dL Globulin 2.5 (2-4) g/dL Albumin/Globulin Ratio 1.6 (1-3) Microbiology and Other Data: Microbiology 11/23/19 17:47 Urine Culture - Final Urine Assess/Plan/Problems-Billing Ms Verdugo is an 79 yo f with h/o asthma(on chronic steroids), DM, HTN and diastolic CHF admitted after a fall and was found to be hyponatremic which is improving slowly. - Patient Problems (1) Hyponatremia Current Visit: Yes Status: Acute Code(s): E87.1 - HYPO-OSMOLALITY AND HYPONATREMIA SNOMED Code(s): 25003229 Comment: - Increased today after fluids and resumption of normal dose steroids - Patient's breathing worsened again today - Inconclusive Urine Studies - Not likely due to SAIDH - Cortisol low this admission, but unclear significance given chronic steroid therapy - Hyperkalemia not consistent with overdiuresis as cause of hyponatremia - ? Hypoaldosteronism from Adrenal Elberta suppression from increased doses of steroids and low mineralcorticoid activity of Methylprednisolone - Slightly elevated Osmolar Gap of unclear cause, Triglycerides normal - Resume diuresis with lasix today and recheck this afternoon. (2) Hyperkalemia Current Visit: Yes Status: Acute Code(s): E87.5 - HYPERKALEMIA SNOMED Code (s): 45883016 Comment: - Now returned to normal - Unclear Cause. See above discussion (3) Asthma Current Visit: Yes Status: Acute Code(s): J45.909 - UNSPECIFIED ASTHMA, UNCOMPLICATED SNOMED Code(s): 348684708 Comment: - Slight wheezing, Continue LABA/ICS - Duonebs scheduled while awake. (4) CHF (congestive heart failure) Current Visit: Yes Status: Acute Code(s): I50.9 - HEART FAILURE, UNSPECIFIED SNOMED Code(s): 65047514 Comment: - Appears now hypervolemic with dyspnea and orthopnea. - Resume diuresis - Acute on Chronic Heart Failure with Preserved Ejection Fraction (5) CKD stage 3 due to type 2 diabetes mellitus Current Visit: Yes Status: Acute Code(s): E11.22 - TYPE 2 DIABETES MELLITUS W DIABETIC CHRONIC KIDNEY DISEASE; N18.3 - CHRONIC KIDNEY DISEASE, STAGE 3 ( MODERATE) SNOMED Code(s): 394681157859 Comment: - Cret Back to Baseline - Acute on Chronic Renal disease possibly due to overdiuresis, though the cause is unclear. (6) DM2 (diabetes mellitus, type 2) Current Visit: Yes Status: Acute Comment: - Good Control on Metformin - A1c 7.0% (7) Full code status Current Visit: Yes Status: Acute Code(s): Z78.9 - OTHER SPECIFIED HEALTH STATUS SNOMED Code(s): 358128398 (8) DVT prophylaxis Current Visit: Yes Status: Acute Code(s): UNT1445 - SNOMED Code(s): 420014117 Comment: - Lovenox SubQ Status and Disposition: Will need rehab when medically stable.
[2019-12-03 15:22] LABS: BUN/Creatinine Ratio 21.8 (8-20); Calcium 8.9 mg/dL (8.6-10.3); EGFR African American 46.3 (>60); EGFR Non-African American 38.3 (>60); Potassium 4.9 mmol/L (3.5-5.0)
[2019-12-03] MEDS: Enoxaparin(*) 40 MG/0.4 ML SYR SUBCUT SCH (21:27)
[2019-12-03] MEDS: Senna TAB 8.6 mg* TAB PO PRN (21:32)
[2019-12-04] MEDS: Albuterol/Ipratropium NEB.SOL* Albuterol 2.5 MG/Ipratropium 0.5 MG 3 ML INH SCH ×4 (01:03→19:22)
[2019-12-04] MEDS ORDERED: amLODIPine TAB* 5 MG PO ONE (03:13)
[2019-12-04] MEDS ORDERED: Morphine INJ* 2 MG/ML 1 ML SYRINGE (TWO MG - NEW SYRINGE VERSION) IV ONE (03:25)
[2019-12-04] MEDS ORDERED: Morphine INJ* 2 MG/ML 1 ML SYRINGE (TWO MG - NEW SYRINGE VERSION) ONE (03:27)
[2019-12-04] MEDS ORDERED: Nitroglycerin TAB 0.4 MG* 0.4 MG TAB ONE (03:27)
[2019-12-04] MEDS ORDERED: Aspirin 81 mg CHEW TAB* 81 MG TAB.CHEW ONE (03:28)
[2019-12-04] MEDS ORDERED: Aspirin 81 mg CHEW TAB* 81 MG TAB.CHEW PO ONE (03:28)
[2019-12-04] MEDS: Nitroglycerin TAB 0.4 MG* 0.4 MG TAB SL PRN ×2 (03:31→03:40)
[2019-12-04 06:32] LABS: BUN/Creatinine Ratio 22.3 (8-20); EGFR African American 47.6 (>60); EGFR Non-African American 39.3 (>60); Magnesium 3.1 mg/dL (1.9-2.7); Potassium 4.4 mmol/L (3.5-5.0)
[2019-12-04] MEDS: SALMETEROL INH SCH (07:49)
[2019-12-04] MEDS: FLUTICASONE INH SCH (07:49)
[2019-12-04] MEDS: Insulin LISPRO* 1 UNITS UNIT SUBCUT SCH ×3 (09:40→17:59)
[2019-12-04] MEDS: Senna TAB 8.6 mg* TAB PO PRN (10:08)
[2019-12-04] MEDS: Torsemide TAB* 20 MG PO SCH (10:08)
[2019-12-04] MEDS: Cholecalciferol TAB* 1000 UNITS PO SCH (10:08)
[2019-12-04] MEDS: metFORMIN* 500 MG TAB PO SCH ×2 (10:08→18:14)
[2019-12-04] MEDS: Clopidogrel TAB* 75 MG PO SCH (10:08)
[2019-12-04] MEDS: Fluticasone NASAL SPRAY 50MCG* 16 gm SPRAY BTL BOTH NARES SCH (10:09)
[2019-12-04] MEDS: methylPREDNISolone TAB* 4 MG PO SCH (10:09)
[2019-12-04] MEDS: Polyethylene Glycol 3350* 17 GM PACKET PO SCH ×2 (10:09→20:10)
--- NOTE | 2019-12-04 13:35 | PN ---
Subjective Date of Service: 12/04/19 Interval History: Patient is feeling persistently SOB today. Patient states this is worse with lying flat. Patient denies CP, SOB, F/C, N/V, abdominal pain, diarrhea, dysuria , or other pain. Family History: Unchanged from Admission Social History: Unchanged from Admission Past Medical History: Unchanged from Admission Objective Active Medications: Acetaminophen (Tylenol Tab*) 650 mg PO Q4H PRN PRN Reason: MILD PAIN or TEMP > 100.4 Last Admin: 12/03/19 10:17 Dose: 650 mg Albuterol (Ventolin Hfa Inhaler*) 1 puff INH Q6H PRN PRN Reason: SOB/WHEEZING Last Admin: 12/02/19 08:08 Dose: 1 puff Albuterol (Ventolin 2.5 Mg/3 Ml Neb.Allegra*) 2.5 mg INH Q4H PRN PRN Reason: SOB/WHEEZING Last Admin: 11/28/19 20:44 Dose: 2.5 mg Albuterol/Ipratropium (Duoneb (Albuterol 2.5 Mg/Ipratropium 0.5 Mg)) 1 neb INH [id number] AWAKE [facility] Last Admin: 12/04/19 12:37 Dose: 1 neb Cholecalciferol (Vitamin D Tab*) 1,000 units PO DAILY [facility] Last Admin: 12/04/19 10:08 Dose: 1,000 units Clopidogrel Bisulfate (Plavix Tab*) 75 mg PO DAILY [facility] Last Admin: 12/04/19 10:08 Dose: 75 mg Dextrose (D50w Syringe 50 Ml*) 12.5 gm IV PUSH .FOR FS < 60 - SS PRN PRN Reason: FS < 60 Enoxaparin Sodium (Lovenox(*)) 40 mg SUBCUT Q24H [facility] Last Admin: 12/03/19 21:27 Dose: 40 mg Fluticasone Propionate (Flonase Nasal [place] 50mcg*) 1 spray BOTH NARES DAILY [facility] Last Admin: 12/04/19 10:09 Dose: 1 spray Insulin Human Lispro (Humalog*) 0 units SUBCUT AC [facility]; Protocol Last Admin: 12/04/19 09:40 Dose: Not Given Metformin HCl (Glucophage*) 250 mg PO 0800,1700 [facility] Last Admin: 02/08/20 10:08 Dose: 250 mg Methylprednisolone (Medrol Tab*) 4 mg PO DAILY [facility] Last Admin: 12/04/19 10:09 Dose: 4 mg Ondansetron HCl (Zofran Inj*) 4 mg IV Q6H PRN PRN Reason: NAUSEA Last Admin: 12/03/19 10:08 Dose: 4 mg Polyethylene Glycol/Electrolytes (Miralax (17 Gm Dose Matt)) 17 gm PO 0800,2100 [facility] Last Admin: 12/04/19 10:09 Dose: 17 gm Fluticasone/Salmeterol (Advair Hfa 115/21 (Nf)) 1 puff INH DAILY [facility]; Protocol Last Admin: 12/04/19 07:49 Dose: Not Given Senna (Senokot 8.6 Mg Tab*) 1 tab PO BID PRN PRN Reason: CONSTIPATION Last Admin: 12/04/19 10:08 Dose: 1 tab Torsemide (Demadex*) 40 mg PO DAILY [facility] Last Admin: 12/04/19 10:08 Dose: 40 mg Vital Signs - 8 hr 12/04/19 12/04/19 12/04/19 07:38 07:41 08:00 Temperature 96.7 F Pulse Rate 65 72 Respiratory 15 16 18 Rate Blood Pressure 137/50 (mmHg) O2 Sat by Pulse 97 94 Oximetry 12/04/19 12:38 Temperature Pulse Rate 70 Respiratory 17 Rate Blood Pressure (mmHg) O2 Sat by Pulse 97 Oximetry Oxygen Devices in Use Now: None Appearance: Patient is an 79yo female who appears stated age and is sitting in the bed in [facility]. Eyes: No Scleral Icterus, PERRLA Ears/Nose/Mouth/Throat: NL Teeth, Lips, Gums, Clear Oropharnyx, Mucous Membranes Moist Neck: NL Appearance and Movements; NL JVP, Trachea Midline Respiratory: Symmetrical Chest Expansion and Respiratory Effort, Clear to Auscultation Cardiovascular: NL Sounds; No Murmurs; No JVD, RRR, - - Possible Edema in B/L calves. Abdominal: NL Sounds; No Tenderness; No Distention, No Hepatosplenomegaly Lymphatic: No Cervical Adenopathy Extremities: No Clubbing, Cyanosis Skin: No Nodules or Sclerosis Neurological: Alert and Oriented x 3, NL Sensation, NL Muscle Strength and Tone , - - CN II-XII intact. Result Diagrams: 12/03/19 06:03 12/04/19 05:39 Additional Lab and Data: Laboratory Tests 11/23/19 11/24/19 11/27/19 17:11 06:59 06:24 WBC 10.0 Hgb 12.6 Hct 36 Plt Count 208 Hemoglobin A1c 7.0 H Total Protein 6.3 L Albumin 3.8 11/30/19 06:53 Sodium 122 L Potassium 5.0 Chloride 81 L Carbon Dioxide 35 H BUN 35 H Creatinine 1.14 H Glucose 103 H Microbiology and Other Data: Microbiology 11/23/19 17:47 Urine Culture - Final Urine Assess/Plan/Problems-Billing Ms Verdugo is an 79 yo f with h/o asthma(on chronic steroids), DM, HTN and diastolic CHF admitted after a fall and was found to be hyponatremic which is improving slowly. - Patient Problems (1) Hyponatremia Current Visit: Yes Status: Acute Code(s): E87.1 - HYPO-OSMOLALITY AND HYPONATREMIA SNOMED Code(s): 23944801 Comment: - Increasing slowly, now at 126 - Patient's breathing improved, but still SOB - Inconclusive Urine Studies - Not likely due to SAIDH - Cortisol low this admission, but unclear significance given chronic steroid therapy - Hyperkalemia not consistent with overdiuresis as cause of hyponatremia - Slightly elevated Osmolar Gap of unclear cause, Triglycerides normal - Resume diuresis at home dose with torsemide and monitor. - ? Transient ADH stimulus from asthma exacerbation inpatient causing drop in Sodium (2) Hyperkalemia Current Visit: Yes Status: Acute Code(s): E87.5 - HYPERKALEMIA SNOMED Code (s): 75547292 Comment: - Now returned to normal - Unclear Cause. See above discussion (3) Asthma Current Visit: Yes Status: Acute Code(s): J45.909 - UNSPECIFIED ASTHMA, UNCOMPLICATED SNOMED Code(s): 987278052 Comment: - Wheezing resolved, Continue LABA/ICS - Duonebs scheduled while awake. (4) CHF (congestive heart failure) Current Visit: Yes Status: Acute Code(s): I50.9 - HEART FAILURE, UNSPECIFIED SNOMED Code(s): 81577781 Comment: - Appears now hypervolemic with dyspnea and orthopnea. - Resume diuresis at home dose with torsemide. - Acute on Chronic Heart Failure with Preserved Ejection Fraction (5) CKD stage 3 due to type 2 diabetes mellitus Current Visit: Yes Status: Acute Code(s): E11.22 - TYPE 2 DIABETES MELLITUS W DIABETIC CHRONIC KIDNEY DISEASE; N18.3 - CHRONIC KIDNEY DISEASE, STAGE 3 ( MODERATE) SNOMED Code(s): 095821537121 Comment: - Cret Back to Baseline - Acute on Chronic Renal disease possibly due to overdiuresis, though the cause is unclear. - Possibly due to fluid overlod on admission. (6) DM2 (diabetes mellitus, type 2) Current Visit: Yes Status: Acute Comment: - Good Control on Metformin - A1c 7.0% (7) Full code status Current Visit: Yes Status: Acute Code(s): Z78.9 - OTHER SPECIFIED HEALTH STATUS SNOMED Code(s): 074068880 (8) DVT prophylaxis Current Visit: Yes Status: Acute Code(s): DZF2122 - SNOMED Code(s): 528501551 Comment: - Lovenox SubQ Status and Disposition: Will need rehab when sodium improved.
[2019-12-04] MEDS: Enoxaparin(*) 40 MG/0.4 ML SYR SUBCUT SCH (20:10)
[2019-12-05] MEDS: Albuterol/Ipratropium NEB.SOL* Albuterol 2.5 MG/Ipratropium 0.5 MG 3 ML INH SCH ×4 (01:04→19:38)
--- NOTE | 2019-12-05 04:05 | DS ---
CC: Dr. Hans Michael * TRANSITION OF CARE NOTE: DATE OF ADMISSION: 11/23/19 DATE OF TRANSITION OF CARE: PRIMARY CARE PROVIDER: Hans Michael DO MY ATTENDING WHILE IN THE HOSPITAL: Gege Juarez MD * (DICTATED BY JAVAN ESPINOZA) PRIMARY DISCHARGE DIAGNOSES: During this hospitalization: 1. Acute on chronic heart failure with preserved ejection fraction with hypoxic respiratory failure. 2. Asthma with equivocal exacerbation, improved. 3. Hyponatremia, unclear cause, improving. 4. Acute on chronic renal failure, improving. 5. Acute constipation, resolved. 6. Hyperkalemia, resolved. SECONDARY DISCHARGE DIAGNOSES: 1. Diabetes mellitus, type 2. 2. Osteoarthritis. 3. History of cerebrovascular accident. 4. Chronic lower extremity edema. 5. Recent community-acquired pneumonia. STUDIES DONE WHILE IN THE HOSPITAL: Chest x-ray from 11/23/19 read as left basilar infiltrate and small left pleural effusion. Transthoracic echocardiogram from 11/24/19 read as left ventricular chamber size mildly reduced, no significant evidence on Doppler of diastolic dysfunction, wall thickness mildly increased, ejection fraction 60% to 65%, all valves showed normal function, right atrium mildly dilated, pericardium with prominent pericardial fat pad. No changes from prior echocardiogram on 06/26/17. Lumbar spine x-ray from 11/26/19 read as degenerative disk disease and osteoarthritis, spondylolisthesis at L5-S1 stable, no acute osseous injury. Chest x-ray from read as small infiltrate obscuring left hemidiaphragm, atelectasis versus infiltrate vs effusion, small left pleural effusion decreased in size. Abdomen x-ray from 12/04/19 read as no evidence for obstruction. Chest x-ray from 12/04/19 read as low lung volumes, small left basilar infiltrate. HOSPITAL COURSE TO THIS POINT: This is a brief summary of the patient's presentation. For more details, please see the history and physical from JAVAN Aguirre, on 11/23/19. In brief, the patient is an 79-year-old female with past medical history significant for the above who presented to the emergency department for generalized weakness for 3 months, worsened over the 2 weeks. The patient was sent to her primary care provider and was prescribed 7 days of Levaquin for presumptive pneumonia with improvement in her symptoms. She on the day of admission fell in the shower after she had finished and could not get up. She also showed signs of fluid overload and her Lasix was increased from 40 to 80 mg daily 2 weeks before her admission. On presentation , she appeared dry and was given fluids on the second day of her admission. The patient's sodium on admission was 126. The patient was given fluids and improved; however, the patient's respiratory status worsened initially and the patient was diuresed. With diuresis, the patient's sodium improved as had the patient's weakness; however, she continued to be very weak and was recommended to go to rehab at discharge. The patient had metolazone add on for improvement for augmentation of her diuresis on 11/26/19. The patient also had her methylprednisolone increased at this time. After the addition of metolazone and increase in the methylprednisolone, the patient had a significant and abrupt decrease in her sodium from 132 to 119 during which time the patient appeared to go from being hypervolemic to hypovolemic. The patient's methylprednisolone was weaned down back to her home dose over several days and with this, her sodium increased and the patient's respiratory state returned to normal. The presumption is that the patient's sodium was due to overdiuresis, but this was unclear at that time. The patient was given fluids on 12/01/19 and 12/02/19 producing modest increase in her sodium, but mainly it stayed stable around 122. On 12/02/19, the patient's methylprednisolone was returned to 4 mg daily, which is her home dose. Her respiratory status improved, but she had significant constipation causing her extreme stress, which was resistant to laxatives. The patient was given fluids on 12/01/19 and 12/02/19, but her respiratory status worsened again with orthopnea and signs of fluid overload on 12/03/19, so diuresis was again instituted. With fluids and diuresis, the patient's sodium continued to improve slowly pointing to an alternative mechanism likely related to her steroids or SIADH from her respiratory status. The patient had urine osmolalities and urine sodiums, none of which were variable and not diagnostic for certain pathology associated with her hyponatremia. The patient's Lasix at this time has been transitioned from 80 mg daily of Lasix to 40 mg daily torsemide and her breathing is improving. The patient was able to be weaned off of her supplemental oxygen. The patient manually disimpacted on 12/02/19 with significant improvement in her abdominal pain, though she has not had a subsequent bowel movement. Abdominal x- ray shows no signs of obstruction. The patient is performing poorly and needing Faisal lift for transfers. The patient's plan is still for discharge to subacute rehab when her sodium is improving and at a reasonable level. The patient's creatinine has returned essentially to the patient's baseline. The patient had 2 episodes of chest pain that occurred overnight that she states feels like when she has asthma exacerbations and both improved with inhalers. DISCHARGE PLAN BY PROBLEM: 1. Hyponatremia. The patient's hyponatremia is of unclear cause. Given the correspondence with a significant increase in potassium to 6.3, it is unlikely this was entirely related to overdiuresis as this will likely resolve in hyponatremia patients. The patient is currently on her home dose of methylprednisolone, her respiratory status is improving, her sodium is improving slowly. The patient will be resumed on her home medications at this time and her sodium will continued to be assessed. If the patient's sodium resumes its decrease, repeat urine studies for a more clear picture of what is transpiring may be indicated, though this could have represented SIADH, which resolved with improving the patient's respiratory status or relative adrenal insufficiency with insufficient steroid dosing for acute illness. It could have also represented overdiuresis with a decrease in renal function leading to an increase in fasting lipids is less likely. This is likely contributing to the patient's weakness and if left unchanged could very well lead to increase in osteoporosis and risk of fractures. The patient's sodium should likely be at least above 130 prior to discharge. 2. Acute on chronic kidney injury. The patient's creatinine is essentially near baseline. 3. Diabetes mellitus, type 2. It is currently well controlled on metformin and low dose insulin sliding scale, it is likely should be able to be resumed on her metformin at home, possibly with an increased dosing. 4. Acute on chronic heart failure with preserved ejection fraction. Improved. The patient now appears to be approaching euvolemia. Continue torsemide at this time. 5. History of cerebrovascular accident. Continue the patient's Plavix. The patient has no signs of recurrent CVA. 6. Constipation. Continue MiraLAX, senna and additional laxatives as needed. 7. Asthma. The patient's asthma exacerbation appears to have resolved. Continue the patient on home Medrol. It is unclear why the patient is still on this, but should be tapered off of this slowly if possible. . Continue the patient's Advair. JAVAN ESPINOZA [id number]/[facility] #: [id number] MIKE
[2019-12-05 04:53] LABS: BUN/Creatinine Ratio 25.5 (8-20); Calcium 9.3 mg/dL (8.6-10.3); EGFR African American 43.3 (>60); EGFR Non-African American 35.8 (>60); Magnesium 2.8 mg/dL (1.9-2.7); Potassium 4.3 mmol/L (3.5-5.0)
[2019-12-05] MEDS: SALMETEROL INH SCH (07:34)
[2019-12-05] MEDS: FLUTICASONE INH SCH (07:34)
--- NOTE | 2019-12-05 09:15 | PN ---
Subjective Date of Service: 12/05/19 Interval History: Ms. Verdugo is feeling tired this morning. She slept well overnight, but is feeling constantly tired and has been for month. Denies CP, SOB, dizziness, headache. Breakfast tray is sitting next to her and she is hungry, but is not sure she wants to wake up to eat right now. No concerns from nursing. Family History: Unchanged from Admission Social History: Unchanged from Admission Past Medical History: Unchanged from Admission Objective Active Medications: Acetaminophen (Tylenol Tab*) 650 mg PO Q4H PRN MILD PAIN or TEMP > 100.4 Albuterol (Ventolin Hfa Inhaler*) 1 puff INH Q6H PRN SOB/WHEEZING Albuterol (Ventolin 2.5 Mg/3 Ml Neb.Allegra*) 2.5 mg INH Q4H PRN SOB/WHEEZING Albuterol/Ipratropium (Duoneb (Albuterol 2.5 Mg/Ipratropium 0.5 Mg)) 1 neb INH [id number] AWAKE [facility] Cholecalciferol (Vitamin D Tab*) 1,000 units PO DAILY [facility] Clopidogrel Bisulfate (Plavix Tab*) 75 mg PO DAILY [facility] Dextrose (D50w Syringe 50 Ml*) 12.5 gm IV PUSH .FOR FS < 60 - SS PRN FS < 60 Enoxaparin Sodium (Lovenox(*)) 40 mg SUBCUT Q24H [facility] Fluticasone Propionate (Flonase Nasal [place] 50mcg*) 1 spray BOTH NARES DAILY [facility] Insulin Human Lispro (Humalog*) 0 units SUBCUT AC [facility]; Protocol Metformin HCl (Glucophage*) 250 mg PO 0800,1700 [facility] Methylprednisolone (Medrol Tab*) 4 mg PO DAILY [facility] Ondansetron HCl (Zofran Inj*) 4 mg IV Q6H PRN [facility] Polyethylene Glycol/Electrolytes (Miralax (17 Gm Dose Matt)) 17 gm PO 0800,2100 [facility] Fluticasone/Salmeterol (Advair Hfa 115/21 (Nf)) 1 puff INH DAILY [facility]; Protocol Senna (Senokot 8.6 Mg Tab*) 1 tab PO BID PRN CONSTIPATION Torsemide (Demadex*) 40 mg PO DAILY [facility] Vital Signs - 8 hr 12/05/19 12/05/19 03:07 07:40 Temperature 97.8 F Pulse Rate 53 67 Respiratory 16 18 Rate Blood Pressure 120/47 (mmHg) O2 Sat by Pulse 94 93 Oximetry Oxygen Devices in Use Now: Nasal Cannula - 2L Appearance: Elderly female lying in bed in NAD Ears/Nose/Mouth/Throat: Mucous Membranes Moist Neck: NL Appearance and Movements; NL JVP, Trachea Midline Respiratory: Symmetrical Chest Expansion and Respiratory Effort, Clear to Auscultation Cardiovascular: NL Sounds; No Murmurs; No JVD, RRR Abdominal: NL Sounds; No Tenderness; No Distention Extremities: No Edema Neurological: Alert and Oriented x 3 - Drowsy Lines/Tubes/Other Access: Clean, Dry and Intact Peripheral IV Nutrition: Taking PO's Result Diagrams: 12/03/19 06:03 12/05/19 04:16 Assess/Plan/Problems-Billing Assessment: Ms. Verdugo is an 79 yo F with PMH of asthma (on chronic steroids), DM2, HTN; diastolic CHF; admitted after a fall and was found to be hyponatremic which is improving slowly. - Patient Problems (1) Hyponatremia Code(s): E87.1 - HYPO-OSMOLALITY AND HYPONATREMIA Comment: - Increasing slowly, now at 128 - SOB improved - Cortisol low this admission, but unclear significance given chronic steroid therapy - Hyperkalemia not consistent with overdiuresis as cause of hyponatremia - Slightly elevated osmolar gap of unclear cause, triglycerides normal - ? Transient ADH stimulus from asthma exacerbation inpatient causing drop in sodium - Continue torsemide (2) Hyperkalemia Code(s): E87.5 - HYPERKALEMIA Comment: - Resolved - Unclear cause, see above discussion (3) Asthma Code(s): J45.909 - UNSPECIFIED ASTHMA, UNCOMPLICATED Comment: - Wheezing resolved - Continue Advair, Duonebs, Medrol (4) Acute on chronic heart failure with preserved ejection fraction (HFpEF) Code(s): I50.33 - ACUTE ON CHRONIC DIASTOLIC (CONGESTIVE) HEART FAILURE Comment: - Appears now euvolemic - Continue torsemide (5) CKD stage 3 due to type 2 diabetes mellitus Code(s): E11.22 - TYPE 2 DIABETES MELLITUS W DIABETIC CHRONIC KIDNEY DISEASE; N18.3 - CHRONIC KIDNEY DISEASE, STAGE 3 (MODERATE) Comment: - Creatinine at baseline - Acute on chronic renal disease possibly due to overdiuresis, though the cause is unclear, possibly due to fluid overlod on admission (6) DM2 (diabetes mellitus, type 2) Comment: - Good control - A1c 7.0% - Continue metformin (7) DVT prophylaxis Comment: - Lovenox (8) Full code status Code(s): Z78.9 - OTHER SPECIFIED HEALTH STATUS Comment: Status and Disposition: Inpatient. Anticipate d/c to [facility] when medically stable, hopefully tomorrow. Attending: Gege Juarez
[2019-12-05] MEDS: Ondansetron INJ* 2 MG/ML VIAL IV PRN (09:57)
[2019-12-05] MEDS: Insulin LISPRO* 1 UNITS UNIT SUBCUT SCH ×3 (10:35→17:43)
[2019-12-05] MEDS: Senna TAB 8.6 mg* TAB PO PRN ×2 (10:37→21:24)
[2019-12-05] MEDS: Fluticasone NASAL SPRAY 50MCG* 16 gm SPRAY BTL BOTH NARES SCH (10:37)
[2019-12-05] MEDS: metFORMIN* 500 MG TAB PO SCH ×2 (10:37→16:33)
[2019-12-05] MEDS: Torsemide TAB* 20 MG PO SCH (10:38)
[2019-12-05] MEDS: Cholecalciferol TAB* 1000 UNITS PO SCH (10:38)
[2019-12-05] MEDS: Clopidogrel TAB* 75 MG PO SCH (10:38)
[2019-12-05] MEDS: methylPREDNISolone TAB* 4 MG PO SCH (10:38)
[2019-12-05] MEDS: Polyethylene Glycol 3350* 17 GM PACKET PO SCH ×2 (10:39→21:24)
[2019-12-05] MEDS ORDERED: amLODIPine TAB* 5 MG PO ONE (15:42)
[2019-12-05] MEDS: Enoxaparin(*) 40 MG/0.4 ML SYR SUBCUT SCH (21:24)
[2019-12-06] MEDS: Albuterol/Ipratropium NEB.SOL* Albuterol 2.5 MG/Ipratropium 0.5 MG 3 ML INH SCH ×2 (01:05→06:33)
[2019-12-06] MEDS: Acetaminophen TAB* 325 MG PO PRN (03:34)
[2019-12-06] MEDS: FLUTICASONE INH SCH (08:26)
[2019-12-06] MEDS: SALMETEROL INH SCH (08:26)
[2019-12-06] MEDS ORDERED: amLODIPine TAB* 5 MG PO SCH (09:00)
[2019-12-06] MEDS: Fluticasone NASAL SPRAY 50MCG* 16 gm SPRAY BTL BOTH NARES SCH (10:24)
[2019-12-06] MEDS: Insulin LISPRO* 1 UNITS UNIT SUBCUT SCH ×2 (10:24→11:55)
[2019-12-06] MEDS: Polyethylene Glycol 3350* 17 GM PACKET PO SCH (10:25)
[2019-12-06] MEDS: Torsemide TAB* 20 MG PO SCH (10:25)
[2019-12-06] MEDS: metFORMIN* 500 MG TAB PO SCH (10:26)
[2019-12-06] MEDS: methylPREDNISolone TAB* 4 MG PO SCH (10:28)
[2019-12-06] MEDS: Ondansetron INJ* 2 MG/ML VIAL IV PRN (10:28)
[2019-12-06] MEDS: Clopidogrel TAB* 75 MG PO SCH (10:28)
[2019-12-06] MEDS: Cholecalciferol TAB* 1000 UNITS PO SCH (10:28)
[2019-12-06 11:38] LABS: BUN/Creatinine Ratio 23.8 (8-20); Calcium 9.8 mg/dL (8.6-10.3); EGFR African American 34.4 (>60); EGFR Non-African American 28.5 (>60); Potassium 4.1 mmol/L (3.5-5.0)
[2019-12-06] MEDS ORDERED: Acetaminophen ADULT LIQ* 650 MG/20.3 ML UDC PO ONE (12:04)
[2019-12-06 12:23] VITALS: BP 135/36
--- NOTE | 2019-12-06 12:49 | DS ---
AMENDED REPORT NOW INCLUDES DESIGNATED COSIGNER - ESIGNED BEFORE ADJUSTMENTS CC: Dr. Hans Michael * Addendum to discharge summary dictated by JAVAN Smith. DATE OF ADMISSION: 11/23/2019. DATE OF DISCHARGE: 12/06/2019. PRIMARY CARE PHYSICIAN: Dr. Hans Michael. ATTENDING PHYSICIAN: Dr. Gege Juarez * (dictated by Shannan Nance, DEJON). PRIMARY DIAGNOSES: 1. Acute on chronic HFpEF. 2. Asthma exacerbation. 3. Hyponatremia and hyperkalemia. 4. Acute on chronic kidney injury. 5. Acute hypoxic respiratory failure. SECONDARY DIAGNOSES: 1. Diabetes mellitus type 2. 2. History of CVA. 3. Chronic peripheral edema. HISTORY OF PRESENT ILLNESS: Please note that this discharge summary is an addendum to the discharge summary dictated by JAVAN Smith on 12/04/2019. Ms. Verdguo is an 79-year-old female with a past medical history of diabetes, CVA , asthma and HFpEF who presented to the emergency room on 11/23/2019 with generalized weakness. The full summary of this admission is described in the discharge summary from JAVAN Smith. Since his dictation, the patient has remained in the hospital over the weekend due to continued hyponatremia. Hyponatremia has continued to improve with diuresis and as of today, sodium was noted to be 130. I do anticipate her sodium will continue to improve with continued diuresis. Of note, the patient's creatinine has bumped slightly today at 1.72. It appears her baseline is around 1.1 to 1.3. This is likely attributable to diuresis, though I anticipate it will begin to normalize. The patient was noted to be 100 percent on two liters of oxygen this morning and has been weaned on to room air by nursing. Ultimately, the cause of her hyponatremia and hyperkalemia was thought to be secondary to relative adrenal insufficiency secondary to decreased steroid dosing, though sodium is returning to normal and potassium has normalized. Today, the patient reports feeling tired, but offers no specific complaints. She did scratch her arm overnight and is noted to have some bleeding to the left upper arm from a superficial abrasion, though no significant injury. On exam, she is alert and oriented times four with no focal neurological deficits. Heart is a regular rate and rhythm without murmurs, rubs, or gallops. Lungs are clear to auscultation without rhonchi, wheezes, or rubs. There is no edema. Physical exam is otherwise benign. Ms. Verdugo is stable for discharge. Most recent vitals are as follows: Temperature 97.3, heart rate 70, respiratory rate 17, oxygen saturation 98% on room air, blood pressure 113/24. DISCHARGE MEDICATIONS: New: 1. Senna one tab p.o. b.i.d. prn constipation. 2. Torsemide 40 mg p.o. daily. 3. Lisinopril 5 mg p.o. daily. Changed: 1. Metformin 500 mg p.o. b.i.d. (previously was daily). Continued: 1. Albuterol one puff q.6 hours prn shortness of breath or wheezing. 2. Cholecalciferol 1,000 units p.o. daily. 3. Clopidogrel 75 mg p.o. daily. 4. Advair 115/21 one puff daily. 5. Fluticasone one spray both nares daily. 6. Acetaminophen 500 mg p.o. q.8 hours prn pain. 7. Atorvastatin 40 mg p.o. daily. 8. Methylprednisolone 4 mg p.o. daily. Discontinued: 1. Furosemide. 2. Fluconazole. DISCHARGE PLAN: Ms. Verdugo will be discharged to subacute rehab. Medications are noted above. The patient has been started on Torsemide and Furosemide has been discontinued. She additionally has been started on Lisinopril for blood pressure. Metformin dosing has been increased to b.i.d. Her medications otherwise remain unchanged, as noted above. She should be weighed daily and should have a repeat BMP in approximately four days to reassess creatinine. She she follow-up with a provider upon admission to rehab and can follow-up with her primary care provider upon discharge. She should return to the emergency room or nearest hospital for any worsening of symptoms, shortness of breath, lightheadedness, dizziness, chest discomfort, high fevers, chills, night sweat, loss of consciousness, or any other worrisome signs or symptoms. ACTIVITY: As tolerated. DIET: Consistent carb diabetic. CONDITION ON DISCHARGE: Stable. DISCHARGE DISPOSITION: retirement [facility]. This is a summarized report of a complex medical history and hospital stay. For further details, please see the entire medical record. TIME SPENT: Approximately 45 minutes were spent on this discharge. SHANNAN NANCE, [employer] EDITOR [id number]/[facility] #: [id number] MIKE
[2019-12-06] MEDS ORDERED: Albuterol/Ipratropium NEB.SOL* Albuterol 2.5 MG/Ipratropium 0.5 MG 3 ML ONE (14:04)
[2019-12-07] MEDS ORDERED: Lisinopril TAB* 5 MG PO SCH (09:00)
== END 2019-12-06 13:50 | DRG 640 ==
LOC: ED 13:36 → MED 18:39 → OBSVTOIN 19:00
PROVIDERS: ADMIT Internal Medicine; ATTEND Internal Medicine
DX: E87.1 Hypo-osmolality and hyponatremia (principal); I50.33 Acute on chronic diastolic (congestive) heart failure; J96.01 Acute respiratory failure with hypoxia; E27.40 Unspecified adrenocortical insufficiency; I13.0 Hypertensive heart and chronic kidney disease with heart failure and stage 1 through stage 4 chronic kidney disease, or unspecified chronic kidney disease; J45.901 Unspecified asthma with (acute) exacerbation; N17.9 Acute kidney failure, unspecified; M19.90 Unspecified osteoarthritis, unspecified site; N18.3 Chronic kidney disease, stage 3 (moderate); E11.22 Type 2 diabetes mellitus with diabetic chronic kidney disease; K59.00 Constipation, unspecified; E87.5 Hyperkalemia; Z88.8 Allergy status to other drugs, medicaments and biological substances; Z88.1 Allergy status to other antibiotic agents; Z88.0 Allergy status to penicillin; Z91.013 Allergy to seafood; Z86.73 Personal history of transient ischemic attack (TIA), and cerebral infarction without residual deficits; Z79.52 Long term (current) use of systemic steroids; Z79.84 Long term (current) use of oral hypoglycemic drugs; Z79.02 Long term (current) use of antithrombotics/antiplatelets; Z79.51 Long term (current) use of inhaled steroids; Z79.899 Other long term (current) drug therapy
CPT/HCPCS: 36415; 71045; 71046; 72100; 74018; 80048; 80053; 81003; 81015; 82088; 82533; 82570; 83036; 83735; 83880; 83930; 83935; 84134; 84300; 84443; 84478; 84484; 85025; 85610; 86140; 87086; 93005; 93306; 94640; 99285; A9270-GY; J1650; J1940; J2270; J2405; J7509

== ENCOUNTER 2019-12-10 20:26 | Inpatient (IN) | payer MEDICARE, OTHER ==
--- OUTSIDE RECORDS SUMMARY | 2019-12-10 21:18 | XMS REPORT | Continuity of Care Document ---
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 Onset: 09/17/2017 Trochanteric bursitis Tash Hawthorne M.D. Onset: 04/12/2019 Localized, primary osteoarthritis of the Tash Hawthorne M.D. Onset: 04/12/2019 pelvic region and thigh Social History Type Date Description Comments Sex Unknown ETOH Use Denies alcohol use Tobacco Use Start: Unknown Patient has never smoked Smoking Status Reviewed: 07/26/19 Patient has never smoked Allergies, Adverse Reactions, Alerts Active Allergies Reaction Severity Comments Date Penicillin 09/15/2017 Augmentin 09/15/2017 Ceftin 09/15/2017 Celebrex 09/15/2017 Biaxin 09/15/2017 Doxycycline 09/15/2017 Erythromycin 09/15/2017 Nexium 09/15/2017 Fluoxetine 09/15/2017 Hydrocortisone 09/15/2017 Singulair 09/15/2017 Naproxen 09/15/2017 Zantac 09/15/2017 Medications Active Medications SIG Qnty Indications Ordering Date Provider Tramadol HCL 1 tablet by 30tabs M25.551 Tash Hawthorne, 05/24/2019 50mg Tablets mouth every 6 M.D. hours as needed pain Clopidogrel Bisulfate 1 po qd Ryan Chris 09/17/2017 75mg Brynn Luz Tablets Atorvastatin Calcium one tab by mouth 30tabs Ryan Chris 09/17/2017 20mg every Brynn Luz Tablets Trelegy Ellipta Unknown [place]-3 Unknown Tylenol Extra Strength Unknown Loratadine Unknown Vitamin-B Complex Unknown Metformin HCL 1 by mouth once Unknown 500mg Tablets a day Claritin 1 tab daily Unknown 10mg Capsules Methylprednisolone 1/2 tab (2mg) po Unknown 4mg Tablets qd Flonase Allergy Relief spray 1 spray in Unknown each nostril 50mcg/Act Suspension daily Lasix 1 by mouth every Unknown 40mg Tablets day Atrovent HFA 2 puffs q 4hrs Unknown 17mcg/Act Aerosol as needed Albuterol Sulfate 1 vial via Unknown (2.5mg/3ML) nebulizer 4 0.083% Nebulizer times daily as needed Vitamin D3 High Potency 1 by mouth every Unknown day 1000Unit Capsules Famotidine 1 by mouth once Unknown 40mg Tablets a day Acetaminophen 1-2 tabs po Unknown 500mg Tablets q8hrs as needed Duoneb 1 unit nebl Unknown 0.5-2.5(3)mg/3ML every 6 hours as Solution needed Medications Administered in Office Medication SIG Qnty Indications Ordering Provider Date Depomedrol 40MG Tash Hawthorne M.D. 04/12/2019 Injection Immunizations Description No Information Available Vital Signs Date Vital Result Comment 07/26/2019 1:08pm Height 66 inches 5'6" Weight 245.00 lb Heart Rate 90 /min BP Systolic 138 mmHg BP Diastolic 78 mmHg Body Temperature 98.1 F Pain Level 8 BMI (Body Mass Index) 39.5 kg/m2 05/24/2019 1:07pm Height 66 inches 5'6" Heart Rate 95 /min BP Systolic 142 mmHg BP Diastolic 74 mmHg Respiratory Rate 18 /min Body Temperature 99.3 F Pain Level 9 Results Description No Information Available Procedures Description No Information Available Medical Devices Description No Information Available Encounters Type Date Location Provider Dx Diagnosis Office Visit 07/26/2019 [facility] Tash Hawthorne, M25.551 [place] in right [place] 1[place] M16.11 Unilateral primary osteoarthritis, right hip M70.61 Trochanteric bursitis, right hip M54.5 Low back pain Assessments Date Code Description Provider 07/26/2019 M25.551 Pain in right hip Tash Hawthorne M.D. 07/26/2019 M16.11 Unilateral primary osteoarthritis, right hip Tash Hawthorne M.D. 07/26/2019 M70.61 Trochanteric bursitis, right hip Tash Hawthorne M.D. 07/26/2019 M54.5 Low back pain Tash Hawthorne M.D. Plan of Treatment 07/26/2019 - Tash Hawthorne M.D.M25.551 Pain in right hipFollow up:Follow up: As [id number] Unilateral primary osteoarthritis, right hipM70.61 Trochanteric bursitis, right hipM54.5 Low back pain Functional Status Description No Information Available Mental Status Description No Information Available Referrals Description No Information Available
--- OUTSIDE RECORDS SUMMARY | 2019-12-10 21:18 | XMS REPORT | Continuity of Care Document ---
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 Medicine Problems Active Problems Provider Date Cerebrovascular [...] every Brynn Luz Tablets Trelegy Ellipta Unknown [place]-3 Unknown Tylenol Extra Strength Unknown Loratadine Unknown [...] Location Provider Dx Diagnosis Office Visit 07/26/2019 [facility] Tash Hawthorne, M25.551 Pain in right [place] 1:00p [place] [facility] M16.11 Unilateral primary osteoarthritis, right hip [...] Pain in right hipFollow up:Follow up: As [id number] Unilateral primary osteoarthritis, right hipM70.61 Trochanteric bursitis, right hipM54.5 Low back pain Functional Status Description No Information Available Mental Status Description No Information Available Referrals Description No Information Available
--- OUTSIDE RECORDS SUMMARY | 2019-12-10 21:18 | XMS REPORT | Continuity of Care Document ---
:1940 External Reference #:[id number] Author Name Nelson Mtz M.D. 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 Medicine Problems Active Problems Provider Date Cerebrovascular [...] every Brynn Luz Tablets Trelegy Ellipta Unknown [place]-3 Unknown Tylenol Extra Strength Unknown Loratadine Unknown [...] 9 Results Description No Information Available Procedures Date Code Description Status 11/24/2019 41567 ECHO Transthorasic Realtime 2D W Doppler & Color Flow Hosp Completed Medical Devices Description No Information Available Encounters Type Date Location Provider Dx Diagnosis Office Visit 07/26/2019 [facility] Tash Hawthorne, M25.551 Pain in right [place] 1:[place]p [place] M16.11 Unilateral primary osteoarthritis, right hip M70.61 Trochanteric bursitis, right hip M54.5 Low back pain Assessments Date Code Description Provider 11/30/2019 S31.000A Unspecified open wound of lower back Shyanne Aceves NP and pelvis without penetration into retroperitoneum, initial encounter 11/30/2019 E11.9 Type 2 diabetes mellitus without Shyanne Aceves [employer] complications 11/24/2019 I50.9 Heart failure, unspecified Genoveva Howell M.D. 07/26/2019 M25.551 Pain in right hip Tash Hawthorne M.D. 07/26/2019 M16.11 Unilateral primary osteoarthritis, Tash Hawthorne M.D. right hip 07/26/2019 M70.61 Trochanteric bursitis, right hip Tash Hawthorne M.D. 07/26/2019 M54.5 Low back pain Tash Hawthorne M.D. Plan of Treatment 07/26/2019 - Tash Hawthorne M.D.M25.551 Pain in right hipFollow up:Follow up: As [id number] Unilateral primary osteoarthritis, right hipM70.61 Trochanteric bursitis, right hipM54.5 Low back pain Functional Status Description No Information Available Mental Status Description No Information Available Referrals Description No Information Available
[2019-12-10 21:24] LABS: ABS Eosinophils 0.3 10^3/ul (0-0.6); ABS Lymphocytes 0.9 10^3/ul (1.0-4.8); ABS Monocytes 0.7 10^3/ul (0-0.8); ABS Neutrophils 12.3 10^3/ul (1.5-7.7); Eosinophil % 1.8 %; Hematocrit 35 % (35-47); Hemoglobin 12.5 g/dL (12.0-16.0); Lymphocyte % 6.7 %; Mean Corpuscular HGB Conc 35 g/dL (31-36); Mean Corpuscular Hemoglobin 32 pg (27-31); Mean Corpuscular Volume 91 fL (80-97); Mean Platelet Volume 7.9 fL (7.4-10.4); Platelet Count 353 10^3/uL (150-450); Red Blood Count 3.89 10^6 /uL (3.70-4.87); Red Cell Distribution Width 15 % (10-15); White Blood Count 14.2 10^3/uL (3.5-10.8)
[2019-12-10 21:41] LABS: ALT 48 U/L (7-52); AST 63 U/L (13-39); Albumin 3.8 g/dL (3.2-5.2); Albumin/Globulin Ratio 1.3 (1-3); Alkaline Phosphatase 89 U/L (34-104); BUN/Creatinine Ratio 13.2 (8-20); Blood Urea Nitrogen 99 mg/dL (6-24); C Reactive Protein 146.35 mg/L (<8.01); CO2 Carbon Dioxide 27 mmol/L (22-32); Calcium 9.9 mg/dL (8.6-10.3); Chloride 86 mmol/L (101-111); EGFR African American 6.3 (>60); EGFR Non-African American 5.2 (>60); Glucose 134 mg/dL (70-100); Sodium 131 mmol/L (135-145); Total Protein 6.8 g/dL (6.4-8.9)
[2019-12-10 21:42] LABS: Anion Gap 18 mmol/L (2-11); Potassium 5.2 mmol/L (3.5-5.0)
[2019-12-10] MEDS ORDERED: NS 0.9% 1000 ML** 1,000 ML IV ONE (21:47)
[2019-12-10 21:50] LABS: Troponin I 0.05 ng/mL (<0.03)
--- NOTE | 2019-12-10 23:14 | ED ---
Complex/Multi-Sys Presentation - HPI Summary HPI Summary: 79 year old female presents with abdominal pain and nausea and vomiting for past 4 days. Per the [facility] she was hypoxic in the 80s there. She has not been eating. points to epigastric where pain is. She admits to chest pressure and short of breath. Admits to cough. She denies any diarrhea. She says she feels very thirsty. States that she two days ago she fell out of bed. She landed on her right side. She admits to bilateral hip pain and knee pain. She denies any headache. She denies any recent weight gain. She has history of CHF and diabetes. she states she has not ambulated in a month since her previous fall. - History Of Current Complaint Chief Complaint: EDFall Time Seen by Provider: 12/10/19 20:41 - Allergies/Home Medications Allergies/Adverse Reactions: Allergies Allergy/AdvReac Type Severity Reaction Status Date / Time amoxicillin [From Augmentin] Allergy Unknown Verified 12/10/19 20:45 Reaction Details cefuroxime Allergy Unknown Verified 12/10/19 20:45 Reaction Details celecoxib Allergy Unknown Verified 12/10/19 20:45 Reaction Details clarithromycin Allergy Unknown Verified 12/10/19 20:45 Reaction Details clavulanic acid Allergy Unknown Verified 12/10/19 20:45 [From Augmentin] Reaction Details doxycycline Allergy Unknown Verified 12/10/19 20:45 Reaction Details erythromycin base Allergy Unknown Verified 12/10/19 20:45 Reaction Details esomeprazole Allergy Unknown Verified 12/10/19 20:45 Reaction Details fluoxetine Allergy Unknown Verified 12/10/19 20:45 Reaction Details hydrocortisone Allergy Unknown Verified 12/10/19 20:45 Reaction Details montelukast Allergy Unknown Verified 12/10/19 20:45 Reaction Details naproxen Allergy Unknown Verified 12/10/19 20:45 Reaction Details Penicillins Allergy Unknown Verified 12/10/19 20:45 Reaction Details ranitidine Allergy Unknown Verified 12/10/19 20:45 Reaction Details shellfish derived Allergy Unknown Verified 12/10/19 20:45 Reaction Details Home Medications: Home Medications Ondansetron [Ondansetron Odt] 4 mg PO Q8HR PRN 12/10/19 [History Confirmed 12/10] methylPREDNISolone TAB* [Medrol TAB*] 2 mg PO BID 12/10/19 [History Confirmed ] traMADol TAB* [Ultram*] 50 mg PO Q4HR PRN 12/10/19 [History Confirmed 12/10/19] PMH/Surg Hx/FS Hx/Imm Hx Endocrine/Hematology History: Reports: Hx Diabetes Denies: Hx Anticoagulant Therapy, Hx Thyroid Disease Cardiovascular History: Reports: Hx Hypercholesterolemia, Hx Hypertension Denies: Hx Pacemaker/ICD Respiratory History: Reports: Hx Asthma Denies: Hx Chronic Obstructive Pulmonary Disease (COPD) GI History: Reports: Hx Gall Bladder Disease - Had tod'y, Hx Hiatal Hernia, Hx Ulcer History: Denies: Hx Dialysis, Hx Renal Disease Musculoskeletal History: Reports: Hx Arthritis, Other Musculoskeletal History - arthritis Sensory History: Reports: Hx Contacts or Glasses - reading Denies: Hx Hearing Aid, Hx Hearing Problem Opthamlomology History: Reports: Hx Contacts or Glasses - reading Neurological History: Reports: Other Neuro Impairments/Disorders - knees give out Denies: Hx CVA, Hx Dementia, Hx Seizures, Hx Transient Ischemic Attacks (TIA) Psychiatric History: Denies: Hx Panic Disorder, Hx Substance Abuse - Cancer History Cancer Type, Location and Year: arthiritis Hx Chemotherapy: No Hx Radiation Therapy: No - Surgical History Surgery Procedure, Year, and Place: cholecystectomy, hernia repair, right rotator cuff repair, hysterectomy, bladder surgery, bilat cataracts Infectious Disease History: No Infectious Disease History: Denies: Hx Hepatitis, Hx Human Immunodeficiency Virus (HIV), Traveled Outside the [place] in Last 30 Days - Family History Known Family History: Positive: Cardiac Disease - Social History Alcohol Use: None Hx Substance Use: No Substance Use Type: Reports: None Hx Tobacco Use: No Smoking Status (MU): Never Smoked Tobacco Review of Systems Negative: Fever Positive: Chest Pain Positive: Shortness Of Breath, Cough Positive: Abdominal Pain, Vomiting, Nausea. Negative: Diarrhea Positive: Myalgia - hip and right knee pain All Other Systems Reviewed And Are Negative: Yes Physical Exam Triage Information Reviewed: Yes Vital Signs On Initial Exam: Initial Vitals Temp Pulse Resp BP Pulse Ox 97.8 F 74 20 119/62 95 12/10/19 20:30 12/10/19 20:30 12/10/19 20:30 12/10/19 20:30 12/10/19 20:30 Vital Signs Reviewed: Yes Appearance: Positive: Well-Appearing Skin: Positive: Warm, Dry Head/Face: Positive: Normal Head/Face Inspection Eyes: Positive: Normal, Conjunctiva Clear ENT: Positive: Pharynx normal Respiratory/Lung Sounds: Positive: Clear to Auscultation, Breath Sounds Present Cardiovascular: Positive: Normal, RRR Abdomen Description: Positive: Soft, Other: - tenderness in epigastric region Bowel Sounds: Positive: Present Musculoskeletal: Positive: Limited @ - hips, Other - ecchymosis noted to right hip and right knee, tenderness bilateral hips and right knee Neurological: Positive: Sensory/Motor Intact, Alert, Oriented to Person Place, Time, CN Intact II-III Psychiatric: Positive: Normal Procedures - Sedation Patient Received Moderate/Deep Sedation with Procedure: No Diagnostics - Vital Signs Vital Signs Temp Pulse Resp BP Pulse Ox 12/10/19 22:40 72 15 123/47 98 12/10/19 22:02 78 17 115/42 98 12/10/19 22:01 74 15 98 12/10/19 21:55 73 15 103/41 97 12/10/19 21:00 76 92 12/10/19 20:34 78 95 12/10/19 20:30 97.8 F 74 20 119/62 95 - Laboratory Lab Results: Lab Results 12/10/19 12/10/19 12/10/19 Range/Units 21:08 21:08 21:08 WBC 14.2 H (3.5-10.8) 10^3/uL RBC 3.89 (3.70-4.87) 10^6 /uL Hgb 12.5 (12.0-16.0) g/dL Hct 35 (35-47) % MCV 91 (80-97) fL MCH 32 H (27-31) pg MCHC 35 (31-36) g/dL RDW 15 (10-15) % Plt Count 353 (150-450) 10^3/uL MPV 7.9 (7.4-10.4) fL Neut % (Auto) 86.3 % Lymph % (Auto) 6.7 % Bullitt % (Auto) 4.9 % Eos % (Auto) 1.8 % Baso % (Auto) 0.3 % Absolute Neuts (auto) 12.3 H (1.5-7.7) 10^3/ul Absolute Lymphs (auto) 0.9 L (1.0-4.8) 10^3/ul Absolute Monos (auto) 0.7 (0-0.8) 10^3/ul Absolute Eos (auto) 0.3 (0-0.6) 10^3/ul Absolute Basos (auto) 0.0 (0-0.2) 10^3/ul Absolute Nucleated RBC 0.0 10^3/ul Nucleated RBC % 0.0 Sodium 131 L (135-145) mmol/L Potassium 5.2 H (3.5-5.0) mmol/L Chloride 86 L (101-111) mmol/L Carbon Dioxide 27 (22-32) mmol/L Anion Gap 18 H (2-11) mmol/L BUN 99 H (6-24) mg/dL Creatinine 7.49 H (0.51-0.95) mg/dL Est GFR ( Amer) 6.3 (>60) Est GFR (Non-Af Amer) 5.2 (>60) BUN/Creatinine Ratio 13.2 (8-20) Glucose 134 H (70-100) mg/dL Lactic Acid 1.4 (0.5-2.0) mmol/L Calcium 9.9 (8.6-10.3) mg/dL Total Bilirubin 0.60 (0.2-1.0) mg/dL AST 63 H (13-39) U/L ALT 48 (7-52) U/L Alkaline Phosphatase 89 (34-104) U/L Troponin I 0.05 H* (<0.03) ng/mL C-Reactive Protein 146.35 H (<8.01) mg/L B-Natriuretic Peptide (<=100) pg/mL Total Protein 6.8 (6.4-8.9) g/dL Albumin 3.8 (3.2-5.2) g/dL Globulin 3.0 (2-4) g/dL Albumin/Globulin Ratio 1.3 (1-3) Lipase 65 (11.0-82.0) U/L 12/10/19 Range/Units 21:08 WBC (3.5-10.8) 10^3/uL RBC (3.70-4.87) 10^6 /uL Hgb (12.0-16.0) g/dL Hct (35-47) % MCV (80-97) fL MCH (27-31) pg MCHC (31-36) g/dL RDW (10-15) % Plt Count (150-450) 10^3/uL MPV (7.4-10.4) fL Neut % (Auto) % Lymph % (Auto) % Bullitt % (Auto) % Eos % (Auto) % Baso % (Auto) % Absolute Neuts (auto) (1.5-7.7) 10^3/ul Absolute Lymphs (auto) (1.0-4.8) 10^3/ul Absolute Monos (auto) (0-0.8) 10^3/ul Absolute Eos (auto) (0-0.6) 10^3/ul Absolute Basos (auto) (0-0.2) 10^3/ul Absolute Nucleated RBC 10^3/ul Nucleated RBC % Sodium (135-145) mmol/L Potassium (3.5-5.0) mmol/L Chloride (101-111) mmol/L Carbon Dioxide (22-32) mmol/L Anion Gap (2-11) mmol/L BUN (6-24) mg/dL Creatinine (0.51-0.95) mg/dL Est GFR ( Amer) (>60) Est GFR (Non-Af Amer) (>60) BUN/Creatinine Ratio (8-20) Glucose (70-100) mg/dL Lactic Acid (0.5-2.0) mmol/L Calcium (8.6-10.3) mg/dL Total Bilirubin (0.2-1.0) mg/dL AST (13-39) U/L ALT (7-52) U/L Alkaline Phosphatase (34-104) U/L Troponin I (<0.03) ng/mL C-Reactive Protein (<8.01) mg/L B-Natriuretic Peptide 63 (<=100) pg/mL Total Protein (6.4-8.9) g/dL Albumin (3.2-5.2) g/dL Globulin (2-4) g/dL Albumin/Globulin Ratio (1-3) Lipase (11.0-82.0) U/L Result Diagrams: 12/10/19 21:08 12/10/19 21:08 Lab Statement: Any lab studies that have been ordered have been reviewed, and results considered in the medical decision making process. - Radiology hip Radiology Interpretation Completed By: ED Physician Summary of Radiographic Findings: no fracture femur Radiology Interpretation Completed By: ED Physician Summary of Radiographic Findings: no fracture chest Radiology Interpretation Completed By: ED Physician Summary of Radiographic Findings: no active disease - CT abd CT Interpretation Completed By: Radiologist Summary of CT Findings: IMPRESSION: 1. Stable colonic diverticulosis without evidence for acute diverticulitis. 2. New since the prior exam are possibly acute fractures involving the posterior aspect of right 11th and 10th ribs. 3. No other acute CT pathology of the abdomen or pelvis. - EKG No standard instances Cardiac Rate: NL EKG Rhythm: Sinus Rhythm Summary of EKG Findings: sinus rhythm Re-Evaluation - Re-Evaluation First Eval Re-Evaluation Time: 23:50 Comment: 350 urine in lacy bag Complex Multi-Symp Course/Dx Course Of Treatment: 79 year old female presents with abdominal pain and nausea and vomiting for past 4 days. Per the [facility] she was hypoxic in the 80s there. She has not been eating. points to epigastric where pain is. She admits to chest pressure and short of breath. Admits to cough. She denies any diarrhea. She says she feels very thirsty. States that she two days ago she fell out of bed. She landed on her right side. She admits to bilateral hip pain and knee pain. She denies any headache. She denies any recent weight gain. She has history of CHF and diabetes. she states she has not ambulated in a month since her previous fall. on exam lungs CTA. Tenderness epigastric region. wbc 14. Cr 7.49 which is elevated from 1.72 4 days ago and bun 99 which was 41 4 days ago. potassium 5.2. sodium 131. anion gap 19. co2 27. CT abd no pathology but does have rib fracture. preliminary xray reads no fracture. discussed with dr almaraz who recommends discuss with nephrology. discussed with dr bolton who says needs fluid but unclear at this point if will need dialysis. with needing potential dialysis and do not have such on weekend spoke with [facility]. spoke with dr Fabian Clancy from [facility] who states likely prerenal and should have trail IV fluids for 12-24 hours and if not improving or anuric to transfer then. patient is currently making urine after liter of fluid. discussed with dr almaraz who agrees to admit. - Diagnoses Differential Diagnoses/HQI/PQRI: Metabolic Abnormality, Urinary Tract Infection , Other - gastroenteritis Provider Diagnoses: Acute kidney failure, Abdominal pain, Vomiting, Fall, Hip pain, Rib fracture Discharge ED - Sign-Out/Discharge Documenting (check all that apply): Patient Departure - Discharge Plan Condition: Stable Disposition: ADMITTED TO [facility] Referrals: Hans Michael DO [Primary Care Provider] - - Billing Disposition and Condition Condition: STABLE Disposition: Admitted to [facility]
[2019-12-10 23:26] LABS: Urine Appearance Clear; Urine Bilirubin Negative (Negative); Urine Blood Negative (Negative); Urine Color Yellow; Urine Glucose Negative (Negative); Urine Ketones Negative (Negative); Urine Nitrite Negative (Negative); Urine Protein Negative (Negative); Urine Specific Gravity 1.014 (1.010-1.030); Urine Urobilinogen Negative (Negative)
[2019-12-10 23:29] LABS: Urine Bacteria Absent (Absent); Urine Red Blood Cell Absent (Absent); Urine White Blood Cell Trace(0-5/hpf) (Absent)
[2019-12-11] MEDS ORDERED: Albuterol HFA INHALER* 8 gm MDI INH PRN (01:15)
[2019-12-11] MEDS ORDERED: Senna TAB 8.6 mg* TAB PO PRN (01:15)
[2019-12-11] MEDS ORDERED: Ondansetron ODT TAB* 4 MG PO PRN (01:15)
[2019-12-11] MEDS ORDERED: traMADol TAB* 50 MG PO PRN (01:15)
[2019-12-11] MEDS ORDERED: Acetaminophen TAB* 325 MG PO PRN (01:15)
[2019-12-11] MEDS: NS 0.9% 1000 ML** 1,000 ML IV SCH ×3 (01:42→22:21)
--- NOTE | 2019-12-11 03:40 | HP ---
CC: Dr. Hans Michael; Dr. Pauly Castle ADMISSION HISTORY AND PHYSICAL: DATE OF ADMISSION: 12/11/19 CHIEF COMPLAINT: Fall and nausea and vomiting. HISTORY OF PRESENT ILLNESS: This is an 79-year-old female with past medical history of type 2 diabetes, asthma, osteoarthritis, previous stroke, chronic lower extremity edema, who was recently diagnosed with diastolic heart failure, started on diuretics. She was recently admitted and discharged on 12/06/19 with generalized weakness, noted to have difficulty ambulating to [facility]. While in [facility], the patient had a fall, which happened when they were attempting to roll her on the bed and she fell on the right side of her chest, legs and also stated that she flat on her face as well. Since then, she has been having severe pain on the right hip, has not been ambulating much, no physical therapy, and was also complaining that she was having some abdominal pain and some nausea and vomiting and has had decreased p.o. intake, but has been taking her medications as given by the [facility] staff. She also stated that the [facility] staff have not changed her diapers on a frequent basis. Finally, sent to the emergency room for further evaluation. She did have blood work done this morning, which showed creatinine elevated at 6.57 compared to on the day of discharge, which was 1.72. The patient otherwise denies any fever or chills. She has some mild shortness of breath and was started on some oxygen and her pulse ox apparently at the [facility] was noted to be low to 80s. PAST MEDICAL HISTORY: History of asthma; diabetes, type 2; osteoarthritis; history of stroke; hypertension; lower extremity edema secondary to chronic diastolic dysfunction with preserved ejection fraction of 65%, diagnosed recently. PAST SURGICAL HISTORY: She has had cholecystectomy, hernia repair x2 in the umbilical and inguinal area, hysterectomy, bilateral cataract repair. HOME MEDICATIONS: The patient is on: 1. Ultram 50 mg q.4 hours p.r.n. 2. Ondansetron 4 mg q.8 hours p.r.n. 3. Medrol 2 mg p.o. b.i.d. 4. Metformin 500 mg p.o. b.i.d. 5. Advair 1 puff by inhalation daily. 6. Tylenol 500 mg p.o. q.8 hours p.r.n. 7. Lisinopril 5 mg oral daily. 8. Flonase 1 spray by both nares daily. 9. Clopidogrel 75 mg oral daily. 10. Vitamin D3 1000 units oral daily. 11. Lipitor 40 mg oral daily at bedtime. 12. Ventolin 1 puff by inhalation q.6 hours p.r.n. 13. Demadex 40 mg oral daily. 14. Senna 1 tablet p.o. b.i.d. p.r.n. ALLERGIES: The patient is allergic to multiple medications all of which have unknown reactions including AMOXICILLIN, CEFUROXIME, CELECOXIB, CLARITHROMYCIN, CLAVULANIC ACID, DOXYCYCLINE, ERYTHROMYCIN BASE, ESOMEPRAZOLE, FLUOXETINE, HYDROCORTISONE, MONTELUKAST, NAPROXEN, PENICILLIN, RANITIDINE, and SHELLFISH DERIVED. FAMILY HISTORY: Mom due to brain cancer and father due to CT in his 60s. SOCIAL HISTORY: The patient denies any smoking, alcohol, or drug use. 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 She is otherwise full code and her surrogate decision maker is her daughter, Laura Mar. She currently has been residing at the [facility] since discharge on 12/06/19. REVIEW OF SYSTEMS: A 14-point review of systems did not reveal any new information other than what is mentioned in the HPI. PHYSICAL EXAMINATION GENERAL: The patient is awake, alert, oriented x3, did not appear to be in any acute respiratory distress. VITAL SIGNS: In the ER, BP was noted to be 139/57, heart rate 75, respiration rate 15, saturating 96% on 2 L nasal cannula, temperature 96.8. HEAD AND NECK: Atraumatic, normocephalic. Bilateral pupils are reactive. Oral mucosa was dry. Neck: Supple. No jugular venous distention. LUNGS: Clear to auscultation bilaterally. No wheezing, rhonchi, or rales. HEART: S1, S2. Regular rate and rhythm. ABDOMEN: Soft, nontender, nondistended. EXTREMITIES: The patient has severe tenderness on the both lower extremities and severe tenderness especially on the right hip. There is some bruising noted on the right knee. I could not appreciate the rib fractures noted on the CAT scan. DIAGNOSTIC STUDIES/LAB DATA: CBC shows minimally elevated white count of 14.2 , hemoglobin and hematocrit stable, platelet count was stable. Comprehensive metabolic panel shows low sodium at 131, potassium elevated at 5.2, chloride low at 86, bicarb elevated at 27, BUN elevated at 99, creatinine elevated at 7.49, random glucose was 134. Lactic acid is 1.4. Troponin 0.05. C-reactive protein 146. EKG showed sinus rhythm at 74 beats per minute with some intermittent PVCs. When compared to her old rhythm from 12/04/19, it is essentially unchanged. CT abdomen and pelvis was read as stable colonic diverticulosis without evidence of acute diverticulitis new since prior exam or possible acute fractures involving the posterior aspect of the right XI and X ribs, no other acute CT pathology of the abdomen and pelvis. Hip x-ray and femur x-ray did not show any obvious changes, official read by Radiology is still pending to see if the patient has any fractures there. Portable chest x-ray did not show any acute changes, official read by Radiology is still pending. IMPRESSION: This is an 79-year-old female with multiple medical problems including recently diagnosed congestive heart failure, started on diuretics, has had decreased p.o. intake and vomiting, comes in with acute kidney injury, likely secondary to severe dehydration, likely multifactorial. ASSESSMENT AND PLAN: 1. Acute kidney injury and of chronic kidney disease, likely secondary to multifactorial including her decreased p.o. intake, nausea, vomiting, and her diuretics, and MICA inhibitors that she is currently on. For now, we will keep the patient on IV hydration. The patient already got a S[place] in the ER. We will measure the patient's input and output closely and hold the diuretics and MICA inhibitors as mentioned and repeat labs in the morning. Nephrology was also consulted and Nephrology suggested that if the patient does not improve, the patient will need to be transferred to a facility that does perform hemodialysis. ER already spoke with Dr. Fabian Clancy from [facility], who states that the patient should receive a trial of IV fluids before transferring the patient. If she does not improve, he is still on over the weekend, so we could recontact him regarding potential transport if necessary. In the meantime , Nephrology in-house is already consulted to evaluate the patient in the morning. 2. Right rib fracture and right hip pain. Continue with pain medications as needed. 3. Abdominal pain, nausea, and vomiting. Unclear etiology. We will start the patient on a clear liquid diet for now and advance diet as tolerated and consider GI consult if the patient's symptoms does not improve. 4. History of asthma. Restart home medications. 5. History of stroke. Restart statin and Plavix. 6. History of osteoarthritis. 7. History of type 2 diabetes. For now, we will hold metformin in light of her acute kidney injury and start the patient on fingerstick monitoring a.c. and h.s. and if elevated, we could consider initiating insulin sliding scale. 8. History of hypertension. Currently, normotensive. We will hold BP medications as mentioned. 9. Elevated troponin likely due to renal clearance rather than real CT will get repeat level in AM. 10. DVT prophylaxis with subcu heparin. 11. Code status. The patient is full code with her daughter, Laura, being surrogate decision maker. [id number]/CPS #: [id number]
[2019-12-11] MEDS ORDERED: Acetaminophen ADULT LIQ* 650 MG/20.3 ML UDC PO PRN (04:03)
[2019-12-11] MEDS: Ondansetron INJ* 2 MG/ML VIAL IV PRN (05:18)
[2019-12-11] MEDS: Heparin VIAL(*) 5000 UNITS/ML VIAL (FIVE THOUSAND) SUBCUT SCH ×3 (05:18→21:58)
[2019-12-11 06:17] LABS: Albumin 3.4 g/dL (3.2-5.2); Anion Gap 19 mmol/L (2-11); CO2 Carbon Dioxide 22 mmol/L (22-32); Calcium 8.7 mg/dL (8.6-10.3); Chloride 91 mmol/L (101-111); Sodium 132 mmol/L (135-145)
[2019-12-11 06:22] LABS: ABS Eosinophils 0.2 10^3/ul (0-0.6); ABS Lymphocytes 0.9 10^3/ul (1.0-4.8); ABS Monocytes 0.5 10^3/ul (0-0.8); ABS Neutrophils 9.3 10^3/ul (1.5-7.7); Hematocrit 37 % (35-47); Hemoglobin 12.3 g/dL (12.0-16.0); Lymphocyte % 8.4 %; Mean Corpuscular HGB Conc 33 g/dL (31-36); Mean Corpuscular Hemoglobin 32 pg (27-31); Mean Corpuscular Volume 96 fL (80-97); Mean Platelet Volume 8.2 fL (7.4-10.4); Nucleated Red Blood Cells % 0.1; Platelet Count 216 10^3/uL (150-450); Red Blood Count 3.84 10^6 /uL (3.70-4.87); Red Cell Distribution Width 16 % (10-15); White Blood Count 10.9 10^3/uL (3.5-10.8)
[2019-12-11 06:23] LABS: ALT 46 U/L (7-52); AST 81 U/L (13-39); Albumin/Globulin Ratio 1.2 (1-3); Alkaline Phosphatase 85 U/L (34-104); BUN/Creatinine Ratio 13.1 (8-20); Blood Urea Nitrogen 97 mg/dL (6-24); EGFR African American 6.4 (>60); EGFR Non-African American 5.3 (>60); Globulin 2.8 g/dL (2-4); Glucose 129 mg/dL (70-100); Total Protein 6.2 g/dL (6.4-8.9)
[2019-12-11 06:50] LABS: Troponin I 0.04 ng/mL (<0.03)
[2019-12-11] MEDS: Mometasone/Formoter 200/5 MDI INH SCH (07:43)
[2019-12-11] MEDS: Fluticasone NASAL SPRAY 50MCG* 16 gm SPRAY BTL BOTH NARES SCH (09:08)
[2019-12-11] MEDS: Cholecalciferol TAB* 1000 UNITS PO SCH (09:13)
[2019-12-11] MEDS: Clopidogrel TAB* 75 MG PO SCH (09:13)
[2019-12-11] MEDS: methylPREDNISolone TAB* 4 MG PO SCH ×2 (09:13→21:58)
--- NOTE | 2019-12-11 09:41 | PN ---
Subjective Date of Service: 12/11/19 Interval History: Patient resting in bed on assessment. Patient reports she is fatigued. Reports pain in right hip. Denies nausea or vomiting at this time. Denies abd pain. Denies cp, sob, fever, chills. Objective Active Medications: Acetaminophen (Tylenol Adult Liq*) 650 mg PO Q8H PRN PRN Reason: PAIN - MODERATE Last Admin: 12/11/19 04:34 Dose: 650 mg Albuterol (Ventolin Hfa Inhaler*) 1 puff INH Q6H PRN PRN Reason: SOB/WHEEZING Atorvastatin Calcium (Lipitor*) 40 mg PO 1700 [facility] Cholecalciferol (Vitamin D Tab*) 1,000 units PO DAILY [facility] Last Admin: 12/11/19 09:13 Dose: 1,000 units Clopidogrel Bisulfate (Plavix Tab*) 75 mg PO DAILY [facility] Last Admin: 12/11/19 09:13 Dose: 75 mg Fluticasone Propionate (Flonase Nasal [place] 50mcg*) 1 spray BOTH NARES DAILY [facility] Last Admin: 12/11/19 09:08 Dose: 1 spray Heparin Sodium (Porcine) (Heparin Vial(*)) 5,000 units SUBCUT Q8HR [facility] Last Admin: 12/11/19 05:18 Dose: 5,000 units Sodium Chloride (Ns 0.9% 1000 Ml) 1,000 mls @ 100 mls/hr IV PER RATE [facility] Last Admin: 12/11/19 01:42 Dose: 100 mls/hr Methylprednisolone (Medrol Tab*) 2 mg PO BID [facility] Last Admin: 12/11/19 09:13 Dose: 2 mg Mometasone Furoate/Formoterol Fumar (Dulera 200/5 Mdi*) 1 puff INH DAILY [facility]; Protocol Last Admin: 12/11/19 07:43 Dose: 1 puff Ondansetron HCl (Zofran Inj*) 4 mg IV Q4H PRN PRN Reason: NAUSEA Last Admin: 12/11/19 05:18 Dose: 4 mg Senna (Senokot 8.6 Mg Tab*) 1 tab PO BID PRN PRN Reason: CONSTIPATION Tramadol HCl (Ultram*) 50 mg PO Q8H PRN PRN Reason: PAIN - MODERATE Vital Signs - 8 hr 12/11/19 12/11/19 12/11/19 02:00 02:02 03:06 Temperature 96.8 F 96.8 F 96.8 F Pulse Rate 69 67 68 Respiratory 13 14 15 Rate Blood Pressure 123/51 133/47 (mmHg) O2 Sat by Pulse 99 96 99 Oximetry 12/11/19 12/11/19 12/11/19 03:36 07:15 07:43 Temperature 97.7 F 97.3 F Pulse Rate 76 67 Respiratory 16 20 14 Rate Blood Pressure 113/86 121/30 (mmHg) O2 Sat by Pulse 99 96 Oximetry 12/11/19 12/11/19 08:00 09:27 Temperature Pulse Rate Respiratory 20 Rate Blood Pressure 120/62 (mmHg) O2 Sat by Pulse Oximetry Oxygen Devices in Use Now: Nasal Cannula Appearance: NAD Eyes: No Scleral Icterus Ears/Nose/Mouth/Throat: Clear Oropharnyx, Mucous Membranes Moist Neck: NL Appearance and Movements; NL JVP Respiratory: Symmetrical Chest Expansion and Respiratory Effort, - - Diminished at bases Cardiovascular: NL Sounds; No Murmurs; No JVD, RRR, No Edema Abdominal: NL Sounds; No Tenderness; No Distention Lymphatic: No Cervical Adenopathy Extremities: No Edema Neurological: Alert and Oriented x 3, NL Muscle Strength and Tone Nutrition: Taking PO's Result Diagrams: 12/11/19 05:18 12/11/19 05:18 Additional Lab and Data: Laboratory Results - last 24 hr 12/10/19 12/10/19 12/10/19 21:08 21:08 21:08 WBC 14.2 H RBC 3.89 Hgb 12.5 Hct 35 MCV 91 MCH 32 H MCHC 35 RDW 15 Plt Count 353 MPV 7.9 Neut % (Auto) 86.3 Lymph % (Auto) 6.7 [place] % (Auto) 4.9 Eos % (Auto) 1.8 Baso % (Auto) 0.3 Absolute Neuts (auto) 12.3 H Absolute Lymphs (auto) 0.9 L Absolute Monos (auto) 0.7 Absolute Eos (auto) 0.3 Absolute Basos (auto) 0.0 Absolute Nucleated RBC 0.0 Nucleated RBC % 0.0 Sodium 131 L Potassium 5.2 H Chloride 86 L Carbon Dioxide 27 Anion Gap 18 H BUN 99 H Creatinine 7.49 H Est GFR ( Amer) 6.3 Est GFR (Non-Af Amer) 5.2 BUN/Creatinine Ratio 13.2 Glucose 134 H POC Glucose (mg/dL) Lactic Acid 1.4 Calcium 9.9 Total Bilirubin 0.60 AST 63 H ALT 48 Alkaline Phosphatase 89 Troponin I 0.05 H* C-Reactive Protein 146.35 H B-Natriuretic Peptide Total Protein 6.8 Albumin 3.8 Globulin 3.0 Albumin/Globulin Ratio 1.3 Lipase 65 Urine Color Urine Appearance Urine pH Ur Specific [place] Urine Protein Urine Ketones Urine Blood Urine Nitrate Urine Bilirubin Urine Urobilinogen Ur Leukocyte Esterase Urine WBC (Auto) Urine RBC (Auto) Urine Bacteria Urine Glucose 12/10/19 12/10/19 12/11/19 21:08 23:15 05:18 WBC 10.9 H RBC 3.84 Hgb 12.3 Hct 37 MCV 96 MCH 32 H MCHC 33 RDW 16 H Plt Count 216 MPV 8.2 Neut % (Auto) 84.8 Lymph % (Auto) 8.4 [place] % (Auto) 4.6 Eos % (Auto) 2.0 Baso % (Auto) 0.2 Absolute Neuts (auto) 9.3 H Absolute Lymphs (auto) 0.9 L Absolute Monos (auto) 0.5 Absolute Eos (auto) 0.2 Absolute Basos (auto) 0.0 Absolute Nucleated RBC 0.0 Nucleated RBC % 0.1 Sodium Potassium Chloride Carbon Dioxide Anion Gap BUN Creatinine Est GFR ( Amer) Est GFR (Non-Af Amer) BUN/Creatinine Ratio Glucose POC Glucose (mg/dL) Lactic Acid Calcium Total Bilirubin AST ALT Alkaline Phosphatase Troponin I C-Reactive Protein B-Natriuretic Peptide 63 Total Protein Albumin Globulin Albumin/Globulin Ratio Lipase Urine Color Yellow Urine Appearance Clear Urine pH 5.0 Ur Specific [place] 1.014 Urine Protein Negative Urine Ketones Negative Urine Blood Negative Urine Nitrate Negative Urine Bilirubin Negative Urine Urobilinogen Negative Ur Leukocyte Esterase Trace A Urine WBC (Auto) Trace(0-5/hpf) Urine RBC (Auto) Absent Urine Bacteria Absent Urine Glucose Negative 12/11/19 12/11/19 05:18 08:48 WBC RBC Hgb Hct MCV MCH MCHC RDW Plt Count MPV Neut % (Auto) Lymph % (Auto) [place] % (Auto) Eos % (Auto) Baso % (Auto) Absolute Neuts (auto) Absolute Lymphs (auto) Absolute Monos (auto) Absolute Eos (auto) Absolute Basos (auto) Absolute Nucleated RBC Nucleated RBC % Sodium 132 L Potassium 5.0 Chloride 91 L Carbon Dioxide 22 Anion Gap 19 H BUN 97 H Creatinine 7.42 H Est GFR ( Amer) 6.4 Est GFR (Non-Af Amer) 5.3 BUN/Creatinine Ratio 13.1 Glucose 129 H POC Glucose (mg/dL) 80 Lactic Acid Calcium 8.7 Total Bilirubin 0.60 AST 81 H ALT 46 Alkaline Phosphatase 85 Troponin I 0.04 H* C-Reactive Protein B-Natriuretic Peptide Total Protein 6.2 L Albumin 3.4 Globulin 2.8 Albumin/Globulin Ratio 1.2 Lipase Urine Color Urine Appearance Urine pH Ur Specific [place] Urine Protein Urine Ketones Urine Blood Urine Nitrate Urine Bilirubin Urine Urobilinogen Ur Leukocyte Esterase Urine WBC (Auto) Urine RBC (Auto) Urine Bacteria Urine Glucose Microbiology and Other Data: Microbiology 12/11/19 00:24 Nasal Screen MRSA (PCR) - Final Nasal Mrsa Detected EKG Data: Sinus Rhythm with occasional Trigemeny and frequent PVCs Assess/Plan/Problems-Billing Assessment: 79 yr old female with pmh dm, asthma, oa, previous stroke, chronic le edema, diastolic hf; who presented to ed with nausea, vomiting, and status post fall - Patient Problems (1) [id number] kidney injury Comment: - Dr Castle consulting and we very much appreciate his assistance. - Likely multifactorial due to nausea, vomiting, decrease po intake, MICA, and diuretics. - Plan for IV fluids (NS 100ml/hr) and monitoring creatinine. If patient does not improve may need HD - Sanches in place for close monitoring of urine output (2) Right hip pain Comment: - Positioning and Tylenol - No fx (3) Right rib fracture Comment: - Possible acute fx of 11th and 10th ribs - Chest xray unremarkable - Pain meds and positioning (4) Cerebellar stroke Comment: - Hx of - Cont Statin and Plavix (5) DM2 (diabetes mellitus, type 2) Comment: - Hold Meformin - FS and SS (6) Hypertension Comment: - WNL - Cont to hold diuretics and MICA (7) Chronic heart failure with preserved ejection fraction Comment: - Cont strict I&Os - Daily weights - Holding diuretics given creatinine elevation - Receiving IVF. Monitor closely (8) Full code status Comment: (9) DVT prophylaxis Comment: - Lovenox Attending: Brandy Vargas
--- NOTE | 2019-12-11 11:26 | CONSULT ---
Consult Consult: Consult requested for: [place] Consult requested by: Dr. [place] Hospitalist Performed by Dr. Bassam Castle, [facility] Nephrology 12/11/2019 79 YO WF, in [place], from [place] Shes admitted with abdominal pain & N/V for 4 days. She has not been eating well. She said she was very thirsty. Had recent fall out of bed at [place] & since then been doing poorly. On admission shes in [place], s/p IVF didnt improve significantly, BUN/sCr 97/7.42~12/11 was 99/7.49~12/10 from 41/1.72~12/06. Of note UA is bland , negative blood, WBCs or RBCs. In [place] was on Lisinopril & Torsemide. I spoke to her NOK, her daughter Laura, who was informed about the results, , and agreed for HD if need arises. CTAP: No acute pathology. No HN. PMH CKD sCr baseline 1.2-1.3 Old CVA DM CHF [place] resident HomeMeds: Medication Instructions Recorded Confirmed Type Fluticasone NASAL * [Flonase *] 1 spray BOTH NARES DAILY 01/04/13 12/10/19 History Acetaminophen [Acetaminophen Extra 500 mg PO Q8HR PRN 11/23/19 12/10/19 History Strength] Albuterol HFA INHALER* [Ventolin 1 puff INH Q6H PRN 11/23/19 12/10/19 History HFA Inhaler*] Cholecalciferol (Vitamin D3) 1,000 unit PO DAILY 11/23/19 12/10/19 History [Vitamin D3] Fluticas/Salmet 115/21 HFA(NF) 1 puff INH DAILY 11/23/19 12/10/19 History [Advair HFA 115/21 (NF)] Ondansetron [Ondansetron Odt] 4 mg PO Q8HR PRN 12/10/19 12/10/19 History methylPREDNISolone TAB* [Medrol 2 mg PO BID 12/10/19 12/10/19 History TAB*] traMADol TAB* [Ultram*] 50 mg PO Q4HR PRN 12/10/19 12/10/19 History Hospital Meds: Acetaminophen Albuterol Atorvastatin Cholecalciferol Clopidogrel Fluticasone Heparin Sodium Chloride 100 cc/Hr Methylprednisolone Mometasone Ondansetron Senna Tramadol Allergies: amoxicillin [From Augmentin] Allergy (Verified 12/10/19 20:45) Unknown Reaction Details cefuroxime Allergy (Verified 12/10/19 20:45) Unknown Reaction Details celecoxib Allergy (Verified 12/10/19 20:45) Unknown Reaction Details clarithromycin Allergy (Verified 12/10/19 20:45) Unknown Reaction Details clavulanic acid [From Augmentin] Allergy (Verified 12/10/19 20:45) Unknown Reaction Details doxycycline Allergy (Verified 12/10/19 20:45) Unknown Reaction Details erythromycin base Allergy (Verified 12/10/19 20:45) Unknown Reaction Details esomeprazole Allergy (Verified 12/10/19 20:45) Unknown Reaction Details fluoxetine Allergy (Verified 12/10/19 20:45) Unknown Reaction Details hydrocortisone Allergy (Verified 12/10/19 20:45) Unknown Reaction Details montelukast Allergy (Verified 12/10/19 20:45) Unknown Reaction Details naproxen Allergy (Verified 12/10/19 20:45) Unknown Reaction Details Penicillins Allergy (Verified 12/10/19 20:45) Unknown Reaction Details ranitidine Allergy (Verified 12/10/19 20:45) Unknown Reaction Details shellfish derived Allergy (Verified 12/10/19 20:45) Unknown Reaction Details CANNOT EAT CRAB Social History: Denied smoking. No ETOH or IVDA. Lives in [place]. Family History: Negative for Dialysis, ESRD or Renal Transplant. Positive for HTN & DM Surgical History:Cholecystectomy, hernia repair, right rotator cuff repair, hysterectomy, bladder surgery, cataracts 12-Point Review of System obtained: Constitutional: Weaknes, sleepiness, Poor appetite as in HPI. Eyes No blurry vision. No red eye CV: No SOB at rest. occasional chest tightness, no syncope or edema Respiratory: No SOB at rest no cough no wheezing G.I: no diarrhea. Has nausea & vomiting no pain no blood per rectum no burning no obstruction symptoms Skin no rash Neurology No seizures Endocrine diabetes, no heat or cold intolerance Hem/Lymphatic no bleeding no lymph nodes swelling Immune/Allergy no allergic reactions Musculoskeletal: No arthritis, no swelling Psych no anxiety no depression no hallucination Objective: Vital Signs Temp 97.3 F 12/11/19 07:15 Pulse 67 12/11/19 07:15 Resp 20 12/11/19 08:00 BP 120/62 12/11/19 09:27 Pulse Ox 96 12/11/19 07:15 Intake & Output 12/10/19 12/11/19 12/11/19 18:59 06:59 18:59 Intake Total 200 0 Output Total 740 Balance -540 0 Weight 103.918 kg Intake: IV Fluids 200 NS (0.9%) 200 Oral 0 0 Output: Urine 40 Sanches 700 10 Point multi system exam: Constitutional Awake. Not in distress HEENT: No Conjunctivitis Abdomen diffuse, mild tenderness. No rebound Heart: NSR, No LE Edema, No murmur Lungs: Clear to auscultation Extremities: No edema, no rash Skin no rash Neurology No deficit. CN intact Hem/Lymph: no palpable lymph nodes Musculoskeletal: No joint swelling Laboratory Reviewed Sodium 132 mmol/L (135-145) L 12/11/19 05:18 Potassium 5.0 mmol/L (3.5-5.0) 12/11/19 05:18 BUN 97 mg/dL (6-24) H 12/11/19 05:18 Creatinine 7.42 mg/dL (0.51-0.95) H 12/11/19 05:18 Calcium 8.7 mg/dL (8.6-10.3) 12/11/19 05:18 AST 81 U/L (13-39) H 12/11/19 05:18 ALT 46 U/L (7-52) 12/11/19 05:18 Imaging: CTAP as in HPI Assessment and Plan: *[place] on CKD, likely started prerenal but didn't improve quickly enough, possibly sustained some ATN. Off MICA and diuretics. *Electrolytes Ok *BP Ok *Continue IVF 100 cc/Hr another 24 Hr. She made 700 cc Of urine since came in. *No indication for HD. *I doubt GN as UA is bland. CT ruled obstruction. Daughter was informed about lab/radiology results & prognosis. All questions were answered. She was made part of the treatment plan Case discussed with Francie Martinez
[2019-12-11] MEDS: Atorvastatin* 40 MG TAB PO SCH (18:14)
[2019-12-12 05:25] LABS: ABS Eosinophils 0.2 10^3/ul (0-0.6); ABS Lymphocytes 0.6 10^3/ul (1.0-4.8); ABS Monocytes 0.5 10^3/ul (0-0.8); ABS Neutrophils 9.4 10^3/ul (1.5-7.7); Eosinophil % 1.8 %; Hematocrit 30 % (35-47); Lymphocyte % 5.8 %; Mean Corpuscular HGB Conc 33 g/dL (31-36); Mean Corpuscular Hemoglobin 32 pg (27-31); Mean Corpuscular Volume 95 fL (80-97); Mean Platelet Volume 7.7 fL (7.4-10.4); Nucleated Red Blood Cells % 0.1; Platelet Count 289 10^3/uL (150-450); Red Blood Count 3.19 10^6 /uL (3.70-4.87); Red Cell Distribution Width 16 % (10-15); White Blood Count 10.8 10^3/uL (3.5-10.8)
[2019-12-12 05:39] LABS: Calcium 8.2 mg/dL (8.6-10.3)
[2019-12-12 05:41] LABS: Potassium 5.6 mmol/L (3.5-5.0)
[2019-12-12 05:44] LABS: BUN/Creatinine Ratio 13.5 (8-20); EGFR African American 6.2 (>60); EGFR Non-African American 5.1 (>60)
[2019-12-12] MEDS: Heparin VIAL(*) 5000 UNITS/ML VIAL (FIVE THOUSAND) SUBCUT SCH ×3 (06:20→22:00)
[2019-12-12] MEDS ORDERED: Furosemide IV* 10 MG/ML 2 ML VIAL (20 MG) IV ONE (08:28)
[2019-12-12] MEDS: NS 0.9% 1000 ML** 1,000 ML IV SCH (08:48)
[2019-12-12] MEDS: methylPREDNISolone TAB* 4 MG PO SCH ×2 (08:49→22:01)
[2019-12-12] MEDS: Fluticasone NASAL SPRAY 50MCG* 16 gm SPRAY BTL BOTH NARES SCH (08:50)
[2019-12-12] MEDS: Cholecalciferol TAB* 1000 UNITS PO SCH (08:50)
[2019-12-12] MEDS: Clopidogrel TAB* 75 MG PO SCH (08:50)
--- NOTE | 2019-12-12 09:35 | PN ---
Subjective Date of Service: 12/12/19 Interval History: Patient states that she does not feel well. Hurts all over. Difficulty swallowing secondary to sore throat. Reports retrosternal chest pain, pressure and nausea. States her heart feels "funny". Does not radiate. Unable to state what makes it worse. She denies muscle cramping, fever, chills, vomiting. Sanches draining very dark clear lupe urine in minimal amounts. Family History: Unchanged from Admission Social History: Unchanged from Admission Past Medical History: Unchanged from Admission Objective Active Medications: Acetaminophen (Tylenol Tab*) 650 mg PO Q8H PRN PRN Reason: PAIN - MODERATE Albuterol (Ventolin Hfa Inhaler*) 1 puff INH Q6H PRN PRN Reason: SOB/WHEEZING Atorvastatin Calcium (Lipitor*) 40 mg PO 1700 [facility] Last Admin: 12/11/19 18:14 Dose: Not Given Cholecalciferol (Vitamin D Tab*) 1,000 units PO DAILY [facility] Last Admin: 12/12/19 08:50 Dose: 1,000 units Clopidogrel Bisulfate (Plavix Tab*) 75 mg PO DAILY [facility] Last Admin: 12/12/19 08:50 Dose: 75 mg Fluticasone Propionate (Flonase Nasal [place] 50mcg*) 1 spray BOTH NARES DAILY [facility] Last Admin: 12/12/19 08:50 Dose: 1 spray Heparin Sodium (Porcine) (Heparin Vial(*)) 5,000 units SUBCUT Q8HR [facility] Last Admin: 12/12/19 06:20 Dose: 5,000 units Sodium Chloride (Ns 0.9% 1000 Ml) 1,000 mls @ 100 mls/hr IV PER RATE [facility] Last Admin: 12/12/19 08:48 Dose: 100 mls/hr Methylprednisolone (Medrol Tab*) 2 mg PO BID [facility] Last Admin: 12/12/19 08:49 Dose: 2 mg Mometasone Furoate/Formoterol Fumar (Dulera 200/5 Mdi*) 1 puff INH DAILY [facility]; Protocol Last Admin: 12/11/19 07:43 Dose: 1 puff Morphine Sulfate (Morphine Inj (Syringe))*) 2 mg IV Q4H PRN PRN Reason: PAIN - MILD Nystatin (Nystatin Suspension*) 500,000 units PO QID [facility] Stop: 12/19/19 09:29 Ondansetron HCl (Zofran Inj*) 4 mg IV Q4H PRN PRN Reason: NAUSEA Last Admin: 12/11/19 05:18 Dose: 4 mg Senna (Senokot 8.6 Mg Tab*) 1 tab PO BID PRN PRN Reason: CONSTIPATION Vital Signs - 8 hr 12/12/19 12/12/19 03:27 07:15 Temperature 98.3 F 97.9 F Pulse Rate 72 77 Respiratory 20 16 Rate Blood Pressure 116/32 127/42 (mmHg) O2 Sat by Pulse 94 93 Oximetry Oxygen Devices in Use Now: Nasal Cannula Appearance: This is a generally ill appearing older woman seen resting in bed in mild distress. Eyes: No Scleral Icterus, PERRLA Ears/Nose/Mouth/Throat: NL Teeth, Lips, Gums, - - Tongue and hard palate have yellow/which crusted patches that did not lift with manual agitation. Milky white patches to back of throat. Neck: NL Appearance and Movements; NL JVP, Trachea Midline Respiratory: Symmetrical Chest Expansion and Respiratory Effort, Clear to Auscultation, - - Diminished in right lower base. Cardiovascular: NL Sounds; No Murmurs; No JVD, RRR, No Edema Abdominal: NL Sounds; No Tenderness; No Distention Lymphatic: No Cervical Adenopathy Extremities: No Clubbing, Cyanosis, - - +1 pitting edema bilat LE Skin: No Nodules or Sclerosis, - - Multiple bruises to bilateral upper extremities. Neurological: NL Sensation, - - Weak, unable to sit up in bed. Lines/Tubes/Other Access: Clean, Dry and Intact Peripheral IV Result Diagrams: 12/12/19 05:11 12/12/19 05:10 Additional Lab and Data: Laboratory Results - last 24 hr 12/10/19 12/10/19 12/10/19 21:08 21:08 21:08 WBC 14.2 H RBC 3.89 Hgb 12.5 Hct 35 MCV 91 MCH 32 H MCHC 35 RDW 15 Plt Count 353 MPV 7.9 Neut % (Auto) 86.3 Lymph % (Auto) 6.7 [place] % (Auto) 4.9 Eos % (Auto) 1.8 Baso % (Auto) 0.3 Absolute Neuts (auto) 12.3 H Absolute Lymphs (auto) 0.9 L Absolute Monos (auto) 0.7 Absolute Eos (auto) 0.3 Absolute Basos (auto) 0.0 Absolute Nucleated RBC 0.0 Nucleated RBC % 0.0 Sodium 131 L Potassium 5.2 H Chloride 86 L Carbon Dioxide 27 Anion Gap 18 H BUN 99 H Creatinine 7.49 H Est GFR ( Amer) 6.3 Est GFR (Non-Af Amer) 5.2 BUN/Creatinine Ratio 13.2 Glucose 134 H POC Glucose (mg/dL) Lactic Acid 1.4 Calcium 9.9 Total Bilirubin 0.60 AST 63 H ALT 48 Alkaline Phosphatase 89 Troponin I 0.05 H* C-Reactive Protein 146.35 H B-Natriuretic Peptide Total Protein 6.8 Albumin 3.8 Globulin 3.0 Albumin/Globulin Ratio 1.3 Lipase 65 Urine Color Urine Appearance Urine pH Ur Specific [place] Urine Protein Urine Ketones Urine Blood Urine Nitrate Urine Bilirubin Urine Urobilinogen Ur Leukocyte Esterase Urine WBC (Auto) Urine RBC (Auto) Urine Bacteria Urine Glucose 12/10/19 12/10/19 12/11/19 21:08 23:15 05:18 WBC 10.9 H RBC 3.84 Hgb 12.3 Hct 37 MCV 96 MCH 32 H MCHC 33 RDW 16 H Plt Count 216 MPV 8.2 Neut % (Auto) 84.8 Lymph % (Auto) 8.4 [place] % (Auto) 4.6 Eos % (Auto) 2.0 Baso % (Auto) 0.2 Absolute Neuts (auto) 9.3 H Absolute Lymphs (auto) 0.9 L Absolute Monos (auto) 0.5 Absolute Eos (auto) 0.2 Absolute Basos (auto) 0.0 Absolute Nucleated RBC 0.0 Nucleated RBC % 0.1 Sodium Potassium Chloride Carbon Dioxide Anion Gap BUN Creatinine Est GFR ( Amer) Est GFR (Non-Af Amer) BUN/Creatinine Ratio Glucose POC Glucose (mg/dL) Lactic Acid Calcium Total Bilirubin AST ALT Alkaline Phosphatase Troponin I C-Reactive Protein B-Natriuretic Peptide 63 Total Protein Albumin Globulin Albumin/Globulin Ratio Lipase Urine Color Yellow Urine Appearance Clear Urine pH 5.0 Ur Specific [place] 1.014 Urine Protein Negative Urine Ketones Negative Urine Blood Negative Urine Nitrate Negative Urine Bilirubin Negative Urine Urobilinogen Negative Ur Leukocyte Esterase Trace A Urine WBC (Auto) Trace(0-5/hpf) Urine RBC (Auto) Absent Urine Bacteria Absent Urine Glucose Negative 12/11/19 12/11/19 05:18 08:48 WBC RBC Hgb Hct MCV MCH MCHC RDW Plt Count MPV Neut % (Auto) Lymph % (Auto) [place] % (Auto) Eos % (Auto) Baso % (Auto) Absolute Neuts (auto) Absolute Lymphs (auto) Absolute Monos (auto) Absolute Eos (auto) Absolute Basos (auto) Absolute Nucleated RBC Nucleated RBC % Sodium 132 L Potassium 5.0 Chloride 91 L Carbon Dioxide 22 Anion Gap 19 H BUN 97 H Creatinine 7.42 H Est GFR ( Amer) 6.4 Est GFR (Non-Af Amer) 5.3 BUN/Creatinine Ratio 13.1 Glucose 129 H POC Glucose (mg/dL) 80 Lactic Acid Calcium 8.7 Total Bilirubin 0.60 AST 81 H ALT 46 Alkaline Phosphatase 85 Troponin I 0.04 H* C-Reactive Protein B-Natriuretic Peptide Total Protein 6.2 L Albumin 3.4 Globulin 2.8 Albumin/Globulin Ratio 1.2 Lipase Urine Color Urine Appearance Urine pH Ur Specific [place] Urine Protein Urine Ketones Urine Blood Urine Nitrate Urine Bilirubin Urine Urobilinogen Ur Leukocyte Esterase Urine WBC (Auto) Urine RBC (Auto) Urine Bacteria Urine Glucose Microbiology and Other Data: Microbiology 12/11/19 00:24 Nasal Screen MRSA (PCR) - Final Nasal Mrsa Detected EKG Data: Sinus Rhythm with occasional Trigemeny and frequent PVCs Assess/Plan/Problems-Billing Assessment: 79 yr old female with pmh dm, asthma, oa, previous stroke, chronic le edema, diastolic hf; who presented to ed with nausea, vomiting, and status post fall. - Patient Problems (1) Oral candidiasis Current Visit: Yes Status: Acute Code(s): B37.0 - CANDIDAL STOMATITIS SNOMED Code(s): 38884176 Comment: - Noted thick yellow and which coating on tongue/hard palate/ posterior oropharynx. Reports sore throat. Ordered nystatin swish and swallow. (2) [id number] kidney injury Current Visit: Yes Status: Acute Code(s): N17.9 - ACUTE KIDNEY FAILURE, UNSPECIFIED; N18.9 - CHRONIC KIDNEY DISEASE, UNSPECIFIED SNOMED Code(s): 367121029 Comment: - Dr Castle consulting and we very much appreciate his assistance. - Likely multifactorial due to nausea, vomiting, decrease po intake, MICA, and diuretics. Possibly could be attributed to ATN. - Continue IV fluids. Creatinine is not improving. Temporary HD cath placed by [facility] today in anticipation of likely need for HD tomorrow. - Sanches in place for close monitoring of urine output. (3) Chronic heart failure with preserved ejection fraction Current Visit: Yes Status: Acute Code(s): I50.32 - CHRONIC DIASTOLIC ( CONGESTIVE) HEART FAILURE SNOMED Code(s): 131487101 Comment: - Cont strict I&Os - Daily weights - Holding diuretics given creatinine elevation - Receiving IVF. Monitor closely (4) Hypertension Current Visit: Yes Status: Acute Code(s): I10 - ESSENTIAL (PRIMARY) HYPERTENSION SNOMED Code(s): 58586572 Comment: - WNL - Cont to hold diuretics and MICA (5) Right rib fracture Current Visit: Yes Status: Acute Code(s): S22.31XA - FRACTURE OF ONE RIB, RIGHT SIDE, INIT FOR CLOS FX SNOMED Code(s): 31169976 Comment: - Possible acute fx of 11th and 10th ribs - Chest xray unremarkable - Pain meds and positioning (6) Asthma Current Visit: No Status: Acute Code(s): J45.909 - UNSPECIFIED ASTHMA, UNCOMPLICATED SNOMED Code(s): 592780573 Comment: - Wheezing resolved - Continue Advair, Duonebs, Medrol (7) Cerebellar stroke Current Visit: No Status: Acute Code(s): I63.9 - CEREBRAL INFARCTION, UNSPECIFIED SNOMED Code(s): 92013301766447477 Comment: - Hx of - Cont Statin and Plavix (8) DM2 (diabetes mellitus, type 2) Current Visit: No Status: Acute Comment: - Hold Meformin - FS ACHS and SS lispro (9) DVT prophylaxis Current Visit: No Status: Acute Code(s): LDY8891 - SNOMED Code(s): 803858105 Comment: - Heparin (10) Full code status Current Visit: No Status: Acute Code(s): Z78.9 - OTHER SPECIFIED HEALTH STATUS SNOMED Code(s): 399400245 Comment: Status and Disposition: Condition: Guarded Dispo: Admit in to 4S. Attending: Brandy Vargas
[2019-12-12] MEDS: Morphine INJ* 2 MG/ML 1 ML SYRINGE (TWO MG - NEW SYRINGE VERSION) IV PRN ×2 (10:07→17:51)
[2019-12-12 10:19] LABS: Troponin I 0.05 ng/mL (<0.03)
[2019-12-12] MEDS: Mometasone/Formoter 200/5 MDI INH SCH (10:19)
[2019-12-12] MEDS ORDERED: Furosemide IV* 10 MG/ML VIAL (40 MG) IV SLOW PU ONE (12:20)
[2019-12-12 12:53] LABS: Troponin I 0.04 ng/mL (<0.03)
[2019-12-12] MEDS: Nystatin SUSPENSION* 100000 UNITS/ML 5 ML UDC PO SCH ×3 (13:08→22:01)
[2019-12-12] MEDS ORDERED: Lidocaine 1% w EPI 1:100,000* MDV 20 ML VIAL ONE (14:00)
[2019-12-12] MEDS ORDERED: Heparin DIALYSIS ONLY(*) 1,000 UNITS/ML VIAL DIALYSIS ONE (14:00)
[2019-12-12] MEDS ORDERED: Clindamycin 600 MG/D5W BAG(*) 600 MG/50 ML BAG IV ONE (15:00)
--- NOTE | 2019-12-12 15:48 | OP ---
Operative Report - Blank - Operative Report Date of Operation: 12/12/19 Note: Temporary HD Catheter placement: Consent was obtained, from daughter Laura over the phone nurse Nidhi singer. Consent in chart. Patient understands risks, benefits, alternatives and wants to proceed. 94133: Insertion of non-tunneled Dialysis catheter 89886: Ultrasound guidance for vascular Access Rt IJV was chosen, and patency was checked by US. Procedure indicated for Hemodialysis as patient has no other Access. Following strict hand hygiene and following the standard sterile precautions, and a full sterile attire for myself and all involved in the procedure, including a gown, cap, face mask with an eye shield, and a double pair of sterile gloves. The procedure started with 2 ID time out at the bed side. Catheter Insertion Checklist utilized. Patient was put in Trendelenburg position. US was used throughout the procedure. Surgical towels were placed between the shoulder blades. Right Neck and Chest were prepped with 2% Chlorhexidine, and the surgical field was surrounded by sterile surgical towels. A sterile full body drape was placed to cover the patient from head to toe. Rt IJ was chosen. Under real time US guidance the Rt IJV was accessed by a 21-G needle, then a 0.018 micro wire was threaded through the 21-G needle into the vein and the 21- G needle was pulled out, leaving the micro wire in, then a 4-Fr sheath and stylet were passed over the micro wire into the vein. Both, the micro wire and the stylet were removed and the 4-Fr sheath was kept in place. Then, a 0.035 J tip wire was passed through the 4-Fr sheath, then the 4-Fr sheath was removed and the 0.035 J tip wire was kept in the vein with pressure over the venotomy site. Then a # 11 Blade scalpel was used to shawn the skin near the venotomy, followed by sequential dilatation of the venotomy using 12 then 14 Fr dilators. Bleeding was controlled by pressure over the dilated venotomy site. Then a temporary Hemodialysis Catheter (Behzad) was passed over the 0.035 wire into the vein to the central circulation with excellent return in both Ports. The 0.035 J tip wire was removed, and both ports flushed with saline, checked again for flow and draw and both worked very well then flushed again with saline and locked with 1:1000 Heparin. Caps were applied over both ports. 1 dose of Clindamycin 600 mg IVPB given. The catheter was secured and tethered in place using 2-0 Nylon sutures. CXR called ordered stat to verify the location of the tip and r/o any complications: Complications: None Estimated Bleeding: < 5cc Will start HD tomorrow
[2019-12-12] MEDS: Atorvastatin* 40 MG TAB PO SCH (17:51)
--- NOTE | 2019-12-12 21:26 | PN ---
Progress Note - Progress Note Date of Service: 12/12/19 Note: Inpatient Nephrology f/u Note: Performed by Dr. Bassam Castle, [facility] Nephrology 12/12/2019 79 YO WF [place] Resident KYLE on CKD Poor PO intake, Abdominal pain & N/V KYLE didnt improve despite increasing IVF rates. Likely into ATN! I requested serology to rule out Myeloma UA normal, so GN is very unlikely. BUN/sCr: 103/7.64~12/12 97/7.42~12/11 99/7.49~12/10 41/1.72~12/06. KYLE isn't any better, UOP has been very poor, despite IV Lasix 60 mg challenge. Of note, Lisinopril & Torsemide stopped. I spoke to her daughter TABATHA Sanchez and I told her her mom's K 5.6 and UOP very poor, she'll very likely need HD in AM , unless drastically improved overnight. Having said that, she agreed and signed a consent. I placed a Rt IJ TDC under US guidance, with plans to start HD in AM if sCr doesn't improve. Hospital Meds: Acetaminophen Albuterol Atorvastatin Cholecalciferol Clopidogrel Fluticasone Heparin Sodium Methylprednisolone Mometasone Furoate/Formoterol Fumar Morphine Sulfate Nystatin Ondansetron Senna Objective: Vital Signs Temp 97.5 F 12/12/19 15:15 Pulse 72 12/12/19 15:15 Resp 20 12/12/19 17:51 BP 136/33 12/12/19 15:15 Pulse Ox 96 12/12/19 15:15 Intake & Output 12/12/19 12/12/19 12/13/19 06:59 18:59 06:59 Intake Total 1495 1270 Output Total 100 0 Balance 1395 1270 Weight 106.503 kg Intake: IV Fluids 1495 NS (0.9%) 1495 IVPB 1150 ABX - CLINDAMYCIN 50 NS (0.9%) 1100 Oral 0 120 Output: Urine 0 Residual 100 Sanches 16 Fr 100 10 Point multi system exam: Constitutional Sleepy. Uncooperative HEENT: No Conjunctivitis Abdomen diffuse tenderness. No rebound Heart: NSR, No LE Edema, No murmur Lungs: Clear to auscultation Extremities: No edema, no rash Skin no rash Neurology Can't fully assess. Hem/Lymph: no palpable lymph nodes Musculoskeletal: No joint swelling Laboratory Reviewed Sodium 133 mmol/L (135-145) L 12/12/19 05:10 Potassium 5.6 mmol/L (3.5-5.0) H 12/12/19 05:10 BUN 103 mg/dL (6-24) H 12/12/19 05:10 Creatinine 7.64 mg/dL (0.51-0.95) H 12/12/19 05:10 Calcium 8.2 mg/dL (8.6-10.3) L 12/12/19 05:10 AST 81 U/L (13-39) H 12/11/19 05:18 ALT 46 U/L (7-52) 12/11/19 05:18 Assessment and Plan: *KYLE on CKD, possibly ischemic ATN. Off MICA and diuretics. GN very unlikely *Electrolytes Ok *HD in AM for Hyperkalemia and Azotemia. HC in Rt IJ. CXR Ok. May use Catheter *BP Ok *May stop IVF *No indication for HD today or tonight Daughter was informed about lab/radiology results & prognosis. All questions were answered. She was made part of the treatment plan Case discussed with Lisa Harvey
[2019-12-12] MEDS: Ondansetron INJ* 2 MG/ML VIAL IV PRN (22:00)
[2019-12-12] MEDS: Acetaminophen TAB* 325 MG PO PRN (22:00)
[2019-12-13 00:56] LABS: Calcium 8.8 mg/dL (8.6-10.3)
[2019-12-13 01:01] LABS: Potassium 5.3 mmol/L (3.5-5.0)
[2019-12-13 01:02] LABS: BUN/Creatinine Ratio 14.2 (8-20); EGFR African American 6.1 (>60)
[2019-12-13] MEDS: Morphine INJ* 2 MG/ML 1 ML SYRINGE (TWO MG - NEW SYRINGE VERSION) IV PRN (04:17)
[2019-12-13] MEDS: Heparin VIAL(*) 5000 UNITS/ML VIAL (FIVE THOUSAND) SUBCUT SCH ×3 (07:23→21:00)
[2019-12-13] MEDS: Mometasone/Formoter 200/5 MDI INH SCH (08:35)
[2019-12-13] MEDS: Nystatin SUSPENSION* 100000 UNITS/ML 5 ML UDC PO SCH ×4 (09:04→21:00)
[2019-12-13] MEDS: methylPREDNISolone TAB* 4 MG PO SCH ×2 (09:05→21:00)
[2019-12-13] MEDS: Cholecalciferol TAB* 1000 UNITS PO SCH (09:05)
[2019-12-13] MEDS: Fluticasone NASAL SPRAY 50MCG* 16 gm SPRAY BTL BOTH NARES SCH (09:06)
[2019-12-13] MEDS: Clopidogrel TAB* 75 MG PO SCH (09:06)
--- NOTE | 2019-12-13 09:34 | PN ---
Subjective Date of Service: 12/13/19 Interval History: Patient states she does not feel well today. Is tired, hurts "all over" and feels stiff. Skin is sensitive to light touch. Is unaware/not understanding her current health situation. Denies fever/chills, lightheadedness, dizziness, chest pain, palpitations, abdominal pain, nausea, vomiting. Sanches in place draining minimal amounts of dark yellow urine. Family History: Unchanged from Admission Social History: Unchanged from Admission Past Medical History: Unchanged from Admission Objective Active Medications: Acetaminophen (Tylenol Tab*) 650 mg PO Q8H PRN PRN Reason: PAIN - MODERATE Last Admin: 12/12/19 22:00 Dose: 650 mg Albuterol (Ventolin Hfa Inhaler*) 1 puff INH Q6H PRN PRN Reason: SOB/WHEEZING Atorvastatin Calcium (Lipitor*) 40 mg PO 1700 [facility] Last Admin: 12/12/19 17:51 Dose: 40 mg Cholecalciferol (Vitamin D Tab*) 1,000 units PO DAILY [facility] Last Admin: 12/13/19 09:05 Dose: 1,000 units Clopidogrel Bisulfate (Plavix Tab*) 75 mg PO DAILY [facility] Last Admin: 12/13/19 09:06 Dose: 75 mg Fluticasone Propionate (Flonase Nasal [place] 50mcg*) 1 spray BOTH NARES DAILY [facility] Last Admin: 12/13/19 09:06 Dose: 1 spray Heparin Sodium (Porcine) (Heparin Vial(*)) 5,000 units SUBCUT Q8HR [facility] Last Admin: 12/13/19 07:23 Dose: 5,000 units Methylprednisolone (Medrol Tab*) 2 mg PO BID [facility] Last Admin: 12/13/19 09:05 Dose: 2 mg Mometasone Furoate/Formoterol Fumar (Dulera 200/5 Mdi*) 1 puff INH DAILY [facility]; Protocol Last Admin: 12/13/19 08:35 Dose: 1 puff Morphine Sulfate (Morphine Inj (Syringe))*) 2 mg IV Q4H PRN PRN Reason: PAIN - MILD Last Admin: 12/13/19 04:17 Dose: 2 mg Nystatin (Nystatin Suspension*) 500,000 units PO QID [facility] Stop: 12/19/19 09:29 Last Admin: 12/13/19 09:04 Dose: 500,000 units Ondansetron HCl (Zofran Inj*) 4 mg IV Q4H PRN PRN Reason: NAUSEA Last Admin: 12/12/19 22:00 Dose: 4 mg Senna (Senokot 8.6 Mg Tab*) 1 tab PO BID PRN PRN Reason: CONSTIPATION Vital Signs - 8 hr 12/13/19 12/13/19 12/13/19 03:15 04:17 07:18 Temperature 97 F Pulse Rate 65 Respiratory 14 16 16 Rate Blood Pressure 126/49 (mmHg) O2 Sat by Pulse 94 Oximetry 12/13/19 12/13/19 07:54 08:37 Temperature 97.3 F Pulse Rate 67 71 Respiratory 14 16 Rate Blood Pressure 140/40 (mmHg) O2 Sat by Pulse 97 92 Oximetry Oxygen Devices in Use Now: Nasal Cannula Appearance: This is a well developed, obese older woman seen resting in bed, in mild distress. Eyes: No Scleral Icterus, PERRLA Ears/Nose/Mouth/Throat: NL Teeth, Lips, Gums, - - While/yellow plaques to tongue Neck: NL Appearance and Movements; NL JVP, Trachea Midline Respiratory: Symmetrical Chest Expansion and Respiratory Effort, Clear to Auscultation Cardiovascular: NL Sounds; No Murmurs; No JVD, RRR, No Edema Abdominal: NL Sounds; No Tenderness; No Distention Lymphatic: No Cervical Adenopathy Extremities: - - +1 non-pitting bilateral LE L>R Skin: No Rash or Ulcers, No Nodules or Sclerosis Neurological: - - To self Lines/Tubes/Other Access: Clean, Dry and Intact Peripheral IV Result Diagrams: 12/12/19 05:11 12/13/19 00:32 Additional Lab and Data: Laboratory Results - last 24 hr 12/10/19 12/10/19 12/10/19 21:08 21:08 21:08 WBC 14.2 H RBC 3.89 Hgb 12.5 Hct 35 MCV 91 MCH 32 H MCHC 35 RDW 15 Plt Count 353 MPV 7.9 Neut % (Auto) 86.3 Lymph % (Auto) 6.7 [place] % (Auto) 4.9 Eos % (Auto) 1.8 Baso % (Auto) 0.3 Absolute Neuts (auto) 12.3 H Absolute Lymphs (auto) 0.9 L Absolute Monos (auto) 0.7 Absolute Eos (auto) 0.3 Absolute Basos (auto) 0.0 Absolute Nucleated RBC 0.0 Nucleated RBC % 0.0 Sodium 131 L Potassium 5.2 H Chloride 86 L Carbon Dioxide 27 Anion Gap 18 H BUN 99 H Creatinine 7.49 H Est GFR ( Amer) 6.3 Est GFR (Non-Af Amer) 5.2 BUN/Creatinine Ratio 13.2 Glucose 134 H POC Glucose (mg/dL) Lactic Acid 1.4 Calcium 9.9 Total Bilirubin 0.60 AST 63 H ALT 48 Alkaline Phosphatase 89 Troponin I 0.05 H* C-Reactive Protein 146.35 H B-Natriuretic Peptide Total Protein 6.8 Albumin 3.8 Globulin 3.0 Albumin/Globulin Ratio 1.3 Lipase 65 Urine Color Urine Appearance Urine pH Ur Specific [place] Urine Protein Urine Ketones Urine Blood Urine Nitrate Urine Bilirubin Urine Urobilinogen Ur Leukocyte Esterase Urine WBC (Auto) Urine RBC (Auto) Urine Bacteria Urine Glucose 12/10/19 12/10/19 12/11/19 21:08 23:15 05:18 WBC 10.9 H RBC 3.84 Hgb 12.3 Hct 37 MCV 96 MCH 32 H MCHC 33 RDW 16 H Plt Count 216 MPV 8.2 Neut % (Auto) 84.8 Lymph % (Auto) 8.4 [place] % (Auto) 4.6 Eos % (Auto) 2.0 Baso % (Auto) 0.2 Absolute Neuts (auto) 9.3 H Absolute Lymphs (auto) 0.9 L Absolute Monos (auto) 0.5 Absolute Eos (auto) 0.2 Absolute Basos (auto) 0.0 Absolute Nucleated RBC 0.0 Nucleated RBC % 0.1 Sodium Potassium Chloride Carbon Dioxide Anion Gap BUN Creatinine Est GFR ( Amer) Est GFR (Non-Af Amer) BUN/Creatinine Ratio Glucose POC Glucose (mg/dL) Lactic Acid Calcium Total Bilirubin AST ALT Alkaline Phosphatase Troponin I C-Reactive Protein B-Natriuretic Peptide 63 Total Protein Albumin Globulin Albumin/Globulin Ratio Lipase Urine Color Yellow Urine Appearance Clear Urine pH 5.0 Ur Specific [place] 1.014 Urine Protein Negative Urine Ketones Negative Urine Blood Negative Urine Nitrate Negative Urine Bilirubin Negative Urine Urobilinogen Negative Ur Leukocyte Esterase Trace A Urine WBC (Auto) Trace(0-5/hpf) Urine RBC (Auto) Absent Urine Bacteria Absent Urine Glucose Negative 12/11/19 12/11/19 05:18 08:48 WBC RBC Hgb Hct MCV MCH MCHC RDW Plt Count MPV Neut % (Auto) Lymph % (Auto) [place] % (Auto) Eos % (Auto) Baso % (Auto) Absolute Neuts (auto) Absolute Lymphs (auto) Absolute Monos (auto) Absolute Eos (auto) Absolute Basos (auto) Absolute Nucleated RBC Nucleated RBC % Sodium 132 L Potassium 5.0 Chloride 91 L Carbon Dioxide 22 Anion Gap 19 H BUN 97 H Creatinine 7.42 H Est GFR ( Amer) 6.4 Est GFR (Non-Af Amer) 5.3 BUN/Creatinine Ratio 13.1 Glucose 129 H POC Glucose (mg/dL) 80 Lactic Acid Calcium 8.7 Total Bilirubin 0.60 AST 81 H ALT 46 Alkaline Phosphatase 85 Troponin I 0.04 H* C-Reactive Protein B-Natriuretic Peptide Total Protein 6.2 L Albumin 3.4 Globulin 2.8 Albumin/Globulin Ratio 1.2 Lipase Urine Color Urine Appearance Urine pH Ur Specific [place] Urine Protein Urine Ketones Urine Blood Urine Nitrate Urine Bilirubin Urine Urobilinogen Ur Leukocyte Esterase Urine WBC (Auto) Urine RBC (Auto) Urine Bacteria Urine Glucose Microbiology and Other Data: Microbiology 12/11/19 00:24 Nasal Screen MRSA (PCR) - Final Nasal Mrsa Detected EKG Data: Sinus Rhythm with occasional [place]ig[place] and frequent PVCs Assess/Plan/Problems-Billing Assessment: 79 yr old female with pmh dm, asthma, oa, previous stroke, chronic le edema, diastolic hf; who presented to ed with nausea, vomiting, and status post fall. - Patient Problems (1) Oral candidiasis Current Visit: Yes Status: Acute Code(s): B37.0 - CANDIDAL STOMATITIS SNOMED Code(s): 27467401 Comment: - Noted thick yellow and which coating on tongue/hard palate/ posterior oropharynx. Reports sore throat. Having difficulty taking PO meds. - Continue nystatin swish and swallow. (2) Jdxez-ir-ztphgly kidney injury Current Visit: Yes Status: Acute Code(s): N17.9 - ACUTE KIDNEY FAILURE, UNSPECIFIED; N18.9 - CHRONIC KIDNEY DISEASE, UNSPECIFIED SNOMED Code(s): 130170026 Comment: - Dr Castle consulting and we very much appreciate his assistance. - Likely multifactorial due to nausea, vomiting, decrease po intake, MICA, and diuretics, though more likely it is ATN. - IV fluids D/Demarcus. Not responding to them and not making much urine. Creatinine is not improving. Temporary HD cath placed by [facility], will be getting dialysis today. - Sanches in place for close monitoring of urine output. (3) Chronic heart failure with preserved ejection fraction Current Visit: Yes Status: Acute Code(s): I50.32 - CHRONIC DIASTOLIC ( CONGESTIVE) HEART FAILURE SNOMED Code(s): 741996636 Comment: - Cont strict I&Os - Daily weights - Holding diuretics given creatinine elevation (4) Hypertension Current Visit: Yes Status: Acute Code(s): I10 - ESSENTIAL (PRIMARY) HYPERTENSION SNOMED Code(s): 80161232 Comment: - WNL - Cont to hold diuretics and MICA (5) Right rib fracture Current Visit: Yes Status: Acute Code(s): S22.31XA - FRACTURE OF ONE RIB, RIGHT SIDE, INIT FOR CLOS FX SNOMED Code(s): 73125893 Comment: - Possible acute fx of 11th and 10th ribs - Chest xray unremarkable - Pain meds and positioning (6) Asthma Current Visit: No Status: Acute Code(s): J45.909 - UNSPECIFIED ASTHMA, UNCOMPLICATED SNOMED Code(s): 371286889 Comment: - Wheezing resolved - Continue Advair, Duonebs, Medrol (7) Cerebellar stroke Current Visit: No Status: Acute Code(s): I63.9 - CEREBRAL INFARCTION, UNSPECIFIED SNOMED Code(s): 26668083897553137 Comment: - Hx of - Cont Statin and Plavix (8) DM2 (diabetes mellitus, type 2) Current Visit: No Status: Acute Comment: - Hold Meformin - FS ACHS and SS lispro (9) DVT prophylaxis Current Visit: No Status: Acute Code(s): OTT7936 - SNOMED Code(s): 788821185 Comment: - Heparin (10) Full code status Current Visit: No Status: Acute Code(s): Z78.9 - OTHER SPECIFIED HEALTH STATUS SNOMED Code(s): 719138187 Comment: Status and Disposition: Condition: Guarded Dispo: Admit in to 4S. Attending: Brian Johnson
[2019-12-13 10:23] LABS: ABS Eosinophils 0.1 10^3/ul (0-0.6); ABS Lymphocytes 0.5 10^3/ul (1.0-4.8); ABS Monocytes 0.4 10^3/ul (0-0.8); ABS Neutrophils 8.1 10^3/ul (1.5-7.7); Eosinophil % 0.9 %; Hematocrit 30 % (35-47); Hemoglobin 10.3 g/dL (12.0-16.0); Lymphocyte % 5.3 %; Mean Corpuscular HGB Conc 34 g/dL (31-36); Mean Corpuscular Hemoglobin 32 pg (27-31); Mean Corpuscular Volume 93 fL (80-97); Mean Platelet Volume 7.6 fL (7.4-10.4); Nucleated Red Blood Cells % 0.1; Platelet Count 300 10^3/uL (150-450); Red Blood Count 3.22 10^6 /uL (3.70-4.87); Red Cell Distribution Width 17 % (10-15); White Blood Count 9.1 10^3/uL (3.5-10.8)
[2019-12-13 10:34] LABS: Potassium 5.6 mmol/L (3.5-5.0)
[2019-12-13 10:38] LABS: BUN/Creatinine Ratio 14.7 (8-20); EGFR African American 6.2 (>60); EGFR Non-African American 5.1 (>60)
[2019-12-13] MEDS: Acetaminophen TAB* 325 MG PO PRN (13:06)
[2019-12-13 14:15] LABS: Hepatitis B Surface Ab Not Immune (Immune)
[2019-12-13 14:52] LABS: Hepatitis B Surface Antigen Nonreactive (Nonreactive)
[2019-12-13] MEDS: traMADol TAB* 50 MG PO PRN (14:55)
--- NOTE | 2019-12-13 17:03 | PN ---
Progress Note - Progress Note Date of Service: 12/13/19 Note: cc: KYEL HPI: Mrs. Verdugo is very weak today. it is hard for her to talk. it is obvious that she does not feel well but she is unable to give any h/o. she was just able to tell me " my son was here and fell" . HEr daughter came up later and she states that her disabled brother fainted and he was in the Er doing well. Kya lives with her son. Daughter Laura was able to tell me that her mom has been slowly deteriorating since Jul. she was admitted recently and then d/c to [facility] for rehab, without imporvement. her po intake has been decreasing for few months. admitted for KYLE which seems to be due to ATN. because kidney function was not improving she had a temp cath placed yesterday by Dr. Castle and we started HD today ROS: weak, moaning in pain, unable to say where the pain was. awake , but falls asleep. meds. Acetaminophen (Tylenol Tab*) 650 mg PO Q8H PRN PRN Reason: PAIN - MODERATE Last Admin: 12/13/19 13:06 Dose: 650 mg Albuterol (Ventolin Hfa Inhaler*) 1 puff INH Q6H PRN PRN Reason: SOB/WHEEZING Atorvastatin Calcium (Lipitor*) 40 mg PO 1700 [facility] Last Admin: 12/13/19 17:17 Dose: 40 mg Cholecalciferol (Vitamin D Tab*) 1,000 units PO DAILY [facility] Last Admin: 12/13/19 09:05 Dose: 1,000 units Clopidogrel Bisulfate (Plavix Tab*) 75 mg PO DAILY [facility] Last Admin: 12/13/19 09:06 Dose: 75 mg Fluticasone Propionate (Flonase Nasal [place] 50mcg*) 1 spray BOTH NARES DAILY [facility] Last Admin: 12/13/19 09:06 Dose: 1 spray Heparin Sodium (Porcine) (Heparin Vial(*)) 5,000 units SUBCUT Q8HR [facility] Last Admin: 12/13/19 21:00 Dose: 5,000 units Methylprednisolone (Medrol Tab*) 2 mg PO BID [facility] Last Admin: 12/13/19 21:00 Dose: 2 mg Morphine Sulfate (Morphine Inj (Syringe))*) 2 mg IV Q4H PRN PRN Reason: PAIN - MILD Last Admin: 12/13/19 04:17 Dose: 2 mg Nystatin (Nystatin Suspension*) 500,000 units PO QID [facility] Stop: 12/19/19 09:29 Last Admin: 12/13/19 21:00 Dose: 500,000 units Ondansetron HCl (Zofran Inj*) 4 mg IV Q4H PRN PRN Reason: NAUSEA Last Admin: 12/12/19 22:00 Dose: 4 mg Senna (Senokot 8.6 Mg Tab*) 1 tab PO BID PRN PRN Reason: CONSTIPATION Tramadol HCl (Ultram*) 50 mg PO Q12H PRN PRN Reason: PAIN - MODERATE Last Admin: 12/13/19 14:55 Dose: 50 mg Laboratory Last Values WBC 9.1 10^3/uL (3.5-10.8) 12/13/19 10:00 RBC 3.22 10^6 /uL (3.70-4.87) L 12/13/19 10:00 Hgb 10.3 g/dL (12.0-16.0) L 12/13/19 10:00 Hct 30 % (35-47) L 12/13/19 10:00 MCV 93 fL (80-97) 12/13/19 10:00 MCH 32 pg (27-31) H 12/13/19 10:00 MCHC 34 g/dL (31-36) 12/13/19 10:00 RDW 17 % (10-15) H 12/13/19 10:00 Plt Count 300 10^3/uL (150-450) 12/13/19 10:00 MPV 7.6 fL (7.4-10.4) 12/13/19 10:00 Neut % (Auto) 88.9 % 12/13/19 10:00 Lymph % (Auto) 5.3 % 12/13/19 10:00 [place] % (Auto) 4.4 % 12/13/19 10:00 Eos % (Auto) 0.9 % 12/13/19 10:00 Baso % (Auto) 0.5 % 12/13/19 10:00 Absolute Neuts (auto) 8.1 10^3/ul (1.5-7.7) H 12/13/19 10:00 Absolute Lymphs (auto) 0.5 10^3/ul (1.0-4.8) L 12/13/19 10:00 Absolute Monos (auto) 0.4 10^3/ul (0-0.8) 12/13/19 10:00 Absolute Eos (auto) 0.1 10^3/ul (0-0.6) 12/13/19 10:00 Absolute Basos (auto) 0.0 10^3/ul (0-0.2) 12/13/19 10:00 Absolute Nucleated RBC 0.0 10^3/ul 12/13/19 10:00 Nucleated RBC % 0.1 12/13/19 10:00 Sodium 135 mmol/L (135-145) 12/13/19 10:00 Potassium 5.6 mmol/L (3.5-5.0) H 12/13/19 10:00 Chloride 98 mmol/L (101-111) L 12/13/19 10:00 Carbon Dioxide 23 mmol/L (22-32) 12/13/19 10:00 Anion Gap 14 mmol/L (2-11) H 12/13/19 10:00 BUN 112 mg/dL (6-24) H 12/13/19 10:00 Creatinine 7.63 mg/dL (0.51-0.95) H 12/13/19 10:00 Est GFR ( Amer) 6.2 (>60) 12/13/19 10:00 Est GFR (Non-Af Amer) 5.1 (>60) 12/13/19 10:00 BUN/Creatinine Ratio 14.7 (8-20) 12/13/19 10:00 Glucose 151 mg/dL (70-100) H 12/13/19 10:00 POC Glucose (mg/dL) 121 mg/dL (70-100) H 12/13/19 20:51 Lactic Acid 1.4 mmol/L (0.5-2.0) 12/10/19 21:08 Calcium 9.0 mg/dL (8.6-10.3) 12/13/19 10:00 Total Bilirubin 0.60 mg/dL (0.2-1.0) 12/11/19 05:18 AST 81 U/L (13-39) H 12/11/19 05:18 ALT 46 U/L (7-52) 12/11/19 05:18 Alkaline Phosphatase 85 U/L (34-104) 12/11/19 05:18 Troponin I 0.04 ng/mL (<0.03) H* 12/12/19 12:26 C-Reactive Protein 146.35 mg/L (<8.01) H 12/10/19 21:08 B-Natriuretic Peptide 63 pg/mL (<=100) 12/10/19 21:08 Total Protein 6.2 g/dL (6.4-8.9) L 12/11/19 05:18 Albumin 3.4 g/dL (3.2-5.2) 12/11/19 05:18 Globulin 2.8 g/dL (2-4) 12/11/19 05:18 Albumin/Globulin Ratio 1.2 (1-3) 12/11/19 05:18 Lipase 65 U/L (11.0-82.0) 12/10/19 21:08 Urine Color Yellow 12/10/19 23:15 Urine Appearance Clear 12/10/19 23:15 Urine pH 5.0 (5-9) 12/10/19 23:15 Ur Specific [place] 1.014 (1.010-1.030) 12/10/19 23:15 Urine Protein Negative (Negative) 12/10/19 23:15 Urine Ketones Negative (Negative) 12/10/19 23:15 Urine Blood Negative (Negative) 12/10/19 23:15 Urine Nitrate Negative (Negative) 12/10/19 23:15 Urine Bilirubin Negative (Negative) 12/10/19 23:15 Urine Urobilinogen Negative (Negative) 12/10/19 23:15 Ur Leukocyte Esterase Trace (Negative) A 12/10/19 23:15 Urine WBC (Auto) Trace(0-5/hpf) (Absent) 12/10/19 23:15 Urine RBC (Auto) Absent (Absent) 12/10/19 23:15 Urine Bacteria Absent (Absent) 12/10/19 23:15 Urine Glucose Negative (Negative) 12/10/19 23:15 Hepatitis B Antibody Not immune (Immune) A 12/13/19 10:00 Hep Bs Antigen Nonreactive (Nonreactive) 12/13/19 10:00 PE Temp Pulse Resp BP SpO2 FiO2 97.1 F 72 16 120/49 96 12/13/19 20:08 12/13/19 20:08 12/13/19 20:08 12/13/19 20:08 12/13/19 20:08 Const: weak, tired, sleepy, obese resp: cta anteriorly cvs: s1, s2 rrr , no mrg appreciated , generalized edema +3 Psych: somnolent a/p: 79 yo woman with progressive decline for the last several months , poor po intake , nausea and vomiting n the last 1 - 2 weeks admitted with Kyle . bland urine sediment. more probably ATN 1. KYLE with most probably uremic sx. bun 115. mild hyperkalemia . strated on HD due to these, and volume overload with decreased uop. she may recover kidney function if she improves overall. I saw her during HD today , dropped BP as soon as she started HD without volume removal. total uf 700 cc. slow treatment today to avoid dialysis disequilibrium sdr. next treatment tomorrow 2. weakness and pain - unclear cause. 3.volume overload due to oliguria. patient did not respond to diuretics. Intake & Output 12/11/19 12/12/19 12/13/19 12/14/19 06:59 06:59 06:59 06:59 Intake Total 200 2795 1554 200 Output Total 740 100 405 Balance -540 2695 1149 200 Weight 103.918 kg 106.503 kg 102.693 kg Intake: IV Fluids 200 2795 NS (0.9%) 200 2795 IVPB 1150 ABX - CLINDAMYCIN 50 NS (0.9%) 1100 Oral 0 0 404 200 Output: Urine 40 0 0 Sanches 700 405 Residual 100 Sanches 16 Fr 100
[2019-12-13] MEDS: Atorvastatin* 40 MG TAB PO SCH (17:17)
[2019-12-14] MEDS: traMADol TAB* 50 MG PO PRN (03:55)
[2019-12-14] MEDS: Acetaminophen TAB* 325 MG PO PRN (03:55)
[2019-12-14] MEDS ORDERED: Acetaminophen ADULT LIQ* 650 MG/20.3 ML UDC PO PRN (05:00)
[2019-12-14 05:08] LABS: Hematocrit 31 % (35-47); Hemoglobin 10.7 g/dL (12.0-16.0); Mean Corpuscular HGB Conc 35 g/dL (31-36); Mean Corpuscular Hemoglobin 33 pg (27-31); Mean Corpuscular Volume 94 fL (80-97); Mean Platelet Volume 7.2 fL (7.4-10.4); Platelet Count 288 10^3/uL (150-450); Red Blood Count 3.27 10^6 /uL (3.70-4.87); Red Cell Distribution Width 16 % (10-15); White Blood Count 7.9 10^3/uL (3.5-10.8)
[2019-12-14 05:19] LABS: Calcium 8.8 mg/dL (8.6-10.3); Magnesium 2.7 mg/dL (1.9-2.7)
[2019-12-14 05:20] LABS: Potassium 5.2 mmol/L (3.5-5.0)
[2019-12-14 05:25] LABS: BUN/Creatinine Ratio 13.9 (8-20); EGFR African American 8.6 (>60); EGFR Non-African American 7.1 (>60)
[2019-12-14] MEDS: Heparin VIAL(*) 5000 UNITS/ML VIAL (FIVE THOUSAND) SUBCUT SCH ×3 (06:01→21:29)
[2019-12-14 06:26] LABS: ABS Eosinophils 0.2 10^3/ul (0-0.6); ABS Lymphocytes 0.8 10^3/ul (1.0-4.8); ABS Monocytes 0.5 10^3/ul (0-0.8); ABS Neutrophils 6.3 10^3/ul (1.5-7.7); Eosinophil % 2.7 %; Lymphocyte % 9.7 %; Nucleated Red Blood Cells % 0.1
[2019-12-14] MEDS: methylPREDNISolone TAB* 4 MG PO SCH ×2 (08:47→21:29)
[2019-12-14] MEDS: Fluticasone NASAL SPRAY 50MCG* 16 gm SPRAY BTL BOTH NARES SCH (08:48)
[2019-12-14] MEDS: Clopidogrel TAB* 75 MG PO SCH (08:48)
[2019-12-14] MEDS: Nystatin SUSPENSION* 100000 UNITS/ML 5 ML UDC PO SCH ×4 (08:48→21:29)
[2019-12-14] MEDS: Cholecalciferol TAB* 1000 UNITS PO SCH (08:48)
[2019-12-14] MEDS ORDERED: Heparin DIALYSIS ONLY(*) 1,000 UNITS/ML VIAL DIALYSIS ONE (12:00)
--- NOTE | 2019-12-14 12:27 | PN ---
Progress Note - Progress Note Date of Service: 12/14/19 Note: Chief complaint: Acute kidney injury. Interval history. Today is her second hemodialysis day. She is somnolent. Sleeps very comfortably during dialysis. Treatment is going well without significant problems. Catheter continues to be a little touchy, but overall treatment going well. Continues with poor urine output. Blood pressure seems to be well controlled. Afebrile. Potassium slightly high at 5.2. BUN improved from over 100-79. As far as I can tell she did not have any dialysis disequilibrium syndrome yesterday. A second hemodialysis treatment today for oligo anuric acute kidney injury and need to maintain acid base, electrolytes and volume balance meds Acetaminophen (Tylenol Adult Liq*) 650 mg PO Q8H PRN PRN Reason: PAIN - MODERATE Last Admin: 12/14/19 14:15 Dose: 650 mg Albuterol (Ventolin Hfa Inhaler*) 1 puff INH Q6H PRN PRN Reason: SOB/WHEEZING Atorvastatin Calcium (Lipitor*) 40 mg PO 1700 [facility] Last Admin: 12/13/19 17:17 Dose: 40 mg Cholecalciferol (Vitamin D Tab*) 1,000 units PO DAILY [facility] Last Admin: 12/14/19 08:48 Dose: 1,000 units Clopidogrel Bisulfate (Plavix Tab*) 75 mg PO DAILY [facility] Last Admin: 12/14/19 08:48 Dose: 75 mg Fluticasone Propionate (Flonase Nasal [place] 50mcg*) 1 spray BOTH NARES DAILY [facility] Last Admin: 12/14/19 08:48 Dose: 1 spray Heparin Sodium (Porcine) (Heparin Vial(*)) 5,000 units SUBCUT Q8HR [facility] Last Admin: 12/14/19 14:15 Dose: 5,000 units Methylprednisolone (Medrol Tab*) 2 mg PO BID [facility] Last Admin: 12/14/19 08:47 Dose: 2 mg Morphine Sulfate (Morphine Inj (Syringe))*) 2 mg IV Q4H PRN PRN Reason: PAIN - MILD Laboratory Last Values WBC 7.9 10^3/uL (3.5-10.8) 12/14/19 04:47 RBC 3.27 10^6 /uL (3.70-4.87) L 12/14/19 04:47 Hgb 10.7 g/dL (12.0-16.0) L 12/14/19 04:47 Hct 31 % (35-47) L 12/14/19 04:47 MCV 94 fL (80-97) 12/14/19 04:47 MCH 33 pg (27-31) H 12/14/19 04:47 MCHC 35 g/dL (31-36) 12/14/19 04:47 RDW 16 % (10-15) H 12/14/19 04:47 Plt Count 288 10^3/uL (150-450) 12/14/19 04:47 MPV 7.2 fL (7.4-10.4) L 12/14/19 04:47 Neut % (Auto) 80.6 % 12/14/19 04:47 Lymph % (Auto) 9.7 % 12/14/19 04:47 [place] % (Auto) 6.7 % 12/14/19 04:47 Eos % (Auto) 2.7 % 12/14/19 04:47 Baso % (Auto) 0.3 % 12/14/19 04:47 Absolute Neuts (auto) 6.3 10^3/ul (1.5-7.7) 12/14/19 04:47 Absolute Lymphs (auto) 0.8 10^3/ul (1.0-4.8) L 12/14/19 04:47 Absolute Monos (auto) 0.5 10^3/ul (0-0.8) 12/14/19 04:47 Absolute Eos (auto) 0.2 10^3/ul (0-0.6) 12/14/19 04:47 Absolute Basos (auto) 0.0 10^3/ul (0-0.2) 12/14/19 04:47 Absolute Nucleated RBC 0.0 10^3/ul 12/14/19 04:47 Nucleated RBC % 0.1 12/14/19 04:47 Sodium 136 mmol/L (135-145) 12/14/19 04:47 Potassium 5.2 mmol/L (3.5-5.0) H 12/14/19 04:47 Chloride 98 mmol/L (101-111) L 12/14/19 04:47 Carbon Dioxide 29 mmol/L (22-32) 12/14/19 04:47 Anion Gap 9 mmol/L (2-11) 12/14/19 04:47 BUN 79 mg/dL (6-24) H 12/14/19 04:47 Creatinine 5.70 mg/dL (0.51-0.95) H 12/14/19 04:47 Est GFR ( Amer) 8.6 (>60) 12/14/19 04:47 Est GFR (Non-Af Amer) 7.1 (>60) 12/14/19 04:47 BUN/Creatinine Ratio 13.9 (8-20) 12/14/19 04:47 Glucose 125 mg/dL (70-100) H 12/14/19 04:47 POC Glucose (mg/dL) 127 mg/dL (70-100) H 12/14/19 16:40 Lactic Acid 1.4 mmol/L (0.5-2.0) 12/10/19 21:08 Calcium 8.8 mg/dL (8.6-10.3) 12/14/19 04:47 Magnesium 2.7 mg/dL (1.9-2.7) 12/14/19 04:47 Total Bilirubin 0.60 mg/dL (0.2-1.0) 12/11/19 05:18 AST 81 U/L (13-39) H 12/11/19 05:18 ALT 46 U/L (7-52) 12/11/19 05:18 Alkaline Phosphatase 85 U/L (34-104) 12/11/19 05:18 Troponin I 0.04 ng/mL (<0.03) H* 12/12/19 12:26 C-Reactive Protein 146.35 mg/L (<8.01) H 12/10/19 21:08 B-Natriuretic Peptide 63 pg/mL (<=100) 12/10/19 21:08 Total Protein 6.2 g/dL (6.4-8.9) L 12/11/19 05:18 Albumin 3.4 g/dL (3.2-5.2) 12/11/19 05:18 Globulin 2.8 g/dL (2-4) 12/11/19 05:18 Albumin/Globulin Ratio 1.2 (1-3) 12/11/19 05:18 Lipase 65 U/L (11.0-82.0) 12/10/19 21:08 Urine Color Yellow 12/10/19 23:15 Urine Appearance Clear 12/10/19 23:15 Urine pH 5.0 (5-9) 12/10/19 23:15 Ur Specific [place] 1.014 (1.010-1.030) 12/10/19 23:15 Urine Protein Negative (Negative) 12/10/19 23:15 Urine Ketones Negative (Negative) 12/10/19 23:15 Urine Blood Negative (Negative) 12/10/19 23:15 Urine Nitrate Negative (Negative) 12/10/19 23:15 Urine Bilirubin Negative (Negative) 12/10/19 23:15 Urine Urobilinogen Negative (Negative) 12/10/19 23:15 Ur Leukocyte Esterase Trace (Negative) A 12/10/19 23:15 Urine WBC (Auto) Trace(0-5/hpf) (Absent) 12/10/19 23:15 Urine RBC (Auto) Absent (Absent) 12/10/19 23:15 Urine Bacteria Absent (Absent) 12/10/19 23:15 Urine Glucose Negative (Negative) 12/10/19 23:15 Hepatitis B Antibody Not immune (Immune) A 12/13/19 10:00 Hep Bs Antigen Nonreactive (Nonreactive) 12/13/19 10:00 Hep B Core Total Ab Negative (Negative) 12/13/19 10:00 physical exam: Temp Pulse Resp BP SpO2 FiO2 99.3 F 89 22 108/49 92 12/14/19 15:48 12/14/19 15:48 12/14/19 15:48 12/14/19 15:48 12/14/19 15:48 Constitutional: Sleepy, diffuse pain Respiratory: Clear to auscultation bilaterally Heart: S1, S2, regular rate and rhythm, no murmurs rubs or gallops, +1 lower extremities edema Psychiatric sleepy but oriented. Assessment and plan: 79-year-old woman with progressive decline for the last several months, poor by mouth intake, nausea and vomiting for the last 1-2 weeks. She was admitted couple days ago with acute kidney injury. Urinalysis was bland. 1. Acute kidney injury most probably secondary to ATN. Second hemodialysis treatment today for a possibly uremia. BUN 115 yesterday was down to 70s today. No dialysis disequilibrium syndrome yesterday. I saw the patient during dialysis today. Hemodynamically stable. No significant complications during dialysis. After dialysis treatment will be tomorrow as part of the new start protocol. 2. Weakness of unclear cause. 3. Volume overload due to oligo anuria. We will try to remove fluid as possible with dialysis. 4. Lethargy. This is not secondary to uremia as the patient received dialysis yesterday. BUN has been decreased to a level where she should not be uremic.
[2019-12-14] MEDS ORDERED: Lidocaine 2% VISCOUS* 15 ML UDC PO ONE (15:13)
[2019-12-14] MEDS: Atorvastatin* 40 MG TAB PO SCH ×2 (17:29→17:46)
--- NOTE | 2019-12-14 18:06 | PN ---
Subjective Date of Service: 12/14/19 Interval History: Patient was seen after dialysis. Somnolent, unable to answer questions directly , though was able to talk in short one or two word sentences. Tender to touch all over. Family History: Unchanged from Admission Social History: Unchanged from Admission Past Medical History: Unchanged from Admission Objective Active Medications: Acetaminophen (Tylenol Adult Liq*) 650 mg PO Q8H PRN PRN Reason: PAIN - MODERATE Last Admin: 12/14/19 14:15 Dose: 650 mg Albuterol (Ventolin Hfa Inhaler*) 1 puff INH Q6H PRN PRN Reason: SOB/WHEEZING Atorvastatin Calcium (Lipitor*) 40 mg PO 1700 [facility] Last Admin: 12/14/19 17:46 Dose: Not Given Cholecalciferol (Vitamin D Tab*) 1,000 units PO DAILY [facility] Last Admin: 12/14/19 08:48 Dose: 1,000 units Clopidogrel Bisulfate (Plavix Tab*) 75 mg PO DAILY [facility] Last Admin: 12/14/19 08:48 Dose: 75 mg Fluticasone Propionate (Flonase Nasal [place] 50mcg*) 1 spray BOTH NARES DAILY [facility] Last Admin: 12/14/19 08:48 Dose: 1 spray Heparin Sodium (Porcine) (Heparin Vial(*)) 5,000 units SUBCUT Q8HR [facility] Last Admin: 12/14/19 14:15 Dose: 5,000 units Methylprednisolone (Medrol Tab*) 2 mg PO BID [facility] Last Admin: 12/14/19 08:47 Dose: 2 mg Morphine Sulfate (Morphine Inj (Syringe))*) 2 mg IV Q4H PRN PRN Reason: PAIN - MILD Last Admin: 12/13/19 04:17 Dose: 2 mg Nystatin (Nystatin Suspension*) 500,000 units PO QID [facility] Stop: 12/19/19 09:29 Last Admin: 12/14/19 17:29 Dose: 500,000 units Ondansetron HCl (Zofran Inj*) 4 mg IV Q4H PRN PRN Reason: NAUSEA Last Admin: 12/12/19 22:00 Dose: 4 mg Senna (Senokot 8.6 Mg Tab*) 1 tab PO BID PRN PRN Reason: CONSTIPATION Last Admin: 12/14/19 03:55 Dose: 1 tab Tramadol HCl (Ultram*) 50 mg PO Q12H PRN PRN Reason: PAIN - MODERATE Last Admin: 12/14/19 03:55 Dose: 50 mg Vital Signs - 8 hr 12/14/19 12/14/19 14:15 15:48 Temperature 98.6 F 99.3 F Pulse Rate 85 89 Respiratory 16 22 Rate Blood Pressure 132/46 108/49 (mmHg) O2 Sat by Pulse 95 92 Oximetry Oxygen Devices in Use Now: Nasal Cannula Appearance: This is an obese, ill looking woman seen resting in bed, no acute distress. Eyes: No Scleral Icterus, PERRLA Ears/Nose/Mouth/Throat: NL Teeth, Lips, Gums, Clear Oropharnyx, Mucous Membranes Moist Neck: NL Appearance and Movements; NL JVP, Trachea Midline Respiratory: Symmetrical Chest Expansion and Respiratory Effort, Clear to Auscultation, - - Diminished throughout bilaterally. Cardiovascular: NL Sounds; No Murmurs; No JVD, RRR, - - +1 generalized edema Abdominal: NL Sounds; No Tenderness; No Distention Lymphatic: No Cervical Adenopathy Extremities: No Clubbing, Cyanosis Skin: - - Stage 3 to right buttock and friction wound to cleft/coccyx. Neurological: - - To self only Lines/Tubes/Other Access: Clean, Dry and Intact Peripheral IV Result Diagrams: 12/14/19 04:47 12/14/19 04:47 Additional Lab and Data: Laboratory Results - last 24 hr 12/10/19 12/10/19 12/10/19 21:08 21:08 21:08 WBC 14.2 H RBC 3.89 Hgb 12.5 Hct 35 MCV 91 MCH 32 H MCHC 35 RDW 15 Plt Count 353 MPV 7.9 Neut % (Auto) 86.3 Lymph % (Auto) 6.7 [place] % (Auto) 4.9 Eos % (Auto) 1.8 Baso % (Auto) 0.3 Absolute Neuts (auto) 12.3 H Absolute Lymphs (auto) 0.9 L Absolute Monos (auto) 0.7 Absolute Eos (auto) 0.3 Absolute Basos (auto) 0.0 Absolute Nucleated RBC 0.0 Nucleated RBC % 0.0 Sodium 131 L Potassium 5.2 H Chloride 86 L Carbon Dioxide 27 Anion Gap 18 H BUN 99 H Creatinine 7.49 H Est GFR ( Amer) 6.3 Est GFR (Non-Af Amer) 5.2 BUN/Creatinine Ratio 13.2 Glucose 134 H POC Glucose (mg/dL) Lactic Acid 1.4 Calcium 9.9 Total Bilirubin 0.60 AST 63 H ALT 48 Alkaline Phosphatase 89 Troponin I 0.05 H* C-Reactive Protein 146.35 H B-Natriuretic Peptide Total Protein 6.8 Albumin 3.8 Globulin 3.0 Albumin/Globulin Ratio 1.3 Lipase 65 Urine Color Urine Appearance Urine pH Ur Specific [place] Urine Protein Urine Ketones Urine Blood Urine Nitrate Urine Bilirubin Urine Urobilinogen Ur Leukocyte Esterase Urine WBC (Auto) Urine RBC (Auto) Urine Bacteria Urine Glucose 12/10/19 12/10/19 12/11/19 21:08 23:15 05:18 WBC 10.9 H RBC 3.84 Hgb 12.3 Hct 37 MCV 96 MCH 32 H MCHC 33 RDW 16 H Plt Count 216 MPV 8.2 Neut % (Auto) 84.8 Lymph % (Auto) 8.4 Haak[place] % (Auto) 4.6 Eos % (Auto) 2.0 Baso % (Auto) 0.2 Absolute Neuts (auto) 9.3 H Absolute Lymphs (auto) 0.9 L Absolute Monos (auto) 0.5 Absolute Eos (auto) 0.2 Absolute Basos (auto) 0.0 Absolute Nucleated RBC 0.0 Nucleated RBC % 0.1 Sodium Potassium Chloride Carbon Dioxide Anion Gap BUN Creatinine Est GFR ( Amer) Est GFR (Non-Af Amer) BUN/Creatinine Ratio Glucose POC Glucose (mg/dL) Lactic Acid Calcium Total Bilirubin AST ALT Alkaline Phosphatase Troponin I C-Reactive Protein B-Natriuretic Peptide 63 Total Protein Albumin Globulin Albumin/Globulin Ratio Lipase Urine Color Yellow Urine Appearance Clear Urine pH 5.0 Ur Specific [place] 1.014 Urine Protein Negative Urine Ketones Negative Urine Blood Negative Urine Nitrate Negative Urine Bilirubin Negative Urine Urobilinogen Negative Ur Leukocyte Esterase Trace A Urine WBC (Auto) Trace(0-5/hpf) Urine RBC (Auto) Absent Urine Bacteria Absent Urine Glucose Negative 12/11/19 12/11/19 05:18 08:48 WBC RBC Hgb Hct MCV MCH MCHC RDW Plt Count MPV Neut % (Auto) Lymph % (Auto) [place] % (Auto) Eos % (Auto) Baso % (Auto) Absolute Neuts (auto) Absolute Lymphs (auto) Absolute Monos (auto) Absolute Eos (auto) Absolute Basos (auto) Absolute Nucleated RBC Nucleated RBC % Sodium 132 L Potassium 5.0 Chloride 91 L Carbon Dioxide 22 Anion Gap 19 H BUN 97 H Creatinine 7.42 H Est GFR ( Amer) 6.4 Est GFR (Non-Af Amer) 5.3 BUN/Creatinine Ratio 13.1 Glucose 129 H POC Glucose (mg/dL) 80 Lactic Acid Calcium 8.7 Total Bilirubin 0.60 AST 81 H ALT 46 Alkaline Phosphatase 85 Troponin I 0.04 H* C-Reactive Protein B-Natriuretic Peptide Total Protein 6.2 L Albumin 3.4 Globulin 2.8 Albumin/Globulin Ratio 1.2 Lipase Urine Color Urine Appearance Urine pH Ur Specific [place] Urine Protein Urine Ketones Urine Blood Urine Nitrate Urine Bilirubin Urine Urobilinogen Ur Leukocyte Esterase Urine WBC (Auto) Urine RBC (Auto) Urine Bacteria Urine Glucose Microbiology and Other Data: Microbiology 12/11/19 00:24 Nasal Screen MRSA (PCR) - Final Nasal Mrsa Detected EKG Data: Sinus Rhythm with occasional [place] and frequent PVCs Assess/Plan/Problems-Billing Assessment: 79 yr old female with pmh dm, asthma, oa, previous stroke, chronic le edema, diastolic hf; who presented to ed with nausea, vomiting, and status post fall. - Patient Problems (1) Oral candidiasis Current Visit: Yes Status: Acute Code(s): B37.0 - CANDIDAL STOMATITIS SNOMED Code(s): 04227501 Comment: - Having difficulty taking PO meds. Discontinued corticosteroid inhaler. Ordered a one time dose of lidocaine to see if she would swallow more comfortable/stimulate her appetite, did not help. - Continue nystatin swish and swallow. - Failed nursing dysphagia screening partially because she refused to swallow, partially due to discomfort, will order speech therapy swallow eval. Regressed diet to full liquids so that she may still receive her liquid nutritional supplement if she is more cooperative with swallowing. (2) Dhchn-jw-auawljy kidney injury Current Visit: Yes Status: Acute Code(s): N17.9 - ACUTE KIDNEY FAILURE, UNSPECIFIED; N18.9 - CHRONIC KIDNEY DISEASE, UNSPECIFIED SNOMED Code(s): 081998204 Comment: - Dr Castle consulting and we very much appreciate his assistance. - Likely multifactorial due to nausea, vomiting, decrease po intake, MICA, and diuretics, though more likely it is ATN. - Urine output slightly improved. Had second round of dialysis today. Creatinine improved through the night. - Sanches in place for close monitoring of urine output. (3) Chronic heart failure with preserved ejection fraction Current Visit: Yes Status: Acute Code(s): I50.32 - CHRONIC DIASTOLIC ( CONGESTIVE) HEART FAILURE SNOMED Code(s): 986551078 Comment: - Cont strict I&Os - Daily weights - Holding diuretics given creatinine elevation (4) Hypertension Current Visit: Yes Status: Acute Code(s): I10 - ESSENTIAL (PRIMARY) HYPERTENSION SNOMED Code(s): 27114924 Comment: - WNL - Cont to hold diuretics and MICA (5) Right rib fracture Current Visit: Yes Status: Acute Code(s): S22.31XA - FRACTURE OF ONE RIB, RIGHT SIDE, INIT FOR CLOS FX SNOMED Code(s): 12979845 Comment: - Possible acute fx of 11th and 10th ribs - Chest xray unremarkable - Pain meds and positioning (6) Asthma Current Visit: No Status: Acute Code(s): J45.909 - UNSPECIFIED ASTHMA, UNCOMPLICATED SNOMED Code(s): 899862832 Comment: - No wheezing. - Continue Advair, Duonebs, Medrol (7) Cerebellar stroke Current Visit: No Status: Acute Code(s): I63.9 - CEREBRAL INFARCTION, UNSPECIFIED SNOMED Code(s): 87718355401551515 Comment: - Hx of - Cont Statin and Plavix (8) DM2 (diabetes mellitus, type 2) Current Visit: No Status: Acute Comment: - Hold Meformin - FS ACHS and SS lispro (9) DVT prophylaxis Current Visit: No Status: Acute Code(s): YBF0149 - SNOMED Code(s): 410504488 Comment: - Heparin (10) Full code status Current Visit: No Status: Acute Code(s): Z78.9 - OTHER SPECIFIED HEALTH STATUS SNOMED Code(s): 981137260 Comment: Status and Disposition: Condition: Guarded Dispo: Admit in to 4S. Attending: Gege Juarez
--- NOTE | 2019-12-14 18:09 | CONSULT ---
Subjective Date of Service: 12/14/19 Interval History: Ms. Verdugo is an 79 yo female with PMH significant for DM2, asthma, osteoarthritis, CVA, chronic LE edema, diastolic HF, and CKD; who presented to the hospital for nausea and vomiting after a fall. She was admitted to the hospital for KYLE in the setting of CKD, right rib fracture and right hip pain. She has been started on hemodialysis during her hospital stay. She presented to the hospital with open areas to her right buttock and coccyx. NSG staff have been treating the area with barrier cream. Patient seen and examined at bedside. Verbal consent for wound consultation and photographs. Family History: Unchanged from Admission Social History: Unchanged from Admission Past Medical History: Unchanged from Admission Review of Systems - Measurements Intake and Output: Intake and Output Last 24 Hours 12/12/19 12/13/19 12/14/19 12/15/19 06:59 06:59 06:59 06:59 Intake Total 2795 1554 200 30 Output Total 100 405 350 Balance 2695 1149 -150 30 Weight 234 lb 12.8 oz 226 lb 6.4 oz 228 lb 9.6 oz Intake: IV Fluids 2795 NS (0.9%) 2795 IVPB 1150 ABX - CLINDAMYCIN 50 NS (0.9%) 1100 Oral 0 404 200 30 Output: Urine 0 0 Sanches 405 350 Residual 100 Sanches 16 Fr 100 - Review of Systems Constitutional Symptoms: Negative: Fever, Other - Chills Endocrinology: Positive: Obesity, Diabetes Mellitus Objective Active Medications: Acetaminophen (Tylenol Adult Liq*) 650 mg PO Q8H PRN Reason: PAIN - MODERATE Albuterol (Ventolin Hfa Inhaler*) 1 puff INH Q6H PRN Reason: SOB/WHEEZING Atorvastatin Calcium (Lipitor*) 40 mg PO 1700 [facility] Cholecalciferol (Vitamin D Tab*) 1,000 units PO DAILY [facility] Clopidogrel Bisulfate (Plavix Tab*) 75 mg PO DAILY [facility] Fluticasone Propionate (Flonase Nasal [place] 50mcg*) 1 spray BOTH NARES DAILY [facility] Heparin Sodium (Porcine) (Heparin Vial(*)) 5,000 units SUBCUT Q8HR [facility] Methylprednisolone (Medrol Tab*) 2 mg PO BID [facility] Morphine Sulfate (Morphine Inj (Syringe))*) 2 mg IV Q4H PRN Reason: PAIN - MILD Nystatin (Nystatin Suspension*) 500,000 units PO QID [facility] Stop: 12/19/19 09:29 Ondansetron HCl (Zofran Inj*) 4 mg IV Q4H PRN Reason: NAUSEA Senna (Senokot 8.6 Mg Tab*) 1 tab PO BID PRN Reason: CONSTIPATION Tramadol HCl (Ultram*) 50 mg PO Q12H PRN Reason: PAIN - MODERATE Vital Signs 12/14/19 12/14/19 14:15 15:48 Temperature 98.6 F 99.3 F Pulse Rate 85 89 Respiratory 16 22 Rate Blood Pressure 132/46 108/49 (mmHg) O2 Sat by Pulse 95 92 Oximetry Oxygen Devices in Use Now: Nasal Cannula Appearance: NAD, laying in bed Ears/Nose/Mouth/Throat: Mucous Membranes Moist Respiratory: Symmetrical Chest Expansion and Respiratory Effort Skin: - - See skin note below Neurological: - - Drowsy and oriented to self Result Diagrams: 12/18/19 06:43 12/18/19 06:43 Additional Lab and Data: Above labs were pulled into the note, when the note was edited prior to signing. See below for labs from day of consultation. Laboratory Tests 12/11/19 12/14/19 05:18 04:47 Sodium 136 Potassium 5.2 H Chloride 98 L Carbon Dioxide 29 BUN 79 H Creatinine 5.70 H Glucose 125 H Total Protein 6.2 L Albumin 3.4 Skin Deviation Note - Skin Deviation Findings Buttocks - There is an open area to the right buttock, measures 1.5 cm x 1.7 cm x 0.1 cm. The wound base is 95 % pink granulation tissue and 5 % adherent yellow slough. The surrounding skin is intact. There is scant serosang drainage from the wound. There is no odor. There is a linear open area to the cleft /sacrum, measures 3.5 cm x 1 cm x 0.1 cm. This is full thickness, the wound base is 80 % red granulation tissue and 20 % adherent yellow slough. There is scant serous drainage. The surrounding skin is intact. The area of the lower back and buttocks with superficial skin peeling. Wound Problem/Plan Assessment: Ms. Verdugo is an 79 yo female with PMH significant for DM2, asthma, osteoarthritis, CVA, chronic LE edema, diastolic HF, and CKD; who presented to the hospital for nausea and vomiting after a fall. She was admitted to the hospital for KYLE in the setting of CKD, right rib fracture and right hip pain. She has been started on hemodialysis during her hospital stay. She presented to the hospital with open areas to her right buttock and coccyx. 1. Right buttock wound, suspect this is secondary to pressure (stage 3) and friction. Recommend frequent turning and repositioning. Apply barrier cream to the open area. Use friction reduction device to move in bed. She should have an air pump on her bed. Will add a pre-albumin to the last labs. 2. Coccyx/jhonny cleft wound, suspect this is secondary to trauma (from pulling on skin), but may also be a component of pressure. Recommend frequent turning and repositioning. Apply barrier cream to the open area. Use friction reduction device to move in bed. Will add a pre-albumin to the last labs. 3. Open area to right ABD fold. Wash area with soap and water, pat dry. Apply skin prep pad to the area BID. 4. DM2. HgA1C was 7.0 in October 2019. Maintain good glycemic control to assist with wound healing. 5. Asthma. On chronic methylprednisolone. This may affect wound healing. 6. Morbid obesity. BMI 36.6 7. Nutrition. Recommend maintaining nutrition requirements to assist with wound healing (Protein 1.3-1.5 grams/kg per day and Calories 30-35 kcal/kg per day, may need adjustment in the setting of obesity, ESRD and hemodialysis). Would benefit from a dietitian consult. Renal diet. 8. Code status. Full Code Status. 9. Disposition. Inpatient, disposition per primary team. TIME SPENT: Time for this wound consultation was 20 minutes and 10 minutes was spent with the patient discussing past medical history; assessing, measuring and photographing the wounds; and repositioning the patient. Is Patient a Wound Clinic Patient: No Attending: Malka Blas
[2019-12-14] MEDS: Morphine INJ* 2 MG/ML 1 ML SYRINGE (TWO MG - NEW SYRINGE VERSION) IV PRN (21:29)
[2019-12-14 21:43] LABS: Kappa Free Light Chain 5.06 mg/dL; Lambda Free Light Chain 1.82 mg/dL
[2019-12-15] MEDS: Morphine INJ* 2 MG/ML 1 ML SYRINGE (TWO MG - NEW SYRINGE VERSION) IV PRN (05:50)
[2019-12-15] MEDS: Heparin VIAL(*) 5000 UNITS/ML VIAL (FIVE THOUSAND) SUBCUT SCH ×3 (05:53→23:09)
[2019-12-15 06:36] LABS: Hematocrit 32 % (35-47); Hemoglobin 10.8 g/dL (12.0-16.0); Mean Corpuscular HGB Conc 34 g/dL (31-36); Mean Corpuscular Hemoglobin 32 pg (27-31); Mean Corpuscular Volume 93 fL (80-97); Mean Platelet Volume 7.5 fL (7.4-10.4); Platelet Count 284 10^3/uL (150-450); Red Cell Distribution Width 16 % (10-15); White Blood Count 7.2 10^3/uL (3.5-10.8)
[2019-12-15 06:58] LABS: BUN/Creatinine Ratio 13.2 (8-20); Calcium 8.9 mg/dL (8.6-10.3); EGFR African American 13.8 (>60); EGFR Non-African American 11.4 (>60); Potassium 4.5 mmol/L (3.5-5.0)
[2019-12-15 07:14] LABS: ABS Eosinophils 0.3 10^3/ul (0-0.6); ABS Lymphocytes 1.1 10^3/ul (1.0-4.8); ABS Monocytes 0.9 10^3/ul (0-0.8); Eosinophil % 3.7 %; Nucleated Red Blood Cells % 0.2
[2019-12-15] MEDS: Nystatin SUSPENSION* 100000 UNITS/ML 5 ML UDC PO SCH ×2 (08:24→12:23)
[2019-12-15] MEDS: Clopidogrel TAB* 75 MG PO SCH (08:24)
[2019-12-15] MEDS: methylPREDNISolone TAB* 4 MG PO SCH (08:24)
[2019-12-15] MEDS: Fluticasone NASAL SPRAY 50MCG* 16 gm SPRAY BTL BOTH NARES SCH (08:24)
[2019-12-15] MEDS: Cholecalciferol TAB* 1000 UNITS PO SCH (08:24)
[2019-12-15 10:16] LABS: Albumin 3.1 g/dL (3.2-5.2); Indirect Bilirubin 0.2 mg/dL (0.3-1.0); Total Bilirubin 0.3 mg/dL (0.2-1.0)
[2019-12-15 10:22] LABS: Albumin/Globulin Ratio 1.1 (1-3); Globulin 2.9 g/dL (2-4)
[2019-12-15 10:51] LABS: TSH (Thyroid Stimulating Horm) 5.36 mcIU/mL (0.34-5.60)
[2019-12-15] MEDS ORDERED: Heparin DIALYSIS ONLY(*) 1,000 UNITS/ML VIAL DIALYSIS ONE (11:00)
[2019-12-15] MEDS ORDERED: Hydrocortisone INJ* 100 MG/2 ML VIAL (in pyxis) IV ONE (12:00)
--- NOTE | 2019-12-15 12:30 | PN ---
Progress Note - Progress Note Date of Service: 12/15/19 Note: Chief complaint: Acute kidney injury. Interval history. Today is her third hemodialysis day as part of new HD start protocol. she is more lethargic than yesterday. remains oligoanuric. BP dropping during dialysis , making volume removal difficult. I discussed her HD rx with her nurse. Temporary catheter still not fully functional , max BFR possible of only 300 ml/min. I saw Kya during her HD treatment today. able to very minimally open her eyes to voice. not able to communicate. A third hemodialysis treatment today for oligo anuric acute kidney injury and need to maintain acid base, electrolytes and volume balance. I reviewed all her recent history more in depth today: she was admitted in Oct post fall and she was fount to be adrenal insufficient ( probably due to rapid tapering of a previous steroid course) . she did well with steroids in the hospital. d/c on methylpred 2 mg po bid. Her progressive weakness and overall decline since her last discharge could be due to insufficiently treated adrenal insufficiency. discussed with Lisa Harvey NP to try stress dose steroids today. Intake & Output 12/13/19 12/14/19 12/15/19 12/16/19 06:59 06:59 06:59 06:59 Intake Total 1554 200 30 Output Total 405 350 100 Balance 1149 -150 -70 Weight 102.693 kg 103.691 kg 102.058 kg Intake: IVPB 1150 ABX - CLINDAMYCIN 50 NS (0.9%) 1100 Oral 404 200 30 Output: Urine 0 Sanches 405 350 100 meds Acetaminophen (Tylenol Adult Liq*) 650 mg PO Q8H PRN PRN Reason: PAIN - MODERATE Last Admin: 12/14/19 14:15 Dose: 650 mg Albuterol (Ventolin Hfa Inhaler*) 1 puff INH Q6H PRN PRN Reason: SOB/WHEEZING Clopidogrel Bisulfate (Plavix Tab*) 75 mg PO DAILY [facility] Last Admin: 12/15/19 08:24 Dose: Not Given Fluticasone Propionate (Flonase Nasal [place] 50mcg*) 1 spray BOTH NARES DAILY [facility] Last Admin: 12/15/19 08:24 Dose: Not Given Heparin Sodium (Porcine) (Heparin Vial(*)) 5,000 units SUBCUT Q8HR [facility] Last Admin: 12/15/19 05:53 Dose: 5,000 units Methylprednisolone (Medrol Tab*) 2 mg PO BID [facility] Last Admin: 12/15/19 08:24 Dose: Not Given Nystatin (Nystatin Suspension*) 500,000 units PO QID [facility] Stop: 12/19/19 09:29 Last Admin: 12/15/19 08:24 Dose: Not Given Ondansetron HCl (Zofran Inj*) 4 mg IV Q4H PRN PRN Reason: NAUSEA Last Admin: 12/12/19 22:00 Dose: 4 mg Laboratory Last Values Abnormal Lab Results 12/13/19 12/13/19 12/14/19 10:00 10:00 04:47 WBC RBC Hgb Hct MCV MCH MCHC RDW Plt Count MPV Neut % (Auto) Lymph % (Auto) [place] % (Auto) Eos % (Auto) Baso % (Auto) Absolute Neuts (auto) Absolute Lymphs (auto) Absolute Monos (auto) Absolute Eos (auto) Absolute Basos (auto) Absolute Nucleated RBC Nucleated RBC % Sodium 136 Potassium 5.2 H Chloride 98 L Carbon Dioxide 29 Anion Gap 9 BUN 79 H Creatinine 5.70 H Est GFR ( Amer) 8.6 Est GFR (Non-Af Amer) 7.1 BUN/Creatinine Ratio 13.9 Glucose 125 H POC Glucose (mg/dL) Calcium 8.8 Magnesium 2.7 Total Bilirubin Direct Bilirubin Indirect Bilirubin AST ALT Alkaline Phosphatase Ammonia Total Protein Albumin Globulin Albumin/Globulin Ratio Prealbumin 23 TSH [place] Light Chain 5.06 H Lambda Light Chain 1.82 [place]/Lambda Ratio 2.78 H Hep B Core Total Ab Negative 12/14/19 12/14/19 12/14/19 14:40 16:40 23:37 WBC RBC Hgb Hct MCV MCH MCHC RDW Plt Count MPV Neut % (Auto) Lymph % (Auto) [place] % (Auto) Eos % (Auto) Baso % (Auto) Absolute Neuts (auto) Absolute Lymphs (auto) Absolute Monos (auto) Absolute Eos (auto) Absolute Basos (auto) Absolute Nucleated RBC Nucleated RBC % Sodium Potassium Chloride Carbon Dioxide Anion Gap BUN Creatinine Est GFR ( Amer) Est GFR (Non-Af Amer) BUN/Creatinine Ratio Glucose POC Glucose (mg/dL) 165 H 127 H 100 Calcium Magnesium Total Bilirubin Direct Bilirubin Indirect Bilirubin AST ALT Alkaline Phosphatase Ammonia Total Protein Albumin Globulin Albumin/Globulin Ratio Prealbumin TSH [place] Light Chain Lambda Light Chain [place]/Lambda Ratio Hep B Core Total Ab 12/15/19 12/15/19 12/15/19 06:02 06:02 07:55 WBC 7.2 RBC 3.40 L Hgb 10.8 L Hct 32 L MCV 93 MCH 32 H MCHC 34 RDW 16 H Plt Count 284 MPV 7.5 Neut % (Auto) 68.5 Lymph % (Auto) 15.0 [place] % (Auto) 12.4 Eos % (Auto) 3.7 Baso % (Auto) 0.4 Absolute Neuts (auto) 5.0 Absolute Lymphs (auto) 1.1 Absolute Monos (auto) 0.9 H Absolute Eos (auto) 0.3 Absolute Basos (auto) 0.0 Absolute Nucleated RBC 0.0 Nucleated RBC % 0.2 Sodium 136 Potassium 4.5 Chloride 99 L Carbon Dioxide 26 Anion Gap 11 BUN 50 H Creatinine 3.79 H Est GFR ( Amer) 13.8 Est GFR (Non-Af Amer) 11.4 BUN/Creatinine Ratio 13.2 Glucose 102 H POC Glucose (mg/dL) 123 H Calcium 8.9 Magnesium Total Bilirubin Direct Bilirubin Indirect Bilirubin AST ALT Alkaline Phosphatase Ammonia Total Protein Albumin Globulin Albumin/Globulin Ratio Prealbumin TSH [place] Light Chain Lambda Light Chain [place]/Lambda Ratio Hep B Core Total Ab 12/15/19 12/15/19 12/15/19 09:20 09:20 11:19 WBC RBC Hgb Hct MCV MCH MCHC RDW Plt Count MPV Neut % (Auto) Lymph % (Auto) [place] % (Auto) Eos % (Auto) Baso % (Auto) Absolute Neuts (auto) Absolute Lymphs (auto) Absolute Monos (auto) Absolute Eos (auto) Absolute Basos (auto) Absolute Nucleated RBC Nucleated RBC % Sodium Potassium Chloride Carbon Dioxide Anion Gap BUN Creatinine Est GFR ( Amer) Est GFR (Non-Af Amer) BUN/Creatinine Ratio Glucose POC Glucose (mg/dL) 94 Calcium Magnesium Total Bilirubin 0.30 Direct Bilirubin 0.10 Indirect Bilirubin 0.2 L AST 41 H ALT 31 Alkaline Phosphatase 83 Ammonia 50 Total Protein 6.0 L Albumin 3.1 L Globulin 2.9 Albumin/Globulin Ratio 1.1 Prealbumin TSH 5.36 [place] Light Chain Lambda Light Chain [place]/Lambda Ratio Hep B Core Total Ab physical exam: Temp Pulse Resp BP SpO2 FiO2 98 F 84 16 101/27 93 12/15/19 08:02 12/15/19 08:02 12/15/19 08:02 12/15/19 08:02 12/15/19 08:02 Constitutional: lethargic , difficult to arouse Respiratory: Clear to auscultation bilaterally Heart: S1, S2, regular rate and rhythm, no murmurs rubs or gallops, +1 lower extremities edema Psychiatric lethargic, non conversational Assessment and plan: 79-year-old woman with progressive decline for the last several months, poor by mouth intake, nausea and vomiting for the last 1-2 weeks. admitted with acute kidney injury. Urinalysis was bland. 1. Acute kidney injury most probably secondary to ATN. remains oligoanuric. Third hemodialysis treatment today for a possibly uremia. BUN decreasing slowly,but without improvement in MS, on contrary. Lethargy getting worse. she is not on any medications that can cause decrease mentation. presentation not typical for DDE. I saw the patient during dialysis today. No significant complications during dialysis other than soft BP and poorly functional temp cath. if she improves , will consider replacing the temp cath with a tunnelled cath. duration of treatment increased to 3 hours per protocol. she may improve kidney function if improving overall. 2. Weakness and worsening lethargy: I have a strong suspicion for adrenal insufficiency as no other cause was can be incriminated. Recommend stress dose steroids: hydrocortisone 100 mg iv once, followed by 50 mg iv every 6 hours. Discussed with covering TABLE ATTENDANT, Lisa Harvey. 3. Volume overload due to oligo anuria. volume removal with dialysis has been difficult dur to low BP.
[2019-12-15] MEDS: Hydrocortisone INJ* 100 MG/2 ML VIAL (in pyxis) IV SCH ×2 (17:25→23:07)
[2019-12-15] MEDS: TPN* 24 HR with D10W 1000 ML BAG* 1,000 ML, Amino Acid Infusion 10%* 850 ML, Sterile Wa... IV SCH ×12 (17:28)
--- NOTE | 2019-12-15 18:59 | PN ---
Subjective Date of Service: 12/15/19 Interval History: Patient seen during dialysis treatment. Somnolent, would briefly open eyes to physical touch but did not respond otherwise. Speech therapy evaluated her swallowing, failed testing, NPO status recommended as well as holding all oral medications. Remains oliguric despite improvement in creatinine. Family History: Unchanged from Admission Social History: Unchanged from Admission Past Medical History: Unchanged from Admission Objective Active Medications: Acetaminophen (Tylenol Adult Liq*) 650 mg PO Q8H PRN PRN Reason: PAIN - MODERATE Last Admin: 12/14/19 14:15 Dose: 650 mg Albuterol (Ventolin Hfa Inhaler*) 1 puff INH Q6H PRN PRN Reason: SOB/WHEEZING Fluticasone Propionate (Flonase Nasal [place] 50mcg*) 1 spray BOTH NARES DAILY [facility] Last Admin: 12/15/19 08:24 Dose: Not Given Heparin Sodium (Porcine) (Heparin Vial(*)) 5,000 units SUBCUT Q8HR [facility] Last Admin: 12/15/19 12:57 Dose: 5,000 units Hydrocortisone Sodium Succinate (Solu-Cortef*) 50 mg IV Q6H [facility] Last Admin: 12/15/19 17:25 Dose: 50 mg Dextrose 500 ml/ Amino Acids 850 ml/ Sterile Water 150 ml/Fat Emulsion Intravenous 250 ml/ Sodium Chloride 100 meq/Potassium Chloride 50 meq/Potassium Phosphate 15 mmole/Calcium Gluconate 15 meq/Magnesium Sulfate 10 meq/ Multivitamins 10 ml/ Trace Metals 1 ml/ Nutrition ( Parenteral) 1,850.721 mls @ 77.113 mls/hr [facility] 17[facility] Dextrose 1,000 ml/ Amino Acids 850 ml/ Sterile Water 150 ml/Fat Emulsion Intravenous 500 ml/ Sodium Chloride 100 meq/Potassium Chloride 50 meq/Potassium Phosphate 15 mmole/Calcium Gluconate 15 meq/Magnesium Sulfate 10 meq/ Multivitamins 10 ml/ Trace Metals 1 ml/ Nutrition ( Parenteral) 2,600.721 mls @ 108.422 mls/hr IV 1700 L[facility] Stop: 12/16/19 16:59 Last Admin: 12/15/19 17:28 Dose: 108.422 mls/hr Ondansetron HCl (Zofran Inj*) 4 mg IV Q4H PRN PRN Reason: NAUSEA Last Admin: 12/12/19 22:00 Dose: 4 mg Vital Signs - 8 hr 12/15/19 15:15 Temperature 97.3 F Pulse Rate 77 Respiratory 16 Rate Blood Pressure 146/52 (mmHg) O2 Sat by Pulse 94 Oximetry Oxygen Devices in Use Now: Nasal Cannula Appearance: This is an ill looking, somnolent woman seen resting on her side in bed, receiving dialysis. Eyes: No Scleral Icterus, PERRLA Ears/Nose/Mouth/Throat: NL Teeth, Lips, Gums, Mucous Membranes Moist Neck: NL Appearance and Movements; NL JVP, Trachea Midline Respiratory: Symmetrical Chest Expansion and Respiratory Effort, - - Diminished throughout bilaterally. Cardiovascular: NL Sounds; No Murmurs; No JVD, RRR, No Edema Abdominal: NL Sounds; No Tenderness; No Distention Lymphatic: No Cervical Adenopathy Extremities: No Edema, No Clubbing, Cyanosis Skin: No Nodules or Sclerosis, - - Wound to right buttock. Neurological: Alert and Oriented x 3 Lines/Tubes/Other Access: Clean, Dry and Intact Peripheral IV Result Diagrams: 12/15/19 06:02 12/15/19 06:02 Additional Lab and Data: Laboratory Results - last 24 hr 12/10/19 12/10/19 12/10/19 21:08 21:08 21:08 WBC 14.2 H RBC 3.89 Hgb 12.5 Hct 35 MCV 91 MCH 32 H MCHC 35 RDW 15 Plt Count 353 MPV 7.9 Neut % (Auto) 86.3 Lymph % (Auto) 6.7 [place] % (Auto) 4.9 Eos % (Auto) 1.8 Baso % (Auto) 0.3 Absolute Neuts (auto) 12.3 H Absolute Lymphs (auto) 0.9 L Absolute Monos (auto) 0.7 Absolute Eos (auto) 0.3 Absolute Basos (auto) 0.0 Absolute Nucleated RBC 0.0 Nucleated RBC % 0.0 Sodium 131 L Potassium 5.2 H Chloride 86 L Carbon Dioxide 27 Anion Gap 18 H BUN 99 H Creatinine 7.49 H Est GFR ( Amer) 6.3 Est GFR (Non-Af Amer) 5.2 BUN/Creatinine Ratio 13.2 Glucose 134 H POC Glucose (mg/dL) Lactic Acid 1.4 Calcium 9.9 Total Bilirubin 0.60 AST 63 H ALT 48 Alkaline Phosphatase 89 Troponin I 0.05 H* C-Reactive Protein 146.35 H B-Natriuretic Peptide Total Protein 6.8 Albumin 3.8 Globulin 3.0 Albumin/Globulin Ratio 1.3 Lipase 65 Urine Color Urine Appearance Urine pH Ur Specific [place] Urine Protein Urine Ketones Urine Blood Urine Nitrate Urine Bilirubin Urine Urobilinogen Ur Leukocyte Esterase Urine WBC (Auto) Urine RBC (Auto) Urine Bacteria Urine Glucose 12/10/19 12/10/19 12/11/19 21:08 23:15 05:18 WBC 10.9 H RBC 3.84 Hgb 12.3 Hct 37 MCV 96 MCH 32 H MCHC 33 RDW 16 H Plt Count 216 MPV 8.2 Neut % (Auto) 84.8 Lymph % (Auto) 8.4 [place] % (Auto) 4.6 Eos % (Auto) 2.0 Baso % (Auto) 0.2 Absolute Neuts (auto) 9.3 H Absolute Lymphs (auto) 0.9 L Absolute Monos (auto) 0.5 Absolute Eos (auto) 0.2 Absolute Basos (auto) 0.0 Absolute Nucleated RBC 0.0 Nucleated RBC % 0.1 Sodium Potassium Chloride Carbon Dioxide Anion Gap BUN Creatinine Est GFR ( Amer) Est GFR (Non-Af Amer) BUN/Creatinine Ratio Glucose POC Glucose (mg/dL) Lactic Acid Calcium Total Bilirubin AST ALT Alkaline Phosphatase Troponin I C-Reactive Protein B-Natriuretic Peptide 63 Total Protein Albumin Globulin Albumin/Globulin Ratio Lipase Urine Color Yellow Urine Appearance Clear Urine pH 5.0 Ur Specific [place] 1.014 Urine Protein Negative Urine Ketones Negative Urine Blood Negative Urine Nitrate Negative Urine Bilirubin Negative Urine Urobilinogen Negative Ur Leukocyte Esterase Trace A Urine WBC (Auto) Trace(0-5/hpf) Urine RBC (Auto) Absent Urine Bacteria Absent Urine Glucose Negative 12/11/19 12/11/19 05:18 08:48 WBC RBC Hgb Hct MCV MCH MCHC RDW Plt Count MPV Neut % (Auto) Lymph % (Auto) [place] % (Auto) Eos % (Auto) Baso % (Auto) Absolute Neuts (auto) Absolute Lymphs (auto) Absolute Monos (auto) Absolute Eos (auto) Absolute Basos (auto) Absolute Nucleated RBC Nucleated RBC % Sodium 132 L Potassium 5.0 Chloride 91 L Carbon Dioxide 22 Anion Gap 19 H BUN 97 H Creatinine 7.42 H Est GFR ( Amer) 6.4 Est GFR (Non-Af Amer) 5.3 BUN/Creatinine Ratio 13.1 Glucose 129 H POC Glucose (mg/dL) 80 Lactic Acid Calcium 8.7 Total Bilirubin 0.60 AST 81 H ALT 46 Alkaline Phosphatase 85 Troponin I 0.04 H* C-Reactive Protein B-Natriuretic Peptide Total Protein 6.2 L Albumin 3.4 Globulin 2.8 Albumin/Globulin Ratio 1.2 Lipase Urine Color Urine Appearance Urine pH Ur Specific [place] Urine Protein Urine Ketones Urine Blood Urine Nitrate Urine Bilirubin Urine Urobilinogen Ur Leukocyte Esterase Urine WBC (Auto) Urine RBC (Auto) Urine Bacteria Urine Glucose Microbiology and Other Data: Microbiology 12/11/19 00:24 Nasal Screen MRSA (PCR) - Final Nasal Mrsa Detected EKG Data: Sinus Rhythm with occasional [place]ig[place] and frequent PVCs Assess/Plan/Problems-Billing Assessment: 79 yr old female with pmh dm, asthma, oa, previous stroke, chronic le edema, diastolic hf; who presented to ed with nausea, vomiting, and status post fall. - Patient Problems (1) Adrenal insufficiency Current Visit: Yes Status: Acute Code(s): E27.40 - UNSPECIFIED ADRENOCORTICAL INSUFFICIENCY SNOMED Code(s): 148420195 Comment: -Patient has been on oral steroids for several years for her asthma. Has had adrenal insufficiency noted upon previous admission. -Patient has been somnolent. Dr. Martin felt it may be due to insufficiency. Stress doses of hydrocortisone started today to see if that improves her mentation. (2) Dysphagia Current Visit: Yes Status: Acute Code(s): R13.10 - DYSPHAGIA, UNSPECIFIED SNOMED Code(s): 00176180 Comment: - Ability to swallow has decreased over the last few weeks. Today she failed speech therapy swallow eval, NPO recommended with holding of all oral medications. - This is likely secondary to her somnolence as well as oral candidiasis. - Due to concerns for her poor nutrition, PPN was ordered for today. PICC line to be placed tomorrow to start TPN. Did not feel comfortable with tube feeds secondary to oral candidiasis. (3) Oral candidiasis Current Visit: Yes Status: Acute Code(s): B37.0 - CANDIDAL STOMATITIS SNOMED Code(s): 17120881 Comment: - Unable to take in any PO. - Continue to hold corticosteroid inhaler. - Hold nystatin swish and swallow due to inability to swallow at all. (4) [id number] kidney injury Current Visit: Yes Status: Acute Code(s): N17.9 - ACUTE KIDNEY FAILURE, UNSPECIFIED; N18.9 - CHRONIC KIDNEY DISEASE, UNSPECIFIED SNOMED Code(s): 482391504 Comment: - Dr Castle consulting and we very much appreciate his assistance. - Likely multifactorial due to nausea, vomiting, decrease po intake, MICA, and diuretics, though more likely it is ATN. - Creatinine continues to improve, though remains oliguric. Had third round of dialysis today, temporary cath is not functioning well. - Sanches in place for close monitoring of urine output. (5) Chronic heart failure with preserved ejection fraction Current Visit: Yes Status: Acute Code(s): I50.32 - CHRONIC DIASTOLIC ( CONGESTIVE) HEART FAILURE SNOMED Code(s): 076926231 Comment: - Cont strict I&Os - Daily weights, have been stable. - Holding diuretics given creatinine elevation (6) Hypertension Current Visit: Yes Status: Acute Code(s): I10 - ESSENTIAL (PRIMARY) HYPERTENSION SNOMED Code(s): 92697977 Comment: - WNL - Cont to hold diuretics and MICA (7) Right rib fracture Current Visit: Yes Status: Acute Code(s): S22.31XA - FRACTURE OF ONE RIB, RIGHT SIDE, INIT FOR CLOS FX SNOMED Code(s): 31569873 Comment: - Possible acute fx of 11th and 10th ribs - Chest xray unremarkable - Pain control with positioning. (8) Asthma Current Visit: No Status: Acute Code(s): J45.909 - UNSPECIFIED ASTHMA, UNCOMPLICATED SNOMED Code(s): 531958748 Comment: - No wheezing. - Continue Advair, Duonebs, Medrol (9) Cerebellar stroke Current Visit: No Status: Acute Code(s): I63.9 - CEREBRAL INFARCTION, UNSPECIFIED SNOMED Code(s): 38411799351676384 Comment: - Hx of - Cont Statin and Plavix (10) DM2 (diabetes mellitus, type 2) Current Visit: No Status: Acute Comment: - Hold Meformin - FS ACHS and SS lispro (11) DVT prophylaxis Current Visit: No Status: Acute Code(s): RFR8253 - SNOMED Code(s): 468411392 Comment: - Heparin (12) Full code status Current Visit: No Status: Acute Code(s): Z78.9 - OTHER SPECIFIED HEALTH STATUS SNOMED Code(s): 429623602 Comment: Status and Disposition: Condition: Guarded Dispo: Admit in to 4S. Attending: Hailey Salas
[2019-12-16] MEDS ORDERED: HYDROmorphone INJ* 0.5 MG/0.5 ML SYRINGE IV SLOW PU ONE ×2 (00:35→05:38)
[2019-12-16] MEDS: Hydrocortisone INJ* 100 MG/2 ML VIAL (in pyxis) IV SCH ×4 (05:10→23:15)
[2019-12-16] MEDS: Heparin VIAL(*) 5000 UNITS/ML VIAL (FIVE THOUSAND) SUBCUT SCH ×3 (05:12→21:26)
[2019-12-16 06:39] LABS: Hematocrit 31 % (35-47); Hemoglobin 10.9 g/dL (12.0-16.0); Mean Corpuscular HGB Conc 35 g/dL (31-36); Mean Corpuscular Hemoglobin 32 pg (27-31); Mean Corpuscular Volume 92 fL (80-97); Mean Platelet Volume 7.1 fL (7.4-10.4); Platelet Count 257 10^3/uL (150-450); Red Blood Count 3.38 10^6 /uL (3.70-4.87); Red Cell Distribution Width 16 % (10-15); White Blood Count 8.6 10^3/uL (3.5-10.8)
[2019-12-16 06:56] LABS: Albumin 3.1 g/dL (3.2-5.2); Albumin/Globulin Ratio 1.1 (1-3); BUN/Creatinine Ratio 16.9 (8-20); EGFR African American 18.1 (>60); EGFR Non-African American 14.9 (>60); Globulin 2.7 g/dL (2-4); Magnesium 2.3 mg/dL (1.9-2.7); Phosphorus 4.2 mg/dL (2.5-5.0); Potassium 4.8 mmol/L (3.5-5.0); Total Bilirubin 0.3 mg/dL (0.2-1.0); Total Protein 5.8 g/dL (6.4-8.9)
[2019-12-16] MEDS: Fluticasone NASAL SPRAY 50MCG* 16 gm SPRAY BTL BOTH NARES SCH (07:32)
[2019-12-16 07:38] LABS: ABS Lymphocytes 0.7 10^3/ul (1.0-4.8); ABS Monocytes 0.8 10^3/ul (0-0.8); ABS Neutrophils 7.1 10^3/ul (1.5-7.7); Eosinophil % 0.4 %; Lymphocyte % 8.1 %; Nucleated Red Blood Cells % 0.1
[2019-12-16] MEDS: Ondansetron INJ* 2 MG/ML VIAL IV PRN (12:17)
--- NOTE | 2019-12-16 16:35 | PN ---
Progress Note - Progress Note Date of Service: 12/16/19 Note: Pt is confused and unable to contribute to conversation. Our records show Gege Acevedo(sister in [place]) as HCP [phone] but she is deferring decision making to Kya's daughter Laura Mar [phone]. We are meeting tomorrow(Dec 17) for family meeting at 11.
[2019-12-16] MEDS: TPN* 24 HR with D10W 1000 ML BAG* 1,000 ML, Amino Acid Infusion 10%* 850 ML, Sterile Wa... IV SCH ×12 (16:54)
[2019-12-16] MEDS ORDERED: TPN* 24 HR with Dextrose 50% Water* 500 ML, Amino Acid Infusion 10%* 850 ML, Sterile Wa... CENTR SCH ×12 (17:00)
--- NOTE | 2019-12-16 17:07 | PN ---
Subjective Date of Service: 12/16/19 Interval History: arousable but confused.oriented to person and place not to time. Family History: Unchanged from Admission Social History: Unchanged from Admission Past Medical History: Unchanged from Admission Objective Active Medications: Acetaminophen (Tylenol Adult Liq*) 650 mg PO Q8H PRN PRN Reason: PAIN - MODERATE Last Admin: 12/14/19 14:15 Dose: 650 mg Albuterol (Ventolin Hfa Inhaler*) 1 puff INH Q6H PRN PRN Reason: SOB/WHEEZING Fluticasone Propionate (Flonase Nasal [place] 50mcg*) 1 spray BOTH NARES DAILY [facility] Last Admin: 12/16/19 07:32 Dose: Not Given Heparin Sodium (Porcine) (Heparin Vial(*)) 5,000 units SUBCUT Q8HR [facility] Last Admin: 12/16/19 12:13 Dose: Not Given Hydrocortisone Sodium Succinate (Solu-Cortef*) 50 mg IV Q6H [facility] Last Admin: 12/16/19 16:54 Dose: 50 mg Dextrose 1,000 ml/ Amino Acids 850 ml/ Sterile Water 150 ml/Fat Emulsion Intravenous 500 ml/ Sodium Chloride 100 meq/Potassium Chloride 50 meq/Potassium Phosphate 15 mmole/Calcium Gluconate 15 meq/Magnesium Sulfate 10 meq/ Multivitamins 10 ml/ Trace Metals 1 ml/ Nutrition ( Parenteral) 2,600.721 mls @ 108.422 mls/hr IV 1700 [facility] Last Admin: 12/16/19 16:54 Dose: 108.422 mls/hr Ondansetron HCl (Zofran Inj*) 4 mg IV Q4H PRN PRN Reason: NAUSEA Last Admin: 12/16/19 12:17 Dose: 4 mg Vital Signs - 8 hr 12/16/19 15:15 Temperature 98.2 F Pulse Rate 81 Respiratory 16 Rate Blood Pressure 143/43 (mmHg) O2 Sat by Pulse 94 Oximetry Oxygen Devices in Use Now: Nasal Cannula Eyes: No Scleral Icterus Ears/Nose/Mouth/Throat: NL Teeth, Lips, Gums Neck: NL Appearance and Movements; NL JVP Respiratory: Symmetrical Chest Expansion and Respiratory Effort Cardiovascular: NL Sounds; No Murmurs; No JVD Abdominal: NL Sounds; No Tenderness; No Distention Extremities: - - edema present Neurological: - - alert oriented*2 confused Result Diagrams: 12/16/19 06:27 12/16/19 06:27 Additional Lab and Data: Laboratory Results - last 24 hr 12/10/19 12/10/19 12/10/19 21:08 21:08 21:08 WBC 14.2 H RBC 3.89 Hgb 12.5 Hct 35 MCV 91 MCH 32 H MCHC 35 RDW 15 Plt Count 353 MPV 7.9 Neut % (Auto) 86.3 Lymph % (Auto) 6.7 [place] % (Auto) 4.9 Eos % (Auto) 1.8 Baso % (Auto) 0.3 Absolute Neuts (auto) 12.3 H Absolute Lymphs (auto) 0.9 L Absolute Monos (auto) 0.7 Absolute Eos (auto) 0.3 Absolute Basos (auto) 0.0 Absolute Nucleated RBC 0.0 Nucleated RBC % 0.0 Sodium 131 L Potassium 5.2 H Chloride 86 L Carbon Dioxide 27 Anion Gap 18 H BUN 99 H Creatinine 7.49 H Est GFR ( Amer) 6.3 Est GFR (Non-Af Amer) 5.2 BUN/Creatinine Ratio 13.2 Glucose 134 H POC Glucose (mg/dL) Lactic Acid 1.4 Calcium 9.9 Total Bilirubin 0.60 AST 63 H ALT 48 Alkaline Phosphatase 89 Troponin I 0.05 H* C-Reactive Protein 146.35 H B-Natriuretic Peptide Total Protein 6.8 Albumin 3.8 Globulin 3.0 Albumin/Globulin Ratio 1.3 Lipase 65 Urine Color Urine Appearance Urine pH Ur Specific [place] Urine Protein Urine Ketones Urine Blood Urine Nitrate Urine Bilirubin Urine Urobilinogen Ur Leukocyte Esterase Urine WBC (Auto) Urine RBC (Auto) Urine Bacteria Urine Glucose 12/10/19 12/10/19 12/11/19 21:08 23:15 05:18 WBC 10.9 H RBC 3.84 Hgb 12.3 Hct 37 MCV 96 MCH 32 H MCHC 33 RDW 16 H Plt Count 216 MPV 8.2 Neut % (Auto) 84.8 Lymph % (Auto) 8.4 [place] % (Auto) 4.6 Eos % (Auto) 2.0 Baso % (Auto) 0.2 Absolute Neuts (auto) 9.3 H Absolute Lymphs (auto) 0.9 L Absolute Monos (auto) 0.5 Absolute Eos (auto) 0.2 Absolute Basos (auto) 0.0 Absolute Nucleated RBC 0.0 Nucleated RBC % 0.1 Sodium Potassium Chloride Carbon Dioxide Anion Gap BUN Creatinine Est GFR ( Amer) Est GFR (Non-Af Amer) BUN/Creatinine Ratio Glucose POC Glucose (mg/dL) Lactic Acid Calcium Total Bilirubin AST ALT Alkaline Phosphatase Troponin I C-Reactive Protein B-Natriuretic Peptide 63 Total Protein Albumin Globulin Albumin/Globulin Ratio Lipase Urine Color Yellow Urine Appearance Clear Urine pH 5.0 Ur Specific [place] 1.014 Urine Protein Negative Urine Ketones Negative Urine Blood Negative Urine Nitrate Negative Urine Bilirubin Negative Urine Urobilinogen Negative Ur Leukocyte Esterase Trace A Urine WBC (Auto) Trace(0-5/hpf) Urine RBC (Auto) Absent Urine Bacteria Absent Urine Glucose Negative 12/11/19 12/11/19 05:18 08:48 WBC RBC Hgb Hct MCV MCH MCHC RDW Plt Count MPV Neut % (Auto) Lymph % (Auto) [place] % (Auto) Eos % (Auto) Baso % (Auto) Absolute Neuts (auto) Absolute Lymphs (auto) Absolute Monos (auto) Absolute Eos (auto) Absolute Basos (auto) Absolute Nucleated RBC Nucleated RBC % Sodium 132 L Potassium 5.0 Chloride 91 L Carbon Dioxide 22 Anion Gap 19 H BUN 97 H Creatinine 7.42 H Est GFR ( Amer) 6.4 Est GFR (Non-Af Amer) 5.3 BUN/Creatinine Ratio 13.1 Glucose 129 H POC Glucose (mg/dL) 80 Lactic Acid Calcium 8.7 Total Bilirubin 0.60 AST 81 H ALT 46 Alkaline Phosphatase 85 Troponin I 0.04 H* C-Reactive Protein B-Natriuretic Peptide Total Protein 6.2 L Albumin 3.4 Globulin 2.8 Albumin/Globulin Ratio 1.2 Lipase Urine Color Urine Appearance Urine pH Ur Specific [place] Urine Protein Urine Ketones Urine Blood Urine Nitrate Urine Bilirubin Urine Urobilinogen Ur Leukocyte Esterase Urine WBC (Auto) Urine RBC (Auto) Urine Bacteria Urine Glucose Microbiology and Other Data: Microbiology 12/11/19 00:24 Nasal Screen MRSA (PCR) - Final Nasal Mrsa Detected EKG Data: Sinus Rhythm with occasional [place] and frequent PVCs Assess/Plan/Problems-Billing Assessment: 79 yr old female with pmh dm, asthma, oa, previous stroke, chronic le edema, diastolic hf; who presented to ed with nausea, vomiting, and status post fall. - Patient Problems (1) [id number] kidney injury Current Visit: Yes Status: Acute Code(s): N17.9 - ACUTE KIDNEY FAILURE, UNSPECIFIED; N18.9 - CHRONIC KIDNEY DISEASE, UNSPECIFIED SNOMED Code(s): 835603232 Comment: -Thought to be sec to ATN -Initiated on Dialysis -Had third round of dialysis yesterday - Sanches in place for close monitoring of urine output (2) Adrenal insufficiency Current Visit: Yes Status: Acute Code(s): E27.40 - UNSPECIFIED ADRENOCORTICAL INSUFFICIENCY SNOMED Code(s): 764806738 Comment: -Patient has been on oral steroids for several years for her asthma. Has had adrenal insufficiency noted upon previous admission. -Patient has been somnolent in the last 2 days. Started on stress dose steroids yesterday (3) Chronic heart failure with preserved ejection fraction Current Visit: Yes Status: Acute Code(s): I50.32 - CHRONIC DIASTOLIC ( CONGESTIVE) HEART FAILURE SNOMED Code(s): 863278457 Comment: - Cont strict I&Os - Daily weights, have been stable. - Managing fluid with dialysis (4) Dysphagia Current Visit: Yes Status: Acute Code(s): R13.10 - DYSPHAGIA, UNSPECIFIED SNOMED Code(s): 71789346 Comment: - Ability to swallow has decreased over the last few weeks. Then she failed speech therapy swallow eval, NPO recommended with holding of all oral medications. - This is likely secondary to her somnolence as well as oral candidiasis. -PPN with peripheral line -Hold on PICC placement and eval progress and mentation in am -Reattempt swallow eval tomorrow -Continue PPN (5) Hypertension Current Visit: Yes Status: Acute Code(s): I10 - ESSENTIAL (PRIMARY) HYPERTENSION SNOMED Code(s): 84059919 Comment: - WNL - Cont to hold diuretics and MICA (6) Oral candidiasis Current Visit: Yes Status: Acute Code(s): B37.0 - CANDIDAL STOMATITIS SNOMED Code(s): 56383528 Comment: - Unable to take in any PO. - Continue to hold corticosteroid inhaler. - Hold nystatin swish and swallow due to inability to swallow at all. (7) Right hip pain Current Visit: Yes Status: Acute Code(s): M25.551 - PAIN IN RIGHT HIP SNOMED Code(s): 07874254 Comment: - Positioning and Tylenol - No fx (8) Right rib fracture Current Visit: Yes Status: Acute Code(s): S22.31XA - FRACTURE OF ONE RIB, RIGHT SIDE, INIT FOR CLOS FX SNOMED Code(s): 59308076 Comment: - Possible acute fx of 11th and 10th ribs - Chest xray unremarkable - Pain control with positioning. (9) Cerebellar stroke Current Visit: No Status: Acute Code(s): I63.9 - CEREBRAL INFARCTION, UNSPECIFIED SNOMED Code(s): 61257782298035240 Comment: - Hx of - Cont Statin and Plavix (10) DM2 (diabetes mellitus, type 2) Current Visit: No Status: Acute Comment: - Hold Meformin - FS ACHS and SS lispro Status and Disposition: Palliative care consult.Fam discussion.
--- NOTE | 2019-12-16 17:19 | PN ---
Progress Note - Progress Note Date of Service: 12/16/19 Note: Chief complaint: Acute kidney injury. Interval history: She was started on stress dose steroids last night and today she is slightly better. She opens her eyes and makes eye contact. She is able to answer some questions. She remains oligo anuric. Review of systems: She denies any pain specifically no chest pain or abdominal pain. Denies shortness of breath. Disoriented Labs from this morning show a stable hemoglobin of 10.9 g/dL, normal white count of 8.6, normal platelets of 257, sodium 132, potassium 4.8, creatinine of 3.01 mg/dL with a BUN of 51 mg/dL, glucose 260, albumin 3.1. Urine output yesterday was only 150 mL per 24 hours. Weight is stable vedhtb595 kg. Physical exam: Vital signs: Blood pressure 143/43, oxygen saturation 94% on 1 L, respirations 16/min, heart rate 81 bpm, temperature 98.2. Constitutional: lethargic, but much easier to arouse than yesterday She is lying almost flat in bed in no apparent distress. Respiratory: Clear to auscultation bilaterally Heart: S1, S2, regular rate and rhythm, no murmurs rubs or gallops, +1 lower extremities edema Psychiatric lethargic, but relatively easily arousable to voice. Oriented to person but not to place. When I asked her what was the month she said to 12/16 for couple of times. I am not sure if she wanted to say 2019 the year or December 16 which is the correct date. Assessment and plan: 79-year-old woman with progressive decline for the last several months, poor oral intake, nausea and vomiting for the last 1-2 weeks. Admitted with acute kidney injury. [place] UA. She was started on hemodialysis during this admission for maintenance of acid-base, electrolytes and volume balance 1. Acute kidney injury most probably secondary to ATN. Remains oligoanuric. No need for HD today. Plan for HD tomorrow using the temp line. If she continues to improve over the weekend we are planning a tunneled dialysis catheter early next week. 2. Mental status changes. Her lethargy is slightly improved today after initiating stress dose steroids last night. I would continue the same and follow her progress. 3. Volume overload due to oligo anuria: She maintains a good oxygen saturation of 94% only on 1 L/min supplemental oxygen. No need for hemodialysis for this reason.
[2019-12-17] MEDS: Hydrocortisone INJ* 100 MG/2 ML VIAL (in pyxis) IV SCH ×3 (05:29→21:38)
[2019-12-17] MEDS: Heparin VIAL(*) 5000 UNITS/ML VIAL (FIVE THOUSAND) SUBCUT SCH ×3 (05:29→21:39)
[2019-12-17 06:23] LABS: Hematocrit 31 % (35-47); Hemoglobin 10.3 g/dL (12.0-16.0); Mean Corpuscular HGB Conc 34 g/dL (31-36); Mean Corpuscular Hemoglobin 31 pg (27-31); Mean Corpuscular Volume 93 fL (80-97); Mean Platelet Volume 7.4 fL (7.4-10.4); Platelet Count 269 10^3/uL (150-450); Red Blood Count 3.31 10^6 /uL (3.70-4.87); Red Cell Distribution Width 16 % (10-15); White Blood Count 13.4 10^3/uL (3.5-10.8)
[2019-12-17 06:44] LABS: BUN/Creatinine Ratio 25.5 (8-20); Calcium 9.7 mg/dL (8.6-10.3); EGFR African American 16.5 (>60); EGFR Non-African American 13.7 (>60)
[2019-12-17 06:45] LABS: Potassium 5.5 mmol/L (3.5-5.0)
[2019-12-17 07:42] LABS: ABS Basophils 0.1 10^3/ul (0-0.2); ABS Lymphocytes 1.1 10^3/ul (1.0-4.8); ABS Monocytes 1.3 10^3/ul (0-0.8); ABS Neutrophils 10.9 10^3/ul (1.5-7.7); Eosinophil % 0.2 %; Lymphocyte % 8.3 %; Nucleated Red Blood Cells % 0.1
[2019-12-17] MEDS: Fluticasone NASAL SPRAY 50MCG* 16 gm SPRAY BTL BOTH NARES SCH (08:20)
[2019-12-17] MEDS ORDERED: Heparin DIALYSIS ONLY(*) 1,000 UNITS/ML VIAL DIALYSIS ONE (09:00)
[2019-12-17 09:12] LABS: Albumin 2.1 g/dL (3.4-4.7); Albumin/Globulin Ratio 0.67; Gamma Globulin 0.4 g/dL (0.6-1.6); Total Protein(PEP) 5.3 g/dL (6.3 - 7.9)
--- NOTE | 2019-12-17 12:32 | PN ---
Progress Note - Progress Note Date of Service: 12/17/19 Note: Chief complaint: Acute kidney injury. Interval history: Mrs. Verdugo has improved slightly since yesterday. I saw her during hemodialysis which she tolerated better than before , without drop in BP. Ulltrafiltration was more easily achieved today. she was awake at the time of my visit, c/o thirst. she was able to answer my question , but was hard to speak ,most probably due to dry mouth. she has been NPO pending speach evaluation. she c/o diffuse body aches, no chest pain. breathlessness is improved. she remains volume overloaded. Review of systems: She denies any pain specifically no chest pain or abdominal pain. awake , but slow to respond. dry mouth. Intake & Output 12/15/19 12/16/19 12/17/19 12/18/19 06:59 06:59 06:59 06:59 Intake Total 30 0 3547 0 Output Total 100 150 450 200 Balance -70 -150 3097 -200 Weight 102.058 kg 103.056 kg 108.091 kg Intake: TPN/PPN 3547 Oral 30 0 0 0 Output: Urine 0 [place] 100 150 450 200 Other: # Bowel Movements 0 0 Laboratory Last Values WBC 13.4 10^3/uL (3.5-10.8) H 12/17/19 05:59 RBC 3.31 10^6 /uL (3.70-4.87) L 12/17/19 05:59 Hgb 10.3 g/dL (12.0-16.0) L 12/17/19 05:59 Hct 31 % (35-47) L 12/17/19 05:59 MCV 93 fL (80-97) 12/17/19 05:59 MCH 31 pg (27-31) 12/17/19 05:59 MCHC 34 g/dL (31-36) 12/17/19 05:59 RDW 16 % (10-15) H 12/17/19 05:59 Plt Count 269 10^3/uL (150-450) 12/17/19 05:59 MPV 7.4 fL (7.4-10.4) 12/17/19 05:59 Neut % (Auto) 81.1 % 12/17/19 05:59 Lymph % (Auto) 8.3 % 12/17/19 05:59 [place] % (Auto) 9.9 % 12/17/19 05:59 Eos % (Auto) 0.2 % 12/17/19 05:59 Baso % (Auto) 0.5 % 12/17/19 05:59 Absolute Neuts (auto) 10.9 10^3/ul (1.5-7.7) H 12/17/19 05:59 Absolute Lymphs (auto) 1.1 10^3/ul (1.0-4.8) 12/17/19 05:59 Absolute Monos (auto) 1.3 10^3/ul (0-0.8) H 12/17/19 05:59 Absolute Eos (auto) 0.0 10^3/ul (0-0.6) 12/17/19 05:59 Absolute Basos (auto) 0.1 10^3/ul (0-0.2) 12/17/19 05:59 Absolute Nucleated RBC 0.0 10^3/ul 12/17/19 05:59 Immature Gran % 9.0 % (0-9) 12/17/19 05:59 Neutrophils % 77.0 % 12/17/19 05:59 Band Neutrophils % 1.0 % (0-8) 12/17/19 05:59 Lymphocytes % 7.0 % 12/17/19 05:59 Monocytes % 7.0 % 12/17/19 05:59 Metamyelocytes % 7.0 % (0-2) H 12/17/19 05:59 Myelocytes % 1.0 % (0-1) 12/17/19 05:59 Nucleated RBC % 0.1 12/17/19 05:59 Nucleated RBCs/100 WBC 1.0 (0-0) H 12/17/19 05:59 Normal RBC Morphology Not Reportable 12/17/19 05:59 Anisocytosis 1+ 12/17/19 05:59 Sodium 131 mmol/L (135-145) L 12/17/19 05:59 Potassium 5.5 mmol/L (3.5-5.0) H 12/17/19 05:59 Chloride 101 mmol/L (101-111) 12/17/19 05:59 Carbon Dioxide 23 mmol/L (22-32) 12/17/19 05:59 Anion Gap 7 mmol/L (2-11) 12/17/19 05:59 BUN 83 mg/dL (6-24) H 12/17/19 05:59 Creatinine 3.25 mg/dL (0.51-0.95) H 12/17/19 05:59 Est GFR ( Amer) 16.5 (>60) 12/17/19 05:59 Est GFR (Non-Af Amer) 13.7 (>60) 12/17/19 05:59 BUN/Creatinine Ratio 25.5 (8-20) H 12/17/19 05:59 Glucose 154 mg/dL (70-100) H 12/17/19 05:59 POC Glucose (mg/dL) 188 mg/dL (70-100) H 12/17/19 17:28 Lactic Acid 1.4 mmol/L (0.5-2.0) 12/10/19 21:08 Calcium 9.7 mg/dL (8.6-10.3) 12/17/19 05:59 Phosphorus 4.2 mg/dL (2.5-5.0) 12/16/19 06:27 Magnesium 2.3 mg/dL (1.9-2.7) 12/16/19 06:27 Total Bilirubin 0.30 mg/dL (0.2-1.0) 12/16/19 06:27 Direct Bilirubin 0.10 mg/dL (0.03-0.18) 12/15/19 09:20 Indirect Bilirubin 0.2 mg/dL (0.3-1.0) L 12/15/19 09:20 AST 31 U/L (13-39) 12/16/19 06:27 ALT 28 U/L (7-52) 12/16/19 06:27 Alkaline Phosphatase 75 U/L (34-104) 12/16/19 06:27 Ammonia 50 mcmol/L (16-53) 12/15/19 09:20 Troponin I 0.04 ng/mL (<0.03) H* 12/12/19 12:26 C-Reactive Protein 146.35 mg/L (<8.01) H 12/10/19 21:08 B-Natriuretic Peptide 63 pg/mL (<=100) 12/10/19 21:08 Total Protein 5.8 g/dL (6.4-8.9) L 12/16/19 06:27 Total Protein (PEP) 5.3 g/dL (6.3 - 7.9) L 12/13/19 10:00 Albumin 3.1 g/dL (3.2-5.2) L 12/16/19 06:27 Albumin (PEP) 2.1 g/dL (3.4-4.7) L 12/13/19 10:00 Globulin 2.7 g/dL (2-4) 12/16/19 06:27 Albumin/Globulin Ratio 1.1 (1-3) 12/16/19 06:27 Albumin/Globulin (PEP) 0.67 12/13/19 10:00 Prealbumin 26 mg/dL (18-38) 12/16/19 06:27 Wnpcf-6-Ikfmfdpmh 0.4 g/dL (0.1-0.3) H 12/13/19 10:00 Oflxj-2-Nlakmonos 1.3 g/dL (0.6-1.0) H 12/13/19 10:00 Rgvd-4-Ifsfmrfe 1.0 g/dL (0.7-1.2) 12/13/19 10:00 Gamma Globulins 0.4 g/dL (0.6-1.6) L 12/13/19 10:00 M-Cedrick Not Reportable 12/13/19 10:00 M-Cedrick 2 Not Reportable 12/13/19 10:00 PEP Impression See comment 12/13/19 10:00 Triglycerides 240 mg/dL 12/16/19 06:27 Cholesterol 147 mg/dL 12/16/19 06:27 Lipase 65 U/L (11.0-82.0) 12/10/19 21:08 TSH 5.36 mcIU/mL (0.34-5.60) 12/15/19 09:20 Urine Color Yellow 12/10/19 23:15 Urine Appearance Clear 12/10/19 23:15 Urine pH 5.0 (5-9) 12/10/19 23:15 Ur Specific [place] 1.014 (1.010-1.030) 12/10/19 23:15 Urine Protein Negative (Negative) 12/10/19 23:15 Urine Ketones Negative (Negative) 12/10/19 23:15 Urine Blood Negative (Negative) 02/14/20 23:15 Urine Nitrate Negative (Negative) 12/10/19 23:15 Urine Bilirubin Negative (Negative) 12/10/19 23:15 Urine Urobilinogen Negative (Negative) 12/10/19 23:15 Ur Leukocyte Esterase Trace (Negative) A 12/10/19 23:15 Urine WBC (Auto) Trace(0-5/hpf) (Absent) 12/10/19 23:15 Urine RBC (Auto) Absent (Absent) 12/10/19 23:15 Urine Bacteria Absent (Absent) 12/10/19 23:15 Urine Glucose Negative (Negative) 12/10/19 23:15 [place] Light Chain 5.06 mg/dL H 12/13/19 10:00 Lambda Light Chain 1.82 mg/dL 12/13/19 10:00 [place]/Lambda Ratio 2.78 H 12/13/19 10:00 Hepatitis B Antibody Not immune (Immune) A 12/13/19 10:00 Hep Bs Antigen Nonreactive (Nonreactive) 12/13/19 10:00 Hep B Core Total Ab Negative (Negative) 12/13/19 10:00 Physical exam: Temp Pulse Resp BP SpO2 FiO2 98.1 F 87 20 141/45 94 12/17/19 15:15 12/17/19 15:15 12/17/19 15:15 12/17/19 15:15 12/17/19 15:15 Constitutional: much easier to arouse, but remains slow Respiratory: Clear to auscultation anteriorly. Heart: S1, S2, regular rate and rhythm, no murmurs rubs or gallops, +1 lower extremities edema Psychiatric easy to awake, very soft voice, oriented to person and place. answering yes / no questions Assessment and plan: 79-year-old woman with progressive decline for the last several months, poor oral intake, nausea and vomiting for the last 1-2 weeks. Admitted with acute kidney injury. [place] UA. She was started on hemodialysis during this admission for maintenance of acid-base, electrolytes and volume balance 1. Acute kidney injury most probably secondary to ATN. oliguric,. Requires HD for maintenance of acid base, electrolytes and volume balance. 2. Volume overload : due to reduced urine output and high intake due to PPN. HD today with about 1.5 liters removed. Given that her uop seems to be slightly improved, weight has increased since dmission. will try Lasix 100 mg iv over 30 minutes to assess for possible kidney function recovery. 3. Mild hyperkalemia - needs correction with HD - done 4. Mild hyponatremia - due to inability to excrete free water . wonder if PPN could be concentrated so the volume received is limited. 2. Mental status changes. Her lethargy continues to improve slowly.. could be due to adrenal insufficiency which is now treated with stress dose steroids. Nephrology service is not available over the weekend.
--- NOTE | 2019-12-17 12:56 | CONSULT ---
Palliative / Hospice Consult Ordering Provider: Jacinda Pillai - PCP-Fernanda Referal Reason: Goals of care/no bowel meds/no narcotics - Subjective Code Status: DNR Advance Directives Location: No Advance Directives MOLST Part A Completed: Yes - updated on chart MOLST Part E Completed:: Yes - updated on chart - History or Present Illness History or Present Illness: 79yo female with CKD and mild dementia from [facility] on RADHA presents s/p fall with nausea and vomiting. PMH mild dementia, DM type 2, asthma, CKD, osteoarthritis, s/p stroke, chronic leg edema, diastolic HF and buttocks wounds. PSHx non smoker, no etoh, no drug use, at [facility] on RADHA, her sister Gege Acevedo is her HCP but is deferring to Laura reed's daughter to make decisions. Studies CXR neg, ekg-nsr, bilat hip xray neg, abd/pel CT- diverticulosis, R 11 & 12 th rib fx, ekg #2 nsr, RBBB, CXR #2 neg, H/H 10.9/31, BUN/Cr 51/3.01, egfr 14.9 and alb 3.1. Admitted with KYLE on CKD due to ATN, R rib fx, can't swallow and delirium. Catheter placed 12/12 and hemodialysis started 12/13 and being treated for adrenal insufficiency. Pt has previous admission 11/23-12/06 s/p fall went [facility] for RADHA. All history is from family and medical record, pt unable to contribute. Lab Values: Abnormal Lab Results 12/13/19 12/16/19 12/16/19 10:00 16:57 21:28 WBC RBC Hgb Hct MCV MCH MCHC RDW Plt Count MPV Neut % (Auto) Lymph % (Auto) [place] % (Auto) Eos % (Auto) Baso % (Auto) Absolute Neuts (auto) Absolute Lymphs (auto) Absolute Monos (auto) Absolute Eos (auto) Absolute Basos (auto) Absolute Nucleated RBC Immature Gran % Neutrophils % Band Neutrophils % Lymphocytes % Monocytes % Metamyelocytes % Myelocytes % Nucleated RBC % Nucleated RBCs/100 WBC Normal RBC Morphology Anisocytosis Sodium Potassium Chloride Carbon Dioxide Anion Gap BUN Creatinine Est GFR ( Amer) Est GFR (Non-Af Amer) BUN/Creatinine Ratio Glucose POC Glucose (mg/dL) 175 H 175 H Calcium Total Protein (PEP) 5.3 L Albumin (PEP) 2.1 L Albumin/Globulin (PEP) 0.67 Ugnpg-8-Qtxkhcqaj 0.4 H Hcisb-7-Yanjvmvsl 1.3 H Dgft-1-Oqwkzjvd 1.0 Gamma Globulins 0.4 L M-Cedrick Not Reportable M-Cedrick 2 Not Reportable PEP Impression See comment 12/17/19 12/17/19 12/17/19 05:59 05:59 07:52 WBC 13.4 H RBC 3.31 L Hgb 10.3 L Hct 31 L MCV 93 MCH 31 MCHC 34 RDW 16 H Plt Count 269 MPV 7.4 Neut % (Auto) 81.1 Lymph % (Auto) 8.3 [place] % (Auto) 9.9 Eos % (Auto) 0.2 Baso % (Auto) 0.5 Absolute Neuts (auto) 10.9 H Absolute Lymphs (auto) 1.1 Absolute Monos (auto) 1.3 H Absolute Eos (auto) 0.0 Absolute Basos (auto) 0.1 Absolute Nucleated RBC 0.0 Immature Gran % 9.0 Neutrophils % 77.0 Band Neutrophils % 1.0 Lymphocytes % 7.0 Monocytes % 7.0 Metamyelocytes % 7.0 H Myelocytes % 1.0 Nucleated RBC % 0.1 Nucleated RBCs/100 WBC 1.0 H Normal RBC Morphology Not Reportable Anisocytosis 1+ Sodium 131 L Potassium 5.5 H Chloride 101 Carbon Dioxide 23 Anion Gap 7 BUN 83 H Creatinine 3.25 H Est GFR ( Amer) 16.5 Est GFR (Non-Af Amer) 13.7 BUN/Creatinine Ratio 25.5 H Glucose 154 H POC Glucose (mg/dL) 175 H Calcium 9.7 Total Protein (PEP) Albumin (PEP) Albumin/Globulin (PEP) Nwrmu-1-Vonesruoc Autrn-7-Egmwkzuhl Zzbm-8-Tqgozzve Gamma Globulins M-Cedrick M-Cedrick 2 PEP Impression Laboratory Last Values WBC 13.4 10^3/uL (3.5-10.8) H 12/17/19 05:59 RBC 3.31 10^6 /uL (3.70-4.87) L 12/17/19 05:59 Hgb 10.3 g/dL (12.0-16.0) L 12/17/19 05:59 Hct 31 % (35-47) L 12/17/19 05:59 MCV 93 fL (80-97) 12/17/19 05:59 MCH 31 pg (27-31) 12/17/19 05:59 MCHC 34 g/dL (31-36) 12/17/19 05:59 RDW 16 % (10-15) H 12/17/19 05:59 Plt Count 269 10^3/uL (150-450) 12/17/19 05:59 MPV 7.4 fL (7.4-10.4) 12/17/19 05:59 Neut % (Auto) 81.1 % 12/17/19 05:59 Lymph % (Auto) 8.3 % 12/17/19 05:59 [place] % (Auto) 9.9 % 12/17/19 05:59 Eos % (Auto) 0.2 % 12/17/19 05:59 Baso % (Auto) 0.5 % 12/17/19 05:59 Absolute Neuts (auto) 10.9 10^3/ul (1.5-7.7) H 12/17/19 05:59 Absolute Lymphs (auto) 1.1 10^3/ul (1.0-4.8) 12/17/19 05:59 Absolute Monos (auto) 1.3 10^3/ul (0-0.8) H 12/17/19 05:59 Absolute Eos (auto) 0.0 10^3/ul (0-0.6) 12/17/19 05:59 Absolute Basos (auto) 0.1 10^3/ul (0-0.2) 12/17/19 05:59 Absolute Nucleated RBC 0.0 10^3/ul 12/17/19 05:59 Immature Gran % 9.0 % (0-9) 12/17/19 05:59 Neutrophils % 77.0 % 12/17/19 05:59 Band Neutrophils % 1.0 % (0-8) 12/17/19 05:59 Lymphocytes % 7.0 % 12/17/19 05:59 Monocytes % 7.0 % 12/17/19 05:59 Metamyelocytes % 7.0 % (0-2) H 12/17/19 05:59 Myelocytes % 1.0 % (0-1) 12/17/19 05:59 Nucleated RBC % 0.1 12/17/19 05:59 Nucleated RBCs/100 WBC 1.0 (0-0) H 12/17/19 05:59 Normal RBC Morphology Not Reportable 12/17/19 05:59 Anisocytosis 1+ 12/17/19 05:59 Sodium 131 mmol/L (135-145) L 12/17/19 05:59 Potassium 5.5 mmol/L (3.5-5.0) H 12/17/19 05:59 Chloride 101 mmol/L (101-111) 12/17/19 05:59 Carbon Dioxide 23 mmol/L (22-32) 12/17/19 05:59 Anion Gap 7 mmol/L (2-11) 12/17/19 05:59 BUN 83 mg/dL (6-24) H 12/17/19 05:59 Creatinine 3.25 mg/dL (0.51-0.95) H 12/17/19 05:59 Est GFR ( Amer) 16.5 (>60) 12/17/19 05:59 Est GFR (Non-Af Amer) 13.7 (>60) 12/17/19 05:59 BUN/Creatinine Ratio 25.5 (8-20) H 12/17/19 05:59 Glucose 154 mg/dL (70-100) H 12/17/19 05:59 POC Glucose (mg/dL) 175 mg/dL (70-100) H 12/17/19 07:52 Lactic Acid 1.4 mmol/L (0.5-2.0) 12/10/19 21:08 Calcium 9.7 mg/dL (8.6-10.3) 12/17/19 05:59 Phosphorus 4.2 mg/dL (2.5-5.0) 12/16/19 06:27 Magnesium 2.3 mg/dL (1.9-2.7) 12/16/19 06:27 Total Bilirubin 0.30 mg/dL (0.2-1.0) 12/16/19 06:27 Direct Bilirubin 0.10 mg/dL (0.03-0.18) 12/15/19 09:20 Indirect Bilirubin 0.2 mg/dL (0.3-1.0) L 12/15/19 09:20 AST 31 U/L (13-39) 12/16/19 06:27 ALT 28 U/L (7-52) 12/16/19 06:27 Alkaline Phosphatase 75 U/L (34-104) 12/16/19 06:27 Ammonia 50 mcmol/L (16-53) 12/15/19 09:20 Troponin I 0.04 ng/mL (<0.03) H* 12/12/19 12:26 C-Reactive Protein 146.35 mg/L (<8.01) H 12/10/19 21:08 B-Natriuretic Peptide 63 pg/mL (<=100) 12/10/19 21:08 Total Protein 5.8 g/dL (6.4-8.9) L 12/16/19 06:27 Total Protein (PEP) 5.3 g/dL (6.3 - 7.9) L 12/13/19 10:00 Albumin 3.1 g/dL (3.2-5.2) L 12/16/19 06:27 Albumin (PEP) 2.1 g/dL (3.4-4.7) L 12/13/19 10:00 Globulin 2.7 g/dL (2-4) 12/16/19 06:27 Albumin/Globulin Ratio 1.1 (1-3) 12/16/19 06:27 Albumin/Globulin (PEP) 0.67 12/13/19 10:00 Prealbumin 26 mg/dL (18-38) 12/16/19 06:27 Yofpq-6-Obhcdkxex 0.4 g/dL (0.1-0.3) H 12/13/19 10:00 Rubax-4-Nnhvebkfp 1.3 g/dL (0.6-1.0) H 12/13/19 10:00 Cxcn-5-Rkflmuwm 1.0 g/dL (0.7-1.2) 12/13/19 10:00 Gamma Globulins 0.4 g/dL (0.6-1.6) L 12/13/19 10:00 M-Cedrick Not Reportable 12/13/19 10:00 M-Cedrick 2 Not Reportable 12/13/19 10:00 PEP Impression See comment 12/13/19 10:00 Triglycerides 240 mg/dL 12/16/19 06:27 Cholesterol 147 mg/dL 12/16/19 06:27 Lipase 65 U/L (11.0-82.0) 12/10/19 21:08 TSH 5.36 mcIU/mL (0.34-5.60) 12/15/19 09:20 Urine Color Yellow 12/10/19 23:15 Urine Appearance Clear 12/10/19 23:15 Urine pH 5.0 (5-9) 12/10/19 23:15 Ur Specific [place] 1.014 (1.010-1.030) 12/10/19 23:15 Urine Protein Negative (Negative) 12/10/19 23:15 Urine Ketones Negative (Negative) 12/10/19 23:15 Urine Blood Negative (Negative) 12/10/19 23:15 Urine Nitrate Negative (Negative) 12/10/19 23:15 Urine Bilirubin Negative (Negative) 12/10/19 23:15 Urine Urobilinogen Negative (Negative) 12/10/19 23:15 Ur Leukocyte Esterase Trace (Negative) A 12/10/19 23:15 Urine WBC (Auto) Trace(0-5/hpf) (Absent) 12/10/19 23:15 Urine RBC (Auto) Absent (Absent) 12/10/19 23:15 Urine Bacteria Absent (Absent) 12/10/19 23:15 Urine Glucose Negative (Negative) 12/10/19 23:15 [place] Light Chain 5.06 mg/dL H 12/13/19 10:00 Lambda Light Chain 1.82 mg/dL 12/13/19 10:00 [place]/Lambda Ratio 2.78 H 12/13/19 10:00 Hepatitis B Antibody Not immune (Immune) A 12/13/19 10:00 Hep Bs Antigen Nonreactive (Nonreactive) 12/13/19 10:00 Hep B Core Total Ab Negative (Negative) 12/13/19 10:00 - Objective Active Medications: Acetaminophen (Tylenol Adult Liq*) 650 mg PO Q8H PRN PRN Reason: PAIN - MODERATE Last Admin: 12/14/19 14:15 Dose: 650 mg Albuterol (Ventolin Hfa Inhaler*) 1 puff INH Q6H PRN PRN Reason: SOB/WHEEZING Fluticasone Propionate (Flonase Nasal [place] 50mcg*) 1 spray BOTH NARES DAILY [facility] Last Admin: 02/21/20 08:20 Dose: Not Given Heparin Sodium (Porcine) (Heparin Vial(*)) 5,000 units SUBCUT Q8HR [facility] Last Admin: 12/17/19 05:29 Dose: 5,000 units Hydrocortisone Sodium Succinate (Solu-Cortef*) 50 mg IV Q6H [facility] Last Admin: 12/17/19 05:29 Dose: 50 mg Dextrose 1,000 ml/ Amino Acids 850 ml/ Sterile Water 150 ml/Fat Emulsion Intravenous 500 ml/ Sodium Chloride 100 meq/Potassium Chloride 50 meq/Potassium Phosphate 15 mmole/Calcium Gluconate 15 meq/Magnesium Sulfate 10 meq/ Multivitamins 10 ml/ Trace Metals 1 ml/ Nutrition ( Parenteral) 2,600.721 mls @ 108.422 mls/hr IV 1700 [facility] Last Admin: 12/16/19 16:54 Dose: 108.422 mls/hr Ondansetron HCl (Zofran Inj*) 4 mg IV Q4H PRN PRN Reason: NAUSEA Last Admin: 12/16/19 12:17 Dose: 4 mg Vital Signs: Vital Signs: Temp Pulse Resp BP Pulse Ox 99 F 88 20 120/43 92 12/17/19 07:15 12/17/19 07:15 12/17/19 08:00 12/17/19 07:15 12/17/19 07:15 Patient Weight: Weight 108.091 kg Intake and Output: Intake & Output 12/15/19 12/16/19 12/17/19 12/18/19 06:59 06:59 06:59 06:59 Intake Total 30 0 3547 Output Total 100 150 450 Balance -70 -150 3097 Weight 102.058 kg 103.056 kg 108.091 kg Intake: TPN/PPN 3547 Oral 30 0 0 Output: Urine 0 Sanches 100 150 450 Other: # Bowel Movements 0 0 ADLs: Meal Record Start: 12/11/19 03: 47 Freq: DAILY@0900,1400,1800 Status: Active Protocol: Created 12/11/19 03:47 System (Rec: 12/11/19 03:47 System TELE-M18) Document 12/11/19 09:00 [id number] (Rec: 12/11/19 10:42 HIQ2758 TELE-C09) Document 12/11/19 14:00 WXD8851 (Rec: 12/11/19 14:12 GSY3129 TELE-C09) Document 12/11/19 18:00 OWA3872 (Rec: 12/11/19 18:28 PJZ3601 TELE-C09) Document 12/12/19 09:00 PSX8934 (Rec: 12/12/19 10:03 BGP3926 TELE-C10) Document 12/12/19 14:00 MYS1673 (Rec: 12/12/19 15:34 BZA8114 TELE-C10) Document 12/12/19 18:00 XOG3007 (Rec: 12/12/19 23:42 ZCJ3785 TELE-C11) Document 12/13/19 09:00 GJC7126 (Rec: 12/13/19 09:13 PLI6817 TELE-C13) Document 12/13/19 14:00 ETP6760 (Rec: 12/13/19 15:06 DWD3191 TELE-C13) Document 12/13/19 18:00 WAA2441 (Rec: 12/13/19 21:50 WPH7499 TELE-C10) Document 12/14/19 08:38 CCV0574 (Rec: 12/14/19 08:38 SAS6586 TELE-C11) Document 12/14/19 14:00 BYY0379 (Rec: 12/14/19 18:47 UHR5418 [facility]- H5MHGI9) Document 12/14/19 18:00 WHF9304 (Rec: 12/14/19 22:15 NTD8604 TELE-C01) Document 12/15/19 14:00 HKA6034 (Rec: 12/15/19 14:32 ZTY1966 TELE-C09) Document 12/15/19 18:00 CQS8227 (Rec: 12/15/19 18:41 XAQ1701 TELE-C07) Document 12/16/19 09:00 TMP2025 (Rec: 12/16/19 09:24 BDL6133 TELE-C09) Document 12/16/19 12:43 OAD8660 (Rec: 12/16/19 12:43 UFD3202 TELE-C08) Document 12/16/19 17:53 XFS4216 (Rec: 12/16/19 17:53 BXO2824 TELE-C02) Document 12/17/19 09:00 LFF9495 (Rec: 12/17/19 09:56 TVB1493 TELE-C01) Intake and Output Start: 12/10/19 20: 34 Freq: Status: Active Protocol: Created 12/10/19 20:34 System (Rec: 12/10/19 20:34 System EDRM-C11) Document 12/10/19 23:59 KLA4513 (Rec: 12/11/19 00:00 HVO0421 ED-C18) Document 12/11/19 02:24 JMA2132 (Rec: 12/11/19 02:24 INA2683 ED-C18) Document 12/17/19 06:23 RMC0719 (Rec: 12/17/19 06:24 ZZT4951 TELE-C09) Intake and Output Start: 12/11/19 03: 47 Freq: DAILY@0600,1400,2200 Status: Active Protocol: Created 12/11/19 03:47 System (Rec: 12/11/19 03:47 System TELE-M18) Document 12/11/19 06:00 TBI3514 (Rec: 12/11/19 06:32 VXU1441 TELE-M03) Document 12/11/19 14:00 ENA3784 (Rec: 12/11/19 15:07 UZV2543 TELE-C09) Document 12/11/19 14:00 GBF9383 (Rec: 12/11/19 15:08 SHK1542 TELE-C11) Document 12/11/19 21:57 XPU1333 (Rec: 12/11/19 21:58 AQD2463 TELE-C11) Document 12/12/19 05:15 BDZ8450 (Rec: 12/12/19 05:19 MRX5310 TELE-C34) Document 12/12/19 14:00 ZFT6675 (Rec: 12/12/19 15:35 MDL6524 TELE-C10) Document 12/12/19 22:00 WXU3346 (Rec: 12/12/19 22:49 QWY9157 TELE-C10) Document 12/13/19 05:19 PNJ8088 (Rec: 12/13/19 05:19 VJZ7969 TELE-C08) Document 12/13/19 14:00 HJH2332 (Rec: 12/13/19 15:06 MCO8085 TELE-C13) Document 12/13/19 21:52 WOD8291 (Rec: 12/13/19 21:52 TELE-C10) Document 12/14/19 05:51 QTL2376 (Rec: 12/14/19 05:52 ZNA2962 TELE-C09) Document 12/14/19 13:10 NFB2881 (Rec: 12/14/19 13:10 FJC7890 TELE-C11) Document 12/14/19 22:00 JBO3503 (Rec: 12/14/19 22:16 IKU4845 TELE-C01) Document 12/15/19 04:31 JJW4794 (Rec: 12/15/19 04:31 LEQ6341 TELE-C03) Document 12/15/19 14:00 LIO9954 (Rec: 12/15/19 14:22 YTS2838 U-M07) Document 12/15/19 22:00 CMO1804 (Rec: 12/15/19 22:35 BIN8499 TELE-C01) Document 12/16/19 05:24 HTS1415 (Rec: 12/16/19 05:26 QKC9800 TELE-C01) Document 12/16/19 13:18 YOO0850 (Rec: 12/16/19 13:18 ILX1424 TELE-C09) Document 12/16/19 19:55 JHW0197 (Rec: 12/16/19 19:56 NGB4988 TELE-C09) Document 12/17/19 05:23 BYP8694 (Rec: 12/17/19 05:24 KYY2775 TELE-M21) Document 12/17/19 06:23 OCV9125 (Rec: 12/17/19 06:24 HOY8859 TELE-C09) Eyes: No Scleral Icterus Ears/Nose/Mouth/Throat: NL Teeth, Lips, Gums Neck: NL Appearance and Movements; NL JVP Cardiovascular: NL Sounds; No Murmurs; No JVD Abdominal: NL Sounds; No Tenderness; No Distention Extremities: - - edema present Neurological: - - alert oriented*2 confused - Assessment Assessment: 79yo female with KYLE on CKD due to ATN, R rib fx, mild dementia, unable to swallow and delirium. - Plan Consult Plan (MU): Other - Palliative/Hospice Plan: Long discussion with daughter Laura(who is the deferred to HCP) and by phone pt' s sister Sapna Woodson about goals of care. They don't want pt to suffer but feel she doesn't have a good quality of life. She has been declining over many months but it seems to them she got much worse after going to [facility]. Laura wants to talk with her family about continuing dialysis and the rest of the MOLST form. Laura and her aunt have decided pt should be DNR/DNI they don't want CPR or intubation. Laura wants to take pt home at discharge. Information/ brochure about hospice given. They would need a hospital bed if pt goes home they have a commode, wheelchair and walker already. If family elects not to pursue tube feeds pt will have a much shorter life expectancy, jan is aware. Aunt has taken care of other family members with hospice and is aware of what is involved but she lives in [place]. Daughter became tearful several times, offered visit with medical education specialist or SW but she declined saying she has other issues at home and just sad to see her mom so sick. Laura is also concerned that mom is in pain will ask provider to add prn pain meds. Pt is eligible for hospice with a diagnosis of end stage renal disease, diastolic HF, mild dementia and unable to swallow. KPS 20%, PPS 30% - Time On Unit Date of Evaluation: 12/17/19 Hospice Consult Time in: 11:30 Hospice Consult Time Out: 12:30 Hospice Consult Time Total: 60 > 50% of Time Spend In Counseling or Coordinating Care: Yes
[2019-12-17] MEDS ORDERED: HYDROmorphone INJ* 0.5 MG/0.5 ML SYRINGE IV SLOW PU PRN (15:59)
--- NOTE | 2019-12-17 16:09 | PN ---
Subjective Date of Service: 12/17/19 Interval History: Still confused. Mild improvement. Denies any complaints.Reports some sob Family History: Unchanged from Admission Social History: Unchanged from Admission Past Medical History: Unchanged from Admission Objective Active Medications: Acetaminophen (Tylenol Adult Liq*) 650 mg PO Q8H PRN PRN Reason: PAIN - MODERATE Last Admin: 12/14/19 14:15 Dose: 650 mg Albuterol (Ventolin Hfa Inhaler*) 1 puff INH Q6H PRN PRN Reason: SOB/WHEEZING Fluticasone Propionate (Flonase Nasal [place] 50mcg*) 1 spray BOTH NARES DAILY [facility] Last Admin: 12/17/19 08:20 Dose: Not Given Heparin Sodium (Porcine) (Heparin Vial(*)) 5,000 units SUBCUT Q8HR [facility] Last Admin: 12/17/19 12:52 Dose: 5,000 units Hydrocortisone Sodium Succinate (Solu-Cortef*) 50 mg IV Q12HR [facility] Hydromorphone HCl (Dilaudid Inj*) 0.25 mg IV SLOW PU Q4H PRN PRN Reason: PAIN - SEVERE Dextrose 1,000 ml/ Amino Acids 850 ml/ Sterile Water 150 ml/Fat Emulsion Intravenous 500 ml/ Sodium Chloride 100 meq/Potassium Chloride 50 meq/Potassium Phosphate 15 mmole/Calcium Gluconate 15 meq/Magnesium Sulfate 10 meq/ Multivitamins 10 ml/ Trace Metals 1 ml/ Nutrition ( Parenteral) 2,600.721 mls @ 108.422 mls/hr IV 1700 [facility] Last Admin: 12/16/19 16:54 Dose: 108.422 mls/hr Ondansetron HCl (Zofran Inj*) 4 mg IV Q4H PRN PRN Reason: NAUSEA Last Admin: 12/16/19 12:17 Dose: 4 mg Vital Signs - 8 hr 12/17/19 12/17/19 12:42 15:15 Temperature 98.6 F 98.1 F Pulse Rate 83 87 Respiratory 20 20 Rate Blood Pressure 140/40 141/45 (mmHg) O2 Sat by Pulse 92 94 Oximetry Oxygen Devices in Use Now: Nasal Cannula Eyes: No Scleral Icterus Ears/Nose/Mouth/Throat: NL Teeth, Lips, Gums Neck: NL Appearance and Movements; NL JVP Respiratory: Symmetrical Chest Expansion and Respiratory Effort, - - crackles bases Cardiovascular: NL Sounds; No Murmurs; No JVD, RRR Abdominal: NL Sounds; No Tenderness; No Distention Extremities: - - bilateral edema Neurological: - - oriented to person and place not to time. confused Result Diagrams: 12/17/19 05:59 12/17/19 05:59 Additional Lab and Data: Above labs were pulled into the note, when the note was edited prior to signing. See below for labs from day of consultation. Laboratory Tests 12/11/19 12/14/19 05:18 04:47 Sodium 136 Potassium 5.2 H Chloride 98 L Carbon Dioxide 29 BUN 79 H Creatinine 5.70 H Glucose 125 H Total Protein 6.2 L Albumin 3.4 Microbiology and Other Data: Microbiology 12/11/19 00:24 Nasal Screen MRSA (PCR) - Final Nasal Mrsa Detected EKG Data: Sinus Rhythm with occasional Trigemeny and frequent PVCs Assess/Plan/Problems-Billing Assessment: 79 yr old female with pmh dm, asthma, oa, previous stroke, chronic le edema, diastolic hf; who presented to ed with nausea, vomiting, and status post fall. - Patient Problems (1) Mlidx-zy-cwvbaie kidney injury Current Visit: Yes Status: Acute Code(s): N17.9 - ACUTE KIDNEY FAILURE, UNSPECIFIED; N18.9 - CHRONIC KIDNEY DISEASE, UNSPECIFIED SNOMED Code(s): 613768891 Comment: -Thought to be sec to ATN -Initiated on Dialysis -No renal recovery yet - Sanches in place for close monitoring of urine output (2) Altered mental status Current Visit: Yes Status: Acute Code(s): R41.82 - ALTERED MENTAL STATUS, UNSPECIFIED SNOMED Code(s): 178594968 Comment: sec dialysis dysequilibrium versus adrenal insufficiency versus hospital delirium.Likely multifactorial -Some improvement with stress dose steroids but no meaningful clinical recovery yet -Will monitor over the next 48h (3) Adrenal insufficiency Current Visit: Yes Status: Acute Code(s): E27.40 - UNSPECIFIED ADRENOCORTICAL INSUFFICIENCY SNOMED Code(s): 896921566 Comment: -Patient has been on oral steroids for several years for her asthma. Has had adrenal insufficiency noted upon previous admission. -Patient was somnolent in the last 2 days. Started on stress dose steroids hydrocortisone 50 mg iv q6h with some improvement in confusion.Will reduce to q12h and slowly decrease (4) Chronic heart failure with preserved ejection fraction Current Visit: Yes Status: Acute Code(s): I50.32 - CHRONIC DIASTOLIC ( CONGESTIVE) HEART FAILURE SNOMED Code(s): 542835077 Comment: - Cont strict I&Os - Daily weights, have been stable. - Managing fluid with dialysis (5) Dysphagia Current Visit: Yes Status: Acute Code(s): R13.10 - DYSPHAGIA, UNSPECIFIED SNOMED Code(s): 13482489 Comment: - Ability to swallow has decreased over the last few weeks. Then she failed speech therapy swallow eval, NPO recommended with holding of all oral medications. - This is likely secondary to her somnolence as well as oral candidiasis. -PPN with peripheral line -Hold on PICC placement and eval progress and mentation -Reattempt swallow eval -Continue PPN till able to tolerate PO (6) Hypertension Current Visit: Yes Status: Acute Code(s): I10 - ESSENTIAL (PRIMARY) HYPERTENSION SNOMED Code(s): 84050779 Comment: - WNL - Cont to hold diuretics and MICA (7) Oral candidiasis Current Visit: Yes Status: Acute Code(s): B37.0 - CANDIDAL STOMATITIS SNOMED Code(s): 35285022 Comment: - Unable to take in any PO. - Continue to hold corticosteroid inhaler. - nystatin swish and spit (8) Right hip pain Current Visit: Yes Status: Acute Code(s): M25.551 - PAIN IN RIGHT HIP SNOMED Code(s): 49632760 Comment: - Positioning and Tylenol - No fx (9) Right rib fracture Current Visit: Yes Status: Acute Code(s): S22.31XA - FRACTURE OF ONE RIB, RIGHT SIDE, INIT FOR CLOS FX SNOMED Code(s): 29133536 Comment: - Possible acute fx of 11th and 10th ribs - Chest xray unremarkable - Pain control with positioning. (10) Cerebellar stroke Current Visit: No Status: Acute Code(s): I63.9 - CEREBRAL INFARCTION, UNSPECIFIED SNOMED Code(s): 13318738988981988 Comment: - Hx of - Cont Statin and Plavix (11) DM2 (diabetes mellitus, type 2) Current Visit: No Status: Acute Comment: - Hold Meformin - FS ACHS and SS lispro Status and Disposition: Palliative care consult.Fam discussion.Overall prognosis poor to guarded. Time limited Trial of HD . If no improvement, consider comfort care. If improved, continue care.GOC discussion with family.
[2019-12-17] MEDS: Nystatin SUSPENSION* 100000 UNITS/ML 5 ML UDC SWISH SPIT SCH ×2 (16:39→21:39)
[2019-12-17] MEDS: TPN* 24 HR with D10W 1000 ML BAG* 1,000 ML, Amino Acid Infusion 10%* 850 ML, Sterile Wa... IV SCH ×12 (17:09)
[2019-12-17] MEDS ORDERED: Furosemide IV* 10 MG/ML 10 ML VIAL (100 MG) IV ONE (20:00)
[2019-12-18] MEDS: Heparin VIAL(*) 5000 UNITS/ML VIAL (FIVE THOUSAND) SUBCUT SCH ×3 (06:02→21:19)
[2019-12-18 07:09] LABS: Hematocrit 29 % (35-47); Mean Corpuscular HGB Conc 34 g/dL (31-36); Mean Corpuscular Hemoglobin 32 pg (27-31); Mean Corpuscular Volume 93 fL (80-97); Mean Platelet Volume 7.8 fL (7.4-10.4); Platelet Count 248 10^3/uL (150-450); Red Blood Count 3.14 10^6 /uL (3.70-4.87); Red Cell Distribution Width 16 % (10-15); White Blood Count 14.2 10^3/uL (3.5-10.8)
[2019-12-18 07:18] LABS: BUN/Creatinine Ratio 31.7 (8-20); EGFR African American 25.8 (>60); EGFR Non-African American 21.3 (>60)
[2019-12-18 07:25] LABS: Potassium 5.2 mmol/L (3.5-5.0)
[2019-12-18] MEDS: Hydrocortisone INJ* 100 MG/2 ML VIAL (in pyxis) IV SCH ×2 (08:14→21:16)
[2019-12-18] MEDS: Fluticasone NASAL SPRAY 50MCG* 16 gm SPRAY BTL BOTH NARES SCH (08:14)
[2019-12-18] MEDS: Nystatin SUSPENSION* 100000 UNITS/ML 5 ML UDC SWISH SPIT SCH ×4 (08:31→21:09)
[2019-12-18 08:33] LABS: ABS Basophils 0.1 10^3/ul (0-0.2); ABS Lymphocytes 1.6 10^3/ul (1.0-4.8); ABS Monocytes 1.3 10^3/ul (0-0.8); ABS Neutrophils 11.2 10^3/ul (1.5-7.7); ABS Nucleated RBC 0.1 10^3/ul; Eosinophil % 0.3 %; Nucleated Red Blood Cells % 0.7
--- NOTE | 2019-12-18 11:14 | PN ---
Subjective Date of Service: 12/18/19 Interval History: Patient has no complaints. She denies being hungry. She denies dyspnea or pain. No events overnight. Family History: Unchanged from Admission Social History: Unchanged from Admission Past Medical History: Unchanged from Admission Objective Active Medications: Acetaminophen (Tylenol Adult Liq*) 650 mg PO Q8H PRN PRN Reason: PAIN - MODERATE Last Admin: 12/14/19 14:15 Dose: 650 mg Albuterol (Ventolin Hfa Inhaler*) 1 puff INH Q6H PRN PRN Reason: SOB/WHEEZING Fluticasone Propionate (Flonase Nasal [place] 50mcg*) 1 spray BOTH NARES DAILY [facility] Last Admin: 12/18/19 08:14 Dose: 1 spray Heparin Sodium (Porcine) (Heparin Vial(*)) 5,000 units SUBCUT Q8HR [facility] Last Admin: 12/18/19 06:02 Dose: 5,000 units Hydrocortisone Sodium Succinate (Solu-Cortef*) 50 mg IV Q12HR [facility] Last Admin: 12/18/19 08:14 Dose: 50 mg Hydromorphone HCl (Dilaudid Inj*) 0.25 mg IV SLOW PU Q4H PRN PRN Reason: PAIN - SEVERE Dextrose 1,000 ml/ Amino Acids 850 ml/ Sterile Water 150 ml/Fat Emulsion Intravenous 500 ml/ Sodium Chloride 100 meq/Potassium Chloride 50 meq/Potassium Phosphate 15 mmole/Calcium Gluconate 15 meq/Magnesium Sulfate 10 meq/ Multivitamins 10 ml/ Trace Metals 1 ml/ Nutrition ( Parenteral) 2,600.721 mls @ 108.422 mls/hr IV 1700 [facility] Last Admin: 12/17/19 17:09 Dose: 108.422 mls/hr Nystatin (Nystatin Suspension*) 500,000 units SWISH SPIT QID [facility] Stop: 12/24/19 16:10 Last Admin: 12/18/19 08:31 Dose: Not Given Ondansetron HCl (Zofran Inj*) 4 mg IV Q4H PRN PRN Reason: NAUSEA Last Admin: 12/16/19 12:17 Dose: 4 mg Vital Signs - 8 hr 12/18/19 12/18/19 12/18/19 03:15 07:15 08:00 Temperature 36.9 C 36.8 C Pulse Rate 81 95 Respiratory 18 20 20 Rate Blood Pressure 112/42 136/44 (mmHg) O2 Sat by Pulse 95 92 Oximetry Oxygen Devices in Use Now: Nasal Cannula Appearance: sleeping, aroused to light touch Neck: No Thyroid Enlargement, Masses Respiratory: Symmetrical Chest Expansion and Respiratory Effort, Clear to Auscultation Cardiovascular: NL Sounds; No Murmurs; No JVD, RRR Abdominal: NL Sounds; No Tenderness; No Distention, - - obese Neurological: - - not oriented to place, date Lines/Tubes/Other Access: Clean, Dry and Intact PICC Line - RT forearm, Clean, Dry and Intact Central Line - dialysis cath RT IJ Nutrition: TPN Result Diagrams: 12/18/19 06:43 12/18/19 06:43 Additional Lab and Data: Laboratory Tests 12/17/19 12/18/19 12/18/19 21:47 06:43 07:17 Glucose 140 H POC Glucose (mg/dL) 168 H 153 H Assess/Plan/Problems-Billing Assessment: 79 yr old female with PMH of T2DM asthma, oa, previous stroke, chronic LE edema , diastolic CHF; who presented to ED with nausea, vomiting, and status post fall. - Patient Problems (1) Gfgxj-kp-gehtrge kidney injury Current Visit: Yes Status: Acute Priority: High Code(s): N17.9 - ACUTE KIDNEY FAILURE, UNSPECIFIED; N18.9 - CHRONIC KIDNEY DISEASE, UNSPECIFIED SNOMED Code(s): 623830812 Comment: -Thought to be sec to ATN -Initiated on Dialysis this admission -No renal recovery yet, will monitor creatinine - Sanches in place for close monitoring of urine output (2) Dysphagia Current Visit: Yes Status: Acute Priority: Medium Code(s): R13.10 - DYSPHAGIA, UNSPECIFIED SNOMED Code(s): 33165259 Comment: - Patient not safely tolerating oral food. - Currently receiving nutrition through TPN. - Would need G-tube if family wants long-term nutrition support. - If no recovery of swallowing or G-tube, life expectancy in weeks (3) Altered mental status Current Visit: Yes Status: Acute Priority: Medium Code(s): R41.82 - ALTERED MENTAL STATUS, UNSPECIFIED SNOMED Code(s): 061577594 Comment: -May be due to new dialysis vs adrenal insufficiency -Nephrology noted some improvement with stress dose steroids but no meaningful clinical recovery yet -Will monitor over the next 48h (4) Adrenal insufficiency Current Visit: Yes Status: Acute Code(s): E27.40 - UNSPECIFIED ADRENOCORTICAL INSUFFICIENCY SNOMED Code(s): 727732260 Comment: -Patient has been on oral steroids for several years for her asthma. Has had adrenal insufficiency noted upon previous admission. -Titrate IV hydrocortisone dose down tomorrow (5) DM2 (diabetes mellitus, type 2) Current Visit: No Status: Acute Priority: Medium Comment: - Meformin on hold - Glucose in good control - FS ACHS and SS lispro (6) DVT prophylaxis Current Visit: No Status: Acute Priority: Low Code(s): QRS5335 - SNOMED Code(s): 388954427 Comment: - Heparin SC Status and Disposition: Palliative care consult appreciated. Overall prognosis poor to guarded. Time limited Trial of HD . If no improvement, consider comfort care.
[2019-12-18] MEDS: TPN* 24 HR with D10W 1000 ML BAG* 1,000 ML, Amino Acid Infusion 10%* 850 ML, Sterile Wa... IV SCH ×12 (17:09)
[2019-12-19] MEDS: Heparin VIAL(*) 5000 UNITS/ML VIAL (FIVE THOUSAND) SUBCUT SCH ×3 (04:53→21:48)
[2019-12-19 05:18] LABS: Hematocrit 32 % (35-47); Hemoglobin 10.6 g/dL (12.0-16.0); Mean Corpuscular HGB Conc 33 g/dL (31-36); Mean Corpuscular Hemoglobin 31 pg (27-31); Mean Corpuscular Volume 94 fL (80-97); Mean Platelet Volume 7.9 fL (7.4-10.4); Platelet Count 275 10^3/uL (150-450); Red Cell Distribution Width 16 % (10-15); White Blood Count 15.4 10^3/uL (3.5-10.8)
[2019-12-19 05:26] LABS: ABS Lymphocytes 1.2 10^3/ul (1.0-4.8); ABS Monocytes 1.1 10^3/ul (0-0.8); ABS Nucleated RBC 0.1 10^3/ul; Eosinophil % 0.1 %; Lymphocyte % 7.7 %; Nucleated Red Blood Cells % 0.5
[2019-12-19 05:40] LABS: BUN/Creatinine Ratio 40.3 (8-20); EGFR African American 24.3 (>60)
[2019-12-19] MEDS ORDERED: Sodium Polystyrene ORAL.SUSP* 15 GM/60 ML BTL PO ONE (07:20)
[2019-12-19 07:57] LABS: Phosphorus 4.6 mg/dL (2.5-5.0)
[2019-12-19] MEDS: Fluticasone NASAL SPRAY 50MCG* 16 gm SPRAY BTL BOTH NARES SCH (08:32)
[2019-12-19] MEDS: Hydrocortisone INJ* 100 MG/2 ML VIAL (in pyxis) IV SCH (08:32)
[2019-12-19] MEDS: Nystatin SUSPENSION* 100000 UNITS/ML 5 ML UDC SWISH SPIT SCH ×5 (08:32→19:15)
--- NOTE | 2019-12-19 11:03 | PN ---
Subjective Date of Service: 12/19/19 Interval History: Ms. Verdugo is feeling poor today. She reports feeling sick, but is unable to further elaborate. Mostly just answering yes/no questions. Denies CP or SOB. Nursing expressed concern re cloudy urine. Family History: Unchanged from Admission Social History: Unchanged from Admission Past Medical History: Unchanged from Admission Objective Active Medications: Acetaminophen (Tylenol Adult Liq*) 650 mg PO Q8H PRN PAIN - MODERATE Albuterol (Ventolin Hfa Inhaler*) 1 puff INH Q6H PRN SOB/WHEEZING Fluticasone Propionate (Flonase Nasal [place] 50mcg*) 1 spray BOTH NARES DAILY [facility] Heparin Sodium (Porcine) (Heparin Vial(*)) 5,000 units SUBCUT Q8HR [facility] Hydrocortisone Sodium Succinate (Solu-Cortef*) 50 mg IV Q12HR [facility] Hydromorphone HCl (Dilaudid Inj*) 0.25 mg IV SLOW PU Q4H PRN PAIN - SEVERE Dextrose 1,000 ml/ Amino Acids 850 ml/ Sterile Water 150 ml/Fat Emulsion Intravenous 500 ml/ Sodium Chloride 120 meq/Calcium Gluconate 10 meq/Magnesium Sulfate 10 meq/Multivitamins 10 ml/ Trace Metals 1 ml/ Nutrition ( Parenteral) 2,564.968 mls @ 106.932 mls/hr IV 1700 [facility]; Protocol Nystatin (Nystatin Suspension*) 500,000 units SWISH SPIT QID [facility] Ondansetron HCl (Zofran Inj*) 4 mg IV Q4H PRN NAUSEA Vital Signs - 8 hr 12/19/19 12/19/19 12/19/19 04:10 07:51 08:00 Temperature 97.8 F 97.3 F Pulse Rate 85 83 Respiratory 17 20 20 Rate Blood Pressure 148/53 166/51 (mmHg) O2 Sat by Pulse 96 98 Oximetry Oxygen Devices in Use Now: Nasal Cannula - 1L Appearance: Elderly woman lying in bed in NAD Ears/Nose/Mouth/Throat: Mucous Membranes Moist Neck: NL Appearance and Movements; NL JVP, Trachea Midline Respiratory: Symmetrical Chest Expansion and Respiratory Effort, Clear to Auscultation Cardiovascular: NL Sounds; No Murmurs; No JVD, RRR Abdominal: NL Sounds; No Tenderness; No Distention Extremities: No Edema Neurological: - - Drowsy, oriented to self Lines/Tubes/Other Access: Clean, Dry and Intact Peripheral IV Result Diagrams: 12/19/19 04:54 12/19/19 04:54 Assess/Plan/Problems-Billing Assessment: Ms. Verdugo is an 79 yo F with PMH of DM2, asthma, OA, CVA, chronic LE edema, diastolic CHF; who presented to ED with nausea, vomiting, and status post fall, now started on acute dialysis. - Patient Problems (1) Pejlm-qn-zktdwgc kidney injury Code(s): N17.9 - ACUTE KIDNEY FAILURE, UNSPECIFIED; N18.9 - CHRONIC KIDNEY DISEASE, UNSPECIFIED Comment: - Baseline CKD stage 3, KYLE thought to be secondary to ATN - Initiated on dialysis this admission - No renal recovery yet - Sanches in place for close monitoring of urine output - Dialysis MWF (2) Hyperkalemia Code(s): E87.5 - HYPERKALEMIA Comment: - Up to 6.0 today - D/c potassium from PPN - Attempt small dose of kayexalate today, but potassium will improve with dialysis tomorrow (3) Dysphagia Code(s): R13.10 - DYSPHAGIA, UNSPECIFIED Comment: - Patient not safely tolerating oral food - Unclear etiology; does have history of CVA, but this dysphagia seems new - Would need G-tube if family wants long-term nutrition support; family still undecided - If no recovery of swallowing or G-tube, life expectancy greatly reduced - Continue PPN (4) Leukocytosis Code(s): D72.829 - ELEVATED WHITE BLOOD CELL COUNT, UNSPECIFIED Comment: - New within the last 3 days - No other signs of sepsis, but patient is clearly at high risk of infection d/ t new dialysis cath, aspiration, Sanches, etc. - Check UA, CXR, BC (5) Altered mental status Code(s): R41.82 - ALTERED MENTAL STATUS, UNSPECIFIED Comment: - May be due to new dialysis vs adrenal insufficiency, but family has noted a gradual decline over a number of months - Nephrology noted some improvement with stress dose steroids but no meaningful clinical recovery yet (6) Adrenal insufficiency Code(s): E27.40 - UNSPECIFIED ADRENOCORTICAL INSUFFICIENCY Comment: - Patient has been on oral steroids for several years for her asthma and had adrenal insufficiency noted upon previous admission -Continue hydrocortisone (dose decreased) (7) DM2 (diabetes mellitus, type 2) Comment: - Glucose in good control - Meformin on hold d/t renal function - Continue Lispro SS (8) Chronic heart failure with preserved ejection fraction Code(s): I50.32 - CHRONIC DIASTOLIC (CONGESTIVE) HEART FAILURE Comment: - Strict I&Os, daily weights, Sanches - Managing fluid volume with dialysis (9) Hypertension Code(s): I10 - ESSENTIAL (PRIMARY) HYPERTENSION Comment: - Occasional hypertension - Hold diuretics and ACEI - BP should improve with dialysis tomorrow (10) Asthma Code(s): J45.909 - UNSPECIFIED ASTHMA, UNCOMPLICATED Comment: - Not in exacerbation - Continue albuterol PRN (11) DVT prophylaxis Comment: - Heparin SQ (12) DNR (do not resuscitate) Comment: Status and Disposition: Inpatient. Overall prognosis poor. Time limited trial of HD. If no improvement, will likely return home with hospice. Attending: Jed Pate
[2019-12-19 11:28] LABS: Urine Appearance Turbid; Urine Bilirubin Negative (Negative); Urine Blood 3+ (Negative); Urine Color Amber; Urine Glucose Negative (Negative); Urine Ketones Negative (Negative); Urine Nitrite Negative (Negative); Urine Protein 1+(30 mg/dL) (Negative); Urine Specific Gravity 1.011 (1.010-1.030); Urine Urobilinogen Negative (Negative)
[2019-12-19 11:33] LABS: Urine Bacteria 1+ (Absent); Urine Red Blood Cell 3+(>10/hpf) (Absent); Urine Renal Epithelial Cells Present (Absent); Urine Squamous Epithelial Cell Present (Absent); Urine White Blood Cell 3+(>20/hpf) (Absent)
[2019-12-19] MEDS ORDERED: Aztreonam (*) 1 GM in NS 0.9% 50 ML* 50 ML IVPB ONE (16:30)
[2019-12-19] MEDS ORDERED: TPN* 24 HR with D10W 1000 ML BAG* 1,000 ML, Amino Acid Infusion 10%* 850 ML, Sterile Wa... IV SCH ×10 (17:00)
[2019-12-19] MEDS ORDERED: Dextrose 50% Syringe 50 ML* 25 GM/50 ML SYRINGE IV PUSH PRN (19:47)
[2019-12-19] MEDS ORDERED: Insulin REGULAR(*) 1 UNITS UNIT IV PUSH ONE (19:47)
[2019-12-19] MEDS ORDERED: CALCIUM GLUCONATE 1GM/50ML NS 1 GM/50 ML BAG IV ONE (19:48)
[2019-12-19] MEDS ORDERED: Patiromer POWDER* 8.4 GM PAK PO ONE (19:49)
[2019-12-19] MEDS ORDERED: Dextrose 50% Syringe 50 ML* 25 GM/50 ML SYRINGE IV PUSH ONE (20:38)
[2019-12-19] MEDS ORDERED: Hydrocortisone INJ* 100 MG/2 ML VIAL (in pyxis) IV SCH (21:00)
[2019-12-19 23:47] LABS: BUN/Creatinine Ratio 46.3 (8-20); Blood Urea Nitrogen 112 mg/dL (6-24); CO2 Carbon Dioxide 22 mmol/L (22-32); Calcium 10.1 mg/dL (8.6-10.3); Chloride 101 mmol/L (101-111); EGFR African American 23.2 (>60); EGFR Non-African American 19.2 (>60); Glucose 206 mg/dL (70-100); Sodium 129 mmol/L (135-145)
[2019-12-20] LABS: Anion Gap 6 mmol/L (2-11)
[2019-12-20] MEDS ORDERED: Aztreonam (*) 2 GM VIAL IVPB SCH (03:00)
[2019-12-20] MEDS ORDERED: NS 0.9% IVPB SCH (03:00)
[2019-12-20] MEDS ORDERED: AZTREONAM IVPB SCH (03:00)
[2019-12-20] MEDS ORDERED: Sodium Polystyrene ORAL.SUSP* 15 GM/60 ML BTL PO ONE (03:22)
[2019-12-20] MEDS ORDERED: Insulin REGULAR(*) 1 UNITS UNIT IV PUSH ONE (03:31)
[2019-12-20] MEDS ORDERED: Dextrose 50% Syringe 50 ML* 25 GM/50 ML SYRINGE IV PUSH ONE (03:31)
[2019-12-20] MEDS: Heparin VIAL(*) 5000 UNITS/ML VIAL (FIVE THOUSAND) SUBCUT SCH (05:12)
[2019-12-20 06:01] LABS: Hematocrit 29 % (35-47); Hemoglobin 9.9 g/dL (12.0-16.0); Mean Corpuscular HGB Conc 34 g/dL (31-36); Mean Corpuscular Hemoglobin 32 pg (27-31); Mean Corpuscular Volume 95 fL (80-97); Mean Platelet Volume 8.7 fL (7.4-10.4); Platelet Count 256 10^3/uL (150-450); Red Blood Count 3.05 10^6 /uL (3.70-4.87); Red Cell Distribution Width 17 % (10-15); White Blood Count 16.1 10^3/uL (3.5-10.8)
[2019-12-20 06:22] LABS: BUN/Creatinine Ratio 49.6 (8-20); Calcium 9.8 mg/dL (8.6-10.3); EGFR African American 23.9 (>60); EGFR Non-African American 19.8 (>60)
[2019-12-20 06:33] LABS: Potassium 5.5 mmol/L (3.5-5.0)
[2019-12-20 06:44] LABS: ABS Basophils 0.1 10^3/ul (0-0.2); ABS Eosinophils 0.1 10^3/ul (0-0.6); ABS Lymphocytes 1.4 10^3/ul (1.0-4.8); ABS Monocytes 1.2 10^3/ul (0-0.8); ABS Neutrophils 13.3 10^3/ul (1.5-7.7); ABS Nucleated RBC 0.2 10^3/ul; Eosinophil % 0.5 %; Lymphocyte % 8.7 %; Nucleated Red Blood Cells % 1.2; Polychromasia 1+
--- NOTE | 2019-12-20 07:58 | PN ---
Progress Note - Progress Note Date of Service: 12/20/19 Note: I spoke to the NOK, her daughter, Laura Mercado. [phone] The family signed for hospice and refused continuing HD. Refused TDC tomorrow. I respect their wishes.
[2019-12-20 08:04] VITALS: BP 140/35
[2019-12-20] MEDS ORDERED: Atropine 1% (ORAL/SL)* 15 ML BTL SL PRN (08:52)
[2019-12-20] MEDS ORDERED: LORazepam INJ* 2 MG/ML 1 ML VIAL IV PUSH PRN (08:52)
--- NOTE | 2019-12-20 10:44 | PN ---
Subjective Date of Service: 12/20/19 Interval History: Ms. Verdugo is stuporous this morning, only moaning while being rolled in bed and not responding to any questions. Daughter, Laura, at bedside this morning and is opting for comfort measures only. She does not wish to continue dialysis, PPN , or antibiotics. New MOLST completed. No concerns from nursing. Family History: Unchanged from Admission Social History: Unchanged from Admission Past Medical History: Unchanged from Admission Objective Active Medications: Acetaminophen (Tylenol 650 Mg Supp) 650 mg NE Q4H PRN MILD PAIN or TEMP > 100.4 Atropine Sulfate (Atropine 1% (Oral/Sl)*) 2 drop SL Q2H PRN Terminal Secretions Hydromorphone HCl (Dilaudid Inj*) 0.25 mg IV SLOW PU Q4H PRN PAIN - SEVERE Lorazepam (Ativan Inj*) 1 mg IV PUSH Q4H PRN Anxiety/Agitation Morphine Sulfate (Morphine Oral Concentrate*) 5 mg SL Q2H PRN Pain - Severe or air hunger Ondansetron HCl (Zofran Inj*) 4 mg IV Q4H PRN NAUSEA Vital Signs - 8 hr 12/20/19 12/20/19 12/20/19 03:11 07:43 08:00 Temperature 98.1 F 98.1 F Pulse Rate 80 94 Respiratory 22 24 24 Rate Blood Pressure 134/36 140/35 (mmHg) O2 Sat by Pulse 98 97 Oximetry Oxygen Devices in Use Now: OxyMask - 2L Appearance: Elderly female lying in bed in NAD, stuporous Neck: NL Appearance and Movements; NL JVP, Trachea Midline Respiratory: Symmetrical Chest Expansion and Respiratory Effort, - - Scattered rhonchi Cardiovascular: NL Sounds; No Murmurs; No JVD, RRR Abdominal: NL Sounds; No Tenderness; No Distention Extremities: - - Generalized +2 Neurological: - - Only responsive to painful stimuli Lines/Tubes/Other Access: Clean, Dry and Intact Peripheral IV Result Diagrams: 12/20/19 05:51 12/20/19 05:51 Assess/Plan/Problems-Billing Assessment: Ms. Verdugo is an 79 yo F with PMH of DM2, asthma, OA, CVA, chronic LE edema, diastolic CHF; who presented to ED with nausea, vomiting, and status post fall, started on acute dialysis. - Patient Problems (1) Comfort measures only status Code(s): Z51.5 - ENCOUNTER FOR PALLIATIVE CARE Comment: - Family has discussed and would like to pursue comfort measures only, declining further dialysis, artificial nutrition, abx - Family would ideally like to take patient home with hospice - Palliative care consult; will submit hospice referral - Start morphine, lorazepam, atropine (2) Mktqo-bf-pqvjrbk kidney injury Code(s): N17.9 - ACUTE KIDNEY FAILURE, UNSPECIFIED; N18.9 - CHRONIC KIDNEY DISEASE, UNSPECIFIED Comment: - Baseline CKD stage 3, KYLE thought to be secondary to ATN - Initiated on dialysis this admission - Family declining further dialysis treatments (3) Hyperkalemia Code(s): E87.5 - HYPERKALEMIA Comment: - Will not correct as patient is now comfort care (4) Dysphagia Code(s): R13.10 - DYSPHAGIA, UNSPECIFIED Comment: - NPO - PPN d/c'd (5) Leukocytosis Code(s): D72.829 - ELEVATED WHITE BLOOD CELL COUNT, UNSPECIFIED Comment: - Family declining further antibiotics (6) Adrenal insufficiency Code(s): E27.40 - UNSPECIFIED ADRENOCORTICAL INSUFFICIENCY Comment: - D/c hydrocortisone (7) DM2 (diabetes mellitus, type 2) Comment: - D/c FSBG and insulin (8) Chronic heart failure with preserved ejection fraction Code(s): I50.32 - CHRONIC DIASTOLIC (CONGESTIVE) HEART FAILURE Comment: - No further treatment (9) Hypertension Code(s): I10 - ESSENTIAL (PRIMARY) HYPERTENSION Comment: - No further treatment (10) Asthma Code(s): J45.909 - UNSPECIFIED ASTHMA, UNCOMPLICATED Comment: - Oxygen PRN (11) DVT prophylaxis Comment: - None in the setting of comfort measures only (12) DNR (do not resuscitate) Comment: Status and Disposition: Inpatient. Comfort care. Initiating referral for hospice at home. Will need to arrange for hospital bed. Attending: Jed Pate
[2019-12-20] MEDS: Morphine ORAL CONCENTRATE* 5 MG/0.25 ML ORAL.SYRIN SL PRN ×2 (11:36→13:37)
[2019-12-20] MEDS ORDERED: Morphine ORAL CONCENTRATE* 5 MG/0.25 ML ORAL.SYRIN SL PRN (14:13)
[2019-12-20] MEDS ORDERED: HYDROmorphone INJ* 0.5 MG/0.5 ML SYRINGE IV SLOW PU PRN (14:15)
[2019-12-20] MEDS ORDERED: Scopolamine 1.5 mg* PATCH TRANSDERM SCH (15:00)
--- NOTE | 2019-12-20 19:19 | DCNOTE ---
Arrived to pronounce the of pt Kya Verdugo. Pt was found unresponsive to all stimuli. On exam pupils were fixed and dilated and no HR or spontaneous respirations were observed. TOD 18:28 on 12/20/19. Pt's daughter Laura was notified and is on her way. Family is not interested in an autopsy
--- NOTE | 2019-12-21 21:35 | DS ---
CC: Dr. Hans Michael * SUMMARY: DATE OF ADMISSION: 12/11/19 DATE OF EXPIRATION: 12/20/19 TIME OF : 1827. PRIMARY CARE PROVIDER: Dr. Hans Michael. ATTENDING PHYSICIAN: Dr. Jed Pate.* (DICTATED BY MAGDI LEYVA NP) PRIMARY DIAGNOSES: 1. Acute on chronic renal failure, suspected secondary to acute tubular necrosis. 2. Hyperkalemia. 3. Dysphagia. 4. Urinary tract infection. SECONDARY DIAGNOSES: 1. Adrenal insufficiency. 2. Diabetes mellitus type 2. 3. Heart failure with preserved ejection fraction. 4. Hypertension. 5. Asthma. HISTORY OF ILLNESS AND HOSPITAL COURSE: Ms. Verdugo was an 79-year-old female with past medical history of asthma, diabetes, stroke, hypertension, diastolic heart failure, and chronic kidney disease, who presented to the emergency room on 12/11/19 after a fall and with nausea and vomiting. Please see the history and physical by Dr. Lagos for a complete summary of the events leading up to this hospitalization. In short, the patient was hospitalized at this facility from 11/23/19 to 12/06/19. At that time, she was treated for asthma exacerbation and CHF exacerbation. She did have some acute on chronic kidney injury, which was essentially resolved at the time of discharge. She was discharged to [facility], [place]. The patient subsequently had a fall there without any obvious injury, then began to complain of abdominal pain, nausea, and vomiting, as well as decreased urine output, so she was brought to the emergency room. In the emergency room, she was noted to have a creatinine of 7.49 compared to her baseline of around 1.3 to 1.4. Because of these findings, she was admitted by the hospitalist service. Nephrology was consulted. The patient was noted to have persistent hyperkalemia and oliguria and so the decision was made to pursue acute dialysis. The family was in agreement with this. The patient had a temporary hemodialysis catheter placed on 12/12/19 and had her first hemodialysis session on 12/13/19. Creatinine did show improvement, but the patient did have persistent hyperkalemia. She additionally was noted to have some new oxygen requirement and generally seemed to be declining. She was noted to have significant dysphagia and so the patient was made n.p.o. and TPN was initiated. At that time, the family was unsure if they wanted to pursue a more permanent source for artificial nutrition. Palliative Care was consulted on 12/17/19 and at that point the family decided to take the weekend to talk and make some decisions. On the morning of 12/20/19, the patient seemed to be gradually declining. She was responding to pain, though was generally unarousable. Respiratory status was stable, but she was noted to have tachypnea. She was initiated on antibiotics for urinary tract infection. I spoke with the family in the morning and after speaking over the weekend, they decided to pursue comfort measures only. They did not want to pursue any permanent tube for artificial nutrition and did not want to subject the patient to any further hemodialysis treatments. They completed a new MOLST form and again met with Dr. Rodriguez from Palliative Care. Comfort care was initiated and the patient was given morphine for pain and air hunger. She did have an elevated respiratory rate throughout the day despite high doses of sublingual morphine. The nurse entered the room at 1828 and at that point noted that the patient was not breathing and had no heart rate. Provider was called and Dr. Gonzalez went in to assess and confirmed the time of at 1828. At that time, she called the family to notify them and at that point they were on their way in. They declined an autopsy and declined any further needs. DISCHARGE CONDITION: . DISCHARGE DISPOSITION: . This is a summarized report of a complex medical history and hospital stay. For further details, please see the entire medical record. TIME SPENT: Approximately 60 minutes was spent on the care of this patient. MAGDI LEYVA NP [id number]/CPS #: [id number] MIKE
[2019-12-23] MEDS ORDERED: Scopolamine PATCH Remove* 1 NOTE MISC PATCH OFF SCH (15:00)
== END 2019-12-20 18:28 | disposition expired | DRG 682 ==
LOC: ED 20:26 → MEDTELE 12-11 01:04
PROVIDERS: ADMIT Internal Medicine; ATTEND Internal Medicine
PROC: 05HM33Z Insertion of Infusion Device into Right Internal Jugular Vein, Percutaneous Approach (ICD-10-PCS; principal; 2019-12-12)
PROC: B543ZZA Ultrasonography of Right Jugular Veins, Guidance (ICD-10-PCS; 2019-12-12)
PROC: 5A1D70Z Performance of Urinary Filtration, Intermittent, Less than 6 Hours Per Day (ICD-10-PCS; 2019-12-12)
DX: N17.0 Acute kidney failure with tubular necrosis (principal); L89.313 Pressure ulcer of right buttock, stage 3; I50.32 Chronic diastolic (congestive) heart failure; I13.0 Hypertensive heart and chronic kidney disease with heart failure and stage 1 through stage 4 chronic kidney disease, or unspecified chronic kidney disease; M84.48XA Pathological fracture, other site, initial encounter for fracture; B37.0 Candidal stomatitis; E27.40 Unspecified adrenocortical insufficiency; E87.1 Hypo-osmolality and hyponatremia; N39.0 Urinary tract infection, site not specified; E11.22 Type 2 diabetes mellitus with diabetic chronic kidney disease; E78.00 Pure hypercholesterolemia, unspecified; J45.909 Unspecified asthma, uncomplicated; N18.9 Chronic kidney disease, unspecified; R79.89 Other specified abnormal findings of blood chemistry; E66.01 Morbid (severe) obesity due to excess calories; Z51.5 Encounter for palliative care; I45.10 Unspecified right bundle-branch block; F03.90 Unspecified dementia, unspecified severity, without behavioral disturbance, psychotic disturbance, mood disturbance, and anxiety; Z66 Do not resuscitate; E87.5 Hyperkalemia; R13.10 Dysphagia, unspecified; M19.90 Unspecified osteoarthritis, unspecified site; Z98.42 Cataract extraction status, left eye; Z88.0 Allergy status to penicillin; Z88.1 Allergy status to other antibiotic agents; Z88.8 Allergy status to other drugs, medicaments and biological substances; Z91.013 Allergy to seafood; Z68.36 Body mass index [BMI] 36.0-36.9, adult; Z98.41 Cataract extraction status, right eye; Z86.73 Personal history of transient ischemic attack (TIA), and cerebral infarction without residual deficits
CPT/HCPCS: 36415; 71045; 71046; 73523; 74176; 80048; 80053; 80076; 81003; 81015; 82140; 82465; 83605; 83690; 83735; 83880; 83883; 84100; 84132; 84134; 84155; 84165; 84443; 84478; 84484; 85025; 86140; 86704; 86706; 87040; 87086; 87340; 87641; 90935; 93005; 94640; 99284; A9270-GY; G0257; J0610; J1170; J1644; J1720; J1940; J2270; J2405; J3475; J3480; J7509